=== PATIENT | female | born 1965 | race Caucasian/White ===

== ENCOUNTER 2020-01-26 20:12 | Emergency (ER) | payer MEDICARE, MEDICAID, SELFPAY ==
--- NOTE | ~2020-01-26 | XR_ITS ---
EXAMINATION: XR chest 1V portable INDICATION: Shortness of breath and cough TECHNIQUE: Portable AP chest at 2047 hours COMPARISON: 07/24/2018 FINDINGS: There is stable cardiomegaly. A mild diffuse interstitial pattern is present. The lungs are hyperinflated. Chronic right basilar basilar atelectasis is stable. A dual-lead cardiac pacemaker of the left chest wall ends with leads in expected locations. No pneumothorax is identified. A small ri ght pleural effusion is stable. IMPRESSION: 1. Cardiomegaly with mild pulmonary edema. 2. Chronic small right pleural effusion. Reviewed, dictated and finalized at location A.
--- NOTE | ~2020-01-26 | CT_ITS ---
EXAMINATION: CT chest wo con DATE: 01/26/2020 21:44 INDICATION: Shortness of breath TECHNIQUE: Computed tomography (CT) of the chest was performed without intravenous contrast. The dose -length product (DLP) was 174.53 mGy-cm. Automated exposure control and iterative reconstruction tech [employer]-transfection were employed. COMPARISON: 10/16/2003 FINDINGS: Cardiomegaly is noted. There is a moderate-sized pericardial effusion. A small chronic righ t pleural effusion is noted. There is chronic volume loss and architectural distortion of the right u pper lobe. There is no pneumothorax. A dual-lead cardiac pacemaker of the left chest wall ends with l thiago in expected locations. No pathologically enlarged thoracic lymph nodes are identified. There is atrophy of the kidneys. Extensive calcified atherosclerosis is noted, particularly in the visualized upper abdomen. There is calcified coronary artery atherosclerosis. Widespread sclerosis of the visual ized osseous structures likely reflects renal osteodystrophy. IMPRESSION: 1. Cardiomegaly. 2. Moderate-sized pericardial effusion. 3. Small chronic right pleural effusion. Reviewed, dictated and finalized at location A.
[2020-01-26 20:23] VITALS: BP 134/62; PULSE 117; RESP 30; TEMP 36.7; O2SAT 86
--- NOTE | 2020-01-26 20:23 | ECG_ITS ---
Measurements Intervals [place] Rate: 43 P: [place]: 0 QRS: 167 QRSD: 94 T: 137 QT: 590 QTc: 499 Interpretive Statements SINUS TACHYCARDIA VENTRICULAR PREMATURE COMPLEXES BORDERLINE R WAVE PROGRESSION, ANTERIOR LEADS BORDERLINE T WAVE ABNORMALITY- HIGH LATERAL LEADS BASELINE ARTIFACT- I, II, AVR, AVL, AVF, V1-V6 ABNORMAL ECG Electronically Signed On 01-27-2020 6:40:41 CDT by Gregorio Tristan D.O.
--- NOTE | 2020-01-26 20:27 | PC.NURSE ---
pt placed on 2 L o2 a this time. pt 96% on 2 L
[2020-01-26 20:33] VITALS: O2SAT 95
[2020-01-26 20:35] LABS: Hematocrit 38.8 % (37.0-47.0); Hemoglobin 11.9 g/dL (12.0-15.0); Mean Corpuscular HGB Conc 30.7 g/dl (32-36); Mean Corpuscular Volume 104.3 fl (80-100); Mean Platelet Volume 12.7 fl (7.4-10.4); Platelet Count Result 80 k/mm3 (150-375); Red Blood Count 3.72 M/mm3 (4.2-5.4); Red Cell Distribution Width 15.1 % (11.5-14.5); White Blood Count 15.5 K/mm3 (4.5-10.0)
--- NOTE | 2020-01-26 20:36 | PC.NURSE ---
PT PRESENTS TO ED WITH LEFT UPPER ARM FISTULA + FOR BRUIT AND THRILL. PT STATES THAT SHE HAD HER FULL HD TREATMENT ON Sunday01/23/2020, BUT DID NOT GO TO HD TODAY BECAUSE SHE FELT SO BAD. PT STATES HER NORMAL HD DAYS ARE // AND SHE GOES TO [facility] IN [place].
[2020-01-26 20:45] LABS: INR 1.1; Prothrombin Time 14.2 Seconds (11.1-14.7)
[2020-01-26 20:47] LABS: Anion Gap 14 mmol/L (8-16); Blood Urea Nitrogen 36 mg/dL (7-17); Calcium 8.8 mg/dL (8.4-10.2); Carbon Dioxide 24 mmol/L (22-30); Chloride 96 mmol/L (98-107); Estimated Glomerular Filt Rate 6; Glucose 172 mg/dL (65-105); Potassium 4.6 mmol/L (3.4-5.0); Sodium 134 mmol/L (137-145)
[2020-01-26 20:55] LABS: Band Neutrophils Percent 16 % (0-6); Lymphocytes Absolute Manual 1.24 K/mm3 (1.1-4.5); Monocytes Absolute Manual 0.31 K/mm3 (0.1-0.90); Monocytes Percent Manual 2 % (3-9); Neutrophils Absolute Manual 13.95 K/mm3 (1.7-7.2); Neutrophils Percent Manual 74 % (46-73); Total Cells Counted 100
[2020-01-26 20:56] LABS: Anisocytosis 2+ (NORMAL); Platelet Estimate Decreased (Adequate)
[2020-01-26 20:57] LABS: Hypochromasia 1+ (NORMAL); NT Pro B Type Natriuretic Pept > 35000 PG/ML (5-100)
[2020-01-26] MEDS: methylPREDNISolone SOD SUCC 125 MG VIAL IV PUSH (21:00)
[2020-01-26] MEDS: ALBUTEROL SULFATE NEB 2.5 MG/0.5 ML INH 5 MG INHALATION (21:11)
[2020-01-26] MEDS: IPRATROPIUM BR 0.02% INH SOLN 0.5 MG/2.5 ML VIAL INHALATION (21:12)
[2020-01-26 21:15] VITALS: PULSE 114; RESP 40
[2020-01-26 21:20] LABS: Troponin I 0.158 ng/mL (0.000-0.034)
[2020-01-26 21:25] VITALS: PULSE 116; RESP 28
[2020-01-26] MEDS: ASPIRIN 81 MG CHEWABLE TABLET 324 MG PO (21:48)
[2020-01-26 22:16] LABS: Alveolar/Arterial O2 Gradient 107.7 mmHg; Base Excess ABG -2.4 mEq/l (+/-2.0); Carboxyhemoglobin 0.8 % THb (0-2.0); Fractional Inspired Oxygen 32 %; HCO3 ABG 23.3 mEq/l (22.0-26.0); Methemoglobin ABG 0.2 %THb (0-1.5); Oxygen Content ABG 14.6 %vol (16.0-22.0); Oxyhemoglobin 92.2 % THb (90.0-100.0); PCO2 ABG 43.7 mmHg (35.0-45.0); PO2 ABG 69.3 mmHg (80.0-100.0); PO2 FiO2 Ratio Arterial Blood 2.17 %; Reduced Hemoglobin 6.8 %THb (0-5.0); Total Hemoglobin 11.2 g/dL (12.0-18.0); pH ABG 7.344 (7.350-7.450)
[2020-01-26 22:17] LABS: Lactic Acid Reflex 1.3 mmol/L (0.7-2.1)
[2020-01-26 22:18] LABS: Device NASAL CANNULA; Modified Allen's Test Pass; Site Drawn RIGHT RADIAL
[2020-01-26 22:47] VITALS: BP 88/46; PULSE 97; RESP 24; TEMP 38.6; O2SAT 97
--- NOTE | 2020-01-26 23:06 | ED.SOB ---
HPI - SOB/Dyspnea General Chief Complaint: Shortness of Breath/Dyspnea Stated Complaint: sob Time Seen by Provider: 01/26/20 20:29 Source: patient History of Present Illness HPI Narrative: Pt c/o sob, started today, h/o COPD and CHF. Denies any chest pain, fever, abd pain, n/v/d or urinary symptoms. Related Data Home Medications Medication Instructions Recorded Confirmed albuterol sulfate 04/09/19 albuterol sulfate [Ventolin HFA] 1 - 2 inh INHALATION Q4-6H PRN 04/09/19 alprazolam 0.5 mg PO HS 04/09/19 carvedilol 25 mg PO BID 04/09/19 clopidogrel 75 mg PO DAILY 04/09/19 furosemide 40 04/09/19 insulin aspart U-100 [Novolog 12 unit SUBCUT QACLUNCH 04/09/19 U-100 Insulin aspart] insulin glargine [Basaglar KwikPen 40 unit SUBCUT HS 04/09/19 U-100 Insulin] midodrine 5 mg PO 3XW 01/27/20 Allergies Allergy/AdvReac Type Severity Reaction Status Date / Time No Known Allergies Allergy Verified 01/26/20 20:36 Review of Systems Review of Systems: All systems reviewed & are unremarkable except as noted in HPI and below Constitutional: Constitutional: Denies body ache(s), Denies chills, Denies excessive sweating, Denies fatigue, Denies fever(s), Denies headache(s), Denies lethargy, Denies malaise, Denies weakness and Denies weight loss Eyes: Eyes: Denies blurry vision, Denies change in vision and Denies loss of vision ENT: Denies dizziness, Denies ear discharge, Denies headache(s), Denies lip swelling, Denies epistaxis, Denies nasal congestion, Denies neck pain, Denies throat swelling and Denies tongue swelling Cardiovascular: Cardiovascular: Denies chest pain, Denies chest pain at rest, Denies chest pain with activity, Denies diaphoresis, Denies rapid heart rate, Denies edema, Denies irregular heart rhythm, Denies lightheadedness, Denies palpitations, Denies dyspnea and Denies dyspnea on exertion Respiratory: Respiratory: Denies chest congestion, Reports cough, Denies hemoptysis and Reports dyspnea Gastrointestinal: Gastrointestinal: Denies abdominal pain, Denies melena, Denies hematochezia, Denies diarrhea, Denies nausea, Denies vomiting and Denies hematemesis Musculoskeletal: Musculoskeletal: Denies abnormal gait, Denies deformity, Denies joint swelling, Denies limited range of motion, Denies neck pain and Denies numbness Neurologic: Denies Abnormal speech present, Denies abnormal gait, Denies confusion, Denies dizziness, Denies headache(s), Denies focal weakness, Denies loss of vision, Denies numbness, Denies Other visual disturbances, Denies Sensory deficit (Neuro) and Denies weakness Psychiatric: Psychiatric: Denies confusion, Denies depression, Denies auditory hallucinations, Denies homicidal ideation and Denies suicidal ideation Endocrine: Endocrine: Denies cold intolerance, Denies excessive sweating, Denies fatigue, Denies heat intolerance and Denies palpitations Hematologic/Lymphatic: Hematologic/Lymphatic: Denies easy bleeding and Denies easy bruising Allergic/Immunologic: Allergic/Immunologic: Denies lip swelling, Denies throat swelling and Denies tongue swelling [facility] Social History Social History Smoking status: Current every day smoker Alcohol intake: current Gender identity (if verbalized by the patient): Female Exam Const: General: no acute distress (severe distress) and ill appearing HENMT: Head: normal to inspection General nose exam: Normal nares present Face and sinus: normal facial exam Eyes: Conjunctivae: conjunctivae normal Pupils: Equal, round and reactive pupils present EOM: EOMs intact bilaterally Resp: Effort & Inspection: labored (severe), retractions, tachypneic and uses accessory muscles Auscultation: rhonchi, wheezes and diminished lung sounds Cardio: Rate: tachycardic Rhythm: regular rhythm GI: GI Palp: Yes Soft to palpation Auscultation: normal bowel sounds Other: nn : Other: NON TENDER Skin: Ge
[2020-01-26] MEDS: ACETAMINOPHEN 325 MG TABLET 650 MG PO (23:12)
[2020-01-26] MEDS: LACTATED RINGERS 1,000 ML 999 ML IV CONT (23:16)
[2020-01-26 23:21] LABS: CRP 4.3 mg/dL (<1.0)
[2020-01-27] VITALS (12 sets, daily range): BP systolic 80–134; BP diastolic 40–88; PULSE 79–90; RESP 16–24; TEMP 36.4–36.8; O2SAT 96–100
[2020-01-27] MEDS: NOREPINEPHRINE 8 MG/D5W 250 ML 8 MG/250 ML BAG 13.1 MG IV CONT (01:45)
--- NOTE | 2020-01-27 04:10 | PC.NURSE ---
Called [facility] to transport patient. ETA [phone]
--- NOTE | 2020-01-27 04:17 | PC.NURSE ---
called [facility] to transport patient. Declined - they only have one truck until 9am
--- NOTE | 2020-01-27 04:19 | PC.NURSE ---
called [facility] to transport patient. declined
--- NOTE | 2020-01-27 04:21 | PC.NURSE ---
called [facility] to request transport. ETA would be 1 1/2 - 2 hour. Same as Ag[facility].
[2020-01-27] MEDS: ONDANSETRON INJ 4 MG/2 ML VIAL IV PUSH (05:07)
--- NOTE | 2020-01-27 06:03 | PC.NURSE ---
called [facility] for ETA update. ETA [phone]
--- NOTE | 2020-01-27 06:34 | PC.NURSE ---
[facility] called with ETA update of [id number]
[2020-01-27 13:55] LABS: SARS-CoV-2 RNA PCR Negative
== END 2020-01-27 08:11 | disposition short-term general hospital (02) ==
PROVIDERS: Emergency Provider Emergency Medicine; PCP Family Medicine
DX: A41.9 Sepsis, unspecified organism (principal); J96.01 Acute respiratory failure with hypoxia; I31.3 Pericardial effusion (noninflammatory); N18.6 End stage renal disease; I13.2 Hypertensive heart and chronic kidney disease with heart failure and with stage 5 chronic kidney disease, or end stage renal disease; E11.22 Type 2 diabetes mellitus with diabetic chronic kidney disease; Z79.4 Long term (current) use of insulin; I50.9 Heart failure, unspecified; F17.200 Nicotine dependence, unspecified, uncomplicated; J44.9 Chronic obstructive pulmonary disease, unspecified; Z20.828 Contact with and (suspected) exposure to other viral communicable diseases
CPT/HCPCS: 36415; 36600; 71045; 71250; 80048; 82375; 82805; 83050; 83605; 83880; 84484; 85025; 85610; 85730; 86140; 87040; 87077; 87186; 87635; 93005; 94640; 96361; 96365; 96366; 96367; 96368; 96375; 99285; A9270; C9803; J0456; J0696; J2405; J2930; J3370; J7120; U0003

== ENCOUNTER 2020-03-01 17:01 | Emergency (ER) | payer MEDICARE, MEDICAID, SELFPAY ==
[2020-03-01 17:15] VITALS: BP 117/49; PULSE 86; RESP 16; TEMP 36.3
--- NOTE | 2020-03-01 17:47 | ED.EAR ---
HPI - Ear Problem General Chief complaint: Ear Stated complaint: Ear Bleeding Source: patient and RN notes reviewed Limitations: no limitations History of Present Illness HPI Narrative: The patient- on multiple meds for IDDM, CAD, CKD(cre 5-6) on dialysis-presents with bleeding. Patient states that she is on aspirin and antiplatelet medications for recent cardiac stent placement last week. She was cleaning ears this morning and noticed scant bleeding from the external canal which has not completely resolved. She complains of mild bleeding that is worse with position changes better with compression or cotton insertion. Last month, her last available labs were satisfactory including H&H , INR 1.1 , PLT 80; no presyncope, vertigo, hearing loss, other bleeding. 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 Related Data Home Medications Medication Instructions Recorded Confirmed albuterol sulfate 2.5 mg INHALATION DIRECTED 04/09/19 03/01/20 albuterol sulfate [Ventolin HFA] 1 - 2 inh INHALATION Q4-6H PRN 04/09/19 03/01/20 alprazolam 0.5 mg PO HS 04/09/19 03/01/20 clopidogrel 75 mg PO DAILY 04/09/19 03/01/20 furosemide 40 mg PO DAILY 04/09/19 03/01/20 insulin aspart U-100 [Novolog 12 unit SUBCUT QACLUNCH 04/09/19 03/01/20 U-100 Insulin aspart] insulin glargine [Basaglar KwikPen 40 unit SUBCUT HS 04/09/19 03/01/20 U-100 Insulin] midodrine 5 mg PO 3XW 01/27/20 03/01/20 aspirin 81 mg PO DAILY 03/01/20 03/01/20 atorvastatin 80 mg PO DAILY 03/01/20 03/01/20 budesonide-formoterol [Symbicort] 2 inh INHALATION DAILY 03/01/20 03/01/20 metoprolol succinate 25 mg PO DAILY 03/01/20 03/01/20 Allergies Allergy/AdvReac Type Severity Reaction Status Date / Time No Known Allergies Allergy Verified 03/01/20 17:24 Review of Systems Review of Systems: Narrative: General/Constitutional: No weight loss,fever Eyes: N0: Redness,discharge Ears/Nose/Throat: No: Epistaxis, REPORTS mild bloody ear discharge Respiratory: Denies: Hemoptysis Gastrointestinal: No Vomiting, Bleeding-rectal Skin: No Lumps, eruption Neurologic: No Focal Weakness,Sz Hematologic: Denies: Petechiae/Purpura Psychiatric: No: Suicida ideationl All Other Systems: Reviewed and Negative [facility] Past Medical History Medical History (Updated 03/01/20 @ 19:16 by Gerald Montes MD) Arthropathy of right ankle Asthma Bronchitis CAD (coronary artery disease) CHF (congestive heart failure) COPD (chronic obstructive pulmonary disease) Diabetes mellitus Diabetic retinopathy End stage renal disease on dialysis Fistula HLD (hyperlipidemia) HTN (hypertension) Myocardial infarction Peripheral neuropathy Pneumonia UTI (urinary tract infection) Surgical History Surgical History AICD (automatic cardioverter/defibrillator) present H/O section H/O heart artery stent History of cardiac catheterization Social History Social History Smoking status: Current every day smoker Alcohol intake: current Gender identity (if verbalized by the patient): Female Comments At time of signature, agree with nursing past medical, surgical, social and family history. There is no relevant family history pertinent to the presenting complaint Exam Narrative: Exam Narrative: General Appearance: Aged appearing using a walker EYE: PERRLA, EOMI Ears: Left EAC with small tiny oozing anterior, mid canal abrasion; right external ear normal, Auditory canal normal Nose: Normal nose, Nares clear Mouth/Throat: Normal appearing, Normal lips Neck: Supple, No adenopathy Respiratory: Airway patent, No respiratory distress Skin: Warm, Dry Neurological: A&O x3, Normal affect Course Vital Signs Vital signs: Vital Signs Temperature 97.3 F L 03/01/20 17:15 Pulse Ra
== END 2020-03-01 17:49 | disposition home or self-care (01) ==
PROVIDERS: Emergency Provider Emergency Medicine; PCP Family Medicine
DX: D69.6 Thrombocytopenia, unspecified (principal); S00.412A Abrasion of left ear, initial encounter; X58.XXXA Exposure to other specified factors, initial encounter; F17.200 Nicotine dependence, unspecified, uncomplicated; I13.2 Hypertensive heart and chronic kidney disease with heart failure and with stage 5 chronic kidney disease, or end stage renal disease; E11.22 Type 2 diabetes mellitus with diabetic chronic kidney disease; N18.6 End stage renal disease; I50.9 Heart failure, unspecified; Z99.2 Dependence on renal dialysis; Z79.4 Long term (current) use of insulin; J44.9 Chronic obstructive pulmonary disease, unspecified; E11.42 Type 2 diabetes mellitus with diabetic polyneuropathy; I25.2 Old myocardial infarction; E78.5 Hyperlipidemia, unspecified; E11.319 Type 2 diabetes mellitus with unspecified diabetic retinopathy without macular edema; I25.10 Atherosclerotic heart disease of native coronary artery without angina pectoris; Z95.810 Presence of automatic (implantable) cardiac defibrillator; Z79.82 Long term (current) use of aspirin
CPT/HCPCS: 99212; G0463

== ENCOUNTER 2020-03-25 16:00 | Emergency (ER) | payer MEDICARE, MEDICAID, SELFPAY ==
[2020-03-25 16:09] VITALS: BP 118/63; PULSE 87; RESP 20; TEMP 36.8; O2SAT 85
--- NOTE | 2020-03-25 16:12 | ED.SKABFB ---
HPI - Skin/Abscess/Foreign Bdy General Chief complaint: Skin/Abscess/Foreign Body Stated complaint: Crack on Foot Time Seen by Provider: 03/25/20 16:14 Source: patient and RN notes reviewed History of Present Illness HPI narrative: Patient is a 54-year-old female who presents the urgent care with complaints of cracks to the bottom of the left foot/heel. Patient states they have been there for approximately 3 weeks and home health care has been coming to her house using iodine swabs, wound wash, vitamin D and Neosporin. Patient states that she has also been using [employer] lotion to the area. States that she has been unable to get into see her PCP until Sunday this coming week but was speaking to home health regarding a possible referral to wound care. Patient denies of any recent fevers, nausea, vomiting. States that the pain has increased and the prescription tramadol has not really been helping . States that she always has low oxygen and they were always having issues getting a good reading on the pulse ox. Patient states that she is not having any increase shortness of breath and does use oxygen at home as needed. No other acute complaints. No acute distress noted. Patient aware of the plan of care. Some parts of this dictation were generated by voice recognition software and may contain typographical and/or grammatical inaccuracies. Related Data Home Medications Medication Instructions Recorded Confirmed alprazolam 1 mg PO TID 03/25/20 03/25/20 aspirin 1 mg PO DAILY 03/25/20 03/25/20 atorvastatin 1 mg PO HS 03/25/20 03/25/20 carvedilol 1 mg PO DAILY 03/25/20 03/25/20 clopidogrel 1 mg PO DAILY 03/25/20 03/25/20 insulin glargine [Basaglar KwikPen SUBCUT 03/25/20 U-100 Insulin] metoprolol succinate PO 03/25/20 Allergies Allergy/AdvReac Type Severity Reaction Status Date / Time No Known Allergies Allergy Verified 03/25/20 16:23 Review of Systems Review of Systems: Narrative: CONSTITUTIONAL: Denies fever, chills, or sweats. EYES: Denies visual changes, redness, or discharge. ENT: Denies rhinorrhea, congestion, sore throat, or otalgia. CARDIOVASCULAR: Denies chest pain, palpitations, or edema. RESPIRATORY: Denies cough or dyspnea. GASTROINTESTINAL: Denies abdominal pain, nausea, vomiting, or diarrhea. GENITOURINARY: Denies dysuria or hematuria. SKIN: Reports of painful wounds/cracks to the bottom of the left foot/heel MUSCULOSKELETAL: Denies back pain, joint pain, or myalgia. NEUROLOGIC: Denies headache, numbness, or weakness. All other systems reviewed are negative, except as documented in HPI. [facility] Past Medical History Medical History (Updated 03/25/20 @ 16:34 by YOSEPH Lowe) Arthropathy of right ankle Asthma Bronchitis CAD (coronary artery disease) CHF (congestive heart failure) COPD (chronic obstructive pulmonary disease) Diabetes mellitus Diabetic retinopathy End stage renal disease on dialysis Fistula HLD (hyperlipidemia) HTN (hypertension) Myocardial infarction Peripheral neuropathy Pneumonia UTI (urinary tract infection) Surgical History Surgical History AICD (automatic cardioverter/defibrillator) present H/O section H/O heart artery stent History of cardiac catheterization Social History Social History Smoking status: Current every day smoker Alcohol intake: current Gender identity (if verbalized by the patient): Female Comments At the time of my signature, I reviewed and agree with the nursing past medical, surgical, social, and family history. There is no relevant family history pertinent to the patient complaint. Exam Narrative: Exam Narrative: GENERAL: This is a well-nourished, well-developed patient, in no apparent distress. HEAD: normocephalic, atraumatic. EYES: PERRL. Sclera clear/white. Vision is grossly intact. EARS: Exte
== END 2020-03-25 16:37 | disposition home or self-care (01) ==
PROVIDERS: Emergency Provider Nurse Practitioner Family; PCP Family Medicine
DX: S91.302A Unspecified open wound, left foot, initial encounter (principal); L03.116 Cellulitis of left lower limb; X58.XXXA Exposure to other specified factors, initial encounter; F17.200 Nicotine dependence, unspecified, uncomplicated; I25.10 Atherosclerotic heart disease of native coronary artery without angina pectoris; J44.9 Chronic obstructive pulmonary disease, unspecified; I13.2 Hypertensive heart and chronic kidney disease with heart failure and with stage 5 chronic kidney disease, or end stage renal disease; E11.22 Type 2 diabetes mellitus with diabetic chronic kidney disease; N18.6 End stage renal disease; I50.9 Heart failure, unspecified; Z99.2 Dependence on renal dialysis; E11.319 Type 2 diabetes mellitus with unspecified diabetic retinopathy without macular edema; E78.5 Hyperlipidemia, unspecified; I25.2 Old myocardial infarction; E11.42 Type 2 diabetes mellitus with diabetic polyneuropathy; Z95.810 Presence of automatic (implantable) cardiac defibrillator; Z95.5 Presence of coronary angioplasty implant and graft; Z79.4 Long term (current) use of insulin; Z79.82 Long term (current) use of aspirin
CPT/HCPCS: 99213; G0463

== ENCOUNTER 2020-03-29 11:15 | Emergency (ER) | payer MEDICARE, MEDICAID, SELFPAY ==
--- NOTE | ~2020-03-29 | XR_ITS ---
EXAMINATION: XR chest 1V portable DATE: 03/29/2020 11:58 INDICATION: Shortness of breath. TECHNIQUE: A single frontal view of the chest was obtained. COMPARISON: Chest single view 01/26/2020, chest CT 01/26/2020 FINDINGS: There are surgical clips from right upper lobectomy. There is mild scarring at right lung a pex. There are lucencies in the upper lungs, consistent with emphysema. There is a small right pleura l effusion. There are mild airspace opacities in right mid and lower lung zones and left lower lung z one. No pneumothorax. Cardiomegaly is noted. There is a left chest wall pacer with leads in the right atrium and right ventricle. Calcified mediastinal lymph nodes are consistent with old granulomatous disease. IMPRESSION: 1. Worsened airspace opacities in right mid and lower lung zones and left lower lung zone, consistent with atelectasis versus pneumonia. 2. Emphysema. 3. Worsened small right pleural effusion. 4. Cardiomegaly. Reviewed, dictated and finalized at location A. TY HUNTER
--- NOTE | 2020-03-29 11:18 | ECG_ITS ---
Measurements Intervals [place] Rate: 85 P: 66 HI: 166 QRS: 118 QRSD: 91 T: 28 QT: 377 QTc: 450 Interpretive Statements SINUS RHYTHM RIGHT AXIS DEVIATION INCOMPLETE RIGHT BUNDLE BRANCH BLOCK BORDERLINE T WAVE ABNORMALITY- INF/LAT LEADS BASELINE ARTIFACT- I, II, AVR, V1 BORDERLINE ECG Electronically Signed On 03-29-2020 13:24:00 [employer] by Gregorio Tristan D.O.
[2020-03-29 11:36] VITALS: BP 119/87; PULSE 92; RESP 18; TEMP 36.5; O2SAT 100
--- NOTE | 2020-03-29 11:46 | ED.GENADULT ---
HPI - General Adult General Chief complaint: Shortness of Breath/Dyspnea Stated complaint: SOB Time Seen by Provider: 03/29/20 11:16 Source: patient History of Present Illness HPI narrative: Juvenal is a 54 y/o female complaining of severe SOB since 7:30 AM. There is no alleviating or exacerbating factor. She has slight cough and chest pain, but no fever. She states that she has COPD and she is on home O2 3L/NC. She has ESRD and she is on HD MWF. Related Data Home Medications Medication Instructions Recorded Confirmed alprazolam 1 mg PO TID 03/25/20 03/25/20 aspirin 1 mg PO DAILY 03/25/20 03/25/20 atorvastatin 1 mg PO HS 03/25/20 03/25/20 carvedilol 1 mg PO DAILY 03/25/20 03/25/20 clopidogrel 1 mg PO DAILY 03/25/20 03/25/20 insulin glargine [Basaglar KwikPen SUBCUT 03/25/20 U-100 Insulin] metoprolol succinate PO 03/25/20 alprazolam 03/29/20 tramadol mg 03/29/20 Allergies Allergy/AdvReac Type Severity Reaction Status Date / Time No Known Allergies Allergy Verified 03/25/20 16:23 Review of Systems Constitutional: Constitutional: Denies chills, Denies fever(s), Denies headache(s) and Denies weakness Eyes: Eyes: Denies blurry vision ENT: Denies headache(s) and Denies neck pain Cardiovascular: Cardiovascular: Reports chest pain and Reports dyspnea Respiratory: Respiratory: Reports cough and Reports dyspnea Gastrointestinal: Gastrointestinal: Denies abdominal pain, Denies diarrhea, Denies nausea and Denies vomiting Genitourinary: Genitourinary: Denies hematuria and Denies dysuria Musculoskeletal: Musculoskeletal: Denies back pain, Denies neck pain and Reports other (left heel pain) Neurologic: Denies headache(s) and Denies weakness [facility] Past Medical History Medical History (Updated 03/29/20 @ 17:31 by Bhavna Luciano MD) Arthropathy of right ankle Asthma Bronchitis CAD (coronary artery disease) CHF (congestive heart failure) COPD (chronic obstructive pulmonary disease) Diabetes mellitus Diabetic retinopathy End stage renal disease on dialysis Fistula HLD (hyperlipidemia) HTN (hypertension) Myocardial infarction Peripheral neuropathy Pneumonia UTI (urinary tract infection) Surgical History Surgical History AICD (automatic cardioverter/defibrillator) present H/O section H/O heart artery stent History of cardiac catheterization Social History Social History Smoking status: Current every day smoker Alcohol intake: current Gender identity (if verbalized by the patient): Female Exam Const: General: no acute distress and well developed Orientation/consciousness: oriented to person, oriented to place, oriented to time and patient oriented x3 HENMT: Head: normocephalic Ears: external ears normal General nose exam: Normal external nose present Eyes: General: appearance normal, both eyes and all related structures Conjunctivae: conjunctivae normal Neck: Neck: normal visual inspection and full ROM Chest: Chest palpation & inspection: normal inspection of the chest and no tenderness Resp: Effort & Inspection: normal respiratory effort Auscultation: wheezes Cardio: Rate: regular rate Rhythm: regular rhythm GI: GI Palp: No abdominal tenderness and Yes Soft to palpation Skin: General skin exam: normal color and turgor normal Wounds: wounds noted (skin crack left heel) Neuro: General: oriented to person, oriented to place, oriented to time and patient oriented x3 Cognition (Neuro): normal cognition Extrem: General: normal to inspection, full ROM and no pedal edema Psych: Appearance: grossly normal Mental Status: mental status grossly normal Affect: normal affect Course Reevaluation(s) Reevaluation #1: Rechecked. She states that she is still SOB, but back to her baseline. She feels comfortable with going home. She denies any chest pain. Date: 03/29/20 Time:
[2020-03-29 12:10] LABS: Alveolar/Arterial O2 Gradient 70.5 mmHg; Base Excess ABG 3.7 mEq/l (+/-2.0); Fractional Inspired Oxygen 32 %; HCO3 ABG 30.5 mEq/l (22.0-26.0); Oxygen Content ABG 15.4 %vol (16.0-22.0); Oxygen Saturation ABG 96.3 % (95.0-100.0); PCO2 ABG 57.5 mmHg (35.0-45.0); PO2 ABG 90.4 mmHg (80.0-100.0); PO2 FiO2 Ratio Arterial Blood 2.83 %; Total Hemoglobin 11.3 g/dL (12.0-18.0); pH ABG 7.343 (7.350-7.450)
[2020-03-29 12:11] LABS: Device NASAL CANNULA; Site Drawn RIGHT BRACHIAL
[2020-03-29 14:04] LABS: Basophils Percent Auto 0.2 % (0.2-1.2); Eosinophils Percent Auto 0.3 % (0-4.4); Hematocrit 33.9 % (37.0-47.0); Immature Granulocyte Absolute 0.03 K/mm3 (0.00-0.031); Immature Granulocyte Percent A 0.3 % (0-0.5); Immature Platelet Fraction Pct 7.3 % (0.9-11.2); Lymphocytes Absolute Auto 0.94 K/mm3 (0.9-3.2); Lymphocytes Percent Auto 10.3 % (18.3-44.2); Mean Corpuscular HGB Conc 29.5 g/dl (32-36); Mean Corpuscular Hemoglobin 30.9 pg (26-34); Mean Corpuscular Volume 104.6 fl (80-100); Mean Platelet Volume 11.6 fl (7.4-10.4); Monocytes Absolute Auto 0.5 K/mm3 (0.1-0.6); Monocytes Percent Auto 5.5 % (2.6-8.5); Neutrophils Absolute Auto 7.6 K/mm3 (1.3-6.7); Neutrophils Percent Auto 83.4 % (45.5-73.1); Platelet Count Result 127 k/mm3 (150-375); Red Blood Count 3.24 M/mm3 (4.2-5.4); Red Cell Distribution Width 15.5 % (11.5-14.5); White Blood Count 9.1 K/mm3 (4.5-10.0)
[2020-03-29 14:08] VITALS: BP 121/68; PULSE 74; RESP 22; O2SAT 91
[2020-03-29 14:09] LABS: Troponin I 0.116 ng/mL (0.000-0.034)
--- NOTE | 2020-03-29 14:37 | PC.NURSE ---
Green top rejected by Lab. Called to have it redrawn by LAB
--- NOTE | 2020-03-29 16:03 | PC.NURSE ---
Lab called to get blood from pt.
[2020-03-29 16:50] VITALS: BP 100/43; PULSE 86; RESP 19; O2SAT 97
[2020-03-29 17:07] LABS: Troponin I 0.337 ng/mL (0.000-0.034)
[2020-03-29 17:15] LABS: Alanine Aminotransferase 23 U/L (4-35); Albumin Level 3.3 g/dL (3.5-5.1); Alkaline Phosphatase 336 U/L (38-126); Anion Gap 8 mmol/L (8-16); Aspartate Amino Transferase 36 U/L (14-36); Bilirubin,Total 0.6 mg/dL (0.2-1.3); Blood Urea Nitrogen 19 mg/dL (7-17); Calcium 7.9 mg/dL (8.4-10.2); Carbon Dioxide 33 mmol/L (22-30); Chloride 96 mmol/L (98-107); Estimated CRCL calculation 17 ml/min; Estimated Glomerular Filt Rate 12; Glucose 152 mg/dL (65-105); Potassium 4.7 mmol/L (3.4-5.0); Sodium 137 mmol/L (137-145)
[2020-03-29 17:29] LABS: NT Pro B Type Natriuretic Pept > 35000 PG/ML (5-100)
[2020-03-30 01:18] LABS: SARS-CoV-2 RNA PCR Negative
== END 2020-03-29 18:01 | disposition home or self-care (01) ==
PROVIDERS: Emergency Provider Emergency Medicine; PCP Family Medicine
DX: J44.1 Chronic obstructive pulmonary disease with (acute) exacerbation (principal); Z20.828 Contact with and (suspected) exposure to other viral communicable diseases; E11.22 Type 2 diabetes mellitus with diabetic chronic kidney disease; I13.2 Hypertensive heart and chronic kidney disease with heart failure and with stage 5 chronic kidney disease, or end stage renal disease; N18.6 End stage renal disease; Z99.2 Dependence on renal dialysis; Z79.4 Long term (current) use of insulin; Z99.81 Dependence on supplemental oxygen; I25.10 Atherosclerotic heart disease of native coronary artery without angina pectoris; E78.5 Hyperlipidemia, unspecified; I25.2 Old myocardial infarction; E11.42 Type 2 diabetes mellitus with diabetic polyneuropathy; Z95.810 Presence of automatic (implantable) cardiac defibrillator; F17.200 Nicotine dependence, unspecified, uncomplicated; Z95.5 Presence of coronary angioplasty implant and graft; I45.10 Unspecified right bundle-branch block; R94.31 Abnormal electrocardiogram [ECG] [EKG]
CPT/HCPCS: 36415; 36600; 71045; 80053; 82805; 83880; 84484; 85025; 85055; 87635; 93005; 99284; C9803; U0003

== ENCOUNTER 2020-04-04 10:25 | Inpatient (IN) | payer MEDICARE, MEDICAID, SELFPAY ==
[2020-04-04] VITALS (32 sets, daily range): BP systolic 54–154; BP diastolic 46–81; PULSE 68–83; RESP 15–27; TEMP 36–36.7; O2SAT 81–100; BMI 23.3
--- NOTE | ~2020-04-04 | XR_ITS ---
EXAMINATION: XR heel LT min 2V DATE: 04/04/2020 18:58 INDICATION: Left heel wound and callus. TECHNIQUE: 2 views of left calcaneus were obtained. COMPARISON: Left foot radiographs 01/21/2018 FINDINGS: Bone alignment is normal. No fracture. There is mild talonavicular joint osteoarthritis. Th ere is a skin defect at the heel. IMPRESSION: 1. No evidence of osteomyelitis. Reviewed, dictated and finalized at location A. [employer]
--- NOTE | ~2020-04-04 | US_ITS ---
EXAMINATION: US art doppler w press LE BI DATE: 04/06/2020 13:57 INDICATION: Peripheral arterial disease. TECHNIQUE: Segmental pressures and plethysmographic and Doppler waveforms of the brachial and lower e xtremity arteries were obtained. COMPARISON: Arterial Doppler and segmental pressures 03/14/2018 FINDINGS: Right brachial artery pressure was 92 mm Hg. The left brachial artery pressure was not measured due t o the dialysis access. The right thigh, below-knee, and ankle pressures could not be measured due to inability to cuff-occlu de the arteries. The right great toe-brachial index (TBI) is 0.76 (normal >= 0.65). Arterial Doppler waveforms are biphasic from common femoral artery to the ankle. The left high-thigh pressure index is 1.16. The left low-thigh pressure index is 0.62. The left below -knee and ankle pressures could not be measured due to inability to cuff-occlude the arteries. The le ft TBI is 0.57. Arterial Doppler waveforms are biphasic from common femoral artery to the ankle. IMPRESSION: 1. Normal right-sided TBI. No significant right-sided arterial occlusive disease. 2. Mildly decreased left TBI, consistent with left-sided arterial occlusive disease. Increased pressu re gradient between left upper and lower thigh suggests arterial occlusive disease in the thigh. Reviewed, dictated and finalized at location A. [employer] ACCOUNT SUPERVISOR IMPRESSION: 1. Normal right-sided TBI. No significant right-sided arterial occlusive diseas e. 2. Mildly decreased left TBI, consistent with left-sided arterial occlusive dis ease. Increased pressure gradient between left upper and lower thigh suggests a rterial occlusive disease in the thigh.
--- NOTE | ~2020-04-04 | XR_ITS ---
XR chest 1V portable DATE: 04/04/2020 11:17 INDICATION: Shortness of breath. History of COPD. TECHNIQUE: Portable AP chest on 04/04/2020 at 1107 hours COMPARISON: 03/29/2020 portable AP chest at 1152 hours FINDINGS: Left-sided pacemaker device overlying right atrium and right ventricle. Cardiomegaly. Aorti c calcification. There is mild right pleural effusion. There is infiltrate and/atelectasis in the lower lung zones, ri ght greater than left. Diffuse osteopenia. IMPRESSION: Cardiomegaly, aortic atherosclerosis Left-sided pacemaker device Bilateral lower lung infiltrate and/atelectasis, right greater than left Mild right pleural effusion Reviewed, dictated and finalized at location A. [employer]
--- NOTE | 2020-04-04 10:28 | ECG_ITS ---
Measurements Intervals [place] Rate: 77 P: 65 [place]: 165 QRS: 108 QRSD: 93 T: 48 QT: 413 QTc: 468 Interpretive Statements SINUS RHYTHM RIGHT AXIS DEVIATION LOW QRS VOLTAGE- DIFFUSE LEADS INCOMPLETE RIGHT BUNDLE BRANCH BLOCK CANNOT RULE OUT SEPTAL INFARCT, AGE INDETERMINATE BORDERLINE ST-T WAVE ABNORMALITY- INF/LAT LEADS BASELINE ARTIFACT- I, II, III, AVR, AVL, AVF, V1-V2 ABNORMAL ECG Electronically Signed On 04-04-2020 15:44:07 [employer] by Gregorio Tristan D.O.
--- NOTE | 2020-04-04 10:53 | ED.SOB ---
HPI - SOB/Dyspnea General Chief Complaint: Shortness of Breath/Dyspnea Stated Complaint: sob History of Present Illness HPI Narrative: History limited by medical condition Brought in by EMS from home. EMS call was for SOB. She was found to be hypoxic. Additionally her blood sugar was reading low. She is a dialysis patient she denies missing any sessions. No fever. Related Data Home Medications Medication Instructions Recorded Confirmed alprazolam 1 mg PO TID 03/25/20 03/25/20 aspirin 1 mg PO DAILY 03/25/20 03/25/20 atorvastatin 1 mg PO HS 03/25/20 03/25/20 carvedilol 1 mg PO DAILY 03/25/20 03/25/20 clopidogrel 1 mg PO DAILY 03/25/20 03/25/20 insulin glargine [Basaglar KwikPen SUBCUT 03/25/20 U-100 Insulin] metoprolol succinate PO 03/25/20 alprazolam 03/29/20 tramadol mg 03/29/20 Allergies Allergy/AdvReac Type Severity Reaction Status Date / Time No Known Allergies Allergy Verified 03/25/20 16:23 Review of Systems Review of Systems: ROS unobtainable: Yes unobtainable due to medical condition [facility] Past Medical History Medical History (Updated 04/04/20 @ 17:07 by Abdiel Trejo MD) Arthropathy of right ankle Asthma Bronchitis CAD (coronary artery disease) CHF (congestive heart failure) COPD (chronic obstructive pulmonary disease) Diabetes mellitus Diabetic retinopathy End stage renal disease on dialysis Fistula HLD (hyperlipidemia) HTN (hypertension) Myocardial infarction Peripheral neuropathy Pneumonia UTI (urinary tract infection) Surgical History Surgical History AICD (automatic cardioverter/defibrillator) present H/O section H/O heart artery stent History of cardiac catheterization Social History Social History Smoking status: Current every day smoker Alcohol intake: current Gender identity (if verbalized by the patient): Female Exam Const: General: ill appearing acutely and chronically Orientation/consciousness: patient oriented x3 Other: Moderate distress. Somnolent HENMT: Head: normal to inspection Eyes: Pupils: Equal, round and reactive pupils present Resp: Effort & Inspection: labored and tachypneic Cardio: Rate: regular rate Rhythm: regular rhythm GI: GI Palp: Yes Soft to palpation and No Tenderness to palpation present (GI) Neuro: General: patient oriented x3 and moves all extremities Speech: normal speech Other: Somnolent Extrem: General: no edema Other: LUE fistula Course Vital Signs Vital signs: Vital Signs Pulse Rate 77 04/04/20 10:37 Respiratory Rate 25 H 04/04/20 10:37 Temperature 36.7 C 04/04/20 10:55 Pulse Rate 71 04/04/20 15:59 Respiratory Rate 18 04/04/20 15:59 Blood Pressure 111/56 L 04/04/20 15:59 Pulse Oximetry 100 04/04/20 15:59 MDM - SOB/Dyspnea Medical Records Attestation: I reviewed the patient's medical records. Lab Data Attestation: I reviewed the patient's lab results. Result diagrams: 04/04/20 10:50 04/04/20 10:50 Labs: Lab Results 04/04/20 04/04/20 04/04/20 Range/Units 10:29 10:43 10:50 WBC (4.5-10.0) K/mm3 RBC (4.2-5.4) M/mm3 Hgb (12.0-15.0) g/dL Hct (37.0-47.0) % MCV (80-100) fl MCH (26-34) pg MCHC (32-36) g/dl RDW (11.5-14.5) % Plt Count (150-375) k/mm3 MPV (7.4-10.4) fl Immature Gran % (Auto) (0-0.5) % Neut % (Auto) (45.5-73.1) % Lymph % (Auto) (18.3-44.2) % [place] % (Auto) (2.6-8.5) % Eos % (Auto) (0-4.4) % Baso % (Auto) (0.2-1.2) % Lymph # (Auto) (0.9-3.2) K/mm3 [place] # (Auto) (0.1-0.6) K/mm3 Eos # (Auto) (0-0.3) K/mm3 Baso # (Auto) (0.0-0.1) K/mm3 Abs Immat Gran (auto) (0.00-0.031) K/mm3 Absolute Neuts (auto) (1.3-6.7) K/mm3 Absolute Nucleated RBC (0.0-0.012) K/mm3 Nucleated RBC % (0.0-0.2) % PT
[2020-04-04] MEDS: DEXTROSE 50% 25 GM/50 ML SYRINGE IV PUSH (10:54)
[2020-04-04] MEDS: DEXTROSE 50% 25 GM/50 ML SYRINGE (10:55)
[2020-04-04 10:58] LABS: Glucose Point of Care 56 (65-105)
[2020-04-04 10:58] LABS: Glucose Point of Care 154 (65-105)
[2020-04-04 10:58] LABS: Glucose Point of Care < 20 (65-105)
[2020-04-04 11:14] LABS: Basophils Percent Auto 0.1 % (0.2-1.2); Eosinophils Percent Auto 0.1 % (0-4.4); Hematocrit 36.6 % (37.0-47.0); Immature Granulocyte Absolute 0.04 K/mm3 (0.00-0.031); Immature Granulocyte Percent A 0.4 % (0-0.5); Lymphocytes Absolute Auto 0.87 K/mm3 (0.9-3.2); Lymphocytes Percent Auto 9.1 % (18.3-44.2); Mean Corpuscular HGB Conc 30.1 g/dl (32-36); Mean Corpuscular Hemoglobin 30.8 pg (26-34); Mean Corpuscular Volume 102.5 fl (80-100); Mean Platelet Volume 11.6 fl (7.4-10.4); Monocytes Absolute Auto 0.5 K/mm3 (0.1-0.6); Monocytes Percent Auto 5.4 % (2.6-8.5); Neutrophils Absolute Auto 8.1 K/mm3 (1.3-6.7); Neutrophils Percent Auto 84.9 % (45.5-73.1); Platelet Count Result 142 k/mm3 (150-375); Red Blood Count 3.57 M/mm3 (4.2-5.4); White Blood Count 9.6 K/mm3 (4.5-10.0)
[2020-04-04 11:27] LABS: Lactic Acid Reflex 0.9 mmol/L (0.7-2.1)
[2020-04-04 11:28] LABS: Alanine Aminotransferase 25 U/L (4-35); Albumin Level 3.7 g/dL (3.5-5.1); Alkaline Phosphatase 333 U/L (38-126); Anion Gap 8 mmol/L (8-16); Aspartate Amino Transferase 43 U/L (14-36); Bilirubin,Total 0.6 mg/dL (0.2-1.3); Blood Urea Nitrogen 27 mg/dL (7-17); Calcium 8.1 mg/dL (8.4-10.2); Carbon Dioxide 33 mmol/L (22-30); Chloride 93 mmol/L (98-107); Estimated CRCL calculation 12 ml/min; Estimated Glomerular Filt Rate 9; Glucose 154 mg/dL (65-105); Potassium 5.2 mmol/L (3.4-5.0); Sodium 134 mmol/L (137-145)
[2020-04-04 11:29] LABS: INR 1.1; Prothrombin Time 15.1 Seconds (11.1-14.7)
[2020-04-04 11:30] LABS: Partial Thromboplastin Time 34.5 SECONDS (22.3-36.8)
[2020-04-04 11:33] LABS: Alveolar/Arterial O2 Gradient 60.2 mmHg; Base Excess ABG -0.2 mEq/l (+/-2.0); Fractional Inspired Oxygen 40 %; HCO3 ABG 27.6 mEq/l (22.0-26.0); Oxygen Content ABG 15.9 %vol (16.0-22.0); Oxygen Saturation ABG 98.7 % (95.0-100.0); Oxyhemoglobin 97.9 % THb (90.0-100.0); PO2 ABG 155.5 mmHg (80.0-100.0); PO2 FiO2 Ratio Arterial Blood 3.89 %; Total Hemoglobin 11.3 g/dL (12.0-18.0)
[2020-04-04 11:34] LABS: Device NON-INVASIVE VENT; PCO2 ABG 60.4 mmHg (35.0-45.0); Site Drawn RIGHT BRACHIAL; pH ABG 7.277 (7.350-7.450)
[2020-04-04 11:35] LABS: Non-Invasive Expiratory Pressure 6 CMH2O; Non-Invasive Inspiratory Pressure 12 CMH2O; Non-Invasive Vent Rate 4 /MIN
[2020-04-04 11:44] LABS: NT Pro B Type Natriuretic Pept > 35000 PG/ML (5-100); Troponin I 0.154 ng/mL (0.000-0.034)
[2020-04-04 11:57] LABS: CRP 1.1 mg/dL (<1.0)
[2020-04-04 13:16] LABS: Alveolar/Arterial O2 Gradient 145.2 mmHg; Base Excess ABG 2.1 mEq/l (+/-2.0); Fractional Inspired Oxygen 50 %; HCO3 ABG 29.1 mEq/l (22.0-26.0); Oxygen Content ABG 15.4 %vol (16.0-22.0); Oxygen Saturation ABG 98.7 % (95.0-100.0); Oxyhemoglobin 97.7 % THb (90.0-100.0); PCO2 ABG 57.7 mmHg (35.0-45.0); PO2 ABG 146.4 mmHg (80.0-100.0); PO2 FiO2 Ratio Arterial Blood 2.93 %; Site Drawn RIGHT BRACHIAL; pH ABG 7.321 (7.350-7.450)
[2020-04-04 13:17] LABS: Device NON-INVASIVE VENT; Non-Invasive Expiratory Pressure 6 CMH2O; Non-Invasive Inspiratory Pressure 12 CMH2O; Non-Invasive Vent Rate 4 /MIN
[2020-04-04] MEDS: ALBUTEROL SULFATE NEB 2.5 MG/0.5 ML INH 5 MG INHALATION ×2 (13:39→21:47)
[2020-04-04] MEDS: IPRATROPIUM BR 0.02% INH SOLN 0.5 MG/2.5 ML VIAL INHALATION ×2 (13:40→21:47)
--- NOTE | 2020-04-04 14:45 | PM.IMHP ---
H&P: HPI History of Present Illness Date/Time: 04/04/20 14:45. The patient was seen and evaluated in the emergency department. Chief complaint: Shortness of breath. Narrative: Paty Sow is an unfortunate 54-year-old female with type 1 diabetes mellitus, coronary artery disease, ischemic cardiomyopathy, chronic kidney disease, chronic respiratory failure on home oxygen, COPD, and several other comorbidities who presented to the emergency department earlier today via EMS from home for evaluation of shortness of breath. She has chronic dyspnea on exertion however over the last week or so she has had worsening shortness of breath than her baseline, and in fact she was seen in the emergency department on 03/29/2020 for evaluation of such. She felt much better with nebulizers and steroids received in the emergency department was able to be discharged home. Of note she was swabbed for COVID-19 at that time, which was negative. Sometime last evening she once again started feeling increasingly short of breath with wheezing at sounds like she had a pretty rough night due to the shortness of breath. She was also feeling very weak and was unable to get herself up to call for help until this morning, noting too that she was hypoglycemia throughout the night. In fact EMS documents that her glucose was 12 on their arrival but she was awake and talking despite being in respiratory distress with tachypnea and use of accessory muscles. Initial SpO2 was 80% and she was placed on non-rebreather with improvement in her sats. She was found to have acute on chronic hypercarbic and hypoxic respiratory failure is being admitted in this setting. At the time my evaluation she is much more comfortable on BiPAP and has no significant complaints. She stopped smoking within the last several months and has noticed that her chronic cough has improved significantly. She denies fever, chills, and sweats. No sinus congestion, rhinorrhea, otalgia, or odynophagia. She denies dysphagia and concerns for aspiration. No chest pain, pleuritic pain, or palpitations. No nausea or vomiting. She denies lower extremity edema, calf pain, and tenderness. Review of Systems Review of Systems: Narrative: Twelve systems are reviewed with pertinent positives and negatives as per HPI. No headache or neck ache. She denies sick contacts. No orthopnea, PND, or lower extremity edema. Dialysis days are Sunday, Sunday, and Sunday. No claudication. She was recently referred to the wound clinic given a large callused area on her heel which has cracked open and has been causing her discomfort. No blurry vision, polydipsia, polyuria. Except as documented, all other systems reviewed and are negative. [facility] Past Medical History Medical History (Updated 04/04/20 @ 22:24 by Alisha Ulloa PA-C) Anemia of chronic disease Anxiety Arthropathy of right ankle Asthma Bronchitis Chronic obstructive pulmonary disease Chronic respiratory failure with hypoxia, on home oxygen therapy Chronic systolic congestive heart failure Coronary artery disease With history of MT and stents. End-stage renal disease on hemodialysis Fistula Hyperlipidemia Hypertension Ischemic cardiomyopathy with implantable cardioverter-defibrillator (ICD) Myocardial infarction Type 1 diabetes mellitus Complicated by diabetic retinopathy, peripheral neuropathy, and nephropathy. Surgical History Surgical History (Updated 04/04/20 @ 19:12 by Alisha Ulloa PA-C) AICD (automatic cardioverter/defibrillator) present AV fistula History of ankle surgery (~08/2016) Right ankle ORIF. History of cardiac catheterization (~2009) With stents. History of section History of dilation and curettage Status post partial lobectomy of lung Right upper lobectomy at age 7 for unclear reasons. Family History Family History (Updated 04/04/20 @ 18:59 by Alisha Ulloa PA-C) Other Adopted Unknown family medical histor
--- NOTE | 2020-04-04 15:05 | PC.NURSE ---
PTs O2 dropped to 84-85 %. Called and spoke with Kaylene in respiratory and she stated that her blood gases are normal. Informed Charge of this and will inform FAVIAN Marshall.
[2020-04-04 15:35] LABS: Alveolar/Arterial O2 Gradient 180.8 mmHg; Base Excess ABG 3.6 mEq/l (+/-2.0); Carboxyhemoglobin 0.4 % THb (0-2.0); Fractional Inspired Oxygen 50 %; HCO3 ABG 31.5 mEq/l (22.0-26.0); Methemoglobin ABG 0.2 %THb (0-1.5); Oxygen Content ABG 14.9 %vol (16.0-22.0); Oxygen Saturation ABG 96.8 % (95.0-100.0); Oxyhemoglobin 96.2 % THb (90.0-100.0); PO2 ABG 101.3 mmHg (80.0-100.0); PO2 FiO2 Ratio Arterial Blood 2.03 %; Reduced Hemoglobin 3.2 %THb (0-5.0); Total Hemoglobin 10.9 g/dL (12.0-18.0); pH ABG 7.296 (7.350-7.450)
[2020-04-04 15:37] LABS: PCO2 ABG 66.1 mmHg (35.0-45.0)
[2020-04-04 15:38] LABS: Device BIPAP; Expiratory Pressure 6 cmH2O; Inspiratory Pressure 14 cmH2O; Modified Allen's Test Pass; Site Drawn RIGHT BRACHIAL
[2020-04-04 16:51] LABS: Alveolar/Arterial O2 Gradient 119.5 mmHg; Carboxyhemoglobin 0.8 % THb (0-2.0); Fractional Inspired Oxygen 40 %; HCO3 ABG 30.6 mEq/l (22.0-26.0); Methemoglobin ABG 0.3 %THb (0-1.5); Oxygen Content ABG 14.8 %vol (16.0-22.0); Oxygen Saturation ABG 96.2 % (95.0-100.0); Oxyhemoglobin 94.8 % THb (90.0-100.0); PO2 ABG 93.3 mmHg (80.0-100.0); PO2 FiO2 Ratio Arterial Blood 2.33 %; Reduced Hemoglobin 4.1 %THb (0-5.0); pH ABG 7.304 (7.350-7.450)
[2020-04-04 16:54] LABS: Device BIPAP; Modified Allen's Test Pass; Site Drawn LEFT BRACHIAL
[2020-04-04 16:55] LABS: Expiratory Pressure 8 cmH2O; Inspiratory Pressure 18 cmH2O
--- NOTE | 2020-04-04 18:18 | ADMGEN ---
This patient, Paty Sow, was admitted to IMU Room 213-01. Patient/family oriented to hospital policies and general routines including ID bracelet, bed and alarms, visiting hours, pain management, procedures, bathroom and other care routines, personal items, smoking policy, room service/diet, and visiting hours. Information on how to activate the Rapid Response Team has been discussed. Patient/Family are encouraged to report perceived risks to care and to ask questions if they do not understand what they are told or what they should do.
[2020-04-04 18:53] LABS: Glucose Point of Care 96 (65-105)
[2020-04-04 20:51] LABS: Glucose Point of Care 47 (65-105)
[2020-04-04] MEDS: GLUCOSE ORAL GEL 15 GM OF GLUCSE IN 37.5 GM TUBE PO (20:53)
[2020-04-04 21:43] LABS: Anion Gap 13 mmol/L (8-16); Blood Urea Nitrogen 26 mg/dL (7-17); Calcium 8.5 mg/dL (8.4-10.2); Carbon Dioxide 31 mmol/L (22-30); Chloride 93 mmol/L (98-107); Estimated CRCL calculation 11 ml/min; Estimated Glomerular Filt Rate 7; Glucose 107 mg/dL (65-105); Magnesium 2.1 mg/dL (1.6-2.3); Phosphorus 7.8 mg/dL (2.5-4.5); Potassium 4.2 mmol/L (3.4-5.0); Sodium 137 mmol/L (137-145)
[2020-04-04 21:45] LABS: Hemoglobin A1C 5.5 % (<5.7)
[2020-04-04 21:56] LABS: Troponin I 0.204 ng/mL (0.000-0.034)
[2020-04-04] MEDS: ALPRAZolam (*CRX) 0.5 MG TABLET 1 MG PO (22:31)
[2020-04-04 22:50] LABS: Folic Acid 7.7 ng/mL (2.76->20)
[2020-04-04] MEDS: ATORVASTATIN 40 MG TABLET 80 MG PO (22:55)
[2020-04-04] MEDS: MUPIROCIN 2% OINT 22 GM TUBE 1 APPLIC TOPICAL (22:55)
[2020-04-04] MEDS: methylPREDNISolone SOD SUCC 40 MG VIAL IV PUSH (22:56)
[2020-04-05] VITALS (28 sets, daily range): BP systolic 95–131; BP diastolic 48–67; PULSE 61–88; RESP 18–22; TEMP 14–37.6; O2SAT 92–100
[2020-04-05 00:10] LABS: Glucose Point of Care 155 (65-105)
[2020-04-05 00:38] LABS: Iron 91 ug/dL (37-170)
[2020-04-05 00:40] LABS: Percent Iron Saturation 36 % (20-50)
[2020-04-05] MEDS: IPRATROPIUM BR 0.02% INH SOLN 0.5 MG/2.5 ML VIAL INHALATION ×2 (03:39→08:30)
[2020-04-05] MEDS: ALBUTEROL SULFATE NEB 2.5 MG/0.5 ML INH 5 MG INHALATION ×2 (03:39→08:29)
[2020-04-05 03:41] LABS: Free T4 Free Thyroxine Reflex 1.32 ng/dL (0.78-2.19)
[2020-04-05 04:30] LABS: Hematocrit 33.4 % (37.0-47.0); Hemoglobin 9.9 g/dL (12.0-15.0); Immature Platelet Fraction Pct 8.3 % (0.9-11.2); Mean Corpuscular HGB Conc 29.6 g/dl (32-36); Mean Corpuscular Hemoglobin 30.7 pg (26-34); Mean Corpuscular Volume 103.4 fl (80-100); Mean Platelet Volume 11.9 fl (7.4-10.4); Platelet Count Result 108 k/mm3 (150-375); Red Blood Count 3.23 M/mm3 (4.2-5.4); Red Cell Distribution Width 14.9 % (11.5-14.5); White Blood Count 5.6 K/mm3 (4.5-10.0)
[2020-04-05] MEDS: traMADol HCL (*CRX) 50 MG TABLET PO ×2 (04:42→15:10)
[2020-04-05 04:58] LABS: Alanine Aminotransferase 24 U/L (4-35); Albumin Level 3.4 g/dL (3.5-5.1); Alkaline Phosphatase 316 U/L (38-126); Anion Gap 10 mmol/L (8-16); Aspartate Amino Transferase 39 U/L (14-36); Bilirubin,Total 0.5 mg/dL (0.2-1.3); Blood Urea Nitrogen 29 mg/dL (7-17); Calcium 8.1 mg/dL (8.4-10.2); Carbon Dioxide 30 mmol/L (22-30); Chloride 95 mmol/L (98-107); Estimated CRCL calculation 11 ml/min; Estimated Glomerular Filt Rate 7; Glucose 173 mg/dL (65-105); Potassium 4.6 mmol/L (3.4-5.0); Sodium 135 mmol/L (137-145)
[2020-04-05 05:07] LABS: Total Triiodothyronine (T3) 0.83 NG/ML (0.97-1.69)
[2020-04-05 05:24] LABS: Troponin I 0.174 ng/mL (0.000-0.034)
[2020-04-05 05:37] LABS: Alveolar/Arterial O2 Gradient 154.5 mmHg; Base Excess ABG 1.4 mEq/l (+/-2.0); Fractional Inspired Oxygen 40 %; HCO3 ABG 27.6 mEq/l (22.0-26.0); Oxygen Content ABG 11.8 %vol (16.0-22.0); Oxygen Saturation ABG 93.1 % (95.0-100.0); Oxyhemoglobin 92.6 % THb (90.0-100.0); PCO2 ABG 52.2 mmHg (35.0-45.0); PO2 ABG 70.7 mmHg (80.0-100.0); PO2 FiO2 Ratio Arterial Blood 1.77 %; pH ABG 7.341 (7.350-7.450)
[2020-04-05 05:38] LABS: Device NON-INVASIVE VENT; Modified Allen's Test Pass; Non-Invasive Expiratory Pressure 8 CMH2O; Non-Invasive Inspiratory Pressure 18 CMH2O; Non-Invasive Vent Rate 20 /MIN; Site Drawn RIGHT RADIAL
--- NOTE | 2020-04-05 08:21 | PM.IMPN ---
Progress Note: A&P Assessment and Plan (1) Acute on chronic respiratory failure with hypoxia and hypercapnia: Code(s): J96.21 - Acute and chronic respiratory failure with hypoxia; J96.22 - Acute and chronic respiratory failure with hypercapnia Status: Acute Assessment and Plan: -Continue BiPAP as needed, she can continue overnight. -chest x-ray shows bilateral infiltrates, likely fluid overload and atelectasis as patient has no leukocytosis or cough with sputum or fevers. I doubt this is pneumonia. Will continue azithromycin for anti-inflammatory properties -antibiotics: Azithromycin -steroids: 40 mg daily for COPD exacerbation diminished lung sounds -patient to have dialysis, will see if removing some fluid will resolve her symptoms, patient was back to her home oxygen level reported after BiPAP was taken out this morning, will re-evaluate tomorrow to see if she needs to continue steroids for COPD exacerbation worth this was all from fluid overload from her missing a round of dialysis (2) Hypoglycemia: Code(s): E16.2 - Hypoglycemia, unspecified Status: Acute (3) End-stage renal disease (ESRD): Code(s): N18.6 - End stage renal disease Status: Acute Assessment and Plan: Dr. Gallegos consulted for dialysis (4) Person under investigation for COVID-19: Code(s): Z20.828 - Contact with and (suspected) exposure to other viral communicable diseases Status: Acute Assessment and Plan: COVID-19 negative, no longer a PUI (5) Chronic obstructive pulmonary disease: Qualifiers: COPD type: unspecified COPD Qualified Code(s): J44.9 - Chronic obstructive pulmonary disease, unspecified Code(s): J44.9 - Chronic obstructive pulmonary disease, unspecified Status: Inactive Assessment and Plan: As above (6) Type 1 diabetes mellitus: Qualifiers: Diabetes mellitus complication status: with circulatory complication Code(s): E10.9 - Type 1 diabetes mellitus without complications Status: Inactive Assessment and Plan: Patient takes Lantus 40 units q.h.s. and NovoLog 12 units in the afternoon, patient states she is having hypoglycemic episodes in the morning, her home Lantus 40 units may need to be decreased down to 30 units q.h.s.. (7) Anemia of chronic disease: Code(s): D63.8 - Anemia in other chronic diseases classified elsewhere Status: Inactive Assessment and Plan: Trending (8) Elevated troponin: Code(s): R77.8 - Other specified abnormalities of plasma proteins Status: Acute Assessment and Plan: Patient has no chest pain, likely elevated troponin due to renal disease ESRD (9) Anxiety: Code(s): F41.9 - Anxiety disorder, unspecified Status: Acute Assessment and Plan: Continue home meds (10) Chronic systolic congestive heart failure: Code(s): I50.22 - Chronic systolic (congestive) heart failure Status: Acute Assessment and Plan: Patient is having some ultrafiltration during dialysis, will see if this resolves her symptoms (11) Diminished pulses in lower extremity: Code(s): R09.89 - Other specified symptoms and signs involving the circulatory and respiratory systems Status: Acute Assessment and Plan: Will follow arterial Doppler (12) Ulcer of left heel: Qualifiers: Non-pressure ulcer stage: unspecified non-pressure ulcer stage Qualified Code(s): L97.429 - Non-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 with unspecified severity Code(s): L97.429 - Non-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 Will have wound care consulted. X-ray did not show any cortical erosion of the heel itself, I do not believe it is osteomyelitis at this time. Patient is also not septic so this may be a chronic
--- NOTE | 2020-04-05 08:23 | PM.CNNEP ---
Assessment and Plan Assessment and plan (1) End-stage renal disease (ESRD): Code(s): N18.6 - End stage renal disease Status: Acute Assessment and Plan: The patient has shortness of breath. She missed her treatment last week. She has COPD and this is very severe. She does not really have much sign of fluid overload but a little bit of fluid plus her COPD can make her more short of breath. Will get her dialyzed today and take some fluid off and see if we can get her feeling better. (2) Acute on chronic respiratory failure with hypoxia and hypercapnia: Code(s): J96.21 - Acute and chronic respiratory failure with hypoxia; J96.22 - Acute and chronic respiratory failure with hypercapnia Status: Acute Assessment and Plan: The patient has severe COPD and congestive heart failure. She is getting supportive care for both (3) Hypoglycemia: Code(s): E16.2 - Hypoglycemia, unspecified Status: Acute Assessment and Plan: blood sugar was low. This is better. (4) Person under investigation for COVID-19: Code(s): Z20.828 - Contact with and (suspected) exposure to other viral communicable diseases Status: Acute Assessment and Plan: Along the way They tested this patient. (5) Chronic systolic congestive heart failure: Code(s): I50.22 - Chronic systolic (congestive) heart failure Status: Acute Assessment and Plan: the patient has no chest pain. Most likely any excess fluid is from skipping her last treatment rather than an exacerbation of her cardiomyopathy. We will see how she does after fluid removal. Consider echo she does not improve. History of Present Illness Reason for Consult Consult date: 04/05/20 Chief Complaint Chief complaint: Shortness of breath. History of Present Illness Narrative: Paty is a very pleasant 54-year-old lady who has end-stage renal disease on dialysis 3 times a week, diabetes, hypertension, hyperlipidemia, congestive cardiomyopathy with an AICD, myocardial infarction, stents, anxiety, COPD, on home oxygen, renal osteodystrophy, anemia. The patient became confused at home on Sunday and she had low sugar. She went to the emergency room her sugar was undetectable she received medications for this and her sugar improved while in the ER. She was short of breath as well. Chest x-ray did not look too bad. She was placed on a BiPAP machine admitted. This morning she feels better. Her sugars are better. She is not as short of breath. She has no chest pain belly pain nausea vomiting diarrhea. No fevers or chills. She was post go to dialysis Last week but missed the treatment because she had a doctor's appointment. Review of Systems Constitutional: Constitutional: Reports no additional constitutional complaints Eyes: Eyes: Reports no additional eye complaints ENT: Reports system reviewed and no additional complaints, except as documented Cardiovascular: Cardiovascular: Reports no additional cardiovascular complaints Respiratory: Respiratory: Reports no additional respiratory complaints Gastrointestinal: Gastrointestinal: Reports no additional gastrointestinal complaints Genitourinary: Genitourinary: Reports no additional female genitourinary complaints Musculoskeletal: Musculoskeletal: Reports no additional musculoskeletal complaints Integumentary/Breasts: Skin/Breast: Reports system reviewed and no additional complaints, except as docu Neurologic: Reports system reviewed and no additional complaints, except as documented Psychiatric: Psychiatric: Reports no additional psychiatric complaints Endocrine: Endocrine: Reports no additional endocrine complaints PMFSH Past Medical History Medical History Anemia of chronic disease Anxiety Arthropathy of right ankle Asthma Bronchitis Chronic obstructive pulmonary disease Chronic
[2020-04-05 08:31] LABS: Glucose Point of Care 200 (65-105)
[2020-04-05] MEDS: CLOPIDOGREL BISULFATE 75 MG TABLET PO (10:30)
[2020-04-05] MEDS: predniSONE 20 MG TABLET 40 MG PO (10:30)
[2020-04-05] MEDS: METOPROLOL SUCCINATE EXT REL 25 MG TABCR PO (10:30)
[2020-04-05] MEDS: ASPIRIN 81 MG CHEWABLE TABLET PO (10:30)
[2020-04-05] MEDS: ALPRAZolam (*CRX) 0.5 MG TABLET 1 MG PO ×3 (10:31→21:00)
[2020-04-05] MEDS: MUPIROCIN 2% OINT 22 GM TUBE 1 APPLIC TOPICAL (10:43)
[2020-04-05 11:58] LABS: SARS-CoV-2 RNA PCR Negative
[2020-04-05 12:25] LABS: Glucose Point of Care 228 (65-105)
[2020-04-05] MEDS: INSULIN ASPART (*BKC) 100 UNITS/ML SUB-Q (15:09)
--- NOTE | 2020-04-05 15:27 | PC.NURSE ---
This patient, Paty Sow, was transferred to [facility] on 04/05/20 at 1527. Personal belongings sent with patient. Report given to Luci. Appropriate documentation sent with patient.
--- NOTE | 2020-04-05 15:30 | PC.NURSE ---
REPORT RECEIVED FROM GIL Belle RN. PT TO BE MED/SURG STATUS IN REACTOR SERVICE OPERATOR 2. PT. CALLED FOR DIALYSIS TX BEFORE LEAVING IMU TO ARRIVE IN REACTOR SERVICE OPERATOR 2. TO ARRIVE IN REACTOR SERVICE OPERATOR 2 AFTER DIALYSIS TX.
[2020-04-05] MEDS: SODIUM CHLORIDE 0.9% IV 1,000 ML 999 ML IV CONT (16:00)
--- NOTE | 2020-04-05 16:57 | PM.EVENT ---
Event Note Event Note Event Note: Patient is on dialysis and tolerating it well. She was seen at 4:00 p.m.
--- NOTE | 2020-04-05 18:11 | PCRCNOTE ---
Window of time for administration has passed. See next scheduled administration.
[2020-04-05 19:31] LABS: Glucose Point of Care 165 (65-105)
--- NOTE | 2020-04-05 20:22 | PC.NURSE ---
Call to pharmacy to request 2100 medications lipitor and IV zithromax be sent to floor for administration.
[2020-04-05] MEDS: ATORVASTATIN 40 MG TABLET 80 MG PO (21:01)
[2020-04-06] VITALS (10 sets, daily range): BP systolic 96–119; BP diastolic 43–64; PULSE 66–83; RESP 14–22; TEMP 36.2–36.4; O2SAT 92–100
[2020-04-06 05:18] LABS: Hematocrit 30.4 % (37.0-47.0); Hemoglobin 8.9 g/dL (12.0-15.0); Immature Platelet Fraction Pct 6.7 % (0.9-11.2); Mean Corpuscular HGB Conc 29.3 g/dl (32-36); Mean Corpuscular Volume 105.9 fl (80-100); Mean Platelet Volume 11.7 fl (7.4-10.4); Platelet Count Result 122 k/mm3 (150-375); Red Blood Count 2.87 M/mm3 (4.2-5.4); Red Cell Distribution Width 15.2 % (11.5-14.5)
[2020-04-06 05:26] LABS: Anion Gap 11 mmol/L (8-16); Blood Urea Nitrogen 26 mg/dL (7-17); Calcium 8.5 mg/dL (8.4-10.2); Carbon Dioxide 29 mmol/L (22-30); Chloride 93 mmol/L (98-107); Estimated CRCL calculation 17 ml/min; Estimated Glomerular Filt Rate 12; Glucose 432 mg/dL (65-105); Potassium 4.7 mmol/L (3.4-5.0); Sodium 133 mmol/L (137-145)
--- NOTE | 2020-04-06 05:35 | PC.NURSE ---
Call to Dr. Pinedo for BG [id number]. Awaiting call back for orders at this time.
[2020-04-06 05:37] LABS: Glucose Point of Care 411 (65-105)
--- NOTE | 2020-04-06 05:49 | PC.NURSE ---
Second call to Dr. Pinedo for BG 411. Awaiting call back at this time.
[2020-04-06] MEDS: INSULIN ASPART (*BKC) 100 UNITS/ML 10 UNITS SUB-Q (06:19)
--- NOTE | 2020-04-06 07:02 | PCRCNOTE ---
Window of time for administration has passed. See next scheduled administration.
[2020-04-06 07:14] LABS: Glucose Point of Care 367 (65-105)
[2020-04-06] MEDS: LACTIC ACID 12% LOTION 225 BTL 1 APPLIC TOPICAL (09:00)
[2020-04-06] MEDS: MUPIROCIN 2% OINT 22 GM TUBE 1 APPLIC TOPICAL (09:00)
--- NOTE | 2020-04-06 09:07 | PM.PNNEP ---
Progress Note: A&P Assessment and Plan (1) End-stage renal disease (ESRD): Code(s): N18.6 - End stage renal disease Status: Acute Assessment and Plan: Shortness of breath is better. Dialysis due tomorrow whether here or at [place] depending on whether she is discharged. (2) Acute on chronic respiratory failure with hypoxia and hypercapnia: Code(s): J96.21 - Acute and chronic respiratory failure with hypoxia; J96.22 - Acute and chronic respiratory failure with hypercapnia Status: Acute Assessment and Plan: The patient has severe COPD and congestive heart failure. She is getting supportive care for both She knows to try to make it every dialysis treatment. She cannot make it to 1 then she could make up on the next day or the previous stay if it is planned. (3) Hypoglycemia: Code(s): E16.2 - Hypoglycemia, unspecified Status: Acute Assessment and Plan: blood sugar was low. This is better. (4) Person under investigation for COVID-19: Code(s): Z20.828 - Contact with and (suspected) exposure to other viral communicable diseases Status: Acute Assessment and Plan: Along the way They tested this patient. She was negative. (5) Chronic systolic congestive heart failure: Code(s): I50.22 - Chronic systolic (congestive) heart failure Status: Acute Assessment and Plan: the patient has no chest pain. Most likely any excess fluid is from skipping her last treatment rather than an exacerbation of her cardiomyopathy. We will see how she does after fluid removal. Consider echo she does not improve. (6) Ulcer of left heel: Qualifiers: Non-pressure ulcer stage: unspecified non-pressure ulcer stage Qualified Code(s): L97.429 - Non-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 with unspecified severity Code(s): L97.429 - Non-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 with unspecified severity Status: Acute Assessment and Plan: The patient has had this for about a month. A nurse was coming to the home for this. I encouraged her to go to the wound clinic as an outpatient. Subjective Date/time seen: 04/06/20 09:07 Interval history: Patient is less anxious today. She is breathing better. She is eager for discharge. Review of Systems Cardiovascular: Cardiovascular: Reports no additional cardiovascular complaints Respiratory: Respiratory: Reports no additional respiratory complaints Gastrointestinal: Gastrointestinal: Reports no additional gastrointestinal complaints Genitourinary: Genitourinary: Reports no additional female genitourinary complaints Exam Narrative: Exam Narrative: WDWN in NAD skin no rash head ncat lungs clear cor reg no rub abd BS+ nontender and soft ext no edema. Objective Data Vital Signs Vital Signs: Vital Signs - 24 hr 04/05/20 10:30 04/05/20 15:29 04/05/20 15:36 Temperature 36.8 C Pulse Rate 86 85 84 Respiratory Rate 18 Blood Pressure 130/63 131/61 Pulse Oximetry 04/05/20 15:45 04/05/20 16:00 04/05/20 16:15 Temperature Pulse Rate 83 84 83 Respiratory Rate Blood Pressure 128/62 125/67 117/56 L Pulse Oximetry 04/05/20 16:30 04/05/20 16:45 04/05/20 17:00 Temperature Pulse Rate 84 81 80 Respiratory Rate Blood Pressure 110/53 L 116/51 L 110/56 L Pulse Oximetry 04/05/20 17:15 04/05/20 17:30 04/05/20 17:45 Temperature Pulse Rate 81 62 80 Respiratory Rate Blood Pressure 109/51 L 112/53 L 111/53 L Pulse Oximetry 04/05/20 18:00 04/05/20 18:15 04/05/20 18:30 Temperature Pulse Rate 81 61 81 Respiratory Rate Blood Pressure 107/48 L 108/51 L 107/49 L Pulse Oximetry 04/05/20 18:53 04/05/20 19:05 04/05/20 20:20 Temperature 37.1 C 37.6 C H Pulse Rate 82 82 88 Respiratory Rate 18 18 Blood Pressure 105/53 L 105/48 L 103/57 L Pulse Oximetry 100 04/06/20 05:06
[2020-04-06] MEDS: METOPROLOL SUCCINATE EXT REL 25 MG TABCR PO (09:11)
[2020-04-06] MEDS: CLOPIDOGREL BISULFATE 75 MG TABLET PO (09:11)
[2020-04-06] MEDS: predniSONE 20 MG TABLET 40 MG PO (09:12)
[2020-04-06] MEDS: ASPIRIN 81 MG CHEWABLE TABLET PO (09:12)
[2020-04-06] MEDS: ALPRAZolam (*CRX) 0.5 MG TABLET 1 MG PO ×2 (09:12→20:52)
[2020-04-06] MEDS: INSULIN ASPART (*BKC) 100 UNITS/ML SUB-Q ×2 (09:14→17:26)
[2020-04-06] MEDS: ALBUTEROL SULFATE NEB 2.5 MG/0.5 ML INH 5 MG INHALATION ×2 (10:53→22:00)
[2020-04-06] MEDS: IPRATROPIUM BR 0.02% INH SOLN 0.5 MG/2.5 ML VIAL INHALATION ×2 (10:53→22:00)
[2020-04-06 11:35] LABS: Glucose Point of Care 149 (65-105)
[2020-04-06] MEDS: traMADol HCL (*CRX) 50 MG TABLET PO (15:56)
--- NOTE | 2020-04-06 16:04 | PM.IMPN ---
Progress Note: A&P Assessment and Plan (1) Acute on chronic respiratory failure with hypoxia and hypercapnia: Code(s): J96.21 - Acute and chronic respiratory failure with hypoxia; J96.22 - Acute and chronic respiratory failure with hypercapnia Status: Acute Assessment and Plan: -Continue BiPAP as needed, oxygen prn -chest x-ray shows bilateral infiltrates, likely fluid overload and atelectasis as patient has no leukocytosis or cough with sputum or fevers. likely pneumonia pt is receiving abx (2) Hypoglycemia: Code(s): E16.2 - Hypoglycemia, unspecified Status: Acute (3) End-stage renal disease (ESRD): Code(s): N18.6 - End stage renal disease Status: Acute Assessment and Plan: Dr. Gallegos consulted for dialysis (4) Person under investigation for COVID-19: Code(s): Z20.828 - Contact with and (suspected) exposure to other viral communicable diseases Status: Ruled-out (5) Chronic obstructive pulmonary disease: Qualifiers: COPD type: unspecified COPD Qualified Code(s): J44.9 - Chronic obstructive pulmonary disease, unspecified Code(s): J44.9 - Chronic obstructive pulmonary disease, unspecified Status: Inactive Assessment and Plan: As above (6) Type 1 diabetes mellitus: Qualifiers: Diabetes mellitus complication status: with circulatory complication Code(s): E10.9 - Type 1 diabetes mellitus without complications Status: Inactive Assessment and Plan: Patient takes Lantus 40 units q.h.s. and NovoLog 12 units in the afternoon, patient states she is having hypoglycemic episodes in the morning, her home Lantus 40 units may need to be decreased down to 30 units q.h.s.. (7) Anemia of chronic disease: Code(s): D63.8 - Anemia in other chronic diseases classified elsewhere Status: Inactive Assessment and Plan: Trending (8) Elevated troponin: Code(s): R77.8 - Other specified abnormalities of plasma proteins Status: Acute Assessment and Plan: Patient has no chest pain, likely elevated troponin due to renal disease ESRD (9) Anxiety: Code(s): F41.9 - Anxiety disorder, unspecified Status: Acute Assessment and Plan: Continue home meds (10) Chronic systolic congestive heart failure: Code(s): I50.22 - Chronic systolic (congestive) heart failure Status: Acute Assessment and Plan: Patient is having some ultrafiltration during dialysis, will see if this resolves her symptoms (11) Diminished pulses in lower extremity: Code(s): R09.89 - Other specified symptoms and signs involving the circulatory and respiratory systems Status: Acute Assessment and Plan: Will follow arterial Doppler (12) Ulcer of left heel: Qualifiers: Non-pressure ulcer stage: unspecified non-pressure ulcer stage Qualified Code(s): L97.429 - Non-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 with unspecified severity Code(s): L97.429 - Non-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 Will have wound care consulted. Subjective Date/time seen: 04/06/20 16:04 Interval history: 54-year-old female with type 1 diabetes mellitus, coronary artery disease, ischemic cardiomyopathy, chronic kidney disease, chronic respiratory failure on home oxygen, COPD, and several other comorbidities who presented to the emergency department earlier today via EMS from home for evaluation of shortness of breath. covid is negative. pt is still sob likely copd exacerbation or pneumonia Review of Systems Review of Systems: All systems reviewed & are unremarkable except as noted in HPI and below Exam Narrative: Exam Narrative: - GENERAL: thin bulit lady on oxygen sob at rest - HENT: Supple neck - LUNGS: Diminished lung sounds, no wheez
--- NOTE | 2020-04-06 16:12 | PCRCNOTE ---
Window of time for administration has passed. See next scheduled administration.
[2020-04-06 16:47] LABS: Glucose Point of Care 335 (65-105)
[2020-04-06] MEDS: ATORVASTATIN 40 MG TABLET 80 MG PO (20:51)
[2020-04-06 21:20] LABS: Glucose Point of Care > 500 (65-105)
[2020-04-06 21:20] LABS: Glucose Point of Care 485 (65-105)
[2020-04-06] MEDS: INSULIN GLARGINE (*BKC) 100 UNITS/ML 20 UNITS SUB-Q (21:36)
[2020-04-07] VITALS (34 sets, daily range): BP systolic 115–143; BP diastolic 52–70; PULSE 72–89; RESP 16–22; TEMP 36–37; O2SAT 91–100
[2020-04-07 00:06] LABS: Glucose Point of Care > 500 (65-105)
[2020-04-07] MEDS: INSULIN GLARGINE (*BKC) 100 UNITS/ML 10 UNITS SUB-Q (00:34)
[2020-04-07] MEDS: INSULIN ASPART (*BKC) 100 UNITS/ML 10 UNITS SUB-Q (00:34)
[2020-04-07] MEDS: IPRATROPIUM BR 0.02% INH SOLN 0.5 MG/2.5 ML VIAL INHALATION ×3 (03:07→15:04)
[2020-04-07] MEDS: ALBUTEROL SULFATE NEB 2.5 MG/0.5 ML INH 5 MG INHALATION ×3 (03:07→15:03)
[2020-04-07 03:27] LABS: Glucose Point of Care 482 (65-105)
[2020-04-07] MEDS: INSULIN ASPART (*BKC) 100 UNITS/ML 12 UNITS SUB-Q (03:34)
[2020-04-07 07:14] LABS: Glucose Point of Care 327 (65-105)
[2020-04-07] MEDS: ASPIRIN 81 MG CHEWABLE TABLET PO (08:26)
[2020-04-07] MEDS: predniSONE 20 MG TABLET 40 MG PO (08:27)
[2020-04-07] MEDS: METOPROLOL SUCCINATE EXT REL 25 MG TABCR PO (08:27)
[2020-04-07] MEDS: CLOPIDOGREL BISULFATE 75 MG TABLET PO (08:28)
[2020-04-07] MEDS: INSULIN ASPART (*BKC) 100 UNITS/ML SUB-Q ×2 (09:28→12:54)
--- NOTE | 2020-04-07 10:04 | PM.PNNEP ---
Progress Note: A&P Assessment and Plan (1) End-stage renal disease (ESRD): Code(s): N18.6 - End stage renal disease Status: Acute Assessment and Plan: Shortness of breath is better. Dialysis today. (2) Acute on chronic respiratory failure with hypoxia and hypercapnia: Code(s): J96.21 - Acute and chronic respiratory failure with hypoxia; J96.22 - Acute and chronic respiratory failure with hypercapnia Status: Acute Assessment and Plan: The patient has severe COPD and congestive heart failure. She is getting supportive care for both She will get dialysis today. (3) Hypoglycemia: Code(s): E16.2 - Hypoglycemia, unspecified Status: Acute Assessment and Plan: blood sugar was low. This is better. (4) Person under investigation for COVID-19: Code(s): Z20.828 - Contact with and (suspected) exposure to other viral communicable diseases Status: Ruled-out Assessment and Plan: Along the way They tested this patient. She was negative. (5) Chronic systolic congestive heart failure: Code(s): I50.22 - Chronic systolic (congestive) heart failure Status: Acute Assessment and Plan: the patient has no chest pain. Most likely any excess fluid is from skipping her last treatment rather than an exacerbation of her cardiomyopathy. Breathing better with fluid removal. (6) Ulcer of left heel: Qualifiers: Non-pressure ulcer stage: unspecified non-pressure ulcer stage Qualified Code(s): L97.429 - Non-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 with unspecified severity Code(s): L97.429 - Non-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 with unspecified severity Status: Acute Assessment and Plan: The patient has had this for about a month. A nurse was coming to the home for this. I encouraged her to go to the wound clinic as an outpatient. Subjective Date/time seen: 04/07/20 10:04 Interval history: Patient is less anxious today. Lying flat in bed and breathing comfortably. Review of Systems Cardiovascular: Cardiovascular: Reports no additional cardiovascular complaints Respiratory: Respiratory: Reports no additional respiratory complaints Gastrointestinal: Gastrointestinal: Reports no additional gastrointestinal complaints Genitourinary: Genitourinary: Reports no additional female genitourinary complaints Exam Narrative: Exam Narrative: WDWN in NAD skin no rash Or subcu nodules head ncat lungs clear cor reg no rub abd BS+ nontender and soft ext no edema. her foot is wrapped. Objective Data Vital Signs Vital Signs: Vital Signs - 24 hr 04/06/20 10:54 04/06/20 11:04 04/06/20 16:00 Temperature Pulse Rate 80 83 75 Respiratory Rate 22 H 22 H 16 Blood Pressure 111/53 L Pulse Oximetry 92 98 04/06/20 20:00 04/06/20 21:21 04/06/20 22:01 Temperature 36.2 C L Pulse Rate 66 75 Respiratory Rate 16 18 Blood Pressure 119/64 Pulse Oximetry 100 98 98 04/06/20 22:05 04/07/20 03:07 04/07/20 03:14 Temperature Pulse Rate 73 75 72 Respiratory Rate 20 20 Blood Pressure Pulse Oximetry 04/07/20 03:15 04/07/20 03:35 04/07/20 04:07 Temperature Pulse Rate 77 74 Respiratory Rate Blood Pressure Pulse Oximetry 98 100 91 04/07/20 04:38 04/07/20 06:00 04/07/20 06:02 Temperature 37.0 C Pulse Rate 78 Respiratory Rate 18 Blood Pressure 119/62 Pulse Oximetry 97 99 99 04/07/20 08:00 04/07/20 08:27 04/07/20 09:25 Temperature Pulse Rate 79 79 72 Respiratory Rate 16 20 Blood Pressure 129/70 Pulse Oximetry 100 04/07/20 09:26 Temperature Pulse Rate 72 Respiratory Rate Blood Pressure Pulse Oximetry 91 Intake/Output Intake/Output: Intake & Output 04/04/20 04/05/20 04/06/20 04/07/20 23:59 23:59 23:59 23:59 Intake Total 300 905 850 250 Output Total 3124 50 Balance 300 -0783 800 250 Med
[2020-04-07 11:45] LABS: Glucose Point of Care 306 (65-105)
--- NOTE | 2020-04-07 14:52 | PM.IMPN ---
Progress Note: A&P Assessment and Plan (1) Acute on chronic respiratory failure with hypoxia and hypercapnia: Code(s): J96.21 - Acute and chronic respiratory failure with hypoxia; J96.22 - Acute and chronic respiratory failure with hypercapnia Status: Acute Assessment and Plan: -Continue oxygen -chest x-ray shows bilateral infiltrates, likely fluid overload and atelectasis as patient has no leukocytosis or cough with sputum or fevers. likely pneumonia pt is receiving abx (2) Hypoglycemia: Code(s): E16.2 - Hypoglycemia, unspecified Status: Acute Assessment and Plan: Lantus and SSI (3) End-stage renal disease (ESRD): Code(s): N18.6 - End stage renal disease Status: Acute Assessment and Plan: Dr. Gallegos consulted for dialysis, going to dialysis (4) Person under investigation for COVID-19: Code(s): Z20.828 - Contact with and (suspected) exposure to other viral communicable diseases Status: Ruled-out Assessment and Plan: Negative (5) Chronic obstructive pulmonary disease: Qualifiers: COPD type: unspecified COPD Qualified Code(s): J44.9 - Chronic obstructive pulmonary disease, unspecified Code(s): J44.9 - Chronic obstructive pulmonary disease, unspecified Status: Inactive Assessment and Plan: As above (6) Type 1 diabetes mellitus: Qualifiers: Diabetes mellitus complication status: with circulatory complication Code(s): E10.9 - Type 1 diabetes mellitus without complications Status: Inactive Assessment and Plan: Patient takes Lantus 40 units q.h.s. and NovoLog 12 units in the afternoon, patient states she is having hypoglycemic episodes in the morning, her home Lantus 40 units may need to be decreased down to 30 units q.h.s.. (7) Anemia of chronic disease: Code(s): D63.8 - Anemia in other chronic diseases classified elsewhere Status: Inactive Assessment and Plan: Trending (8) Elevated troponin: Code(s): R77.8 - Other specified abnormalities of plasma proteins Status: Acute Assessment and Plan: Patient has no chest pain, likely elevated troponin due to renal disease ESRD (9) Anxiety: Code(s): F41.9 - Anxiety disorder, unspecified Status: Acute Assessment and Plan: Continue home meds (10) Chronic systolic congestive heart failure: Code(s): I50.22 - Chronic systolic (congestive) heart failure Status: Acute Assessment and Plan: Patient is having some ultrafiltration during dialysis, will see if this resolves her symptoms (11) Diminished pulses in lower extremity: Code(s): R09.89 - Other specified symptoms and signs involving the circulatory and respiratory systems Status: Acute Assessment and Plan: Will follow arterial Doppler (12) Ulcer of left heel: Qualifiers: Non-pressure ulcer stage: unspecified non-pressure ulcer stage Qualified Code(s): L97.429 - Non-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 with unspecified severity Code(s): L97.429 - Non-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 wound team consulted Subjective Date/time seen: 04/07/20 14:52 Interval history: 54-year-old female with type 1 diabetes mellitus, coronary artery disease, ischemic cardiomyopathy, chronic kidney disease, chronic respiratory failure on home oxygen, COPD, and several other comorbidities who presented to the emergency department earlier today via EMS from home for evaluation of shortness of breath. covid is negative. pt is still sob likely copd exacerbation or pneumonia. Pt does not feel well, still sob needing oxyge at 2 liters Review of Systems Review of Systems: All systems reviewed & are unremarkable except as noted in HPI and below Exam Narrative:
[2020-04-07] MEDS: MUPIROCIN 2% OINT 22 GM TUBE 1 APPLIC TOPICAL (15:22)
[2020-04-07] MEDS: LOPERAMIDE HCL 2 MG CAPSULE PO (15:49)
[2020-04-07 16:25] LABS: Glucose Point of Care 437 (65-105)
[2020-04-07] MEDS: INSULIN GLARGINE (*BKC) 100 UNITS/ML 30 UNITS SUB-Q (16:33)
[2020-04-07] MEDS: ALPRAZolam (*CRX) 0.5 MG TABLET 1 MG PO (16:40)
--- NOTE | 2020-04-07 17:11 | PC.NURSE ---
1630-pt had elevated BS of 437. informed and orders of 8 units of Novolog ordered and ordered to give nighttime dose of Lantus to be given early. Orders read back and acknowledged. Will continue to monitor.
[2020-04-07] MEDS: INSULIN ASPART (*BKC) 100 UNITS/ML 8 UNITS SUB-Q (17:19)
[2020-04-07 21:52] LABS: Glucose Point of Care 293 (65-105)
--- NOTE | 2020-04-07 22:02 | PCRCNOTE ---
no tx 2000, pt in dialysis
[2020-04-07] MEDS: ATORVASTATIN 40 MG TABLET 80 MG PO (23:17)
[2020-04-07] MEDS: traMADol HCL (*CRX) 50 MG TABLET PO (23:21)
[2020-04-07 23:30] LABS: Hepatitis B Surface Antigen Negative (Negative)
[2020-04-07 23:47] LABS: Hepatitis B Surface Anti Res Negative
[2020-04-08] VITALS (15 sets, daily range): BP systolic 106–130; BP diastolic 60–62; PULSE 80–88; RESP 18–20; TEMP 36.7–37.1; O2SAT 88–100
[2020-04-08 00:15] LABS: Glucose Point of Care 340 (65-105)
--- NOTE | 2020-04-08 01:15 | PC.NURSE ---
Addendum entered by Sandra Valle RN 04/08/20 01:29: ORIENTED TO UNIT. CALL LIGHT/PERSONAL ITEMS IN REACH. Original Note: 04/08/20 @ 0030: ARRIVED TO ED SURG A TRANSFER FROM [facility] A[facility]OX[facility]. PHYSICAL ASSESSMENT COMPLETE.
[2020-04-08] MEDS: IPRATROPIUM BR 0.02% INH SOLN 0.5 MG/2.5 ML VIAL INHALATION ×4 (04:25→21:32)
[2020-04-08] MEDS: ALBUTEROL SULFATE NEB 2.5 MG/0.5 ML INH 5 MG INHALATION ×4 (04:25→21:32)
[2020-04-08 06:28] LABS: Hematocrit 30.1 % (37.0-47.0); Hemoglobin 9.1 g/dL (12.0-15.0); Immature Platelet Fraction Pct 5.3 % (0.9-11.2); Mean Corpuscular HGB Conc 30.2 g/dl (32-36); Mean Corpuscular Hemoglobin 31.2 pg (26-34); Mean Corpuscular Volume 103.1 fl (80-100); Mean Platelet Volume 11.5 fl (7.4-10.4); Platelet Count Result 103 k/mm3 (150-375); Red Blood Count 2.92 M/mm3 (4.2-5.4); Red Cell Distribution Width 15.3 % (11.5-14.5); White Blood Count 6.9 K/mm3 (4.5-10.0)
[2020-04-08 06:45] LABS: Anion Gap 10 mmol/L (8-16); Blood Urea Nitrogen 23 mg/dL (7-17); Calcium 8.2 mg/dL (8.4-10.2); Carbon Dioxide 30 mmol/L (22-30); Chloride 93 mmol/L (98-107); Estimated CRCL calculation 20 ml/min; Estimated Glomerular Filt Rate 15; Glucose 302 mg/dL (65-105); Potassium 3.6 mmol/L (3.4-5.0); Sodium 133 mmol/L (137-145)
[2020-04-08 08:45] LABS: Glucose Point of Care 273 (65-105)
[2020-04-08] MEDS: INSULIN ASPART (*BKC) 100 UNITS/ML SUB-Q ×3 (08:47→17:57)
[2020-04-08] MEDS: ASPIRIN 81 MG CHEWABLE TABLET PO (08:49)
[2020-04-08] MEDS: predniSONE 20 MG TABLET 40 MG PO (08:50)
[2020-04-08] MEDS: LACTIC ACID 12% LOTION 225 BTL 1 APPLIC TOPICAL (08:52)
[2020-04-08] MEDS: CLOPIDOGREL BISULFATE 75 MG TABLET PO (08:52)
[2020-04-08] MEDS: MUPIROCIN 2% OINT 22 GM TUBE 1 APPLIC TOPICAL ×2 (08:53→17:53)
[2020-04-08] MEDS: METOPROLOL SUCCINATE EXT REL 25 MG TABCR PO (09:03)
--- NOTE | 2020-04-08 13:14 | PM.PNNEP ---
Progress Note: A&P Assessment and Plan (1) End-stage renal disease (ESRD): Code(s): N18.6 - End stage renal disease Status: Acute Assessment and Plan: Shortness of breath is better. Dialysis Tomorrow, here or at [place] if she is discharged. (2) Acute on chronic respiratory failure with hypoxia and hypercapnia: Code(s): J96.21 - Acute and chronic respiratory failure with hypoxia; J96.22 - Acute and chronic respiratory failure with hypercapnia Status: Acute Assessment and Plan: The patient has severe COPD and congestive heart failure. She is getting supportive care for both (3) Hypoglycemia: Code(s): E16.2 - Hypoglycemia, unspecified Status: Acute Assessment and Plan: blood sugar was low. This is better. Sugars are on the generous side now. (4) Person under investigation for COVID-19: Code(s): Z20.828 - Contact with and (suspected) exposure to other viral communicable diseases Status: Ruled-out Assessment and Plan: Along the way They tested this patient. She was negative. (5) Chronic systolic congestive heart failure: Code(s): I50.22 - Chronic systolic (congestive) heart failure Status: Acute Assessment and Plan: the patient has no chest pain. Most likely any excess fluid is from skipping her last treatment rather than an exacerbation of her cardiomyopathy. Breathing better with fluid removal. (6) Ulcer of left heel: Qualifiers: Non-pressure ulcer stage: unspecified non-pressure ulcer stage Qualified Code(s): L97.429 - Non-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 with unspecified severity Code(s): L97.429 - Non-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 with unspecified severity Status: Acute Assessment and Plan: The patient has had this for about a month. A nurse was coming to the home for this. I encouraged her to go to the wound clinic as an outpatient. Subjective Date/time seen: 04/08/20 13:14 Interval history: Patient is less anxious today. Had dialysis last night. She had about 2 or 2-1/2 hours. Then water pressure dropped and they were unable to finish the treatment. She feels okay today. She is eager for discharge. Review of Systems Cardiovascular: Cardiovascular: Reports no additional cardiovascular complaints Respiratory: Respiratory: Reports no additional respiratory complaints Gastrointestinal: Gastrointestinal: Reports no additional gastrointestinal complaints Genitourinary: Genitourinary: Reports no additional female genitourinary complaints Exam Narrative: Exam Narrative: WDWN in NAD skin no rash Or subcu nodules head ncat lungs clear Bilaterally with some increased expiratory phase As usual. cor reg no rub abd BS+ nontender and soft ext no edema. her foot is wrapped. Objective Data Vital Signs Vital Signs: Vital Signs - 24 hr 04/07/20 15:04 04/07/20 15:13 04/07/20 15:56 Temperature 36.7 C Pulse Rate 75 75 89 Respiratory Rate 18 18 20 Blood Pressure 121/60 Pulse Oximetry 100 04/07/20 16:00 04/07/20 18:46 04/07/20 18:57 Temperature 36.6 C Pulse Rate 89 86 87 Respiratory Rate 20 22 H Blood Pressure 121/60 115/60 121/58 L Pulse Oximetry 100 04/07/20 19:00 04/07/20 19:15 04/07/20 19:30 Temperature Pulse Rate 87 89 88 Respiratory Rate Blood Pressure 130/61 143/65 H 136/67 Pulse Oximetry 04/07/20 19:45 04/07/20 20:00 04/07/20 20:15 Temperature Pulse Rate 88 89 89 Respiratory Rate Blood Pressure 136/67 132/69 128/62 Pulse Oximetry 04/07/20 20:30 04/07/20 20:45 04/07/20 21:00 Temperature Pulse Rate 86 85 85 Respiratory Rate Blood Pressure 121/60 118/52 L 121/58 L Pulse Oximetry 04/07/20 21:15 04/07/20 21:30 04/07/20 21:45 Temperature Pulse Rate 85 86 84 Respiratory Rate Blood Pressure 126/59 L 123/59 L 123/58 L Pul
[2020-04-08 13:22] LABS: Glucose Point of Care 273 (65-105)
[2020-04-08] MEDS: EPOETIN ALFA-EPBX 10,000 UNITS/ML VIAL 10000 UNITS SUB-Q (13:33)
[2020-04-08] MEDS: BENZONATATE 100 MG CAPSULE PO ×2 (13:34→17:53)
--- NOTE | 2020-04-08 15:49 | PM.IMPN ---
Progress Note: A&P Assessment and Plan (1) Acute on chronic respiratory failure with hypoxia and hypercapnia: Code(s): J96.21 - Acute and chronic respiratory failure with hypoxia; J96.22 - Acute and chronic respiratory failure with hypercapnia Status: Acute Assessment and Plan: -Continue oxygen -chest x-ray shows bilateral infiltrates, likely fluid overload and atelectasis as patient has no leukocytosis or cough with sputum or fevers. likely pneumonia pt is receiving abx, hopeful discharge tomorrow (2) Hypoglycemia: Code(s): E16.2 - Hypoglycemia, unspecified Status: Acute Assessment and Plan: Lantus and SSI (3) End-stage renal disease (ESRD): Code(s): N18.6 - End stage renal disease Status: Acute Assessment and Plan: Dr. Gallegos consulted for dialysis, going to dialysis (4) Person under investigation for COVID-19: Code(s): Z20.828 - Contact with and (suspected) exposure to other viral communicable diseases Status: Ruled-out Assessment and Plan: Negative (5) Chronic obstructive pulmonary disease: Qualifiers: COPD type: unspecified COPD Qualified Code(s): J44.9 - Chronic obstructive pulmonary disease, unspecified Code(s): J44.9 - Chronic obstructive pulmonary disease, unspecified Status: Inactive Assessment and Plan: As above (6) Type 1 diabetes mellitus: Qualifiers: Diabetes mellitus complication status: with circulatory complication Code(s): E10.9 - Type 1 diabetes mellitus without complications Status: Inactive Assessment and Plan: Patient takes Lantus 40 units q.h.s. and NovoLog 12 units in the afternoon, patient states she is having hypoglycemic episodes in the morning, her home Lantus 40 units may need to be decreased down to 30 units q.h.s.. (7) Anemia of chronic disease: Code(s): D63.8 - Anemia in other chronic diseases classified elsewhere Status: Inactive Assessment and Plan: Trending (8) Elevated troponin: Code(s): R77.8 - Other specified abnormalities of plasma proteins Status: Acute Assessment and Plan: Patient has no chest pain, likely elevated troponin due to renal disease ESRD (9) Anxiety: Code(s): F41.9 - Anxiety disorder, unspecified Status: Acute Assessment and Plan: Continue home meds (10) Chronic systolic congestive heart failure: Code(s): I50.22 - Chronic systolic (congestive) heart failure Status: Acute Assessment and Plan: Patient is having some ultrafiltration during dialysis, will see if this resolves her symptoms (11) Diminished pulses in lower extremity: Code(s): R09.89 - Other specified symptoms and signs involving the circulatory and respiratory systems Status: Acute Assessment and Plan: Will follow arterial Doppler (12) Ulcer of left heel: Qualifiers: Non-pressure ulcer stage: unspecified non-pressure ulcer stage Qualified Code(s): L97.429 - Non-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 with unspecified severity Code(s): L97.429 - Non-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 wound team consulted Subjective Date/time seen: 04/08/20 15:49 Interval history: 54-year-old female with type 1 diabetes mellitus, coronary artery disease, ischemic cardiomyopathy, chronic kidney disease, chronic respiratory failure on home oxygen, COPD, and several other comorbidities who presented to the emergency department earlier today via EMS from home for evaluation of shortness of breath. Covid is negative. Pt is still sob likely copd exacerbation or pneumonia. Pt feels better today, after dialysis. On 2 liters of oxygen now, hopeful dc tomorrow. Review of Systems Review of Systems: All systems reviewed & are unremarkabl
[2020-04-08] MEDS: traMADol HCL (*CRX) 50 MG TABLET PO (17:50)
[2020-04-08 19:04] LABS: Glucose Point of Care 421 (65-105)
[2020-04-08] MEDS: ATORVASTATIN 40 MG TABLET 80 MG PO (21:24)
[2020-04-08] MEDS: INSULIN GLARGINE (*BKC) 100 UNITS/ML 40 UNITS SUB-Q (21:25)
[2020-04-08] MEDS: ALPRAZolam (*CRX) 0.5 MG TABLET 1 MG PO (21:43)
[2020-04-08 21:58] LABS: Glucose Point of Care 451 (65-105)
[2020-04-09] VITALS (9 sets, daily range): BP systolic 125; BP diastolic 86; PULSE 66–84; RESP 18–20; TEMP 36.2; O2SAT 97–100
[2020-04-09] MEDS: ALBUTEROL SULFATE NEB 2.5 MG/0.5 ML INH 5 MG INHALATION ×3 (01:40→13:57)
[2020-04-09] MEDS: IPRATROPIUM BR 0.02% INH SOLN 0.5 MG/2.5 ML VIAL INHALATION ×3 (01:40→13:58)
[2020-04-09] MEDS: ASPIRIN 81 MG CHEWABLE TABLET PO (08:32)
[2020-04-09] MEDS: BENZONATATE 100 MG CAPSULE PO ×3 (08:32→17:15)
[2020-04-09] MEDS: predniSONE 20 MG TABLET 40 MG PO (08:32)
[2020-04-09] MEDS: CLOPIDOGREL BISULFATE 75 MG TABLET PO (08:32)
[2020-04-09] MEDS: METOPROLOL SUCCINATE EXT REL 25 MG TABCR PO (08:33)
[2020-04-09] MEDS: LACTIC ACID 12% LOTION 225 BTL 1 APPLIC TOPICAL (08:34)
[2020-04-09] MEDS: MUPIROCIN 2% OINT 22 GM TUBE 1 APPLIC TOPICAL ×2 (08:34→17:16)
[2020-04-09] MEDS: INSULIN ASPART (*BKC) 100 UNITS/ML SUB-Q ×3 (08:55→17:19)
[2020-04-09 09:49] LABS: Glucose Point of Care 367 (65-105)
--- NOTE | 2020-04-09 12:42 | WPDCDIQUERY2 ---
CDI Query Clarification Request - chest x-ray shows bilateral infiltrates, likely fluid overload and atelectasis as patient has no leukocytosis or cough with sputum or fevers. likely pneumonia pt is receiving abx has been documented. - Pt is still sob likely copd exacerbation or pneumonia has been documented. Please clarify if pneumonia has been ruled in or ruled out. <Mojgan Shah RN - Last Filed: 04/09/20 12:44> Community Acquired pneumonia <Lexus Cerrato MD - Last Filed: 04/13/20 08:59>
[2020-04-09 13:03] LABS: Glucose Point of Care 283 (65-105)
--- NOTE | 2020-04-09 13:47 | PM.DS ---
DS: Admitting Diagnosis Admitting Diagnosis Admitting Diagnosis: Shortness of breath. DS: Discharge Diagnosis Discharge Diagnosis (1) Acute on chronic respiratory failure with hypoxia and hypercapnia: Code(s): J96.21 - Acute and chronic respiratory failure with hypoxia; J96.22 - Acute and chronic respiratory failure with hypercapnia Status: Acute Assessment and Plan: -Continue oxygen at 2 liters which is patients baseline. -chest x-ray shows bilateral infiltrates, likely fluid overload and pneumonia, pt is receiving abx, hopeful discharge tomorrow (2) Hypoglycemia: Code(s): E16.2 - Hypoglycemia, unspecified Status: Acute Assessment and Plan: Basal insulin glargine and SSI (3) End-stage renal disease (ESRD): Code(s): N18.6 - End stage renal disease Status: Acute Assessment and Plan: Dr. Gallegos consulted for dialysis, going to dialysis in hospital, can go to dialysis [facility] in [place] at 930 am (4) Person under investigation for COVID-19: Code(s): Z20.828 - Contact with and (suspected) exposure to other viral communicable diseases Status: Ruled-out Assessment and Plan: Negative (5) Chronic obstructive pulmonary disease: Qualifiers: COPD type: unspecified COPD Qualified Code(s): J44.9 - Chronic obstructive pulmonary disease, unspecified Code(s): J44.9 - Chronic obstructive pulmonary disease, unspecified Status: Inactive Assessment and Plan: As above (6) Type 1 diabetes mellitus: Qualifiers: Diabetes mellitus complication status: with circulatory complication Code(s): E10.9 - Type 1 diabetes mellitus without complications Status: Inactive Assessment and Plan: Patient to continue home regime 40 at night. (7) Anemia of chronic disease: Code(s): D63.8 - Anemia in other chronic diseases classified elsewhere Status: Inactive Assessment and Plan: Trending (8) Elevated troponin: Code(s): R77.8 - Other specified abnormalities of plasma proteins Status: Acute Assessment and Plan: Patient has no chest pain, likely elevated troponin due to renal disease ESRD (9) Anxiety: Code(s): F41.9 - Anxiety disorder, unspecified Status: Acute Assessment and Plan: Continue home meds (10) Chronic systolic congestive heart failure: Code(s): I50.22 - Chronic systolic (congestive) heart failure Status: Acute Assessment and Plan: Patient is having some ultrafiltration during dialysis, will see if this resolves her symptoms (11) Diminished pulses in lower extremity: Code(s): R09.89 - Other specified symptoms and signs involving the circulatory and respiratory systems Status: Acute Assessment and Plan: Will follow arterial Doppler (12) Ulcer of left heel: Qualifiers: Non-pressure ulcer stage: unspecified non-pressure ulcer stage Qualified Code(s): L97.429 - Non-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 with unspecified severity Code(s): L97.429 - Non-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 wound team consulted DS: Summary Time Spent with Patient Time attestation: Total time spent providing and/or coordinating discharge services:40 minutes on day of discharge Exam Narrative: Exam Narrative: - GENERAL: thin built lady - HENT: Supple neck - CARDIOVASCULAR: Regular rate and rhythm. No murmur. No JVD. AICD in place left chest. - ABDOMEN: Soft, non-tender and non-distended. No palpable masses. Positive bowel sounds. - EXTREMITIES: No edema. Peripheral pulses 2+. Non-tender. Large callus left lower extremity appears chronic dry, tender, fissure. - NEUROLOGIC: No focal neurological deficits. CN II-XII grossly intact. - PSYCHIATRIC: Awake, Alert and o
[2020-04-09 18:53] LABS: Glucose Point of Care 384 (65-105)
== END 2020-04-09 18:45 | disposition home or self-care (01) | DRG 193 ==
LOC: ANHED 10:35 → ANHIMU 17:07 → ANHCPC 04-05 22:21 → ANH3MEDSUR 04-09 13:47 → ANHCPC 04-13 16:04 → ANHIMU 04-13 16:04
PROVIDERS: Internal Medicine Nephrology; Physician Assistant; Student in an Organized Health Care Education/Training Program; Admitting Provider Family Medicine; Emergency Provider Emergency Medicine; PCP Family Medicine; Visit Provider Family Medicine
DX: J18.9 Pneumonia, unspecified organism (principal); J96.22 Acute and chronic respiratory failure with hypercapnia; J96.21 Acute and chronic respiratory failure with hypoxia; N18.6 End stage renal disease; J44.0 Chronic obstructive pulmonary disease with (acute) lower respiratory infection; I13.2 Hypertensive heart and chronic kidney disease with heart failure and with stage 5 chronic kidney disease, or end stage renal disease; I50.22 Chronic systolic (congestive) heart failure; I42.9 Cardiomyopathy, unspecified; L97.429 Non-pressure 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 with unspecified severity; J44.1 Chronic obstructive pulmonary disease with (acute) exacerbation; D63.8 Anemia in other chronic diseases classified elsewhere; Z99.81 Dependence on supplemental oxygen; F41.9 Anxiety disorder, unspecified; Z87.891 Personal history of nicotine dependence; E10.21 Type 1 diabetes mellitus with diabetic nephropathy; E10.59 Type 1 diabetes mellitus with other circulatory complications; E10.319 Type 1 diabetes mellitus with unspecified diabetic retinopathy without macular edema; E10.649 Type 1 diabetes mellitus with hypoglycemia without coma; Z20.828 Contact with and (suspected) exposure to other viral communicable diseases
CPT/HCPCS: 36415; 36600; 71045; 73650; 80048; 80053; 82375; 82607; 82728; 82746; 82805; 83036; 83050; 83540; 83550; 83605; 83735; 83880; 84100; 84439; 84443; 84480; 84484; 85025; 85027; 85055; 85610; 85730; 86140; 86706; 87340; 87635; 93005; 93923; 94002; 94003; 94640; 96374; 99291; A9270; C9803; G0257; J0456; J0696; J1815; J2920; J7030; J7512; Q5106; Q9957; U0003

== ENCOUNTER 2020-05-01 11:44 | Inpatient (IN) | payer MEDICARE, MEDICAID, SELFPAY ==
[2020-05-01] VITALS (36 sets, daily range): BP systolic 93–148; BP diastolic 56–87; PULSE 60–91; RESP 12–49; TEMP 30.8–38; O2SAT 70–100; BMI 25.8
--- NOTE | ~2020-05-01 | XR_ITS ---
EXAMINATION: XR abdomen NG/feed tube insert INDICATION: Nasogastric tube insertion TECHNIQUE: Portable AP KUB-NG at 1334 hours COMPARISON: 05/16/2020 FINDINGS: The nasogastric tube is in the stomach. There is a moderate-sized left pleural effusion. St able cardiomegaly is noted. A tracheostomy has been inserted since this morning's portable radiograph . IMPRESSION: 1. Nasogastric tube in the stomach. Reviewed, dictated and finalized at location A. ACT CENTER REP
--- NOTE | ~2020-05-01 | US_ITS ---
US abdomen limited INDICATION: Elevated liver function tests. PROCEDURE: Realtime right upper abdominal ultrasound. COMPARISON: No prior studies for comparison. FINDINGS: The pancreas is normal without focal mass or pancreatic ductal dilation. Liver echotexture is normal without focal mass or intrahepatic biliary dilatation. There is normal directional flow i n the portal vein. Gallbladder is distended with gallbladder wall thickening measuring 2.8 mm and dilation of the common bile duct measuring 11.4 mm. There is a gallbladder polyp. IMPRESSION: 1: Distended gallbladder with gallbladder wall thickening and dilation of the common duct. No gallsto derrell identified. Consider HIDA scan if there is concern for acute cholecystitis. Reviewed, dictated and finalized at location A. SLIDER IMPRESSION: 1: Distended gallbladder with gallbladder wall thickening and dilation of the c ommon duct. No gallstones identified. Consider HIDA scan if there is concern fo r acute cholecystitis.
--- NOTE | ~2020-05-01 | XR_ITS ---
XR chest 1V portable 05/12/2020 06:12 Indication: Respiratory failure Procedure: AP portable chest Comparison: Comparison to multiple prior studies sequentially, with oldest reviewed study dated 05/2020. Findings: Endotracheal tube tip 3 cm above the paula. NG tube in the stomach. Pacemaker leads in exp ected position. Right IJ central line tip near the cavoatrial junction. Heart size normal. There is d iffuse bilateral airspace disease without significant change. Small pleural effusions no pneumothorax .. Impression: 1: Stable diffuse bilateral airspace disease which may represent edema or pneumonia. 2: Small pleural effusions. Reviewed, dictated and finalized at location A. UM EXHIBIT DESIGNER Impression: 1: Stable diffuse bilateral airspace disease which may represent edema or pneum onia. 2: Small pleural effusions.
--- NOTE | ~2020-05-01 | CT_ITS ---
EXAMINATION: CT brain wo con DATE: 05/05/2020 13:04 INDICATION: Encephalopathy TECHNIQUE: Computed tomography (CT) of the head was performed without intravenous contrast. Sagittal and coronal reconstructions were performed. The mA was adjusted according to patient size. Iterative reconstruction technique was employed. The dose-length product was 605.33 mGy-cm. COMPARISON: head CT dated 05/01/2020 FINDINGS: No acute intracranial hemorrhage, acute infarction or abnormal extra axial fluid collection. Ventricl es are normal and symmetric. No mass/mass effect. Changes of left intraocular lens replacement. Mild mucosal thickening in the right sphenoid sinus. Small left mastoid effusion. IMPRESSION: 1. No acute intracranial process. Reviewed, dictated and finalized at location A. ANICAL ENGINEERING SPECIALIST
--- NOTE | ~2020-05-01 | XR_ITS ---
EXAMINATION: XR chest ET placement INDICATION: Endotracheal tube insertion TECHNIQUE: Portable AP chest at 1645 hours COMPARISON: 0553 hours FINDINGS: The endotracheal tube ends approximately 4.2 cm above the paula. The nasogastric tube is f ollowed as far as the stomach. Its tip is beyond the inferior margin of the radiograph. A right inter nal jugular central venous catheter ends with its tip in the distal superior vena cava. There is stab le cardiomegaly. Small pleural effusions are unchanged. There is no pneumothorax. A dual-lead cardiac pacemaker of the left chest wall ends with leads in expected locations. Diffuse interstitial and air space opacities persist without significant change. IMPRESSION: 1. Lines and tubes in expected positions. 2. Stable diffuse lung disease, consistent with pneumonia and/or pulmonary edema and/or atelectasis. 3. Small pleural effusions. Reviewed, dictated and finalized at location A. ING MACHINE OPERATOR IMPRESSION: 1. Lines and tubes in expected positions. 2. Stable diffuse lung disease, consistent with pneumonia and/or pulmonary derek a and/or atelectasis. 3. Small pleural effusions.
--- NOTE | ~2020-05-01 | XR_ITS ---
EXAMINATION: XR chest 1V portable DATE: 05/07/2020 06:15 INDICATION: Acute respiratory failure. Pulmonary edema. TECHNIQUE: frontal view of the chest was obtained. COMPARISON: Chest radiograph dated 05/06/2020 FINDINGS: Endotracheal tube tip 3.3 cm above the paula. Nasogastric tube extends below the left hemidiaphragm with distal tip collimated off the study. Right internal jugular central venous catheter with distal tip in the caudal superior vena cava. Opacities in the bilateral mid to lower lung zones consistent with small bilateral posteriorly layeri ng pleural effusions and associated bibasilar atelectasis and/or pneumonia. Cardiomegaly. Dual lead p acemaker/AICD seen with leads projecting over the expected locations of the right atrium and right ve ntricle. Couple surgical clips at the right side of the mediastinum. Calcified mediastinal lymph node s consistent with old granulomatous disease. IMPRESSION: 1. No significant interval change in small bilateral pleural effusions with superimposed pulmonary ed jose l, pneumonia, atelectasis or some combination thereof. 2. Cardiomegaly. Reviewed, dictated and finalized at location A. L SAMPLER IMPRESSION: 1. No significant interval change in small bilateral pleural effusions with sup erimposed pulmonary edema, pneumonia, atelectasis or some combination thereof. 2. Cardiomegaly.
--- NOTE | ~2020-05-01 | XR_ITS ---
EXAMINATION: XR chest 1V portable EXAM DATE: 05/02/2020 12:27 INDICATION: Respiratory failure . TECHNIQUE: Portable AP frontal chest x-ray was obtained. Comparison is made to prior examination from 05/01/2020. FINDINGS: Endotracheal tube tip is 5 centimeters above the paula. There is a nasogastric tube seen with tip collimated off the study, but below the left hemidiaphragm. There is a dual lead pacemaker/A ICD seen with leads projecting over the expected locations of the right atrial appendage and right ve ntricle. There is bilateral diffuse abnormal reticulation, ill-defined edema or infection. Small bilateral pl eural effusions. There is no pneumothorax suspected. Mild cardiomegaly. There is pulmonary vascula r congestion. The bones and soft tissues are unremarkable. Endotracheal tube was advanced, otherwise no significant interval change. IMPRESSION: 1. Line and tube(s) in position. 2. Findings consistent with CHF exacerbation. Please clinically correlate. Reviewed, dictated and finalized at location A. NALISM TEACHER
--- NOTE | ~2020-05-01 | XR_ITS ---
XR chest 1V portable 05/15/2020 06:00 Indication: Respiratory failure Procedure: AP portable chest Comparison: Comparison to multiple prior studies sequentially, with oldest reviewed study dated 09/2020. Findings: Endotracheal tube tip 3.4 cm above the paula. NG tube in the stomach. Right IJ central raman e tip in SVC. Cardiomegaly. Diffuse bilateral airspace disease. Small pleural effusions. No pneumotho rax. No acute osseous abnormality. Impression: 1: Persistent diffuse bilateral airspace disease which may represent edema or pneumonia. 2: Small pleural effusions. Reviewed, dictated and finalized at location A. TRAFFIC CONTROL EQUIPMENT REPAIRER Impression: 1: Persistent diffuse bilateral airspace disease which may represent edema or p neumonia. 2: Small pleural effusions.
--- NOTE | ~2020-05-01 | XR_ITS ---
EXAMINATION: XR chest ET placement EXAM DATE: 05/01/2020 12:16 INDICATION: ET and orogastric tube placement. TECHNIQUE: Portable AP frontal chest x-ray was obtained. Comparison is made to prior examination from 04/04/2020. FINDINGS: Study is limited, exclusion of the right side of the thorax. Endotracheal tube is at the le janelle of the thoracic inlet, recommend advancing 3-4 cm. There is a nasogastric tube seen with tip emre imated off the study, but below the left hemidiaphragm. There is cardiomegaly and pulmonary vascular congestion. There is a small to moderate left pleural effusion. Bilateral ill-defined airspace diseas e, edema or pneumonia. There is a dual lead pacemaker/AICD seen with leads projecting over the expect ed locations of the right atrial appendage and right ventricle. There is aortic arteriosclerosis. IMPRESSION: 1. Endotracheal tube could be safely advanced 3-4 cm. Feeding tube in position. 2. Findings consistent with CHF exacerbation. A.m. the endotracheal tube on this patient. I discussed ET tube position with Dr. Sophia Daniel MD at 05/01/2020 12:22 ELECTRICAL INSTALLATION SUPERVISOR. She states she reyes d already advanced the tube. Reviewed, dictated and finalized at location A. TRICAL INSTALLATION SUPERVISOR IMPRESSION: 1. Endotracheal tube could be safely advanced 3-4 cm. Feeding tube in position . 2. Findings consistent with CHF exacerbation. A.m. the endotracheal tube on th is patient. I discussed ET tube position with Dr. Sophia Daniel MD at 05/01/2020 12:22 ELECTRICAL INSTALLATION SUPERVISOR. She states she had already advanced the tube.
--- NOTE | ~2020-05-01 | XR_ITS ---
XR chest 1V portable 05/11/2020 05:51 Indication: Respiratory failure Procedure: AP portable chest Comparison: Comparison to multiple prior studies sequentially, with oldest reviewed study dated 04/08. Findings: Endotracheal tube tip 3.1 cm above the paula. Right IJ central line tip mass cc. NG tube i n the stomach. Cardiomegaly. Unchanged diffuse bilateral airspace disease. Small pleural effusions. N o pneumothorax. No acute osseous abnormality. Impression: 1: Diffuse bilateral airspace disease, unchanged. This may represent edema or pneumonia. 2: Small pleural effusions. 3: Cardiomegaly. Reviewed, dictated and finalized at location A. NING LEAD Impression: 1: Diffuse bilateral airspace disease, unchanged. This may represent edema or p neumonia. 2: Small pleural effusions. 3: Cardiomegaly.
--- NOTE | ~2020-05-01 | CT_ITS ---
EXAMINATION: CT brain wo con, CT cervical spine wo con EXAM DATE: 05/01/2020 12:52 (accession [id number]), 05/01/2020 12:53 (accession [id number]) INDICATION: Unresponsive, found down. Head injury. TECHNIQUE: Spiral CT of the head was performed without contrast. Axial, coronal and sagittal images were reviewed. Spiral CT of the cervical spine was performed without contrast. Axial images were rev iewed. Coronal and sagittal reformatted images were also reviewed. The dose-length product (DLP) fo r this examination was 681.00 (accession [id number]), 393.39 (accession [id number]) mGy-cm. The exposure was tailored according to patient size, and iterative reconstruction (ASIR) was used as additional dose reduction technique. Comparison is made to prior examination from 07/24/2018. FINDINGS: HEAD CT: There is no acute intraparenchymal hemorrhage. No evidence of intraparenchymal brain mass l esion. No evidence of acute infarction. There is no mass effect or midline shift. There is no obstru ctive hydrocephalus suspected. There are no extra-axial collections. There are no acute calvarial f ractures. The orbits are unremarkable. Small left posterior scalp contusion. Mild ethmoid and maxil fili sinus mucoperiosteal thickening. No air-fluid levels. There is trace left mastoid effusion. CERVICAL CT: There is no evidence of acute cervical fracture. The odontoid process is intact. Pre-d ens space is normal. Prevertebral soft tissue is normal. There are no soft tissue abnormalities natalya ntified. There is no disc space widening or traumatic vertebral body subluxation suspected. C4-5 mo derate disc disease and moderate-sized bridging endplate osteophytes. Overall moderate cervical arthr opathy. Intubated and nasogastric tube. Layering right pleural effusion. A detailed level by level e valuation of spondylosis can be added as addendum if requested. IMPRESSION: 1. No acute intracranial findings or cervical fracture. 2. Left posterior scalp contusion. 3. Moderate cervical spondylosis. Reviewed, dictated and finalized at location A. CONTROL ANALYST IMPRESSION: 1. No acute intracranial findings or cervical fracture. 2. Left posterior scalp contusion. 3. Moderate cervical spondylosis.
--- NOTE | ~2020-05-01 | XR_ITS ---
XR abdomen NG/feed tube insert INDICATION: Evaluate NG tube position. TECHNIQUE: Limited KUB perform for evaluating NG tube . COMPARISON: 05/16/2020 and 05/06/2020 FINDINGS: NG tube tip in the stomach. Visualized bowel gas pattern is nonspecific.Patchy left-sided airspace disease, suspicious for pneumonia. IMPRESSION: 1: NG tube tip in the stomach. 2: Patchy left-sided airspace disease, suspicious for pneumonia. Reviewed, dictated and finalized at location A. WORKER
--- NOTE | ~2020-05-01 | XR_ITS ---
EXAMINATION: XR abdomen NG/feed tube insert EXAM DATE: 05/01/2020 12:16 INDICATION: OG placement . TECHNIQUE: Frontal projection(s) of the abdomen for interpretation. There is no prior study for zayra david. FINDINGS: Feeding tube tip and side-port project over left side of the abdomen, adequate in position . Small pleural effusion. Nonspecific bowel gas pattern. IMPRESSION: Feeding tube in position. Reviewed, dictated and finalized at location A. UCTION SANITIZER IMPRESSION: Feeding tube in position.
--- NOTE | ~2020-05-01 | XR_ITS ---
EXAMINATION: XR chest 1V portable INDICATION: Volume overload, respiratory failure TECHNIQUE: Portable AP chest at 0520 hours COMPARISON: 05/16/2020 FINDINGS: The endotracheal tube ends approximately 2.6 cm above the paula. The nasogastric tube is f ollowed as far as the stomach. Its tip is beyond the inferior margin of the radiograph. Patchy bilate ral opacities persist without significant change. There are small pleural effusions. Cardiomegaly is noted. A vascular stent is present in the left upper extremity. IMPRESSION: 1. Stable diffuse lung disease, consistent with pneumonia and/or pulmonary edema and/or acute respira tory distress syndrome (ARDS). 2. Small pleural effusions. 3. Stable cardiomegaly. Reviewed, dictated and finalized at location A. ROLLER OPERATOR IMPRESSION: 1. Stable diffuse lung disease, consistent with pneumonia and/or pulmonary derek a and/or acute respiratory distress syndrome (ARDS). 2. Small pleural effusions. 3. Stable cardiomegaly.
--- NOTE | ~2020-05-01 | XR_ITS ---
XR chest 1V portable 05/16/2020 05:54 Indication: Volume overload. Respiratory failure. Procedure: AP portable chest Comparison: Comparison to multiple prior studies sequentially, with oldest reviewed study dated 10/2020. Findings: Endotracheal tube tip 3.7 cm above the paula. Right IJ central line tip in the SVC. Diffus e bilateral airspace disease unchanged. Cardiomegaly. Small pleural effusions. No pneumothorax. Impression: 1: Stable diffuse bilateral airspace disease, edema versus pneumonia. 2: Small pleural effusions. Reviewed, dictated and finalized at location A. K SEALER Impression: 1: Stable diffuse bilateral airspace disease, edema versus pneumonia. 2: Small pleural effusions.
--- NOTE | ~2020-05-01 | XR_ITS ---
EXAMINATION: XR abdomen NG/feed tube insert INDICATION: OG tube placement TECHNIQUE: Portable AP KUB-NG at 1646 hours COMPARISON: None available FINDINGS: The enteric tube is in the stomach. Small pleural effusions are unchanged. Cardiomegaly is noted. There is calcified atherosclerosis. IMPRESSION: 1. Enteric tube in the stomach. Reviewed, dictated and finalized at location A. FLIPPER
--- NOTE | ~2020-05-01 | XR_ITS ---
EXAMINATION: XR chest 1V portable DATE: 05/05/2020 06:09 INDICATION: Acute respiratory failure. Pulmonary edema. TECHNIQUE: frontal view of the chest was obtained. COMPARISON: Chest radiograph dated 05/04/2020 FINDINGS: Endotracheal tube tip 5.6 cm above the paula. Nasogastric tube extends below the left hemidiaphragm with distal tip collimated off the study. Right internal jugular central venous catheter with distal tip at the caudal superior vena cava. Increasing opacities in the bilateral mid and lower lung zones. Blunting at the right costophrenic an d left cardiophrenic angles consistent with small bilateral pleural effusions. No pneumothorax. Cardi omegaly. Dual lead pacemaker/AICD seen with leads projecting over the expected locations of the right atrium and right ventricle. There are a couple surgical clips project over the right side of the mediastinum. Calcified mediastinal lymph nodes consistent with old granulomatous disease. IMPRESSION: 1. Increasing opacities in bilateral mid and lower lung zones which could represent worsening pulmona ry edema, pneumonia, atelectasis or some combination thereof. 2. Small bilateral pleural effusions. 3. Cardiomegaly. Reviewed, dictated and finalized at location A. F DEVELOPMENT EDUCATOR IMPRESSION: 1. Increasing opacities in bilateral mid and lower lung zones which could repre sent worsening pulmonary edema, pneumonia, atelectasis or some combination ther eof. 2. Small bilateral pleural effusions. 3. Cardiomegaly.
--- NOTE | ~2020-05-01 | XR_ITS ---
XR chest 1V portable 05/13/2020 06:32 Indication: Respiratory failure Procedure: AP portable chest Comparison: Comparison to multiple prior studies sequentially, with oldest reviewed study dated 06/2020. Findings: Endotracheal tube tip 3.6 cm above the paula. Right IJ central line tip in the SVC. NG tub e in the stomach. Pacemaker leads are present, position unchanged. Stable diffuse bilateral airspace disease. Small pleural effusions. No pneumothorax. Impression: 1: Stable diffuse bilateral airspace disease which may represent edema or pneumonia. 2: Small pleural effusions. Reviewed, dictated and finalized at location A. RIFUGAL WAX MOLDER Impression: 1: Stable diffuse bilateral airspace disease which may represent edema or pneum onia. 2: Small pleural effusions.
--- NOTE | ~2020-05-01 | XR_ITS ---
XR chest 1V portable 05/14/2020 06:15 Indication: Respiratory failure Procedure: AP portable chest Comparison: Comparison to multiple prior studies sequentially, with oldest reviewed study dated 07/2020. Findings: Endotracheal tube tip 3.4 cm above the paula. NG tube in the stomach. Pacemaker leads stab le. Diffuse pulmonary edema. Small right pleural effusion. No pneumothorax. Central line tip in the S VC. No significant interval change. Impression: 1: Persistent unchanged diffuse bilateral airspace disease which may represent pneumonia or edema. 2: Small right pleural effusion. Reviewed, dictated and finalized at location A. ISION INSTRUMENT MAKER AND REPAIRER Impression: 1: Persistent unchanged diffuse bilateral airspace disease which may represent pneumonia or edema. 2: Small right pleural effusion.
--- NOTE | ~2020-05-01 | XR_ITS ---
EXAMINATION: XR chest 1V portable DATE: 05/06/2020 06:35 INDICATION: Acute respiratory failure. Pulmonary edema. TECHNIQUE: frontal view of the chest was obtained. COMPARISON: Chest radiograph dated 05/05/2020 FINDINGS: Endotracheal tube tip 5.1 cm above the paula. Nasogastric tube extends below the left hemidiaphragm with distal tip collimated off the study. Right internal jugular central venous catheter with distal tip near the superior cavoatrial junction. No significant interval change in opacities in the bilateral mid and lower lung zones with persistent blunting at the right costophrenic and left cardiophrenic angles consistent with small bilateral ple ural effusions. No pneumothorax. Cardiomegaly. Dual lead pacemaker/AICD seen with leads projecting ov er the expected locations of the right atrium and right ventricle. There are couple surgical clips at the right side of the mediastinum. Calcified mediastinal lymph nodes consistent with old granulomato us disease. Old right rib fracture. IMPRESSION: 1. No significant change in opacities in the bilateral mid and lower lung zones which could represent pulmonary edema, pneumonia, atelectasis or some combination thereof. 2. Small bilateral pleural effusions. 3. Cardiomegaly. Reviewed, dictated and finalized at location A. PRINTER APPRENTICE IMPRESSION: 1. No significant change in opacities in the bilateral mid and lower lung zones which could represent pulmonary edema, pneumonia, atelectasis or some combinat ion thereof. 2. Small bilateral pleural effusions. 3. Cardiomegaly.
--- NOTE | ~2020-05-01 | XR_ITS ---
EXAMINATION: XR chest 1V portable INDICATION: Volume overload, respiratory failure TECHNIQUE: Portable AP chest at 0539 hours COMPARISON: 05/18/2020 FINDINGS: The endotracheal tube has been removed and replaced by a tracheostomy. The nasogastric tube is followed as far as the stomach. Its tip is beyond the inferior margin of the radiograph. A right internal jugular central venous catheter ends with its tip in the distal superior vena cava. There ar e small pleural effusions with improvement on the left since the comparison. There is stable cardiome veronika. Patchy bilateral interstitial and airspace opacities persist but have improved. A dual-lead car diac pacemaker of the left chest wall ends with leads in expected locations. Avascular stent is noted in the left upper extremity. IMPRESSION: 1. Diffuse lung disease with interval improvement, consistent with pneumonia and/or pulmonary edema a nd/or acute respiratory distress syndrome (ARDS). 2. Improved left pleural effusion. 3. Endotracheal tube removal and tracheostomy insertion. Reviewed, dictated and finalized at location A. ECT PORTFOLIO ANALYST IMPRESSION: 1. Diffuse lung disease with interval improvement, consistent with pneumonia an d/or pulmonary edema and/or acute respiratory distress syndrome (ARDS). 2. Improved left pleural effusion. 3. Endotracheal tube removal and tracheostomy insertion.
--- NOTE | ~2020-05-01 | XR_ITS ---
EXAMINATION: XR chest 1V portable DATE: 05/08/2020 06:23 INDICATION: Acute respiratory failure. Pulmonary edema. TECHNIQUE: frontal view of the chest was obtained. COMPARISON: Chest radiograph dated 05/07/2020 FINDINGS: Endotracheal tube tip 4.5 cm above the paula. Nasogastric tube extends below the left hemidiaphragm with distal tip collimated off the study. Right internal jugular central venous catheter with distal tip in the midsuperior vena cava. Skin folds project over the right hemithorax. Gradient of bilateral hazy airspace opacities with basi lar predominance. Blunting at the bilateral costophrenic angles. Cardiomegaly. Coronary artery diseas e and/or stenting. Dual lead pacemaker/AICD seen with leads projecting over the expected locations of the right atrium and right ventricle. Mediastinal surgical clips and calcified lymph nodes the latte r consistent with old granulomatous disease. IMPRESSION: 1. Unchanged small bilateral posteriorly layering pleural effusions with associated pulmonary edema, atelectasis, pneumonia or some combination thereof. 2. Cardiomegaly. Reviewed, dictated and finalized at location A. ICAL DATA MANAGEMENT MANAGER IMPRESSION: 1. Unchanged small bilateral posteriorly layering pleural effusions with associ ated pulmonary edema, atelectasis, pneumonia or some combination thereof. 2. Cardiomegaly.
--- NOTE | ~2020-05-01 | XR_ITS ---
EXAMINATION: XR chest 1V portable INDICATION: Volume overload, respiratory failure TECHNIQUE: Portable AP chest at 0541 hours COMPARISON: 05/17/2020 FINDINGS: The endotracheal tube ends approximately 2.4 cm above the paula. The nasogastric tube is f ollowed as far as the stomach. Its tip is beyond the inferior margin of the radiograph. A right inter nal jugular catheter ends with its tip in the distal superior vena cava. There are small right and mo derate-sized left pleural effusions. Patchy bilateral interstitial and airspace opacities persist wit hout significant change. No pneumothorax is identified. Cardiomegaly is noted. A vascular stent is ag ain noted in the left upper extremity. A dual-lead cardiac pacemaker of the left chest wall ends with leads in expected locations. IMPRESSION: 1. Stable diffuse lung disease, consistent with pneumonia and/or pulmonary edema and/or acute respira tory distress syndrome (ARDS). 2. Moderate-sized left and small right pleural effusions. 3. Stable cardiomegaly. Reviewed, dictated and finalized at location A. OLOGIST IMPRESSION: 1. Stable diffuse lung disease, consistent with pneumonia and/or pulmonary derek a and/or acute respiratory distress syndrome (ARDS). 2. Moderate-sized left and small right pleural effusions. 3. Stable cardiomegaly.
--- NOTE | ~2020-05-01 | XR_ITS ---
XR abdomen NG/feed tube rechec INDICATION: Evaluate G-tube position. TECHNIQUE: Limited KUB perform for evaluating NG tube . COMPARISON: 05/06/2020 FINDINGS: NG tube tip in the stomach, side port above the expected location of the GE junction. Recom mend advancement. Visualized bowel gas pattern is unremarkable. IMPRESSION: 1: NG tube tip in the stomach, side-port above the expected location of the GE junction. Recommend a dvancement. Reviewed, dictated and finalized at location A. CAR OPERATOR IMPRESSION: 1: NG tube tip in the stomach, side-port above the expected location of the GE junction. Recommend advancement.
--- NOTE | ~2020-05-01 | XR_ITS ---
EXAMINATION: XR chest 1V portable DATE: 05/09/2020 05:57 INDICATION: Acute respiratory failure. Pulmonary edema. TECHNIQUE: frontal view of the chest was obtained. COMPARISON: Chest radiograph dated 05/08/2020 FINDINGS: Endotracheal tube tip 3.7 cm above the paula. Nasogastric tube extends below the left hemidiaphragm with distal tip collimated off the study. Right internal jugular central venous catheter with distal tip at the caudal superior vena cava. Again seen are skin folds project over the right upper lung zone. Diffuse hazy opacities throughout b oth lungs relatively sparing the apices with blunting at the costophrenic angles. No pneumothorax. Ca rdiomegaly. Coronary artery disease and/or stenting. Dual lead pacemaker/AICD seen with leads projecting over the expected locati ons of the right atrium and right ventricle. Mediastinal surgical clips and calcified lymph nodes the latter consistent with old granulomatous disease. IMPRESSION: 1. Unchanged small bilateral posteriorly layering pleural effusions with associated pulmonary edema, atelectasis, pneumonia or some combination thereof. 2. Cardiomegaly. Reviewed, dictated and finalized at location A. ER TENDER IMPRESSION: 1. Unchanged small bilateral posteriorly layering pleural effusions with associ ated pulmonary edema, atelectasis, pneumonia or some combination thereof. 2. Cardiomegaly.
--- NOTE | ~2020-05-01 | XR_ITS ---
EXAMINATION: XR chest 1V portable INDICATION: Volume overload, respiratory failure TECHNIQUE: Portable AP chest at 0526 hours COMPARISON: 05/19/2020 FINDINGS: The nasogastric tube has been removed. A tracheostomy is in expected position. A right inte rnal jugular central venous catheter ends with its tip in the distal superior vena cava. Small pleura l effusions are stable. Stable cardiomegaly is noted. A mild diffuse interstitial pattern persists wi thout significant change. Patchy bilateral airspace opacities are also unchanged. There is no pneumot horax. A dual-lead cardiac pacemaker of the left chest wall ends with leads in expected locations. IMPRESSION: 1. Stable diffuse lung disease, consistent with pneumonia and/or pulmonary edema and/or acute respira tory distress syndrome (ARDS). 2. Nasogastric tube removal. 3. Small pleural effusions. Reviewed, dictated and finalized at location A. TER MIRROR IMPRESSION: 1. Stable diffuse lung disease, consistent with pneumonia and/or pulmonary derek a and/or acute respiratory distress syndrome (ARDS). 2. Nasogastric tube removal. 3. Small pleural effusions.
--- NOTE | ~2020-05-01 | XR_ITS ---
EXAMINATION: XR chest 1V portable DATE: 05/03/2020 06:02 INDICATION: Congestive heart failure TECHNIQUE: frontal view of the chest was obtained. COMPARISON: Chest radiograph dated 05/02/2020 FINDINGS: Endotracheal tube tip 5.5 cm above the paula. Nasogastric tube extends below the left hemidiaphragm with distal tip collimated off the study. Increasing lower lung predominant bilateral airspace opacities. No pneumothorax. Cardiomegaly. Lynn ry artery disease. Dual lead pacemaker/AICD seen with leads projecting over the expected locations of the right atrium and right ventricle. IMPRESSION: 1. Increasing bilateral lower lung predominant opacities consistent with small bilateral pleural effu sions with associated atelectasis, pneumonia, pulmonary edema or some combination thereof. 3. Cardiomegaly. Reviewed, dictated and finalized at location A. GION TEACHER IMPRESSION: 1. Increasing bilateral lower lung predominant opacities consistent with small bilateral pleural effusions with associated atelectasis, pneumonia, pulmonary e sherin or some combination thereof. 3. Cardiomegaly.
--- NOTE | ~2020-05-01 | XR_ITS ---
EXAMINATION: XR chest port-a-cath/central EXAM DATE: 05/03/2020 09:44 INDICATION: central line placement . TECHNIQUE: Portable AP frontal chest x-ray was obtained. Comparison is made to prior examination from earlier same date. FINDINGS: Right-sided IJ venous line in position. Endotracheal tube tip is 5 centimeters above the ca reed. There is a nasogastric tube seen with tip collimated off the study, but below the left hemidia phragm. There is a dual lead pacemaker/AICD seen with leads projecting over the expected locations of the right atrial appendage and right ventricle. There is bilateral diffuse abnormal reticulation, ill-defined edema or infection. Small bilateral pl eural effusions. There is no pneumothorax suspected. Mild cardiomegaly. There is pulmonary vascula r congestion. The bones and soft tissues are unremarkable. There is aortic arteriosclerosis. The right IJ line is new compared to prior study, otherwise no significant change. IMPRESSION: 1. Line and tube(s) in position. 2. Findings consistent with CHF exacerbation. Infection not excludable. Reviewed, dictated and finalized at location B. Y RIDER
--- NOTE | ~2020-05-01 | XR_ITS ---
EXAMINATION: XR chest 1V portable DATE: 05/04/2020 06:18 INDICATION: Respiratory failure TECHNIQUE: frontal view of the chest was obtained. COMPARISON: Chest radiograph dated 05/03/2020 FINDINGS: Endotracheal tube tip 6.5 cm above the paula. Right internal jugular central venous catheter with di stal tip at the caudal superior vena cava. Nasogastric tube extends below the left hemidiaphragm wit h distal tip collimated off the study. Gradient of lower lung predominant hazy airspace opacities throughout the left hemithorax and in the right mid and lower lung zones. Blunting at the costophrenic angles and more dense left retrocardiac consolidation. No pneumothorax. Increased prominence of the interstitial pattern consistent with mild pulmonary edema. Cardiomegaly. Dual lead pacemaker/AICD seen with leads projecting over the expected locations of the right atrium and right ventricle. A couple surgical clips project over the right si de of the mediastinum alongside a few calcified paratracheal lymph nodes which are consistent with ol d granulomatous disease. IMPRESSION: 1. Diffuse bilateral basilar predominant opacities consistent with small posteriorly layering bilater al pleural effusions with associated basilar atelectasis and/or pneumonia. 2. Cardiomegaly with likely mild pulmonary edema. Reviewed, dictated and finalized at location A. MANAGER IMPRESSION: 1. Diffuse bilateral basilar predominant opacities consistent with small mobile paramedical examiner iorly layering bilateral pleural effusions with associated basilar atelectasis and/or pneumonia. 2. Cardiomegaly with likely mild pulmonary edema.
--- NOTE | ~2020-05-01 | US_ITS ---
EXAMINATION: US venous doppler UE DATE: 05/02/2020 14:20 INDICATION: Left upper extremity swelling. TECHNIQUE: Sanchez scale images with and without compression and Doppler images of the left upper extrem ity veins were obtained. COMPARISON: None. FINDINGS: The left internal jugular vein, subclavian vein, axillary vein, brachial veins, basilic vein, cephali c vein, radial vein, and ulnar vein are patent. The fistula noted. Subcutaneous edema is present in t he left arm. IMPRESSION: 1. Patent left upper extremity veins. No evidence of deep venous thrombosis. Reviewed, dictated and finalized at location A. CIATE DIRECTOR OF DEVELOPMENT
--- NOTE | ~2020-05-01 | XR_ITS ---
XR abdomen NG/feed tube insert INDICATION: Evaluate NG tube position. TECHNIQUE: Limited KUB perform for evaluating NG tube . COMPARISON: 05/16/2020 FINDINGS: NG tube tip in the stomach. Visualized bowel gas pattern is unremarkable. IMPRESSION: 1: NG tube tip in the stomach. Reviewed, dictated and finalized at location A. GRADER
--- NOTE | 2020-05-01 11:44 | PC.NURSE ---
Patient blood glucose 15 in ED, verbal order received for amp D50 IVP at this time.
--- NOTE | 2020-05-01 11:53 | PC.NURSE ---
Etomidate 20 mg given IVP per Dr. Daniel at this time.
--- NOTE | 2020-05-01 11:54 | PC.NURSE ---
Patient intubated using glidescope using a 7.5 Et tube located 23 at lip. Good color change noted on Co2 detector Blood glucose 219 at this time after first dose of amp d50. Family in waiting room room at this time, wishes for mother to be a full code.
--- NOTE | 2020-05-01 11:59 | ECG_ITS ---
Measurements Intervals [place] Rate: 77 P: 65 DE: 165 QRS: 108 QRSD: 93 T: 48 QT: 413 QTc: 468 Interpretive Statements MTDD
--- NOTE | 2020-05-01 12:01 | PC.NURSE ---
OG placed 55 at teeth at this time.
[2020-05-01] MEDS: SODIUM CHLORIDE 0.9% IV 1,000 ML 999 ML IV CONT ×2 (12:02→14:38)
--- NOTE | 2020-05-01 12:17 | PC.NURSE ---
Et tube pulled back at this time via respiratory therapy 26 at teeth.
--- NOTE | 2020-05-01 12:26 | PC.NURSE ---
Verbal order recieved for 50 MG Rocuronium and 50 MG fentanyl given IVP at this time.
[2020-05-01 12:42] LABS: Alveolar/Arterial O2 Gradient 141.4 mmHg; Base Excess ABG -7.7 mEq/l (+/-2.0); Carboxyhemoglobin 0.9 % THb (0-2.0); Fractional Inspired Oxygen 100 %; Methemoglobin ABG 0.2 %THb (0-1.5); Oxygen Content ABG 18.6 %vol (16.0-22.0); Oxygen Saturation ABG 99.8 % (95.0-100.0); Oxyhemoglobin 98.3 % THb (90.0-100.0); PO2 ABG 497.3 mmHg (80.0-100.0); PO2 FiO2 Ratio Arterial Blood 4.97 %; Reduced Hemoglobin 0.6 %THb (0-5.0); Total Hemoglobin 12.5 g/dL (12.0-18.0)
[2020-05-01 12:44] LABS: PCO2 ABG 74.3 mmHg (35.0-45.0); pH ABG 7.108 (7.350-7.450)
[2020-05-01 12:45] LABS: Arterial Blood Gas PEEP 5 cmH2O; Arterial Blood Gas Vent Mode CMV; Arterial Blood Gas Ventilator rate 20 /MIN; Device VENTILATOR; Site Drawn RIGHT BRACHIAL
[2020-05-01 12:46] LABS: Arterial Blood Gas Pressure Support 0 cmH2O; Arterial Blood Gas Tidal Volume 310 ml
--- NOTE | 2020-05-01 13:08 | ED.GENADULT ---
HPI - General Adult General Chief complaint: Arrhythmia/Palpitations Stated complaint: unresponsive Time Seen by Provider: 05/01/20 11:59 Source: EMS Mode of arrival: EMS Limitations: clinical condition History of Present Illness HPI narrative: This patient is a 54 year old female with history of DM, hypertension, CAD s/p stents, ESRD on dialysis who presents via EMS fo evaluation of unresponsiveness. EMS states patient's mobile lounge driver for dialysis found patient down on her floor. EMS found patient was cold, with difficulty breathing and hypoglycemic. She started D10 in route to ER. They also reported that patient was bradycardic so they were using transdermal pacing. On arrival, patient was not being paced and they were performing BVM. Patient was still hypoglycemic on arrival to ER so she was given D50. Patient unable to give history. She only moans. Her son states he last spoke to her at 830 pm last night. He went over her house today when the mobile lounge driver called about the condition of his mother. He reports patient wears oxygen at home but he found her without oxygen and the tubing was kinked. Related Data Home Medications Medication Instructions Recorded Confirmed Samy Sánchez U-100 Insulin 40 unit SUBCUT HS 03/25/20 04/04/20 alprazolam 1 mg PO TID PRN 03/25/20 04/04/20 aspirin 81 mg PO DAILY 03/25/20 04/04/20 atorvastatin 80 mg PO HS 03/25/20 04/04/20 clopidogrel 75 mg PO DAILY 03/25/20 04/04/20 metoprolol succinate 25 mg PO DAILY 03/25/20 04/04/20 ibuprofen 800 mg PO TID PRN 05/01/20 05/01/20 Allergies Allergy/AdvReac Type Severity Reaction Status Date / Time No Known Allergies Allergy Verified 05/01/20 11:54 Review of Systems Review of Systems: ROS unobtainable: Yes unobtainable due to medical condition [facility] Past Medical History Medical History (Updated 05/01/20 @ 19:01 by Sophia Daniel MD) Anemia of chronic disease Anxiety Arthropathy of right ankle Asthma Bronchitis Chronic obstructive pulmonary disease Chronic respiratory failure with hypoxia, on home oxygen therapy Chronic systolic congestive heart failure Coronary artery disease With history of OR and stents. End-stage renal disease on hemodialysis Hyperlipidemia Hypertension Ischemic cardiomyopathy with implantable cardioverter-defibrillator (ICD) Thrombocytopenia Chronic mild thrombocytopenia. Type 1 diabetes mellitus Complicated by diabetic retinopathy, peripheral neuropathy, and nephropathy. Hemoglobin A1c was 5.5% on 04/04/2020. Surgical History Surgical History AICD (automatic cardioverter/defibrillator) present AV fistula History of ankle surgery (~08/2016) Right ankle ORIF. History of cardiac catheterization (~2009) With stents. History of section History of dilation and curettage Status post partial lobectomy of lung Right upper lobectomy at age 7 for unclear reasons. Family History Family History Other Adopted Unknown family medical history Social History Social History (Updated 05/01/20 @ 15:44 by Alisha Ulloa PA-C) Social History: The patient lives in [place]. She is on disability. She smoked about a half a pack of cigarettes per day for many years and quit in fall 2019. No alcohol or illicit substance abuse. Her son, Adithya Sow, as her emergency contact and she is listed as a full code. Smoking status: Former smoker Exam Const: General: patient obtunded and other (EMS bagging patient) Limitations: altered mental status HENMT: Head: normocephalic and atraumatic Face and sinus: face symmetric Eyes: Other: pupils dilated, gaze to the left, nonreactive to light Resp: Effort & Inspection: labored Auscultation: rhonchi Cardio: Rate: regular rate Rhythm: regular rhythm Heart sounds: no murmurs Other: left arm AV Fistula with thrill GI:
[2020-05-01 13:35] LABS: Basophils Percent Auto 0.2 % (0.2-1.2); Eosinophils Percent Auto 0.2 % (0-4.4); Hematocrit 44.3 % (37.0-47.0); Hemoglobin 12.8 g/dL (12.0-15.0); Immature Granulocyte Absolute 0.02 K/mm3 (0.00-0.031); Immature Granulocyte Percent A 0.4 % (0-0.5); Immature Platelet Fraction Pct 7.7 % (0.9-11.2); Lymphocytes Absolute Auto 0.54 K/mm3 (0.9-3.2); Lymphocytes Percent Auto 9.5 % (18.3-44.2); Mean Corpuscular HGB Conc 28.9 g/dl (32-36); Mean Corpuscular Hemoglobin 30.7 pg (26-34); Mean Corpuscular Volume 106.2 fl (80-100); Mean Platelet Volume 11.1 fl (7.4-10.4); Monocytes Absolute Auto 0.3 K/mm3 (0.1-0.6); Neutrophils Absolute Auto 4.8 K/mm3 (1.3-6.7); Neutrophils Percent Auto 83.7 % (45.5-73.1); Platelet Count Result 124 k/mm3 (150-375); Red Blood Count 4.17 M/mm3 (4.2-5.4); Red Cell Distribution Width 14.7 % (11.5-14.5); White Blood Count 5.7 K/mm3 (4.5-10.0)
[2020-05-01 13:38] LABS: Glucose Point of Care 153 (65-105)
[2020-05-01 13:38] LABS: Glucose Point of Care 178 (65-105)
[2020-05-01 13:38] LABS: Glucose Point of Care 219 (65-105)
[2020-05-01 13:41] LABS: Lactic Acid Reflex 1.6 mmol/L (0.7-2.1)
[2020-05-01 13:43] LABS: Alanine Aminotransferase 41 U/L (4-35); Albumin Level 3.8 g/dL (3.5-5.1); Alkaline Phosphatase 365 U/L (38-126); Anion Gap 12 mmol/L (8-16); Aspartate Amino Transferase 58 U/L (14-36); Bilirubin,Total 0.8 mg/dL (0.2-1.3); Blood Urea Nitrogen 30 mg/dL (7-17); CRP 1.2 mg/dL (<1.0); Calcium 8.4 mg/dL (8.4-10.2); Carbon Dioxide 27 mmol/L (22-30); Chloride 98 mmol/L (98-107); Creatine Kinase 144 U/L (30-135); Estimated CRCL calculation 11 ml/min; Estimated Glomerular Filt Rate 8; Glucose 191 mg/dL (65-105); Potassium 4.9 mmol/L (3.4-5.0); Prothrombin Time 14.1 Seconds (11.1-14.7); Sodium 137 mmol/L (137-145)
[2020-05-01 13:44] LABS: Partial Thromboplastin Time 36.6 SECONDS (22.3-36.8)
[2020-05-01 13:50] LABS: Lipase 23 U/L (23-300); Magnesium 2.3 mg/dL (1.6-2.3)
[2020-05-01 13:54] LABS: Ethanol < 10 mg/dL (<10)
[2020-05-01 14:11] LABS: Troponin I 0.049 ng/mL (0.000-0.034)
[2020-05-01 15:25] LABS: Alveolar/Arterial O2 Gradient 209.9 mmHg; Base Excess ABG -6.3 mEq/l (+/-2.0); Carboxyhemoglobin 0.4 % THb (0-2.0); Fractional Inspired Oxygen 80 %; HCO3 ABG 21.3 mEq/l (22.0-26.0); Methemoglobin ABG 0.1 %THb (0-1.5); Oxygen Content ABG 17.4 %vol (16.0-22.0); Oxygen Saturation ABG 99.6 % (95.0-100.0); Oxyhemoglobin 98.6 % THb (90.0-100.0); PCO2 ABG 51.4 mmHg (35.0-45.0); PO2 ABG 306.5 mmHg (80.0-100.0); PO2 FiO2 Ratio Arterial Blood 3.83 %; Reduced Hemoglobin 0.9 %THb (0-5.0)
[2020-05-01 15:26] LABS: Device VENTILATOR; Modified Allen's Test Pass; Site Drawn RIGHT RADIAL; pH ABG 7.235 (7.350-7.450)
[2020-05-01 15:28] LABS: Arterial Blood Gas Ventilator rate 24 /MIN
[2020-05-01 15:29] LABS: Arterial Blood Gas PEEP 5 cmH2O; Arterial Blood Gas Tidal Volume 310 ml
[2020-05-01 15:30] LABS: Arterial Blood Gas Vent Mode ASSIST CONTROL
--- NOTE | 2020-05-01 16:08 | PC.NURSE ---
Patient is noted to have eye opening and is able to nod and shake head when asked questions. EDP is aware. Patient did nod yes when asked about pain and discomfort. Orders obtained from EDP at this time.
[2020-05-01] MEDS: fentaNYL CITRATE INJ (*CRX) 100 MCG/2 ML VIAL 50 MCG IV PUSH (16:17)
[2020-05-01 16:22] LABS: Hemoglobin A1C 5.7 % (<5.7)
[2020-05-01 16:51] LABS: Hepatitis B Surface Antigen Negative (Negative)
[2020-05-01 16:57] LABS: HAV RESULT Negative (Negative); Hepatitis B Core IgM Result Negative (Negative)
[2020-05-01 17:09] LABS: Hepatitis C Virus Antibody Negative (Negative)
[2020-05-01] MEDS: PROPOFOL IV EMULSION 100 ML 2.24 MG IV CONT (17:11)
[2020-05-01 17:58] LABS: Glucose Point of Care 87 (65-105)
--- NOTE | 2020-05-01 17:59 | ADMGEN ---
This patient, Paty Sow, was admitted to Intensive Care Unit-7. Patient/family oriented to hospital policies and general routines including ID bracelet, bed and alarms, visiting hours, pain management, procedures, bathroom and other care routines, personal items, smoking policy, room service/diet, and visiting hours. Information on how to activate the Rapid Response Team has been discussed. Patient/Family are encouraged to report perceived risks to care and to ask questions if they do not understand what they are told or what they should do.
--- NOTE | 2020-05-01 18:00 | PM.IMHP ---
H&P: HPI History of Present Illness Date/Time: 05/01/20 17:00 Chief Complaint: Unresponsive. Narrative: Paty Sow is an unfortunate 54-year-old female with type 1 diabetes mellitus, coronary artery disease, ischemic cardiomyopathy, chronic kidney disease, chronic respiratory failure on home oxygen, COPD, and several other comorbidities who presented to the emergency department earlier today via EMS from home after she was found unresponsive. She is currently sedated and intubated and is unable to provide any history and as such all of the following is obtained via a review of her electronic medical records as well as discussions with her son. The patient is known to myself as I admitted her to the hospital on 04/04/2020 with acute on chronic respiratory failure with both hypoxia and hypercapnia, treated for COPD exacerbation with some component of volume overload. She was discharged home on 04/09/2020. In any event, not long prior to arrival she was found unresponsive on the floor in her home by the chain saw driver of her [employer], who had come to take her to dialysis. On EMS arrival she was cold to the touch, reportedly breathing 6 times per minute, and was bradycardic and hypoglycemic. It is my understanding that she was not wearing her oxygen and the tubing was kinked. She arrived to the emergency department and was receiving aid with a bag-valve mask and she was eventually intubated. The patient's son last spoke with her at approximately 20:30 last evening and she seemed to be in her usual state. At the time my evaluation she is sedated and intubated and cannot provide history. The nurse did inform me that she was alert and following commands on arrival to ICU. Review of Systems Review of Systems: Narrative: A review of systems is unable to be obtained given her current clinical condition as above. [facility] Past Medical History Medical History (Updated 05/01/20 @ 18:07 by Alisha Ulloa PA-C) Anemia of chronic disease Anxiety Arthropathy of right ankle Asthma Bronchitis Chronic obstructive pulmonary disease Chronic respiratory failure with hypoxia, on home oxygen therapy Chronic systolic congestive heart failure Coronary artery disease With history of MO and stents. End-stage renal disease on hemodialysis Hyperlipidemia Hypertension Ischemic cardiomyopathy with implantable cardioverter-defibrillator (ICD) Thrombocytopenia Chronic mild thrombocytopenia. Type 1 diabetes mellitus Complicated by diabetic retinopathy, peripheral neuropathy, and nephropathy. Hemoglobin A1c was 5.5% on 04/04/2020. Surgical History Surgical History AICD (automatic cardioverter/defibrillator) present AV fistula History of ankle surgery (~08/2016) Right ankle ORIF. History of cardiac catheterization (~2009) With stents. History of section History of dilation and curettage Status post partial lobectomy of lung Right upper lobectomy at age 7 for unclear reasons. Family History Family History Other Adopted Unknown family medical history Social History Social History (Updated 05/01/20 @ 15:44 by Alisha Ulloa PA-C) Social History: The patient lives in [place]. She is on disability. She smoked about a half a pack of cigarettes per day for many years and quit in fall 2019. No alcohol or illicit substance abuse. Her son, Adithya Sow, as her emergency contact and she is listed as a full code. Smoking status: Former smoker Meds Home Medications and Allergies Home Medications Medication Instructions Recorded Confirmed Type Samy JallohPen U-100 Insulin 40 unit SUBCUT HS 03/25/20 04/04/20 History alprazolam 1 mg PO TID 03/25/20 04/04/20 History aspirin 81 mg PO DAILY 03/25/20 04/04/20 History atorvastatin 80 mg PO HS 03/25/20 04/04/20 History clopidogrel 75 mg PO DAILY 03/25/20 04/04/20 History d
[2020-05-01 18:34] LABS: Creatine Kinase 152 U/L (30-135)
[2020-05-01 18:35] LABS: Lactic Acid Reflex 1.7 mmol/L (0.7-2.1)
[2020-05-01] MEDS: SODIUM CHLORIDE 0.9% IV 1,000 ML 75 ML IV CONT (18:35)
[2020-05-01 18:50] LABS: Troponin I 0.047 ng/mL (0.000-0.034)
[2020-05-01 19:00] LABS: Add Urine Microscopic? YES; Appearance Urine Turbid (Clear); Bilirubin Urine Negative (Negative); Blood Urine 2+ (Negative); Budding Yeast Urine Present /hpf; Color Urine Yellow (Yellow); Glucose Urine UA 1+ mg/dL (Negative); Ketones Urine Negative (Negative); Leukocyte Esterase Ur 3+ LEU/UL (NEGATIVE); Nitrate Urine Negative (Negative); Protein Urine 3+ mg/dL (Negative); RBC Urine >75 /hpf (0-2); Specific Grav Ur 1.014 (1.001-1.035); Squamous Epithelial Cell Urine Many /hpf (Few); Urobilinogen Urine Negative mg/dL (<2.0); WBC Clumps Urine Present /HPF; WBC Urine >75 /hpf (0-3)
[2020-05-01] MEDS: FENTANYL 2,500MCG/NS250ML(*CRX 2,500 MCG/250 ML BAG IV CONT (19:39)
[2020-05-01] MEDS: FAMOTIDINE 20 MG/2 ML VIAL IV PUSH (20:06)
[2020-05-01 21:08] LABS: Glucose Point of Care 65 (65-105)
[2020-05-01 21:08] LABS: Glucose Point of Care 89 (65-105)
[2020-05-01] MEDS: DEXTROSE 50% 25 GM/50 ML SYRINGE IV PUSH (21:42)
[2020-05-01] MEDS: DEXTROSE 10% 1,000 ML 50 ML IV CONT (22:28)
[2020-05-01 22:36] LABS: Glucose Point of Care 86 (65-105)
[2020-05-01 23:21] LABS: Ammonia 35 umol/L (9-30)
[2020-05-01 23:26] LABS: Glucose Point of Care 61 (65-105)
[2020-05-01] MEDS: GLUCAGON FOR INJ 1 MG VIAL IM (23:38)
[2020-05-02] VITALS (50 sets, daily range): BP systolic 85–119; BP diastolic 5–63; PULSE 56–109; RESP 24–28; TEMP 35.5–38; O2SAT 92–100
[2020-05-02 00:07] LABS: Glucose Point of Care 74 (65-105)
[2020-05-02 01:09] LABS: Glucose Point of Care 113 (65-105)
[2020-05-02 02:55] LABS: Glucose Point of Care 106 (65-105)
[2020-05-02 04:01] LABS: Glucose Point of Care 106 (65-105)
[2020-05-02 04:28] LABS: Alveolar/Arterial O2 Gradient 123.7 mmHg; Base Excess ABG -3.5 mEq/l (+/-2.0); Device VENTILATOR; Fractional Inspired Oxygen 35 %; HCO3 ABG 21.4 mEq/l (22.0-26.0); Oxygen Content ABG 14.4 %vol (16.0-22.0); Oxygen Saturation ABG 95.8 % (95.0-100.0); Oxyhemoglobin 94.5 % THb (90.0-100.0); PO2 ABG 81.7 mmHg (80.0-100.0); PO2 FiO2 Ratio Arterial Blood 2.33 %; Site Drawn LEFT BRACHIAL; Total Hemoglobin 10.8 g/dL (12.0-18.0); pH ABG 7.369 (7.350-7.450)
[2020-05-02 04:29] LABS: Arterial Blood Gas PEEP 5 cmH2O; Arterial Blood Gas Tidal Volume 310 ml; Arterial Blood Gas Vent Mode CMV; Arterial Blood Gas Ventilator rate 20 /MIN
[2020-05-02 05:43] LABS: Troponin I 0.239 ng/mL (0.000-0.034)
[2020-05-02] MEDS: FAMOTIDINE 20 MG/2 ML VIAL IV PUSH ×2 (08:13→21:01)
[2020-05-02 08:21] LABS: Glucose Point of Care 79 (65-105)
[2020-05-02 08:27] LABS: Basophils Percent Auto 0.1 % (0.2-1.2); Eosinophils Absolute Auto 0.1 K/mm3 (0-0.3); Eosinophils Percent Auto 0.9 % (0-4.4); Hematocrit 31.5 % (37.0-47.0); Hemoglobin 9.6 g/dL (12.0-15.0); Immature Granulocyte Absolute 0.02 K/mm3 (0.00-0.031); Immature Granulocyte Percent A 0.3 % (0-0.5); Immature Platelet Fraction Pct 5.1 % (0.9-11.2); Mean Corpuscular HGB Conc 30.5 g/dl (32-36); Mean Corpuscular Hemoglobin 30.7 pg (26-34); Mean Corpuscular Volume 100.6 fl (80-100); Mean Platelet Volume 11.5 fl (7.4-10.4); Monocytes Absolute Auto 0.6 K/mm3 (0.1-0.6); Monocytes Percent Auto 8.5 % (2.6-8.5); Neutrophils Absolute Auto 5.6 K/mm3 (1.3-6.7); Neutrophils Percent Auto 74.2 % (45.5-73.1); Platelet Count Result 130 k/mm3 (150-375); Red Blood Count 3.13 M/mm3 (4.2-5.4); Red Cell Distribution Width 14.8 % (11.5-14.5); White Blood Count 7.5 K/mm3 (4.5-10.0)
--- NOTE | 2020-05-02 09:17 | PM.EVENT ---
Event Note Event Note Event Note: On dialysis and tolerating well. Removing some fluid. Blood pressure is doing well. She is on a 3K bath. She was seen at 8:30 a.m.
--- NOTE | 2020-05-02 09:18 | PM.CNNEP ---
Assessment and Plan Assessment and plan (1) Chronic systolic congestive heart failure: Code(s): I50.22 - Chronic systolic (congestive) heart failure Status: Acute Assessment and Plan: The patient is getting some fluid off. Her troponins are slowly rising. (2) Type 1 diabetes mellitus: Qualifiers: Diabetes mellitus complication status: with circulatory complication Code(s): E10.9 - Type 1 diabetes mellitus without complications Status: Acute Assessment and Plan: Patient is on D10 W now to keep the sugars up. Her A1c has been good (3) Person under investigation for COVID-19: Code(s): Z20.828 - Contact with and (suspected) exposure to other viral communicable diseases Status: Ruled-out Assessment and Plan: SARS test is pending (4) Acute on chronic respiratory failure with hypoxia and hypercapnia: Code(s): J96.21 - Acute and chronic respiratory failure with hypoxia; J96.22 - Acute and chronic respiratory failure with hypercapnia Status: Acute Assessment and Plan: The patient is on the ventilator now. He does have significant underlying respiratory failure requiring home oxygen. (5) Hypoglycemia: Code(s): E16.2 - Hypoglycemia, unspecified Status: Acute Assessment and Plan: She is on D10 W. (6) End-stage renal disease (ESRD): Code(s): N18.6 - End stage renal disease Status: Acute Assessment and Plan: She is getting dialysis today she is normally MWF but is on MWSat schedule for the holidays. (7) Anemia of chronic disease: Code(s): D63.8 - Anemia in other chronic diseases classified elsewhere Status: Acute Assessment and Plan: Her hemoglobin dropped from 12-9. Will check stool guaiacs. Will give her some EPO. (8) Ulcer of left heel: Qualifiers: Non-pressure ulcer stage: unspecified non-pressure ulcer stage Qualified Code(s): L97.429 - Non-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 with unspecified severity Code(s): L97.429 - Non-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 with unspecified severity Status: Acute Assessment and Plan: Getting local care History of Present Illness Reason for Consult Consult date: 05/02/20 Chief Complaint Chief complaint: acute respiratory failure w hypoxia and hypercarbi History of Present Illness Narrative: Paty is a very pleasant 54-year-old lady who has multiple medical problems including diabetes, hypertension, end-stage renal disease on dialysis 3 times a week, hyperlipidemia, COPD on home oxygen, anemia of chronic kidney disease, renal osteodystrophy, asthma, bronchitis, coronary disease with HI and stents and congestive heart failure, hyperlipidemia, thrombocytopenia. The patient was supposed to go to dialysis yesterday however she did not show up. They called and she did not answer the phone. She usually does. This sent somewhat now to check on her and she was found on the floor. It was unclear how long she has been down. The called 911 and brought her over to the emergency room. Evaluation at the scene showed that her sugar was only 30. She was given meds and sugars improved. She got to the ER. She was still not responsive and so she was intubated placed in the ICU. After in our so she was awake and following commands. Then she became anxious and so she was sedated and is currently in the ICU. She cannot give a history Review of Systems Review of Systems: ROS unobtainable: Yes unobtainable due to medical condition [facility] Past Medical History Medical History Anemia of chronic disease Anxiety Arthropathy of right ankle Asthma Bronchitis Chronic obstructive pulmonary disease Chronic respiratory failure with hypoxia, on home oxygen therapy Chronic systolic congestive heart failure Coronary artery disease With history of HI and stent
[2020-05-02] MEDS: DEXTROSE 10% 1,000 ML 100 ML IV CONT ×3 (09:23→22:18)
[2020-05-02 09:37] LABS: Hepatitis B Surface Antigen Negative (Negative)
[2020-05-02 09:47] LABS: Alanine Aminotransferase 27 U/L (4-35); Albumin Level 2.3 g/dL (3.5-5.1); Alkaline Phosphatase 230 U/L (38-126); Anion Gap 9 mmol/L (8-16); Aspartate Amino Transferase 38 U/L (14-36); Bilirubin,Total 0.4 mg/dL (0.2-1.3); Blood Urea Nitrogen 34 mg/dL (7-17); CRP 4.6 mg/dL (<1.0); Calcium 7.6 mg/dL (8.4-10.2); Carbon Dioxide 24 mmol/L (22-30); Chloride 100 mmol/L (98-107); Creatine Kinase 207 U/L (30-135); Estimated CRCL calculation 14 ml/min; Estimated Glomerular Filt Rate 9; Glucose 108 mg/dL (65-105); Magnesium 1.9 mg/dL (1.6-2.3); Potassium 4.1 mmol/L (3.4-5.0); Sodium 133 mmol/L (137-145)
[2020-05-02] MEDS: EPOETIN ALFA-EPBX 10,000 UNITS/ML VIAL 10000 UNITS IV PUSH (10:32)
[2020-05-02 10:58] LABS: Glucose Point of Care 80 (65-105)
--- NOTE | 2020-05-02 11:56 | WPDCNINT ---
Assessment and Plan Assessment and plan (1) Acute on chronic respiratory failure with hypoxia and hypercapnia: Code(s): J96.21 - Acute and chronic respiratory failure with hypoxia; J96.22 - Acute and chronic respiratory failure with hypercapnia Status: Acute Assessment and Plan: Patient with acute chronic respiratory failure, was found unresponsive at her house without oxygen. Patient was intubated in the ER. -chest x-ray shows pulmonary vascular congestion -SARS-CoV-2 PCR has been obtained and pending -patient currently on 30% FiO2 and peep of 5 -chest x-ray and ABGs reviewed -started on cefepime and vancomycin in the ER, cultures have been obtained and pending -continue bronchodilators (2) End-stage renal disease (ESRD): Code(s): N18.6 - End stage renal disease Status: Acute Assessment and Plan: End-stage renal disease on dialysis,(Sunday, , Sunday) -did not get dialyzed on 05/01 -getting dialyzed this morning a nephrology following the patient -electrolytes are within normal limits - Epogen will be given by nephrology (3) Hypoglycemia: Code(s): E16.2 - Hypoglycemia, unspecified Status: Acute Assessment and Plan: Patient with hypoglycemia, patient takes Lantus q.h.s. at home -unsure why patient is hypoglycemia, could related to decreased p.o. intake, excessive Lantus. -currently on D10 (4) Person under investigation for COVID-19: Code(s): Z20.828 - Contact with and (suspected) exposure to other viral communicable diseases Status: Ruled-out Assessment and Plan: SARS-CoV-2 PCR have been obtained and pending -continue airborne, contact, droplet precautions/isolation (5) Elevated troponin: Code(s): R77.8 - Other specified abnormalities of plasma proteins Status: Acute Assessment and Plan: Likely related to respiratory failure, stress, type 2 infarct -no ST-T changes on EKG -echocardiogram has been ordered (6) Ulcer of left heel: Qualifiers: Non-pressure ulcer stage: unspecified non-pressure ulcer stage Qualified Code(s): L97.429 - Non-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 with unspecified severity Code(s): L97.429 - Non-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 with unspecified severity Status: Acute Assessment and Plan: Cracked and open skin on bilateral heels -will have wound care evaluate the patient -local care for now (7) Type 1 diabetes mellitus: Qualifiers: Diabetes mellitus complication status: with circulatory complication Code(s): E10.9 - Type 1 diabetes mellitus without complications Status: Acute Assessment and Plan: Type 1 diabetes on Lantus at home, currently hypoglycemic -hemoglobin A1c is 5.7 this admission -continue Accu-Cheks (8) Anemia of chronic disease: Code(s): D63.8 - Anemia in other chronic diseases classified elsewhere Status: Acute Assessment and Plan: History of chronic anemia, hemoglobin is stable -nephrology to administer Epogen (9) Chronic obstructive pulmonary disease: Qualifiers: COPD type: unspecified COPD Qualified Code(s): J44.9 - Chronic obstructive pulmonary disease, unspecified Code(s): J44.9 - Chronic obstructive pulmonary disease, unspecified Status: Acute Assessment and Plan: Continue bronchodilators, patient currently on 35% FiO2. -ABGs and chest x-ray reviewed (10) DVT prophylaxis: Code(s): Z29.9 - Encounter for prophylactic measures, unspecified Status: Acute Assessment and Plan: Heparin subcu Additional Plan Code status: Full code Critical care time spent: 45 minutes Due to a high probability of clinically significant, life threatening deterioration, the patient required my highest level of preparedness to intervene emergently and I personally spent this critical care time directly and personally managing the patie
[2020-05-02 12:42] LABS: Glucose Point of Care 91 (65-105)
--- NOTE | 2020-05-02 13:04 | PM.IMPN ---
Progress Note: A&P Assessment and Plan (1) Acute on chronic respiratory failure with hypoxia and hypercapnia: Code(s): J96.21 - Acute and chronic respiratory failure with hypoxia; J96.22 - Acute and chronic respiratory failure with hypercapnia Status: Acute Assessment and Plan: Patient with chronic respiratory failure with hypoxia on home oxygen therapy. Patient currently intubated and sedated. ABG showing 7.37/38/82 on current settings. Appears to be CHF related but cannot exclude infectious process. Continue cefepime and vancomycin. Follow up on cultures. Wean ventilator as tolerated. Appreciate track repairer input. (2) Hypoglycemia: Code(s): E16.2 - Hypoglycemia, unspecified Status: Acute Assessment and Plan: Glucose stable but requiring D10 to maintain normal sugar. She takes Basaglar 40 units at night as only medication listed. Continue dextrose. Wean dextrose off as glucose allows. (3) Contusion of scalp: Code(s): S00.03XA - Contusion of scalp, initial encounter Status: Acute Assessment and Plan: Scalp contusion most likely related to a fall. CT of the brain and cervical spine showing no acute findings otherwise. Continue current care. (4) Hypothermia: Code(s): T68.XXXA - Hypothermia, initial encounter Status: Acute Assessment and Plan: Temperature here documented at 87.4?. This is improved and she actually had low-grade fever this morning. Continue to monitor. (5) Elevated troponin: Code(s): R77.8 - Other specified abnormalities of plasma proteins Status: Acute Assessment and Plan: Troponin has climbed to 0.24. She has coronary disease with history of myocardial infarction and stents. She also has ischemic cardiomyopathy with ICD. EKG with considerable baseline artifact. CXR showing evidence of CHF. Echo ordered. (6) Chronic systolic congestive heart failure: Code(s): I50.22 - Chronic systolic (congestive) heart failure Status: Acute Assessment and Plan: patient has a history of ischemic cardiomyopathy with ICD. Chest x-ray consistent with CHF. Patient with acute on chronic heart failure. hemodialysis to control fluid status. (7) Type 1 diabetes mellitus: Qualifiers: Diabetes mellitus complication status: with circulatory complication Code(s): E10.9 - Type 1 diabetes mellitus without complications Status: Acute Assessment and Plan: A1c 5.7. Glucose reviewed on 05/02. Continue Accu-Cheks. Insulin however it has been held due to the hypoglycemia. Continue hypoglycemia protocol. (8) End-stage renal disease on hemodialysis: Code(s): N18.6 - End stage renal disease; Z99.2 - Dependence on renal dialysis Status: Inactive Assessment and Plan: As above. Continue hemodialysis. Nephrology has been consulted and appreciate their input. (9) Anemia of chronic disease: Code(s): D63.8 - Anemia in other chronic diseases classified elsewhere Status: Acute Assessment and Plan: Hemoglobin 12.8 on admission. Suspect this was hemoconcentrated. Hemoglobin today is 9.6 which is more in line with prior values. Continue to monitor. (10) Chronic obstructive pulmonary disease: Qualifiers: COPD type: unspecified COPD Qualified Code(s): J44.9 - Chronic obstructive pulmonary disease, unspecified Code(s): J44.9 - Chronic obstructive pulmonary disease, unspecified Status: Acute Assessment and Plan: no wheezing. Continue nebulizer treatments. (11) DVT prophylaxis: Code(s): Z29.9 - Encounter for prophylactic measures, unspecified Status: Acute Assessment and Plan: Heparin Subjective Date/time seen: 05/02/20 13:04 Interval history: Date of service 05/02 54yo female with DM Type I, CAD, ESRD and chronic respiratory failure here after
[2020-05-02] MEDS: PANTOPRAZOLE SODIUM IV 40 MG VIAL IV PUSH (13:08)
[2020-05-02] MEDS: ALBUTEROL SULFATE NEB 2.5 MG/0.5 ML INH INHALATION ×2 (14:11→19:49)
[2020-05-02] MEDS: IPRATROPIUM BR 0.02% INH SOLN 0.5 MG/2.5 ML VIAL INHALATION ×2 (14:11→19:49)
[2020-05-02 17:13] LABS: Glucose Point of Care 66 (65-105)
[2020-05-02 20:45] LABS: Glucose Point of Care 71 (65-105)
[2020-05-02] MEDS: HEPARIN SODIUM 5,000 UNITS/ML VIAL 5000 UNITS SUB-Q (21:01)
[2020-05-02 22:25] LABS: SARS-CoV-2 RNA PCR Negative
[2020-05-02 22:33] LABS: Vancomycin Random 7.3 ug/mL (10-20)
[2020-05-03] VITALS (47 sets, daily range): BP systolic 84–117; BP diastolic 44–59; PULSE 90–107; RESP 11–24; TEMP 36.4–38.1; O2SAT 93–98; BMI 29.6
[2020-05-03 02:03] LABS: Glucose Point of Care 122 (65-105)
[2020-05-03] MEDS: ALBUTEROL SULFATE NEB 2.5 MG/0.5 ML INH INHALATION ×4 (02:05→20:32)
[2020-05-03] MEDS: IPRATROPIUM BR 0.02% INH SOLN 0.5 MG/2.5 ML VIAL INHALATION ×4 (02:05→20:32)
[2020-05-03 03:21] LABS: Glucose Point of Care 173 (65-105)
[2020-05-03 06:36] LABS: Glucose Point of Care 222 (65-105)
[2020-05-03 07:08] LABS: Glucose Point of Care < 20 (65-105)
[2020-05-03 07:10] LABS: Alveolar/Arterial O2 Gradient 97.1 mmHg; Base Excess ABG 1.7 mEq/l (+/-2.0); Carboxyhemoglobin 0.3 % THb (0-2.0); Fractional Inspired Oxygen 30 %; HCO3 ABG 25.6 mEq/l (22.0-26.0); Methemoglobin ABG 0.1 %THb (0-1.5); Oxygen Content ABG 14.2 %vol (16.0-22.0); Oxygen Saturation ABG 95.4 % (95.0-100.0); Oxyhemoglobin 93.6 % THb (90.0-100.0); PCO2 ABG 37.3 mmHg (35.0-45.0); PO2 FiO2 Ratio Arterial Blood 2.43 %; Total Hemoglobin 10.7 g/dL (12.0-18.0); pH ABG 7.454 (7.350-7.450)
[2020-05-03 07:11] LABS: Arterial Blood Gas PEEP 5 cmH2O; Arterial Blood Gas Tidal Volume 310 ml; Arterial Blood Gas Vent Mode CMV; Arterial Blood Gas Ventilator rate 24 /MIN; Device VENTILATOR; Site Drawn RIGHT BRACHIAL
--- NOTE | 2020-05-03 09:09 | PM.PNNEP ---
Progress Note: A&P Assessment and Plan (1) Chronic systolic congestive heart failure: Code(s): I50.22 - Chronic systolic (congestive) heart failure Status: Acute Assessment and Plan: chest x-ray is wet. Will try to get some fluid off. Her blood pressure is soft. Will try midodrine. (2) Type 1 diabetes mellitus: Qualifiers: Diabetes mellitus complication status: with circulatory complication Code(s): E10.9 - Type 1 diabetes mellitus without complications Status: Acute Assessment and Plan: Patient is on D5 W now to keep the sugars up. Her A1c has been good (3) Person under investigation for COVID-19: Code(s): Z20.828 - Contact with and (suspected) exposure to other viral communicable diseases Status: Ruled-out Assessment and Plan: SARS test is Negative (4) Acute on chronic respiratory failure with hypoxia and hypercapnia: Code(s): J96.21 - Acute and chronic respiratory failure with hypoxia; J96.22 - Acute and chronic respiratory failure with hypercapnia Status: Acute Assessment and Plan: The patient is on the ventilator now. She does have significant underlying respiratory failure requiring home oxygen. (5) Hypoglycemia: Code(s): E16.2 - Hypoglycemia, unspecified Status: Acute Assessment and Plan: She is on D5 W. (6) End-stage renal disease (ESRD): Code(s): N18.6 - End stage renal disease Status: Acute Assessment and Plan: She will get dialysis today (7) Anemia of chronic disease: Code(s): D63.8 - Anemia in other chronic diseases classified elsewhere Status: Acute Assessment and Plan: Her hemoglobin dropped from 12-9. Will check stool guaiacs. Will give her some EPO. (8) Ulcer of left heel: Qualifiers: Non-pressure ulcer stage: unspecified non-pressure ulcer stage Qualified Code(s): L97.429 - Non-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 with unspecified severity Code(s): L97.429 - Non-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 with unspecified severity Status: Acute Assessment and Plan: Getting local care Subjective Date/time seen: 05/03/20 09:09 Interval history: Paty is sedated and on the ventilator. Oxygenation improved with an FiO2 of 30%. Exam Narrative: Exam Narrative: WDWN in NAD skin no rash head ncat lungs Course breath sounds bilaterally cor reg no rub abd BS+ nontender and soft ext no edema. Objective Data Vital Signs Vital Signs: Vital Signs - 24 hr 05/02/20 09:15 05/02/20 09:30 05/02/20 09:45 Temperature Pulse Rate 93 93 92 Respiratory Rate Blood Pressure 105/59 L 104/52 L 100/51 L Pulse Oximetry 05/02/20 10:00 05/02/20 10:15 05/02/20 10:30 Temperature Pulse Rate 96 92 94 Respiratory Rate 24 H Blood Pressure 104/53 L 111/5 L 99/62 L Pulse Oximetry 97 05/02/20 10:45 05/02/20 11:00 05/02/20 11:05 Temperature Pulse Rate 97 95 96 Respiratory Rate Blood Pressure 102/55 L 108/59 L 113/62 Pulse Oximetry 05/02/20 11:15 05/02/20 11:21 05/02/20 11:43 Temperature 36.4 C Pulse Rate 95 96 97 Respiratory Rate 27 H 24 H Blood Pressure 119/63 Pulse Oximetry 95 95 05/02/20 11:47 05/02/20 12:00 05/02/20 13:06 Temperature 36.8 C Pulse Rate 97 95 93 Respiratory Rate 24 H 24 H 24 H Blood Pressure Pulse Oximetry 97 05/02/20 14:00 05/02/20 14:12 05/02/20 14:13 Temperature Pulse Rate 89 91 93 Respiratory Rate 24 H 28 H Blood Pressure 93/48 L Pulse Oximetry 94 92 05/02/20 14:25 05/02/20 14:33 05/02/20 14:34 Temperature Pulse Rate 91 93 93 Respiratory Rate 28 H 24 H 24 H Blood Pressure Pulse Oximetry 05/02/20 16:00 05/02/20 17:18 05/02/20 17:19 Temperature 37.3 C Pulse Rate 91 94 94 Respiratory Rate 24 H 24 H 24 H Blood Pressure 98/48 L Pulse Oximetry 93 05/02/20 17:30
[2020-05-03] MEDS: LIDOCAINE HCL 1% LOCAL INJ 2 ML AMPUL 5 ML INFILTRATE (09:10)
[2020-05-03] MEDS: HEPARIN SODIUM 5,000 UNITS/ML VIAL 5000 UNITS SUB-Q (09:44)
[2020-05-03] MEDS: PANTOPRAZOLE SODIUM IV 40 MG VIAL IV PUSH (09:44)
[2020-05-03] MEDS: MIDODRINE HCL 10 MG TABLET PO ×3 (09:45→17:57)
[2020-05-03 10:07] LABS: Basophils Percent Auto 0.1 % (0.2-1.2); Eosinophils Absolute Auto 0.1 K/mm3 (0-0.3); Eosinophils Percent Auto 1.2 % (0-4.4); Hematocrit 32.8 % (37.0-47.0); Hemoglobin 10.1 g/dL (12.0-15.0); Immature Granulocyte Absolute 0.04 K/mm3 (0.00-0.031); Immature Granulocyte Percent A 0.5 % (0-0.5); Immature Platelet Fraction Pct 6.1 % (0.9-11.2); Lymphocytes Absolute Auto 1.57 K/mm3 (0.9-3.2); Lymphocytes Percent Auto 18.7 % (18.3-44.2); Mean Corpuscular HGB Conc 30.8 g/dl (32-36); Mean Corpuscular Hemoglobin 30.3 pg (26-34); Mean Corpuscular Volume 98.5 fl (80-100); Mean Platelet Volume 11.7 fl (7.4-10.4); Monocytes Absolute Auto 0.8 K/mm3 (0.1-0.6); Neutrophils Absolute Auto 5.9 K/mm3 (1.3-6.7); Neutrophils Percent Auto 70.5 % (45.5-73.1); Platelet Count Result 133 k/mm3 (150-375); Red Blood Count 3.33 M/mm3 (4.2-5.4); Red Cell Distribution Width 14.6 % (11.5-14.5); White Blood Count 8.4 K/mm3 (4.5-10.0)
--- NOTE | 2020-05-03 10:31 | PM.IMPN ---
Progress Note: A&P Assessment and Plan (1) Acute on chronic respiratory failure with hypoxia and hypercapnia: Code(s): J96.21 - Acute and chronic respiratory failure with hypoxia; J96.22 - Acute and chronic respiratory failure with hypercapnia Status: Acute Assessment and Plan: Patient with chronic respiratory failure with hypoxia on home oxygen therapy. Patient currently intubated and sedated. ABG showing 7.45/37/73 on PEEP 5 and 30% FiO2. Appears to be CHF related but cannot exclude infectious process. WBC normal but CRP 15. BCx pendings; UCx growing yeast. Continue cefepime and vancomycin. Follow up on cultures. Wean ventilator as tolerated. Appreciate visual lead input. (2) Hypoglycemia: Code(s): E16.2 - Hypoglycemia, unspecified Status: Acute Assessment and Plan: Hypoglycemia noted by EMS. Glucose stabilized and required D10 to maintain normal sugar. She takes Basaglar 40 units at night as only medication listed. Able to wean off D10 and glucose remaining stable. Follow. (3) Contusion of scalp: Code(s): S00.03XA - Contusion of scalp, initial encounter Status: Acute Assessment and Plan: Scalp contusion most likely related to a fall. CT of the brain and cervical spine showing no acute findings otherwise. Continue current care. (4) Hypothermia: Code(s): T68.XXXA - Hypothermia, initial encounter Status: Acute Assessment and Plan: Temperature here documented at 87.4?. This is improved and she actually has low-grade fevers now. Continue to monitor. (5) Elevated troponin: Code(s): R77.8 - Other specified abnormalities of plasma proteins Status: Acute Assessment and Plan: Troponin has climbed to 0.24. She has coronary disease with history of myocardial infarction and stents. She also has ischemic cardiomyopathy with ICD. EKG with considerable baseline artifact. CXR showing evidence of CHF. Echo performed today with results pending. Repeat Troponin. Troponin now 3.97. BNP>35K. Elevated Trop could be from the CHF. EKG showing no acute ST-T wave changes. Echo pending. Cards consult. No metoprolol due to HoTN. Add back Plavix, ASA and Lipitor. Discussed (6) Chronic systolic congestive heart failure: Code(s): I50.22 - Chronic systolic (congestive) heart failure Status: Acute Assessment and Plan: Patient has a history of ischemic cardiomyopathy with ICD. Chest x-ray consistent with CHF. Patient with acute on chronic systolic heart failure. Use hemodialysis to control fluid status. (7) Type 1 diabetes mellitus: Qualifiers: Diabetes mellitus complication status: with circulatory complication Code(s): E10.9 - Type 1 diabetes mellitus without complications Status: Acute Assessment and Plan: A1c 5.7. Glucose reviewed on 05/03. Glucose into the 200's now. Will need basal insulin since she is Type I DM. She did have hypoglycemia but this is resolved. Continue hypoglycemia protocol. Continue Accu-Cheks. (8) End-stage renal disease on hemodialysis: Code(s): N18.6 - End stage renal disease; Z99.2 - Dependence on renal dialysis Status: Inactive Assessment and Plan: As above. Continue hemodialysis. Nephrology following and appreciate their input. (9) Anemia of chronic disease: Code(s): D63.8 - Anemia in other chronic diseases classified elsewhere Status: Acute Assessment and Plan: Hemoglobin 12.8 on admission. Suspect this was hemoconcentrated. Hemoglobin dropped to 9-10 range but stable. No evidence of acute blood loss. Continue to monitor. (10) Chronic obstructive pulmonary disease: Qualifiers: COPD type: unspecified COPD Qualified Code(s): J44.9 - Chronic obstructive pulmonary disease, unspecified Code(s): J44.9 - Chronic obstructive pulmonary disease, unspecifi
[2020-05-03 10:32] LABS: Alanine Aminotransferase 25 U/L (4-35); Albumin Level 2.4 g/dL (3.5-5.1); Alkaline Phosphatase 248 U/L (38-126); Anion Gap 8 mmol/L (8-16); Aspartate Amino Transferase 61 U/L (14-36); Bilirubin,Total 0.6 mg/dL (0.2-1.3); Blood Urea Nitrogen 24 mg/dL (7-17); Carbon Dioxide 29 mmol/L (22-30); Chloride 92 mmol/L (98-107); Estimated CRCL calculation 16 ml/min; Estimated Glomerular Filt Rate 11; Glucose 250 mg/dL (65-105); Magnesium 1.7 mg/dL (1.6-2.3); Phosphorus 5.5 mg/dL (2.5-4.5); Potassium 4.2 mmol/L (3.4-5.0); Sodium 129 mmol/L (137-145)
[2020-05-03 10:34] LABS: Glucose Point of Care 233 (65-105)
--- NOTE | 2020-05-03 10:45 | ECG_ITS ---
Measurements Intervals [place] Rate: 106 P: 266 MT: 134 QRS: 139 QRSD: 86 T: -10 QT: 344 QTc: 458 Interpretive Statements ECTOPIC ATRIAL TACHYCARDIA VENTRICULAR PREMATURE COMPLEX RSR' IN V1 OR V2, CONSIDER RIGHT VENTRICULAR HYPERTROPHY OR RIGHT VCD BORDERLINE T WAVE ABNORMALITY- ANTEROLAT/INF LEADS ABNORMAL ECG Electronically Signed On 05-03-2020 11:34:59 HISTORIOGRAPHY PROFESSOR by Gregorio Tristan D.O.
[2020-05-03] MEDS: PERFLUTREN LIPID MICROSPHERES 1.5 ML VIAL DILUTED TO 10 ML TOTAL VOLUME IV PUSH (10:56)
[2020-05-03 11:49] LABS: NT Pro B Type Natriuretic Pept > 35000 PG/ML (5-100)
--- NOTE | 2020-05-03 12:02 | WPDINTPN ---
Progress Note: A&P Assessment and Plan (1) Acute on chronic respiratory failure with hypoxia and hypercapnia: Code(s): J96.21 - Acute and chronic respiratory failure with hypoxia; J96.22 - Acute and chronic respiratory failure with hypercapnia Status: Acute Assessment and Plan: Patient with acute chronic respiratory failure, was found unresponsive at her house without oxygen. Patient was intubated in the ER. -chest x-ray shows pulmonary vascular congestion -SARS-CoV-2 PCR negative on 05/01 -patient currently on 30% FiO2 and peep of 5 will switch patient to ASV, decrease fentanyl and Versed infusion -chest x-ray and ABGs reviewed -continue cefepime and vancomycin -continue bronchodilators (2) End-stage renal disease (ESRD): Code(s): N18.6 - End stage renal disease Status: Acute Assessment and Plan: End-stage renal disease on dialysis,(Sunday, , Sunday) -did not get dialyzed on 05/01 -getting dialyzed this morning a nephrology following the patient -electrolytes are within normal limits - Epogen will be given by nephrology (3) Hypoglycemia: Code(s): E16.2 - Hypoglycemia, unspecified Status: Acute Assessment and Plan: Patient with hypoglycemia, patient takes Lantus q.h.s. at home -unsure why patient is hypoglycemia, could related to decreased p.o. intake, excessive Lantus. -patient is hyperglycemic, D10 was discontinued -she is type 1 diabetic, will start sliding scale insulin (4) Person under investigation for COVID-19: Code(s): Z20.828 - Contact with and (suspected) exposure to other viral communicable diseases Status: Ruled-out Assessment and Plan: SARS-CoV-2 PCR is negative -off all isolation (5) Elevated troponin: Code(s): R77.8 - Other specified abnormalities of plasma proteins Status: Acute Assessment and Plan: Likely related to respiratory failure, stress, type 2 infarct -troponins peaked at 3.97 from 0.049 on admission -repeat EKG does not show any ST-T changes -echocardiogram 05/03: LV systolic function is moderately reduced 35-40% with grade 2 diastolic dysfunction -will consult cardiology (6) Ulcer of left heel: Qualifiers: Non-pressure ulcer stage: unspecified non-pressure ulcer stage Qualified Code(s): L97.429 - Non-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 with unspecified severity Code(s): L97.429 - Non-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 with unspecified severity Status: Acute Assessment and Plan: Cracked and fissures on bilateral heels -appreciate wound care evaluation and recommendations -local care for now (7) Type 1 diabetes mellitus: Qualifiers: Diabetes mellitus complication status: with circulatory complication Code(s): E10.9 - Type 1 diabetes mellitus without complications Status: Acute Assessment and Plan: Type 1 diabetes on Lantus at home, currently hypoglycemic -hemoglobin A1c is 5.7 this admission -will start Accu-Cheks and sliding scale insulin Dextrose 10% has been discontinued (8) Anemia of chronic disease: Code(s): D63.8 - Anemia in other chronic diseases classified elsewhere Status: Acute Assessment and Plan: History of chronic anemia, hemoglobin is stable -nephrology to administer Epogen (9) Chronic obstructive pulmonary disease: Qualifiers: COPD type: unspecified COPD Qualified Code(s): J44.9 - Chronic obstructive pulmonary disease, unspecified Code(s): J44.9 - Chronic obstructive pulmonary disease, unspecified Status: Acute Assessment and Plan: Continue bronchodilators, patient currently on 35% FiO2. -ABGs and chest x-ray reviewed (10) DVT prophylaxis: Code(s): Z29.9 - Encounter for prophylactic measures, unspecified Status: Acute Assessment and Plan: Heparin subcu (11) Dietary counseling and surveillance: Code(s): Z71.3 -
[2020-05-03 12:15] LABS: Glucose Point of Care 197 (65-105)
[2020-05-03] MEDS: CLOPIDOGREL BISULFATE 75 MG TABLET FEED TUBE (13:05)
[2020-05-03] MEDS: ATORVASTATIN 40 MG TABLET 80 MG FEED TUBE (13:05)
[2020-05-03] MEDS: ASPIRIN 81 MG CHEWABLE TABLET FEED TUBE (13:05)
--- NOTE | 2020-05-03 13:28 | PM.CNCAR ---
Assessment and Plan Assessment and plan (1) Elevated troponin: Code(s): R77.8 - Other specified abnormalities of plasma proteins Status: Acute Assessment and Plan: apparently patient was found unresponsive at home. She was hypoglycemic. She had severe hyper cap apnea. initial couple of troponins looked unremarkable and started increasing after that. troponinselevated. EKG shows Q/-waves leads V1 and V2. PATIENT HAS MULTIPLE STENTS 01/2020,. recommend to continue aspirin and Plavix. start IV heparin. consider cardiac catheterization tomorrow (2) End-stage renal disease (ESRD): Code(s): N18.6 - End stage renal disease Status: Acute Assessment and Plan: continue hemodialysis History of Present Illness History of Present Illness Consult date/time: 05/03/20 13:28 Requesting physician: Anton Barrett MD Consult reason: Other (Elevated troponins) Reason For Visit: acute respiratory failure w hypoxia and hypercarbi Narrative: This is 54-year-old patient with past medical history of hyperlipidemia, Biotronik ICD, ischemic cardiomyopathy, and decision disease on dialysis. Last January she underwent stent to proximal LAD 3x12 , 2.5 x 15 drug-eluting stent to LAD, and 2.5 x 18 drug-eluting stent to the circ at [facility]. Patient follows up with Dr. grossman. Patient uses oxygen at home as needed. Chief smoke cigarettes. She was admitted to the hospital on May 01 after being found unresponsive at home. Apparently was hypoglycemic and it is believed that she was not wearing oxygen home(the oxygen tube was kinked). Blood gas showed pH 7.1, PaCO2 73 and oxygen 490 COVID negative, Troponins .045, .023 and 3.9. Echocardiogram done during this admission shows ejection fraction 35-40%, small pericardial effusion with no tamponade, pleural effusion. Chest x-ray reviewed myself shows small bilateral effusions, some vascular congestion. EKG interpreted myself shows ectopic atrial rhythm, Q-waves leads V1 and V2 and poor R-wave progression. Review of Systems Review of Systems: ROS unobtainable: Yes unobtainable due to endotracheal tube PMFSH Past Medical History Medical History Anemia of chronic disease Anxiety Arthropathy of right ankle Asthma Bronchitis Chronic obstructive pulmonary disease Chronic respiratory failure with hypoxia, on home oxygen therapy Chronic systolic congestive heart failure Coronary artery disease With history of [place] and stents. End-stage renal disease on hemodialysis Hyperlipidemia Hypertension Ischemic cardiomyopathy with implantable cardioverter-defibrillator (ICD) Thrombocytopenia Chronic mild thrombocytopenia. Type 1 diabetes mellitus Complicated by diabetic retinopathy, peripheral neuropathy, and nephropathy. Hemoglobin A1c was 5.5% on 04/04/2020. Surgical History Surgical History AICD (automatic cardioverter/defibrillator) present AV fistula History of ankle surgery (~08/2016) Right ankle ORIF. History of cardiac catheterization (~2009) With stents. History of section History of dilation and curettage Status post partial lobectomy of lung Right upper lobectomy at age 7 for unclear reasons. Family History Family History Other Adopted Unknown family medical history Social History Social History Social History: The patient lives in [place]. She is on disability. She smoked about a half a pack of cigarettes per day for many years and quit in fall 2019. No alcohol or illicit substance abuse. Her son, Adithya Sow, as her emergency contact and she is listed as a full code. Smoking status: Former smoker Spiritual care concerns: No Meds Home Medications and Allergies Home Medicat
[2020-05-03] MEDS: HEPARIN SOD/D5W 100 UNITS/ML 25,000 UNITS/250 ML BAG 9 UNITS IV CONT (14:41)
[2020-05-03 14:54] LABS: Partial Thromboplastin Time 41.2 SECONDS (22.3-36.8)
[2020-05-03 14:59] LABS: INR 1.4; Prothrombin Time 17.6 Seconds (11.1-14.7)
[2020-05-03] MEDS: CENTRAL LINE FLUSH 10 ML IV PUSH ×3 (15:49→21:07)
--- NOTE | 2020-05-03 15:59 | ECHO_ITS ---
Patient Info Name: Paty Sow Age: 54 years : 1965 Gender: Female Ht: 67 in Wt: 164 lbs BSA: 1.89 m2 HR: 99 bpm BP: 90 / 45 mmHg Technical Quality: Good Exam Date: 05/03/2020 9:55 AM Exam Location: [facility] Patient Status: Inpatient Admit Date: 05/01/2020 Staff Ordering Physician: Alisha Ulloa PA-C Security Control Assessor: Jimmy Christianson RDCS, RT Attending Provider: Anton Barrett MD Referring Physician: Laila MAYORGA; Exam Type: CA echo dop color flow w con Study Info Indications I25.5 - Ischemic cardiomyopathy Complete two-dimensional, color flow and Doppler transthoracic echocardiogram is performed with contrast to opacify the left ventricle and to improve the deliniation of the left ventricle endocardial borders. Summary 1. Left ventricular chamber dimension is normal. 2. Left ventricular systolic function is moderately reduced, estimated at 35-40%. 3. The left ventricular diastolic function is grade II diastolic dysfunction. 4. E/e' 32.90 is elevated. 5. Left atrial chamber dimension is moderately enlarged. 6. There is mild aortic valve calcification. 7. There is trace mitral valve regurgitation. 8. Linear artifact in the right ventricle could do is and pacemaker defibrillator wire. 9. Small pericardial effusion with no tamponade. 10. Pleural effusion. Left Ventricle Left ventricular chamber dimension is normal. Left ventricular systolic function is moderately reduced, estimated at 35-40%. There is no increased left ventricular wall thickness. Left ventricular septal wall motion is normal. The left ventricular diastolic function is grade II diastolic dysfunction. E/e' 32.90 is elevated. Right Ventricle Right ventricular chamber dimension is normal. Right ventricular systolic function is normal. Left Atria Left atrial chamber dimension is moderately enlarged. Right Atria Right atrial chamber dimension is normal. Atrial Septum Intact interatrial septum visualized by color flow imaging. Aortic Valve The aortic valve is trileaflet. There is no aortic valve sclerosis. There is no aortic valve stenosis. There is no aortic valve regurgitation. There is mild aortic valve calcification. Pulmonic Valve The pulmonic valve is not well visualized. There is no pulmonic valve stenosis. There is no pulmonic regurgitation. Mitral Valve The mitral valve has normal leaflets. There is no mitral valve stenosis. There is trace mitral valve regurgitation. Tricuspid Valve The tricuspid valve leaflets are normal. There is no significant tricuspid valve stenosis. There is no tricuspid valve regurgitation. Pericardium/Pleural There is small pericardial effusion. Inferior Vena Cava Normal inferior vena cava with >50% collapse upon inspiration consistent with elevated right atrial pressure, 15 mmHg. Aorta The aortic root size at the sinus of Valsalva is normal. The prox ascending aorta size is normal. Left Ventricular Outflow Tract Name Value Normal LVOT 2D LVOT Diameter 1.97 cm LVOT Doppler LVOT Peak Gradient 7 mmHg
[2020-05-03] MEDS: FENTANYL 2,500MCG/NS250ML(*CRX 2,500 MCG/250 ML BAG IV CONT (16:51)
[2020-05-03] MEDS: ALBUMIN HUMAN 25% 12.5 GM/50ML 50 ML 100 GM (17:03)
[2020-05-03 18:04] LABS: Glucose Point of Care 155 (65-105)
[2020-05-03 21:15] LABS: Vancomycin Random 12.3 ug/mL (10-20)
[2020-05-03 22:46] LABS: Glucose Point of Care 118 (65-105)
[2020-05-04] VITALS (42 sets, daily range): BP systolic 82–107; BP diastolic 42–54; PULSE 78–113; RESP 10–24; TEMP 37.2–38.2; O2SAT 91–100
[2020-05-04] MEDS: INSULIN ASPART (*BKC) 100 UNITS/ML SUB-Q ×6 (00:46→20:56)
[2020-05-04 01:00] LABS: Glucose Point of Care 274 (65-105)
[2020-05-04] MEDS: ALBUTEROL SULFATE NEB 2.5 MG/0.5 ML INH INHALATION ×4 (01:41→20:24)
[2020-05-04] MEDS: IPRATROPIUM BR 0.02% INH SOLN 0.5 MG/2.5 ML VIAL INHALATION ×4 (01:41→20:24)
[2020-05-04 02:47] LABS: Basophils Percent Auto 0.2 % (0.2-1.2); Eosinophils Absolute Auto 0.1 K/mm3 (0-0.3); Eosinophils Percent Auto 0.5 % (0-4.4); Hematocrit 29.7 % (37.0-47.0); Hemoglobin 9.4 g/dL (12.0-15.0); Immature Granulocyte Absolute 0.04 K/mm3 (0.00-0.031); Immature Granulocyte Percent A 0.4 % (0-0.5); Lymphocytes Absolute Auto 1.69 K/mm3 (0.9-3.2); Lymphocytes Percent Auto 17.8 % (18.3-44.2); Mean Corpuscular HGB Conc 31.6 g/dl (32-36); Mean Corpuscular Hemoglobin 30.7 pg (26-34); Mean Corpuscular Volume 97.1 fl (80-100); Mean Platelet Volume 11.2 fl (7.4-10.4); Monocytes Absolute Auto 0.8 K/mm3 (0.1-0.6); Monocytes Percent Auto 8.2 % (2.6-8.5); Neutrophils Absolute Auto 6.9 K/mm3 (1.3-6.7); Neutrophils Percent Auto 72.9 % (45.5-73.1); Platelet Count Result 150 k/mm3 (150-375); Red Blood Count 3.06 M/mm3 (4.2-5.4); Red Cell Distribution Width 14.8 % (11.5-14.5); White Blood Count 9.5 K/mm3 (4.5-10.0)
[2020-05-04 03:00] LABS: Alanine Aminotransferase 25 U/L (4-35); Albumin Level 2.4 g/dL (3.5-5.1); Alkaline Phosphatase 257 U/L (38-126); Anion Gap 6 mmol/L (8-16); Aspartate Amino Transferase 59 U/L (14-36); Bilirubin,Total 0.7 mg/dL (0.2-1.3); Blood Urea Nitrogen 18 mg/dL (7-17); Calcium 7.9 mg/dL (8.4-10.2); Carbon Dioxide 31 mmol/L (22-30); Chloride 91 mmol/L (98-107); Estimated CRCL calculation 24 ml/min; Estimated Glomerular Filt Rate 18; Glucose 254 mg/dL (65-105); Magnesium 1.9 mg/dL (1.6-2.3); Phosphorus 3.7 mg/dL (2.5-4.5); Potassium 3.6 mmol/L (3.4-5.0); Sodium 128 mmol/L (137-145)
[2020-05-04 03:01] LABS: Partial Thromboplastin Time 85.3 SECONDS (22.3-36.8)
[2020-05-04 04:19] LABS: Alveolar/Arterial O2 Gradient 126.6 mmHg; Base Excess ABG 4.5 mEq/l (+/-2.0); Carboxyhemoglobin 0.3 % THb (0-2.0); Fractional Inspired Oxygen 30 %; HCO3 ABG 28.2 mEq/l (22.0-26.0); Methemoglobin ABG 0.4 %THb (0-1.5); Oxygen Content ABG 12.1 %vol (16.0-22.0); Oxyhemoglobin 79.7 % THb (90.0-100.0); PCO2 ABG 38.6 mmHg (35.0-45.0); Reduced Hemoglobin 19.6 %THb (0-5.0); Total Hemoglobin 10.8 g/dL (12.0-18.0); pH ABG 7.482 (7.350-7.450)
[2020-05-04 04:22] LABS: PO2 ABG 41.9 mmHg (80.0-100.0)
[2020-05-04 04:23] LABS: Arterial Blood Gas PEEP 5 cmH2O; Arterial Blood Gas Vent Mode CMV; Arterial Blood Gas Ventilator rate 24 /MIN; Device VENTILATOR; Modified Allen's Test Pass; Oxygen Saturation ABG 81.3 % (95.0-100.0); Site Drawn RIGHT RADIAL
[2020-05-04 04:24] LABS: Arterial Blood Gas Tidal Volume 310 ml
[2020-05-04 04:40] LABS: Glucose Point of Care 246 (65-105)
[2020-05-04 04:54] LABS: Alveolar/Arterial O2 Gradient 111.6 mmHg; Base Excess ABG 5.3 mEq/l (+/-2.0); Carboxyhemoglobin 0.3 % THb (0-2.0); Fractional Inspired Oxygen 30 %; HCO3 ABG 28.2 mEq/l (22.0-26.0); Methemoglobin ABG 0.2 %THb (0-1.5); Oxygen Content ABG 14.3 %vol (16.0-22.0); Oxygen Saturation ABG 93.8 % (95.0-100.0); Oxyhemoglobin 92.3 % THb (90.0-100.0); PCO2 ABG 35.1 mmHg (35.0-45.0); PO2 ABG 61.1 mmHg (80.0-100.0); PO2 FiO2 Ratio Arterial Blood 2.04 %; Reduced Hemoglobin 7.2 %THb (0-5.0)
[2020-05-04 04:56] LABS: Device VENTILATOR; Modified Allen's Test Pass; Site Drawn RIGHT RADIAL; pH ABG 7.523 (7.350-7.450)
[2020-05-04 04:57] LABS: Arterial Blood Gas PEEP 5 cmH2O; Arterial Blood Gas Tidal Volume 310 ml; Arterial Blood Gas Vent Mode CMV; Arterial Blood Gas Ventilator rate 24 /MIN
[2020-05-04] MEDS: CENTRAL LINE FLUSH 10 ML IV PUSH ×3 (06:00→20:57)
[2020-05-04] MEDS: ALBUMIN HUMAN 25% 25 GM/100 ML 100 ML IVPB (06:35)
[2020-05-04] MEDS: PANTOPRAZOLE SODIUM IV 40 MG VIAL IV PUSH (08:47)
[2020-05-04] MEDS: CLOPIDOGREL BISULFATE 75 MG TABLET FEED TUBE (09:06)
[2020-05-04] MEDS: ASPIRIN 81 MG CHEWABLE TABLET FEED TUBE (09:06)
[2020-05-04] MEDS: ATORVASTATIN 40 MG TABLET 80 MG FEED TUBE (09:06)
[2020-05-04] MEDS: MIDODRINE HCL 10 MG TABLET PO ×3 (09:06→16:56)
--- NOTE | 2020-05-04 09:26 | PM.PNNEP ---
Progress Note: A&P Assessment and Plan (1) Chronic systolic congestive heart failure: Code(s): I50.22 - Chronic systolic (congestive) heart failure Status: Acute Assessment and Plan: chest x-ray is wet. Will try to get some fluid off. Her blood pressure is soft. She received midodrine without much help. Her blood pressure in the outpatient setting is not usually low. Her echocardiogram does show a moderately reduced ejection fraction. Typically not low enough to make her hypotensive, however. Will get a cortisol level and TSH to be sure there is no hormonal cause for this. Her troponins were mildly elevated on admission so were rechecked and david to 3.97. Cardiology is on the case and is going to do a cardiac catheterization. (2) Type 1 diabetes mellitus: Qualifiers: Diabetes mellitus complication status: with circulatory complication Code(s): E10.9 - Type 1 diabetes mellitus without complications Status: Acute Assessment and Plan: Patient is on D5 W now to keep the sugars up. Her A1c has been good (3) Person under investigation for COVID-19: Code(s): Z20.828 - Contact with and (suspected) exposure to other viral communicable diseases Status: Ruled-out Assessment and Plan: SARS test is Negative (4) Acute on chronic respiratory failure with hypoxia and hypercapnia: Code(s): J96.21 - Acute and chronic respiratory failure with hypoxia; J96.22 - Acute and chronic respiratory failure with hypercapnia Status: Acute Assessment and Plan: The patient is on the ventilator now. She does have significant underlying respiratory failure requiring home oxygen. (5) Hypoglycemia: Code(s): E16.2 - Hypoglycemia, unspecified Status: Acute Assessment and Plan: She is on D5 W. (6) End-stage renal disease (ESRD): Code(s): N18.6 - End stage renal disease Status: Acute Assessment and Plan: She will get dialysis today (7) Anemia of chronic disease: Code(s): D63.8 - Anemia in other chronic diseases classified elsewhere Status: Acute Assessment and Plan: Her hemoglobin dropped from 12-9. Will check stool guaiacs. On EPO. (8) Ulcer of left heel: Qualifiers: Non-pressure ulcer stage: unspecified non-pressure ulcer stage Qualified Code(s): L97.429 - Non-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 with unspecified severity Code(s): L97.429 - Non-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 with unspecified severity Status: Acute Assessment and Plan: Getting local care Subjective Date/time seen: 05/04/20 09:26 Interval history: Paty is sedated and on the ventilator. Oxygenation improved with an FiO2 of 30%. She had dialysis yesterday. Not much fluid was able to be removed. Her blood pressure was low throughout the treatment. Exam Narrative: Exam Narrative: WDWN in NAD skin no rash or subcu nodules head ncat lungs Course breath sounds bilaterally cor reg no rub abd BS+ nontender and soft ext no edema. Objective Data Vital Signs Vital Signs: Vital Signs - 24 hr 05/03/20 10:00 05/03/20 10:42 05/03/20 12:00 Temperature 37.0 C Pulse Rate 92 100 103 H Respiratory Rate 24 H 15 Blood Pressure 85/46 L 117/59 L Pulse Oximetry 96 98 95 05/03/20 12:18 05/03/20 13:33 05/03/20 14:00 Temperature Pulse Rate 92 99 99 Respiratory Rate 24 H 12 12 Blood Pressure 107/51 L Pulse Oximetry 97 94 05/03/20 14:15 05/03/20 14:55 05/03/20 15:00 Temperature 38.1 C H Pulse Rate 102 H 98 96 Respiratory Rate 11 L Blood Pressure 112/57 L 106/53 L 109/50 L Pulse Oximetry 97 05/03/20 15:15 05/03/20 15:25 05/03/20 15:30 Temperature Pulse Rate 98 98 99 Respiratory Rate Blood Pressure 104/50 L 106/51 L 107/51 L Pulse Oximetry 05/03/20 15:45 05/03/20 16:00 05/03/20 16:15 Temperature 36.6 C Pulse
[2020-05-04 09:35] LABS: Glucose Point of Care 225 (65-105)
--- NOTE | 2020-05-04 09:53 | PM.PNCARD ---
Progress Note: A&P Assessment and Plan (1) Acute on chronic respiratory failure with hypoxia and hypercapnia: Code(s): J96.21 - Acute and chronic respiratory failure with hypoxia; J96.22 - Acute and chronic respiratory failure with hypercapnia Status: Acute Assessment and Plan: Vent support as per critical care physician (2) Chronic systolic congestive heart failure: Code(s): I50.22 - Chronic systolic (congestive) heart failure Status: Acute (3) Elevated troponin: Code(s): R77.8 - Other specified abnormalities of plasma proteins Status: Acute Assessment and Plan: Patient with known CAD and history of multiple PCI/stent placements, admitted to the hospital with altered mental status. She was found to be profoundly hypoglycemic with blood sugar less than 20. Patient also has hypercarbic respiratory failure, and currently on mechanical ventilation. Troponin elevation likely non ACS in the setting of respiratory failure, CKD with underlying congestive heart failure. There is no acute ST segment elevation on the EKG. Echo shows LVEF 35-40%. Patient's last cardiac catheterization/PCI was done at [facility]. I attempted to call the civil engineering design draftsperson at [facility] to discuss patient's coronary anatomy during last cardiac catheterization, awaiting call back. At this time, continue supportive care; continue dual antiplatelet therapy with aspirin and clopidogrel; continue anticoagulation with unfractionated heparin. Patient is currently awaiting repeat COVID-19 PCR. Need and timing of coronary angiogram to be determined once patient is clinically stable and COVID-19 is ruled out. Management plan discussed with the intensive care physician. (4) Person under investigation for COVID-19: Code(s): Z20.828 - Contact with and (suspected) exposure to other viral communicable diseases Status: Ruled-out Subjective Date/time seen: 05/04/20 09:53 Date of service: 05/04/2020 Interval history: Patient is intubated and sedated. On telemetry, she is in sinus rhythm/sinus tachycardia. Patient is currently on unfractionated heparin. Second COVID-19 PCR test is pending. Exam Narrative: Exam Narrative: PHYSICAL EXAMINATION: GENERAL: Sedated MENTAL STATUS: Sedated EYES: Eyes closed EARS: External ears appear normal NOSE: Normal and patent MOUTH: Orotracheal tube is in place NECK: Supple, no JVD CHEST: Bilateral vent sounds HEART: Tachycardic, regular ABDOMEN: Soft NEUROLOGICAL: Sedated, unresponsive MUSCULOSKELETAL: No major deformity EXTREMITIES: No pedal edema SKIN: no rash on the exposed area, no cyanosis Objective Data Vital Signs Vital Signs: Vital Signs - 24 hr 05/03/20 10:00 05/03/20 10:42 05/03/20 12:00 Temperature 37.0 C Pulse Rate 92 100 103 H Respiratory Rate 24 H 15 Blood Pressure 85/46 L 117/59 L Pulse Oximetry 96 98 95 05/03/20 12:18 05/03/20 13:33 05/03/20 14:00 Temperature Pulse Rate 92 99 99 Respiratory Rate 24 H 12 12 Blood Pressure 107/51 L Pulse Oximetry 97 94 05/03/20 14:15 05/03/20 14:55 05/03/20 15:00 Temperature 38.1 C H Pulse Rate 102 H 98 96 Respiratory Rate 11 L Blood Pressure 112/57 L 106/53 L 109/50 L Pulse Oximetry 97 05/03/20 15:15 05/03/20 15:25 05/03/20 15:30 Temperature Pulse Rate 98 98 99 Respiratory Rate Blood Pressure 104/50 L 106/51 L 107/51 L Pulse Oximetry 05/03/20 15:45 05/03/20 16:00 05/03/20 16:15 Temperature 36.6 C Pulse Rate 100 102 H 102 H Respiratory Rate 13 Blood Pressure 103/53 L 101/49 L 101/49 L Pulse Oximetry 93 05/03/20 16:30 05/03/20 16:45 05/03/20 16:51 Temperature Pulse Rate 102 H 103 H 102 H Respiratory Rate 11 L Blood Pressure 96/47 L 86/47 L Pulse Oximetry 05/03/20 17:00 05/03/20 17:15 05/03/20 17:16 Temperature Pulse Rate 101 H 100 100 Respiratory Rate 11 L Blood Pressure 87/44 L 94/51 L Pulse Oxime
[2020-05-04 11:06] LABS: Free T4 Free Thyroxine Reflex 1.44 ng/dL (0.78-2.19)
--- NOTE | 2020-05-04 11:34 | PCDIET ---
Nutrition Follow-Up Complete: Nutrition Diagnosis: Inadequate oral intake related to oral intubation as evidenced by NPO status. Nutrition Goal: Patient to meet estimated nutritional needs. Goal in progress. Patient previously tolerating Nepro at 30mL/hr which was later held for anticipated cardiac cath. Tube feedings to be resumed, as cath on hold at this time. Recommend same goal of 50mL/hr Nepro. Last recorded weight is 87.5 kg which is increased from last review. +I/O. Bowel Motility: No documented BM as of yet. Labs Reviewed: Hgb (9.4), Hct (29.7), Glu (246), BUN (18), Cr (2.8), Na (128), Alb (2.4), Derrell Ca (9.18) Meds Noted: Nepro, Fentanyl, Heparin, Novolog, Atrovent, Albuterol, Lipitor, Cefepime, Versed, Midodrine, Protonix, Vancomycin Additional Notes: Left heel with venous stasis ulcer. Will continue to monitor with same goal. Nutrition Monitoring and Evaluation: Follow up every Sunday/Sunday.
--- NOTE | 2020-05-04 11:37 | PCDIET ---
Recommended 45mL/hr Nepro, rather than 50mL/hr, as previously documented.
[2020-05-04 12:03] LABS: Glucose Point of Care 213 (65-105)
--- NOTE | 2020-05-04 12:26 | WPDINTPN ---
Progress Note: A&P Assessment and Plan (1) Acute on chronic respiratory failure with hypoxia and hypercapnia: Code(s): J96.21 - Acute and chronic respiratory failure with hypoxia; J96.22 - Acute and chronic respiratory failure with hypercapnia Status: Acute Assessment and Plan: Patient with acute chronic respiratory failure, was found unresponsive at her house without oxygen. Patient was intubated in the ER. -chest x-ray shows pulmonary vascular congestion -SARS-CoV-2 PCR negative on 05/01 -patient currently on 30% FiO2 and peep of 5 on CMV mode of ventilation, -on fentanyl and Versed for sedation, decrease fentanyl -chest x-ray and ABGs reviewed -continue cefepime and vancomycin -continue bronchodilators (2) End-stage renal disease (ESRD): Code(s): N18.6 - End stage renal disease Status: Acute Assessment and Plan: End-stage renal disease on dialysis,(Sunday, , Sunday) -did not get dialyzed on 05/01 -getting dialyzed this morning a nephrology following the patient -electrolytes are within normal limits - Epogen will be given by nephrology (3) Hypoglycemia: Code(s): E16.2 - Hypoglycemia, unspecified Status: Acute Assessment and Plan: Resolved Patient with hypoglycemia, patient takes Lantus q.h.s. at home -unsure why patient is hypoglycemia, could related to decreased p.o. intake, excessive Lantus. -patient is hyperglycemic, D10 was discontinued -she is type 1 diabetic, will start sliding scale insulin (4) Person under investigation for COVID-19: Code(s): Z20.828 - Contact with and (suspected) exposure to other viral communicable diseases Status: Ruled-out Assessment and Plan: SARS-CoV-2 PCR is negative -nephrology wanted to swabbed the patient again for COVID-19 -will place patient on isolation (5) Elevated troponin: Code(s): R77.8 - Other specified abnormalities of plasma proteins Status: Acute Assessment and Plan: Likely related to respiratory failure, stress, type 2 infarct, given history of severe coronary artery disease with multiple stents in the past, ischemic cardiomyopathy -elevated troponins could be related to NSTEMI, discussed with Cardiology (IDr. Tovar), patient had cardiac catheterization with multivessel intervention earlier in [address] Martinez from [facility]. Cardiology discussed with him and he mentioned that patient has relatively smaller caliber, severely calcific vessels, and patient had multivessel PCI/stenting with adjunct atherectomy. Patient has jailed distal left circumflex artery. LVEF at that time was about 30-40%. At this time, continue medical regimen including dual antiplatelet therapy and anticoagulation as described in the note. May consider cardiac catheterization when patient is clinically better and COVID-19 has been ruled out. -tropoonins peaked at 3.97 from 0.049 on admission -continue heparin infusion for now -echocardiogram 05/03: LV systolic function is moderately reduced 35-40% with grade 2 diastolic dysfunction (6) Ulcer of left heel: Qualifiers: Non-pressure ulcer stage: unspecified non-pressure ulcer stage Qualified Code(s): L97.429 - Non-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 with unspecified severity Code(s): L97.429 - Non-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 with unspecified severity Status: Acute Assessment and Plan: Cracked and fissures on bilateral heels -appreciate wound care evaluation and recommendations -local care for now (7) Type 1 diabetes mellitus: Qualifiers: Diabetes mellitus complication status: with circulatory complication Code(s): E10.9 - Type 1 diabetes mellitus without complications Status: Acute Assessment and Plan: Type 1 diabetes on Lantus at home, currently hypoglycemic -hemoglobin A1c is 5.7 this admission Continue Accu-Cheks and sliding scale insulin will a
[2020-05-04 13:06] LABS: Total Triiodothyronine (T3) 0.56 NG/ML (0.97-1.69)
--- NOTE | 2020-05-04 16:21 | PM.IMPN ---
Progress Note: A&P Assessment and Plan (1) Acute on chronic respiratory failure with hypoxia and hypercapnia: Code(s): J96.21 - Acute and chronic respiratory failure with hypoxia; J96.22 - Acute and chronic respiratory failure with hypercapnia Status: Acute Assessment and Plan: Patient with chronic respiratory failure with hypoxia on home oxygen therapy. Patient currently intubated and sedated. ABG showing 7.37/38/82 on current settings. Appears to be CHF related but cannot exclude infectious process. Continue cefepime and vancomycin. Follow up on cultures. Wean ventilator as tolerated. Appreciate radiology special procedure tech input. (2) Hypoglycemia: Code(s): E16.2 - Hypoglycemia, unspecified Status: Acute Assessment and Plan: Glucose stable was requiring D10 to maintain normal sugar. She takes Basaglar 40 units at night as only medication listed. Continue dextrose. Wean dextrose off as glucose allows. (3) Contusion of scalp: Code(s): S00.03XA - Contusion of scalp, initial encounter Status: Acute Assessment and Plan: Scalp contusion most likely related to a fall. CT of the brain and cervical spine showing no acute findings otherwise. Continue current care. (4) Hypothermia: Code(s): T68.XXXA - Hypothermia, initial encounter Status: Acute Assessment and Plan: Temperature here documented at 87.4?. This is improved and she actually had low-grade fever this morning. Continue to monitor. (5) Elevated troponin: Code(s): R77.8 - Other specified abnormalities of plasma proteins Status: Acute Assessment and Plan: Troponin has climbed to 0.24. She has coronary disease with history of myocardial infarction and stents. She also has ischemic cardiomyopathy with ICD. EKG with considerable baseline artifact. CXR showing evidence of CHF. Echo ordered. (6) Chronic systolic congestive heart failure: Code(s): I50.22 - Chronic systolic (congestive) heart failure Status: Acute Assessment and Plan: patient has a history of ischemic cardiomyopathy with ICD. Chest x-ray consistent with CHF. Patient with acute on chronic heart failure. hemodialysis to control fluid status. (7) Type 1 diabetes mellitus: Qualifiers: Diabetes mellitus complication status: with circulatory complication Code(s): E10.9 - Type 1 diabetes mellitus without complications Status: Acute Assessment and Plan: A1c 5.7. Glucose reviewed on 05/02. Continue Accu-Cheks. Insulin however it has been held due to the hypoglycemia. Continue hypoglycemia protocol. (8) End-stage renal disease on hemodialysis: Code(s): N18.6 - End stage renal disease; Z99.2 - Dependence on renal dialysis Status: Inactive Assessment and Plan: As above. Continue hemodialysis. Nephrology has been consulted and appreciate their input. (9) Anemia of chronic disease: Code(s): D63.8 - Anemia in other chronic diseases classified elsewhere Status: Acute Assessment and Plan: Hemoglobin 12.8 on admission. Suspect this was hemoconcentrated. Hemoglobin today is 9.6 which is more in line with prior values. Continue to monitor. (10) Chronic obstructive pulmonary disease: Qualifiers: COPD type: unspecified COPD Qualified Code(s): J44.9 - Chronic obstructive pulmonary disease, unspecified Code(s): J44.9 - Chronic obstructive pulmonary disease, unspecified Status: Acute Assessment and Plan: no wheezing. Continue nebulizer treatments. (11) DVT prophylaxis: Code(s): Z29.9 - Encounter for prophylactic measures, unspecified Status: Acute Assessment and Plan: Heparin Subjective Date/time seen: 05/04/20 16:21 Interval history: Date of service 05/04 54yo female with DM Type I, CAD, ESRD and chronic respiratory failure here after
[2020-05-04] MEDS: HEPARIN SOD/D5W 100 UNITS/ML 25,000 UNITS/250 ML BAG 9 UNITS IV CONT (16:57)
[2020-05-04] MEDS: ACETAMINOPHEN ELIXIR 325 MG/10.15 ML UDC 650 MG PO (17:14)
[2020-05-04 17:26] LABS: Glucose Point of Care 241 (65-105)
[2020-05-04 18:44] LABS: SARS-CoV-2 RNA PCR Negative
[2020-05-04 20:27] LABS: Glucose Point of Care 216 (65-105)
[2020-05-04 20:51] LABS: IFOB Positive Control Positive; Immunochemical Fecal Occult Bl Negative (N)
[2020-05-04] MEDS: INSULIN GLARGINE (*BKC) 100 UNITS/ML 20 UNITS SUB-Q (20:57)
[2020-05-04 21:50] LABS: Vancomycin Random 23.8 ug/mL (10-20)
[2020-05-04] MEDS: SODIUM CHLORIDE 0.9% IV 500 ML IV CONT (23:11)
[2020-05-05] VITALS (53 sets, daily range): BP systolic 86–148; BP diastolic 46–74; PULSE 80–130; RESP 18–20; TEMP 36.6–37.9; O2SAT 90–100
[2020-05-05] MEDS: INSULIN ASPART (*BKC) 100 UNITS/ML SUB-Q ×3 (00:21→16:48)
[2020-05-05] MEDS: NOREPINEPHRINE 8 MG/D5W 250 ML 8 MG/250 ML BAG 9.38 MG IV CONT (00:32)
[2020-05-05 00:40] LABS: Glucose Point of Care 237 (65-105)
[2020-05-05] MEDS: IPRATROPIUM BR 0.02% INH SOLN 0.5 MG/2.5 ML VIAL INHALATION ×4 (01:57→19:55)
[2020-05-05] MEDS: ALBUTEROL SULFATE NEB 2.5 MG/0.5 ML INH INHALATION ×4 (01:58→19:55)
[2020-05-05 04:40] LABS: Hematocrit 33.4 % (37.0-47.0); Hemoglobin 10.4 g/dL (12.0-15.0); Mean Corpuscular HGB Conc 31.1 g/dl (32-36); Mean Corpuscular Hemoglobin 30.4 pg (26-34); Mean Corpuscular Volume 97.7 fl (80-100); Mean Platelet Volume 11.2 fl (7.4-10.4); Platelet Count Result 152 k/mm3 (150-375); Red Blood Count 3.42 M/mm3 (4.2-5.4); Red Cell Distribution Width 15.1 % (11.5-14.5); White Blood Count 10.6 K/mm3 (4.5-10.0)
[2020-05-05 04:54] LABS: Albumin Level 2.8 g/dL (3.5-5.1); Anion Gap 5 mmol/L (8-16); Blood Urea Nitrogen 28 mg/dL (7-17); Calcium 8.3 mg/dL (8.4-10.2); Carbon Dioxide 33 mmol/L (22-30); Chloride 91 mmol/L (98-107); Estimated CRCL calculation 19 ml/min; Estimated Glomerular Filt Rate 13; Glucose 225 mg/dL (65-105); Magnesium 2.1 mg/dL (1.6-2.3); Partial Thromboplastin Time 110.7 SECONDS (22.3-36.8); Phosphorus 5.1 mg/dL (2.5-4.5); Potassium 3.8 mmol/L (3.4-5.0); Sodium 129 mmol/L (137-145)
[2020-05-05 04:56] LABS: Alveolar/Arterial O2 Gradient 89.6 mmHg; Base Excess ABG 3.9 mEq/l (+/-2.0); Carboxyhemoglobin 0.2 % THb (0-2.0); Device VENTILATOR; Fractional Inspired Oxygen 30 %; HCO3 ABG 28.7 mEq/l (22.0-26.0); Methemoglobin ABG 0.2 %THb (0-1.5); Modified Allen's Test Unable to perform; Oxygen Content ABG 15.7 %vol (16.0-22.0); Oxyhemoglobin 93.6 % THb (90.0-100.0); PCO2 ABG 43.8 mmHg (35.0-45.0); PO2 ABG 72.8 mmHg (80.0-100.0); PO2 FiO2 Ratio Arterial Blood 2.43 %; Site Drawn RIGHT RADIAL; Total Hemoglobin 11.9 g/dL (12.0-18.0); pH ABG 7.434 (7.350-7.450)
[2020-05-05 04:57] LABS: Arterial Blood Gas PEEP 5 cmH2O; Arterial Blood Gas Tidal Volume 310 ml; Arterial Blood Gas Vent Mode CMV; Arterial Blood Gas Ventilator rate 20 /MIN
[2020-05-05] MEDS: CENTRAL LINE FLUSH 10 ML IV PUSH ×3 (05:47→22:22)
[2020-05-05 05:57] LABS: Glucose Point of Care 214 (65-105)
[2020-05-05] MEDS: INSULIN GLARGINE (*BKC) 100 UNITS/ML 10 UNITS SUB-Q (08:01)
[2020-05-05] MEDS: MIDODRINE HCL 10 MG TABLET PO ×3 (08:02→16:48)
[2020-05-05] MEDS: CLOPIDOGREL BISULFATE 75 MG TABLET FEED TUBE (08:02)
[2020-05-05] MEDS: ATORVASTATIN 40 MG TABLET 80 MG FEED TUBE (08:02)
[2020-05-05] MEDS: PANTOPRAZOLE SODIUM IV 40 MG VIAL IV PUSH (08:02)
[2020-05-05] MEDS: ASPIRIN 81 MG CHEWABLE TABLET FEED TUBE (08:02)
[2020-05-05 08:05] LABS: Glucose Point of Care 199 (65-105)
--- NOTE | 2020-05-05 09:00 | PM.PNCARD ---
Progress Note: A&P Assessment and Plan (1) Elevated troponin: Code(s): R77.8 - Other specified abnormalities of plasma proteins Status: Acute Assessment and Plan: Known CAD and history of multiple PCI/stent placements, admitted to the hospital with altered mental status. She was found to be profoundly hypoglycemic with blood sugar less than 20. Also has hypercarbic respiratory failure and currently on mechanical ventilation. Troponin elevation likely non ACS in the setting of respiratory failure, CKD with underlying congestive heart failure. There is no acute ST segment elevation on the EKG. Echo shows LVEF 35-40%. 05/04/2020: Dr Tovar spoke with Dr. Fernandez from [facility] who had performed cardiac catheterization/multivessel intervention on her in January of this year. He mentioned that patient has relatively smaller caliber, severely calcific vessels and she had multivessel PCI/stenting with adjunct atherectomy. She has jailed distal left circumflex artery. LVEF at that time was about 30-40%. Continue supportive care; continue dual antiplatelet therapy with aspirin and clopidogrel. Discontinue heparin. Reintroduce beta-shahram when blood pressure is more stable. She is still on Levophed at this time. May consider cardiac catheterization when she is clinically better (2) Acute on chronic respiratory failure with hypoxia and hypercapnia: Code(s): J96.21 - Acute and chronic respiratory failure with hypoxia; J96.22 - Acute and chronic respiratory failure with hypercapnia Status: Acute Assessment and Plan: Vent support as per critical care physician (3) Chronic systolic congestive heart failure: Code(s): I50.22 - Chronic systolic (congestive) heart failure Status: Acute Assessment and Plan: Biotronik ICD in place. Volume management with dialysis. (4) Person under investigation for COVID-19: Code(s): Z20.828 - Contact with and (suspected) exposure to other viral communicable diseases Status: Ruled-out Assessment and Plan: negative x2 Additional Plan No further cardiac recommendations at this time. Cardiology will sign off. Please do not hesitate to call if we can be of further assistance. Plan discussed with Dr. Kelley 0915 05/05/2020 Subjective Date/time seen: 05/05/20 09:00 Interval history: Follow-up for: Elevated troponin, coronary artery disease, ischemic cardiomyopathy, Biotronik ICD Date of service: 05/05/2020 Subjective: Sedated and intubated. Review of Systems Review of Systems: ROS unobtainable: Yes unobtainable due to endotracheal tube and unobtainable due to medical condition Exam Narrative: Exam Narrative: PHYSICAL EXAMINATION: GENERAL: Sedated MENTAL STATUS: Sedated EYES: Eyes closed EARS: External ears appear normal NOSE: Normal MOUTH: Orotracheal tube is in place NECK: Supple, no JVD CHEST: Bilateral vent sounds HEART: Regular rate and rhythm. ABDOMEN: Soft. OG tube in place NEUROLOGICAL: Sedated, unresponsive MUSCULOSKELETAL: No major deformity EXTREMITIES: No pedal edema SKIN: no rash on the exposed area, no cyanosis Objective Data Vital Signs Vital Signs: Vital Signs - 24 hr 05/04/20 10:00 05/04/20 11:29 05/04/20 11:57 Temperature 37.8 C H Pulse Rate 112 H 107 H 102 H Respiratory Rate 20 20 Blood Pressure 102/49 L 100/50 L Pulse Oximetry 97 96 97 05/04/20 12:00 05/04/20 14:00 05/04/20 14:35 Temperature Pulse Rate 102 H 98 94 Respiratory Rate 20 20 20 Blood Pressure 96/50 L Pulse Oximetry 97 98 96 05/04/20 14:45 05/04/20 16:00 05/04/20 17:14 Temperature 38.2 C H 38.2 C H Pulse Rate 96 91 94 Respiratory Rate 20 20 20 Blood Pressure 93/48 L Pulse Oximetry 97 05/04/20 17:30 05/04/20 18:00 05/04/20 18:14 Temperature 37.9 C H Pulse Rate 94 92 Respiratory Rate 20 B
--- NOTE | 2020-05-05 10:49 | PCDIET ---
ICU Rounding Note: Tube feedings held again for possible procedure today, but now no plan for further cardiac workup; thus, Nepro has been resumed and is currently at 40mL/hr with goal of 45mL/hr. No issues reported. Last recorded weight is 86.9kg which is down from last review. +I/O 05/04/20 with last dialysis on 05/03/20 (1.4L UF). Bowel Motility: Last documented BM on 05/04/20 x 1. Labs Reviewed: Hgb (10.4), Hct (33.4), Glu (225), BUN (28), Cr (3.6), Na (129), Alb (2.8), PO4 (5.1) Meds Noted: Albuterol, Plavix, Atrovent, Levophed, Lipitor, Retacrit, Protonix, Cefepime, Lantus, Midodrine, Vancomycin Additional Notes: Venous stasis ulcer to left heel. Following daily in ICU rounds. Assessing/reassessing every Sunday/Sunday.
--- NOTE | 2020-05-05 12:01 | WPDINTPN ---
Progress Note: A&P Assessment and Plan (1) Encephalopathy: Code(s): G93.40 - Encephalopathy, unspecified Status: Acute Assessment and Plan: Patient not focal commands or open her eyes despite being off sedation -without neurology consult the patient, will repeat head CT -possible EEG (2) Acute on chronic respiratory failure with hypoxia and hypercapnia: Code(s): J96.21 - Acute and chronic respiratory failure with hypoxia; J96.22 - Acute and chronic respiratory failure with hypercapnia Status: Acute Assessment and Plan: Patient with acute chronic respiratory failure, was found unresponsive at her house without oxygen. Patient was intubated in the ER. -chest x-ray shows pulmonary vascular congestion -SARS-CoV-2 PCR negative on 05/01, -repeat SARS-CoV-2 PCR negative on 05/04 -patient currently on 30% FiO2 and peep of 5 on CMV mode of ventilation, -on fentanyl and Versed for sedation, will discontinue all sedation -chest x-ray and ABGs reviewed -continue cefepime and vancomycin -continue bronchodilators (3) End-stage renal disease (ESRD): Code(s): N18.6 - End stage renal disease Status: Acute Assessment and Plan: End-stage renal disease on dialysis,(Sunday, , Sunday) Dialysis per Nephrology -electrolytes are within normal limits - Epogen will be given by nephrology (4) Hypoglycemia: Code(s): E16.2 - Hypoglycemia, unspecified Status: Acute Assessment and Plan: Resolved Patient with hypoglycemia, patient takes Lantus q.h.s. at home -unsure why patient is hypoglycemia, could related to decreased p.o. intake, excessive Lantus. -patient is hyperglycemic, D10 was discontinued -she is type 1 diabetic, will start sliding scale insulin (5) Person under investigation for COVID-19: Code(s): Z20.828 - Contact with and (suspected) exposure to other viral communicable diseases Status: Ruled-out Assessment and Plan: SARS-CoV-2 PCR is negative on 05/01 and 05/04 Discontinue all isolation (6) Elevated troponin: Code(s): R77.8 - Other specified abnormalities of plasma proteins Status: Acute Assessment and Plan: Likely related to respiratory failure, stress, type 2 infarct, given history of severe coronary artery disease with multiple stents in the past, ischemic cardiomyopathy -elevated troponins could be related to NSTEMI, discussed with Cardiology (IDr. Tovar), patient had cardiac catheterization with multivessel intervention earlier in [address] Martinez from [facility]. Cardiology discussed with him and he mentioned that patient has relatively smaller caliber, severely calcific vessels, and patient had multivessel PCI/stenting with adjunct atherectomy. Patient has jailed distal left circumflex artery. LVEF at that time was about 30-40%. At this time, continue medical regimen including dual antiplatelet therapy and anticoagulation as described in the note. May consider cardiac catheterization when patient is clinically better and COVID-19 has been ruled out. -tropoonins peaked at 3.97 from 0.049 on admission -discuss with cardiology [employer], will continue medical management at this time. With aspirin and clopidogrel. Will discontinue heparin infusion. Reintroduce beta-shahram with blood pressures are more stable -echocardiogram 05/03: LV systolic function is moderately reduced 35-40% with grade 2 diastolic dysfunction (7) Ulcer of left heel: Qualifiers: Non-pressure ulcer stage: unspecified non-pressure ulcer stage Qualified Code(s): L97.429 - Non-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 with unspecified severity Code(s): L97.429 - Non-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 with unspecified severity Status: Acute Assessment and Plan: Cracked and fissures on bilateral heels -appreciate wound care evaluation and recommendations -local care for now (8) Type 1 diabetes m
--- NOTE | 2020-05-05 12:02 | PM.PNNEP ---
Progress Note: A&P Assessment and Plan (1) End-stage renal disease (ESRD): Code(s): N18.6 - End stage renal disease Status: Acute Assessment and Plan: HD today follow electrolytes, volume status, and electrolytes push fluid removal with HD as tolerated (2) Acute on chronic respiratory failure with hypoxia and hypercapnia: Code(s): J96.21 - Acute and chronic respiratory failure with hypoxia; J96.22 - Acute and chronic respiratory failure with hypercapnia Status: Acute Assessment and Plan: continue ventilator support complicated by underlying respiratory issues at baseline (COPD + smoking) chronic heart failure and volume overload playing a role as well wean as tolerated (3) Chronic systolic congestive heart failure: Code(s): I50.22 - Chronic systolic (congestive) heart failure Status: Acute Assessment and Plan: CXR with fluid push fluid removal with HD as tolerated Cardiology following given elevated troponins possible cardiac catheterization when more stable (4) Anemia of chronic disease: Code(s): D63.8 - Anemia in other chronic diseases classified elsewhere Status: Acute Assessment and Plan: due to ESRD and acute illness Epogen with HD follow trend of H/H (5) Type 1 diabetes mellitus: Qualifiers: Diabetes mellitus complication status: with circulatory complication Code(s): E10.9 - Type 1 diabetes mellitus without complications Status: Chronic Assessment and Plan: initially with hypoglycemia now sugars are up so back on insulin follow accuchecks (6) Ulcer of left heel: Qualifiers: Non-pressure ulcer stage: unspecified non-pressure ulcer stage Qualified Code(s): L97.429 - Non-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 with unspecified severity Code(s): L97.429 - Non-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 with unspecified severity Status: Acute Assessment and Plan: Wound care following Will continue to follow. Subjective Date/time seen: 05/05/20 12:02 Chart reviewed -- remain on mechanical ventilation; some concern that patient not waking up with sedation being held; plan for dialysis today; no apparent acute events overnight or earlier this AM although started on low dose levophed due to hypotension overnight; cardiac catheterization cancelled today. Exam Narrative: Exam Narrative: General: WD/WN emale in NAD; intubated/sedated Heart: normal S1 and S2; no rub Lungs: coarse breath sounds Abdomen: soft, nontender, nondistended, positive bowel sounds Extremities: no cyanosis or clubbing; no edema Skin: no rash Objective Data Vital Signs Vital Signs: Vital Signs Temp Pulse Resp BP Pulse Ox 05/05/20 11:29 93 100 05/05/20 10:23 101/55 L 05/05/20 10:00 88 20 102/55 L 100 05/05/20 09:15 90 20 05/05/20 09:05 88 100 05/05/20 09:02 87 20 05/05/20 08:54 91 20 05/05/20 08:10 101 H 20 05/05/20 08:00 37.2 C 90 20 148/74 H 100 05/05/20 07:15 87/49 L 05/05/20 06:51 86 101/57 L 05/05/20 06:46 101/57 L 05/05/20 06:00 36.9 C 88 20 94/51 L 100 05/05/20 05:52 37.0 C 05/05/20 05:50 92/51 L 05/05/20 05:45 88 100/53 L 05/05/20 05:15 87 107/59 L 05/05/20 05:00 86 107/60 05/05/20 04:45 90 116/65 05/05/20 04:31 95 100 05/05/20 04:00 36.8 C 90 20 110/60 100 05/05/20 02:30 105 H 20 100 05/05/20 02:00 37.0 C 105 H 20 130/66 99 05/05/20 00:32 91 86/46 L 05/05/20 00:00 36.9 C 80 20 86/46 L 100 05/04/20 23:25 83 100 05/04/20 23:15 85/46 L 05/04/20 23:00 88/49 L 05/04/20 22:45 86/45 L 05/04/20 22:30 85/45 L 05/04/20 22:15 85/44 L 05/04/20 22:00 37.2 C 85 20 83/42 L 100 05/04/20 21:15 90/45 L 05/04/20 21:02 85 20 05/04/20 21:00 85/45 L 122
[2020-05-05 12:23] LABS: Glucose Point of Care 190 (65-105)
[2020-05-05] MEDS: HEPARIN SODIUM 5,000 UNITS/ML VIAL 5000 UNITS SUB-Q ×2 (14:14→22:22)
--- NOTE | 2020-05-05 15:58 | PM.IMPN ---
Progress Note: A&P Assessment and Plan (1) Acute on chronic respiratory failure with hypoxia and hypercapnia: Code(s): J96.21 - Acute and chronic respiratory failure with hypoxia; J96.22 - Acute and chronic respiratory failure with hypercapnia Status: Acute Assessment and Plan: Patient with chronic respiratory failure with hypoxia on home oxygen therapy. Patient currently intubated and sedated. ABG showing 7.37/38/82 on current settings. Appears to be CHF related but cannot exclude infectious process. Continue cefepime and vancomycin. Follow up on cultures. Wean ventilator as tolerated. Appreciate concrete placement equipment operator input. (2) Hypoglycemia: Code(s): E16.2 - Hypoglycemia, unspecified Status: Acute Assessment and Plan: Glucose stable was requiring D10 to maintain normal sugar. She takes Basaglar 40 units at night as only medication listed. Blood sugar rising and Lantus restarted HS (3) Contusion of scalp: Code(s): S00.03XA - Contusion of scalp, initial encounter Status: Acute Assessment and Plan: Scalp contusion most likely related to a fall. CT of the brain and cervical spine showing no acute findings otherwise. Continue current care. (4) Hypothermia: Code(s): T68.XXXA - Hypothermia, initial encounter Status: Acute Assessment and Plan: Temperature here documented at 87.4?. This is improved and she actually had low-grade fever . Continue to monitor. (5) Elevated troponin: Code(s): R77.8 - Other specified abnormalities of plasma proteins Status: Acute Assessment and Plan: Troponin has climbed to 0.24. She has coronary disease with history of myocardial infarction and stents. She also has ischemic cardiomyopathy with ICD. EKG with considerable baseline artifact. CXR showing evidence of CHF. Echo EF 35% with no obvious wall motion abnormalities (6) Chronic systolic congestive heart failure: Code(s): I50.22 - Chronic systolic (congestive) heart failure Status: Acute Assessment and Plan: patient has a history of ischemic cardiomyopathy with ICD. Chest x-ray consistent with CHF. Patient with acute on chronic heart failure. EF 35% as above. hemodialysis to control fluid status. (7) Type 1 diabetes mellitus: Qualifiers: Diabetes mellitus complication status: with circulatory complication Code(s): E10.9 - Type 1 diabetes mellitus without complications Status: Acute Assessment and Plan: A1c 5.7. Glucose reviewed on 05/05. Continue Accu-Cheks. Insulin was held initially due to the hypoglycemia but with increasing BS restarted lantus as above (8) End-stage renal disease on hemodialysis: Code(s): N18.6 - End stage renal disease; Z99.2 - Dependence on renal dialysis Status: Inactive Assessment and Plan: As above. Continue hemodialysis. Nephrology following (9) Anemia of chronic disease: Code(s): D63.8 - Anemia in other chronic diseases classified elsewhere Status: Acute Assessment and Plan: Hemoglobin 12.8 on admission. Suspect this was hemoconcentrated. Hemoglobin today is 10.4 which is more in line with prior values. Continue to monitor. (10) Chronic obstructive pulmonary disease: Qualifiers: COPD type: unspecified COPD Qualified Code(s): J44.9 - Chronic obstructive pulmonary disease, unspecified Code(s): J44.9 - Chronic obstructive pulmonary disease, unspecified Status: Acute Assessment and Plan: no wheezing. Continue nebulizer treatments. (11) DVT prophylaxis: Code(s): Z29.9 - Encounter for prophylactic measures, unspecified Status: Acute Assessment and Plan: Heparin Subjective Date/time seen: 05/05/20 15:58 Interval history: Date of service 05/05 54yo female with DM Type I, CAD, ESRD and chronic respiratory failure here
[2020-05-05 16:47] LABS: Glucose Point of Care 215 (65-105)
[2020-05-05] MEDS: EPOETIN ALFA-EPBX 10,000 UNITS/ML VIAL 10000 UNITS IV PUSH (19:38)
[2020-05-05] MEDS: INSULIN GLARGINE (*BKC) 100 UNITS/ML 32 UNITS SUB-Q (21:13)
[2020-05-05 21:51] LABS: Glucose Point of Care 193 (65-105)
[2020-05-06] VITALS (48 sets, daily range): BP systolic 87–135; BP diastolic 44–82; PULSE 80–138; RESP 11–23; TEMP 36–37.9; O2SAT 95–100
[2020-05-06 00:27] LABS: Glucose Point of Care 200 (65-105)
[2020-05-06] MEDS: IPRATROPIUM BR 0.02% INH SOLN 0.5 MG/2.5 ML VIAL INHALATION ×4 (02:50→20:24)
[2020-05-06] MEDS: ALBUTEROL SULFATE NEB 2.5 MG/0.5 ML INH INHALATION ×4 (02:50→20:24)
[2020-05-06] MEDS: INSULIN ASPART (*BKC) 100 UNITS/ML SUB-Q ×4 (04:04→17:49)
[2020-05-06 04:16] LABS: Glucose Point of Care 239 (65-105)
[2020-05-06 04:27] LABS: Hematocrit 31.4 % (37.0-47.0); Hemoglobin 9.8 g/dL (12.0-15.0); Immature Platelet Fraction Pct 5.4 % (0.9-11.2); Mean Corpuscular HGB Conc 31.2 g/dl (32-36); Mean Corpuscular Volume 99.4 fl (80-100); Mean Platelet Volume 11.1 fl (7.4-10.4); Platelet Count Result 140 k/mm3 (150-375); Red Blood Count 3.16 M/mm3 (4.2-5.4); White Blood Count 7.5 K/mm3 (4.5-10.0)
[2020-05-06 04:39] LABS: Anion Gap 7 mmol/L (8-16); Blood Urea Nitrogen 20 mg/dL (7-17); Calcium 8.7 mg/dL (8.4-10.2); Carbon Dioxide 32 mmol/L (22-30); Chloride 92 mmol/L (98-107); Estimated CRCL calculation 26 ml/min; Estimated Glomerular Filt Rate 19; Glucose 249 mg/dL (65-105); Magnesium 2.1 mg/dL (1.6-2.3); Potassium 3.9 mmol/L (3.4-5.0); Sodium 131 mmol/L (137-145)
[2020-05-06 04:58] LABS: Alveolar/Arterial O2 Gradient 92.6 mmHg; Base Excess ABG 4.2 mEq/l (+/-2.0); Carboxyhemoglobin 0.3 % THb (0-2.0); Fractional Inspired Oxygen 30 %; HCO3 ABG 28.7 mEq/l (22.0-26.0); Methemoglobin ABG 0.2 %THb (0-1.5); Oxygen Content ABG 14.9 %vol (16.0-22.0); Oxyhemoglobin 93.6 % THb (90.0-100.0); PCO2 ABG 42.3 mmHg (35.0-45.0); PO2 ABG 71.6 mmHg (80.0-100.0); PO2 FiO2 Ratio Arterial Blood 2.39 %; Reduced Hemoglobin 5.9 %THb (0-5.0); Total Hemoglobin 11.3 g/dL (12.0-18.0); pH ABG 7.449 (7.350-7.450)
[2020-05-06 04:59] LABS: Arterial Blood Gas Vent Mode CMV; Arterial Blood Gas Ventilator rate 20 /MIN; Device VENTILATOR; Modified Allen's Test Unable to perform; Site Drawn RIGHT RADIAL
[2020-05-06 05:00] LABS: Arterial Blood Gas PEEP 5 cmH2O; Arterial Blood Gas Tidal Volume 310 ml
[2020-05-06] MEDS: CENTRAL LINE FLUSH 10 ML IV PUSH ×3 (06:07→21:23)
[2020-05-06] MEDS: HEPARIN SODIUM 5,000 UNITS/ML VIAL 5000 UNITS SUB-Q ×3 (06:07→21:23)
[2020-05-06] MEDS: PANTOPRAZOLE SODIUM IV 40 MG VIAL IV PUSH (08:13)
[2020-05-06] MEDS: MIDODRINE HCL 10 MG TABLET PO ×3 (08:13→17:57)
[2020-05-06] MEDS: ATORVASTATIN 40 MG TABLET 80 MG FEED TUBE (08:13)
[2020-05-06] MEDS: ASPIRIN 81 MG CHEWABLE TABLET FEED TUBE (08:13)
[2020-05-06] MEDS: CLOPIDOGREL BISULFATE 75 MG TABLET FEED TUBE (08:13)
[2020-05-06 09:05] LABS: Glucose Point of Care 256 (65-105)
--- NOTE | 2020-05-06 10:44 | WPDINTPN ---
Progress Note: A&P Assessment and Plan (1) Encephalopathy: Code(s): G93.40 - Encephalopathy, unspecified Status: Acute Assessment and Plan: RESOLVED: Patient OFF all sedation, opens her eyes, follows simple commands in all extremities CT scan of the brain on 05/05/2020 did not show any acute intracranial process. -EEG was performed on 05/05/2020 -neurology was consulted (2) Acute on chronic respiratory failure with hypoxia and hypercapnia: Code(s): J96.21 - Acute and chronic respiratory failure with hypoxia; J96.22 - Acute and chronic respiratory failure with hypercapnia Status: Acute Assessment and Plan: Patient with acute chronic respiratory failure, was found unresponsive at her house without oxygen. Patient was intubated in the ER. -chest x-ray still with bilateral pulmonary edema -patient currently on 30% FiO2 and peep of 5 on CMV mode of ventilation, will place patient on ASV, will switch to pressure support ventilation after dialysis and evaluate for extubation -off all sedation > 24 hours -continue cefepime and vancomycin (initiated 05/01) -continue bronchodilators (3) End-stage renal disease (ESRD): Code(s): N18.6 - End stage renal disease Status: Acute Assessment and Plan: End-stage renal disease on dialysis,(Sunday, , Sunday) Dialysis per Nephrology -electrolytes are within normal limits - Epogen will be given by nephrology (4) Type 1 diabetes mellitus: Qualifiers: Diabetes mellitus complication status: with circulatory complication Code(s): E10.9 - Type 1 diabetes mellitus without complications Status: Acute Assessment and Plan: Type 1 diabetes on Lantus at home, currently hypoglycemic -hemoglobin A1c is 5.7 this admission Continue Accu-Cheks and sliding scale insulin -Lantus increased (5) Hypoglycemia: Code(s): E16.2 - Hypoglycemia, unspecified Status: Acute Assessment and Plan: Resolved Patient with hypoglycemia on admission, -unsure why patient is hypoglycemia, could related to decreased p.o. intake, excessive Lantus. - (6) Person under investigation for COVID-19: Code(s): Z20.828 - Contact with and (suspected) exposure to other viral communicable diseases Status: Ruled-out Assessment and Plan: -SARS-CoV-2 PCR negative on 05/01, -repeat SARS-CoV-2 PCR negative on 05/04 Discontinue all isolation (7) Elevated troponin: Code(s): R77.8 - Other specified abnormalities of plasma proteins Status: Acute Assessment and Plan: Likely related to respiratory failure, stress, type 2 infarct, given history of severe coronary artery disease with multiple stents in the past, ischemic cardiomyopathy -elevated troponins could be related to NSTEMI, discussed with Cardiology (IDr. Tovar), patient had cardiac catheterization with multivessel intervention earlier in [address] Martinez from [facility]. Cardiology discussed with him and he mentioned that patient has relatively smaller caliber, severely calcific vessels, and patient had multivessel PCI/stenting with adjunct atherectomy. Patient has jailed distal left circumflex artery. LVEF at that time was about 30-40%. At this time, continue medical regimen including dual antiplatelet therapy and anticoagulation as described in the note. May consider cardiac catheterization when patient is clinically better and COVID-19 has been ruled out. 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 Continue aspirin and clopidogrel. Reintroduce beta-shahram with blood pressures are more stable -echocardiogram 05/03: LV systolic function is moderately reduced 35-40% with grade 2 diastolic dysfunction (8) Ulcer of left heel: Qualifiers: Non-pressure ulcer stage: unspecified non-pressure ulcer stage Qualified Code(s): L97.429 - Non-pressur
--- NOTE | 2020-05-06 10:52 | PCDIET ---
ICU Rounding Note: Patient tolerating Nepro at 45mL/hr goal rate with 30mL water flush every 4 hours. No issues reported. Last recorded weight is 85.4kg which is down from last review. -I/O. s/p 2.5L UF yesterday with plan for dialysis again today. Bowel Motility: BM x 1 today. Labs Reviewed: Hgb (9.8), Hct (31.4), Glu (249), BUN (20), Cr (2.6), Na (131) Meds Noted: Albuterol, Lipitor, Cefepime, Retacrit, Heparin, Novolog, Lantus, Atrovent, Versed, Midodrine, Levophed, Protonix, Vancomycin Additional Notes: Left heel with venous stasis ulcer. No new recommendations at this time. Following daily in ICU rounds. Assessing/reassessing every Sunday/Sunday.
[2020-05-06 11:56] LABS: Glucose Point of Care 263 (65-105)
--- NOTE | 2020-05-06 12:21 | PM.PNNEP ---
Progress Note: A&P Assessment and Plan (1) End-stage renal disease (ESRD): Code(s): N18.6 - End stage renal disease Status: Acute Assessment and Plan: HD today again due to holiday schedule follow electrolytes, volume status, and electrolytes push fluid removal with HD as tolerated (2) Acute on chronic respiratory failure with hypoxia and hypercapnia: Code(s): J96.21 - Acute and chronic respiratory failure with hypoxia; J96.22 - Acute and chronic respiratory failure with hypercapnia Status: Acute Assessment and Plan: continue ventilator support complicated by underlying respiratory issues at baseline (COPD + smoking) chronic heart failure and volume overload playing a role as well wean as tolerated (3) Chronic systolic congestive heart failure: Code(s): I50.22 - Chronic systolic (congestive) heart failure Status: Acute Assessment and Plan: CXR with fluid push fluid removal with HD as tolerated Cardiology following given elevated troponins possible cardiac catheterization when more stable (4) Anemia of chronic disease: Code(s): D63.8 - Anemia in other chronic diseases classified elsewhere Status: Acute Assessment and Plan: due to ESRD and acute illness Epogen with HD follow trend of H/H (5) Type 1 diabetes mellitus: Qualifiers: Diabetes mellitus complication status: with circulatory complication Code(s): E10.9 - Type 1 diabetes mellitus without complications Status: Chronic Assessment and Plan: initially with hypoglycemia now sugars are up so back on insulin follow accuchecks (6) Ulcer of left heel: Qualifiers: Non-pressure ulcer stage: unspecified non-pressure ulcer stage Qualified Code(s): L97.429 - Non-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 with unspecified severity Code(s): L97.429 - Non-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 with unspecified severity Status: Acute Assessment and Plan: Wound care following Will continue to follow. Subjective Date/time seen: 05/06/20 12:21 More awake at the time of my visit with sedation off -- opens eyes and able to follow some simple commands; was able to be weaned off levophed and tolerated dialysis yesterday without any significant issues; due for dialysis again later today; no other acute events overnight or earlier this AM. Exam Narrative: Exam Narrative: General: WD/WN female in NAD; intubated/sedated Heart: normal S1 and S2; no rub Lungs: coarse breath sounds Abdomen: soft, nontender, nondistended, positive bowel sounds Extremities: no cyanosis or clubbing; no edema Skin: no rash Objective Data Vital Signs Vital Signs: Vital Signs Temp Pulse Resp BP Pulse Ox 05/06/20 11:32 36.6 C 101 H 18 109/58 L 96 05/06/20 10:45 101 H 96 05/06/20 09:10 36.6 C 103 H 16 110/56 L 95 05/06/20 08:37 106 H 11 L 05/06/20 08:36 106 H 11 L 05/06/20 08:00 36.6 C 104 H 16 110/56 L 95 05/06/20 07:24 115 H 22 H 95 05/06/20 06:00 37.6 C 102 H 20 111/60 96 05/06/20 04:47 103 H 95 05/06/20 04:00 37.7 C H 110 H 20 126/65 95 05/06/20 02:52 110 H 95 05/06/20 02:51 107 H 20 05/06/20 02:00 102 H 20 104/55 L 95 05/06/20 00:00 37.3 C 102 H 20 105/57 L 95 05/05/20 23:38 104 H 96 05/05/20 22:00 37.4 C 106 H 20 108/55 L 95 05/05/20 20:08 37.7 C H 100 18 111/57 L 95 05/05/20 20:04 100 113/54 L 05/05/20 20:00 37.4 C 94 20 106/53 L 96 05/05/20 19:45 95 111/56 L 05/05/20 19:30 96 109/53 L 05/05/20 19:15 97 111/56 L 05/05/20 19:00 95 120/70 05/05/20 18:45 97 112/55 L 05/05/20 18:30 98 109/55 L 05/05/20 18:00 98 20 110/53 L 95 05/05/20 17:54 116/57 L 05/05/20 17:45 102 H 116/57 L 05/05/20 17:30 99 110/54 L 05/05/20 17:15 103 H 112/56 L
--- NOTE | 2020-05-06 13:05 | WPDNEURCNPN ---
Assessment and Plan Assessment and plan (1) Encephalopathy: Code(s): G93.40 - Encephalopathy, unspecified Status: Acute Additional Plan encephalopathy all the other comorbid conditions treatment as such will obtain the EEG Consult date: 05/06/20 Time Seen: 12:15 HPI: Paty Sow is a 54 year old female admitted to the hospital for unresponsiveness with ongoing history of type 1 diabetes mellitus, coronary artery disease, ischemic cardiomyopathy, chronic kidney disease, chronic respiratory failure on home oxygen, COPD, several other comorbidities. Reportedly she was found unresponsive at her house without oxygen intubated in the emergency room treated with the oxygen cefepime and vancomycin the ER along with bronchodilators and addition she has ongoing history of end-stage renal disease. Investigation for SARS-CoV-2 PCR have been pending. Most recent CBC with WBC 7.5 hemoglobin 9.8 platelet count 140 sodium 131 with BUN 20 creatinine 2.60 and glucose 249 blood culture Klebsiella and recent CT scan of the head on 05/05 negative most recently afebrile with pulse of 101 blood pressure 109/58 and is still receiving fentanyl and midazolam and cefepime. Review of Systems Review of Systems: All systems reviewed & are unremarkable except as noted in HPI and below PMFSH Past Medical History Medical History Anemia of chronic disease Anxiety Arthropathy of right ankle Asthma Bronchitis Chronic obstructive pulmonary disease Chronic respiratory failure with hypoxia, on home oxygen therapy Chronic systolic congestive heart failure Coronary artery disease With history of NE and stents. End-stage renal disease on hemodialysis Hyperlipidemia Hypertension Ischemic cardiomyopathy with implantable cardioverter-defibrillator (ICD) Thrombocytopenia Chronic mild thrombocytopenia. Type 1 diabetes mellitus Complicated by diabetic retinopathy, peripheral neuropathy, and nephropathy. Hemoglobin A1c was 5.5% on 04/04/2020. Surgical History Surgical History AICD (automatic cardioverter/defibrillator) present AV fistula History of ankle surgery (~08/2016) Right ankle ORIF. History of cardiac catheterization (~2009) With stents. History of section History of dilation and curettage Status post partial lobectomy of lung Right upper lobectomy at age 7 for unclear reasons. Family History Family History Other Adopted Unknown family medical history Social History Social History Social History: The patient lives in [place]. She is on disability. She smoked about a half a pack of cigarettes per day for many years and quit in fall 2019. No alcohol or illicit substance abuse. Her son, Adithya Swo, as her emergency contact and she is listed as a full code. Smoking status: Former smoker Spiritual care concerns: No Meds Home Medications and Allergies Home Medications Medication Instructions Recorded Confirmed Type Basaglar KwikPen U-100 Insulin 40 unit SUBCUT HS 03/25/20 05/01/20 History alprazolam 0.5 mg PO TID PRN 03/25/20 05/01/20 History aspirin 81 mg PO DAILY 03/25/20 05/01/20 History atorvastatin 80 mg PO HS 03/25/20 05/01/20 History clopidogrel 75 mg PO DAILY 03/25/20 05/01/20 History metoprolol succinate 25 mg PO DAILY 03/25/20 05/01/20 History mupirocin 1 applic TOPICAL BID #15 g 03/25/20 05/01/20 Rx tramadol 50 mg PO Q6H PRN #6 tablet 03/29/20 05/01/20 Rx benzonatate 100 mg PO TID #30 cap 04/09/20 05/01/20 Rx ibuprofen 800 mg PO TID PRN 05/01/20 05/01/20 History Allergies Allergy/AdvReac Type Severity Reaction Status Date / Time No Known Allergies Allergy Verified 05/01/20 11:54 Vital Signs Vital Signs - 24 hr 05/05/20 13:10 05/05/20 14:00 05/05/20 14:12 Temperature Pulse R
[2020-05-06] MEDS: FENTANYL 2,500MCG/NS250ML(*CRX 2,500 MCG/250 ML BAG 7.5 MCG (16:50)
--- NOTE | 2020-05-06 17:04 | P.PCNBED_ITS ---
Procedures Intubation Intubation Date: 05/06/20 Intubation Time: 16:23 Sedative: etomidate (20) Mg given: 20 Paralytic: rocuronium Mg given: 30 Laryngoscope: fiber optic video scope Assist device used: fiber optic device ET tube size: 7.5 Tube secured depth (cm): 25 Tube secured location: lips Tube placement confirmation: visualized tube passing through cords and equal breath sounds bilaterally Patient tolerated procedure: well Intubation complications: none Additional comments: we were bagging the patient prior to intubation and her O2 saturations were in the 60s. We tried a non-rebreather and we attempted to give her chance to try to breathe on her own but she was struggling. She had retractions. And which we were not able to get her O2 saturations increased an d therefore I felt that we needed to reintubate the patient immediately.
[2020-05-06] MEDS: FENTANYL 2,500MCG/NS250ML(*CRX 2,500 MCG/250 ML BAG IV CONT (17:09)
--- NOTE | 2020-05-06 17:15 | PM.IMPN ---
Progress Note: A&P Assessment and Plan (1) Acute on chronic respiratory failure with hypoxia and hypercapnia: Code(s): J96.21 - Acute and chronic respiratory failure with hypoxia; J96.22 - Acute and chronic respiratory failure with hypercapnia Status: Acute Assessment and Plan: Patient with chronic respiratory failure with hypoxia on home oxygen therapy. Patient currently intubated and sedated.. Appears to be CHF related but cannot exclude infectious process. Continue cefepime and vancomycin (D#6) cultures NG. Wean ventilator as tolerated. (2) Hypoglycemia: Code(s): E16.2 - Hypoglycemia, unspecified Status: Acute Assessment and Plan: Glucose stable, was requiring D10 to maintain normal sugar. She takes Basaglar 40 units at night as only medication listed. Blood sugar rising and Lantus restarted HS at 32 U (3) Contusion of scalp: Code(s): S00.03XA - Contusion of scalp, initial encounter Status: Acute Assessment and Plan: Scalp contusion most likely related to a fall. CT of the brain and cervical spine showing no acute findings otherwise. Continue current care. (4) Hypothermia: Code(s): T68.XXXA - Hypothermia, initial encounter Status: Acute Assessment and Plan: Temperature here documented at 87.4?. This is improved and she actually had low-grade fever . Continue to monitor. (5) Elevated troponin: Code(s): R77.8 - Other specified abnormalities of plasma proteins Status: Acute Assessment and Plan: Troponin has climbed to 0.24. She has coronary disease with history of myocardial infarction and stents. She also has ischemic cardiomyopathy with ICD. EKG with considerable baseline artifact. CXR showing evidence of CHF. Echo EF 35% with no obvious wall motion abnormalities (6) Chronic systolic congestive heart failure: Code(s): I50.22 - Chronic systolic (congestive) heart failure Status: Acute Assessment and Plan: patient has a history of ischemic cardiomyopathy with ICD. Chest x-ray consistent with CHF. Patient with acute on chronic heart failure. EF 35% as above. hemodialysis to control fluid status. (7) Type 1 diabetes mellitus: Qualifiers: Diabetes mellitus complication status: with circulatory complication Code(s): E10.9 - Type 1 diabetes mellitus without complications Status: Chronic Assessment and Plan: A1c 5.7. Glucose reviewed on 05/06. Continue Accu-Cheks. Insulin was held initially due to the hypoglycemia but with increasing BS restarted lantus as above now at 32U HS. fbs 239 today (8) End-stage renal disease on hemodialysis: Code(s): N18.6 - End stage renal disease; Z99.2 - Dependence on renal dialysis Status: Inactive Assessment and Plan: As above. Continue hemodialysis, dialyzed 05/05 with 2500ml removed. Nephrology following (9) Anemia of chronic disease: Code(s): D63.8 - Anemia in other chronic diseases classified elsewhere Status: Acute Assessment and Plan: Hemoglobin 12.8 on admission. Suspect this was hemoconcentrated. Hemoglobin today is 9.8 which is more in line with prior values. Continue to monitor. (10) Chronic obstructive pulmonary disease: Qualifiers: COPD type: unspecified COPD Qualified Code(s): J44.9 - Chronic obstructive pulmonary disease, unspecified Code(s): J44.9 - Chronic obstructive pulmonary disease, unspecified Status: Acute Assessment and Plan: no wheezing. Continue nebulizer treatments. (11) DVT prophylaxis: Code(s): Z29.9 - Encounter for prophylactic measures, unspecified Status: Acute Assessment and Plan: Heparin Subjective Date/time seen: 05/06/20 17:15 Interval history: Date of service 05/06 54yo female with DM Type I, CAD, ESRD and chronic respiratory failure here a
[2020-05-06] MEDS: dexmedeTOMIDine 400 MCG/100 ML 400 MCG/100 ML BAG IV CONT (17:38)
[2020-05-06 17:44] LABS: Glucose Point of Care 256 (65-105)
--- NOTE | 2020-05-06 17:58 | PC.NURSE ---
at 16:20, two RN's at bedside, patient began to gag on OG tube, no sedation at this time. Patient began to desat and patient coughed up ET tube, called respiratory and removed ET tube. Began to bag patient, called Ryne to reevaluate patient and assess for reintubation. Placed patient on 15 liter non-rebreather and oxygen saturations remained in 60's. Ryne decided to reintubate. Chest xray and KUB obtained. Dr. Rivas informed and orders for Precedex obtained for sedation. Resume tube feeds after radiology report okayed.
[2020-05-06 21:23] LABS: Glucose Point of Care 132 (65-105)
[2020-05-06] MEDS: INSULIN GLARGINE (*BKC) 100 UNITS/ML 32 UNITS SUB-Q (21:27)
[2020-05-07] VITALS (32 sets, daily range): BP systolic 89–121; BP diastolic 44–62; PULSE 84–141; RESP 12–27; TEMP 36.8–37.4; O2SAT 94–100
[2020-05-07 00:39] LABS: Glucose Point of Care 175 (65-105)
[2020-05-07 00:55] LABS: Vancomycin Random 12.7 ug/mL (10-20)
[2020-05-07] MEDS: ALBUTEROL SULFATE NEB 2.5 MG/0.5 ML INH INHALATION ×4 (02:25→19:26)
[2020-05-07] MEDS: IPRATROPIUM BR 0.02% INH SOLN 0.5 MG/2.5 ML VIAL INHALATION ×4 (02:26→19:26)
[2020-05-07 05:17] LABS: Hematocrit 32.4 % (37.0-47.0); Hemoglobin 9.9 g/dL (12.0-15.0); Mean Corpuscular HGB Conc 30.6 g/dl (32-36); Mean Corpuscular Hemoglobin 30.4 pg (26-34); Mean Corpuscular Volume 99.4 fl (80-100); Mean Platelet Volume 11.5 fl (7.4-10.4); Platelet Count Result 128 k/mm3 (150-375); Red Blood Count 3.26 M/mm3 (4.2-5.4); Red Cell Distribution Width 14.9 % (11.5-14.5); White Blood Count 9.8 K/mm3 (4.5-10.0)
[2020-05-07 05:27] LABS: Alveolar/Arterial O2 Gradient 84.1 mmHg; Base Excess ABG 3.5 mEq/l (+/-2.0); Carboxyhemoglobin 0.3 % THb (0-2.0); Fractional Inspired Oxygen 30 %; HCO3 ABG 28.5 mEq/l (22.0-26.0); Methemoglobin ABG 0.2 %THb (0-1.5); Oxygen Content ABG 17.7 %vol (16.0-22.0); Oxygen Saturation ABG 95.5 % (95.0-100.0); Oxyhemoglobin 94.7 % THb (90.0-100.0); PO2 ABG 76.9 mmHg (80.0-100.0); PO2 FiO2 Ratio Arterial Blood 2.56 %; Reduced Hemoglobin 4.8 %THb (0-5.0); Total Hemoglobin 13.3 g/dL (12.0-18.0)
[2020-05-07 05:29] LABS: Modified Allen's Test Pass; Site Drawn RIGHT RADIAL
[2020-05-07 05:30] LABS: Arterial Blood Gas PEEP 5 cmH2O; Arterial Blood Gas Tidal Volume 310 ml; Arterial Blood Gas Vent Mode CMV; Arterial Blood Gas Ventilator rate 20 /MIN; Device VENTILATOR
[2020-05-07 05:33] LABS: Anion Gap 5 mmol/L (8-16); Blood Urea Nitrogen 18 mg/dL (7-17); Calcium 8.8 mg/dL (8.4-10.2); Carbon Dioxide 31 mmol/L (22-30); Chloride 96 mmol/L (98-107); Estimated CRCL calculation 27 ml/min; Estimated Glomerular Filt Rate 20; Glucose 242 mg/dL (65-105); Magnesium 2.2 mg/dL (1.6-2.3); Phosphorus 2.9 mg/dL (2.5-4.5); Potassium 3.5 mmol/L (3.4-5.0); Sodium 132 mmol/L (137-145)
[2020-05-07] MEDS: HEPARIN SODIUM 5,000 UNITS/ML VIAL 5000 UNITS SUB-Q ×3 (06:05→23:16)
[2020-05-07] MEDS: CENTRAL LINE FLUSH 10 ML IV PUSH ×3 (06:06→23:16)
[2020-05-07] MEDS: INSULIN ASPART (*BKC) 100 UNITS/ML SUB-Q ×3 (06:06→16:03)
[2020-05-07] MEDS: dexmedeTOMIDine 400 MCG/100 ML 400 MCG/100 ML BAG IV CONT (07:47)
[2020-05-07 08:05] LABS: Glucose Point of Care 189 (65-105)
[2020-05-07] MEDS: PANTOPRAZOLE SODIUM IV 40 MG VIAL IV PUSH (08:47)
[2020-05-07] MEDS: ATORVASTATIN 40 MG TABLET 80 MG FEED TUBE (08:47)
[2020-05-07] MEDS: MIDODRINE HCL 10 MG TABLET PO ×3 (08:48→17:06)
[2020-05-07] MEDS: CLOPIDOGREL BISULFATE 75 MG TABLET FEED TUBE (08:48)
[2020-05-07] MEDS: ASPIRIN 81 MG CHEWABLE TABLET FEED TUBE (08:48)
[2020-05-07] MEDS: ALPRAZolam (*CRX) 0.5 MG TABLET PO ×2 (11:18→17:06)
--- NOTE | 2020-05-07 11:26 | WPDINTPN ---
Progress Note: A&P Assessment and Plan (1) Acute on chronic respiratory failure with hypoxia and hypercapnia: Code(s): J96.21 - Acute and chronic respiratory failure with hypoxia; J96.22 - Acute and chronic respiratory failure with hypercapnia Status: Acute Assessment and Plan: Patient with acute chronic respiratory failure, was found unresponsive at her house without oxygen. Patient was intubated in the ER. -chest x-ray still with bilateral pulmonary edema -patient currently on 30% FiO2 and peep of 5 on CMV mode of ventilation, will place patient on ASV mode of ventilation. Tried her on pressure support ventilation this morning 04/11 patient tachypneic, tachycardic with low tidal volume so will switch back to ASV mode of ventilation -continue Precedex infusion -continue cefepime and vancomycin (initiated 05/01) for a total of 7 days -continue bronchodilators (2) Encephalopathy: Code(s): G93.40 - Encephalopathy, unspecified Status: Acute Assessment and Plan: RESOLVED: Patient OFF all sedation, opens her eyes, follows simple commands in all extremities -currently on Precedex and still follows simple commands CT scan of the brain on 05/05/2020 did not show any acute intracranial process. -EEG was performed on 05/05/2020 -neurology was consulted (3) End-stage renal disease (ESRD): Code(s): N18.6 - End stage renal disease Status: Acute Assessment and Plan: End-stage renal disease on dialysis,(Sunday, , Sunday) Dialysis per Nephrology -electrolytes are within normal limits - Epogen will be given by nephrology (4) Type 1 diabetes mellitus: Qualifiers: Diabetes mellitus complication status: with circulatory complication Code(s): E10.9 - Type 1 diabetes mellitus without complications Status: Chronic Assessment and Plan: Type 1 diabetes on Lantus at home, currently hypoglycemic -hemoglobin A1c is 5.7 this admission Continue Accu-Cheks and sliding scale insulin -Lantus increased (5) Hypoglycemia: Code(s): E16.2 - Hypoglycemia, unspecified Status: Acute Assessment and Plan: Resolved Patient with hypoglycemia on admission, -unsure why patient is hypoglycemia, could related to decreased p.o. intake, excessive Lantus. -discussed with son Adithya on 05/07/2020, he stated patient's ascites weeks she could be taking more insulin. Requests if care coordination could arrange for home health or alf placement, as her hypoglycemic events have been more frequent (6) Person under investigation for COVID-19: Code(s): Z20.828 - Contact with and (suspected) exposure to other viral communicable diseases Status: Ruled-out Assessment and Plan: -SARS-CoV-2 PCR negative on 05/01, -repeat SARS-CoV-2 PCR negative on 05/04 Discontinue all isolation (7) Elevated troponin: Code(s): R77.8 - Other specified abnormalities of plasma proteins Status: Acute Assessment and Plan: Likely related to respiratory failure, stress, type 2 infarct, given history of severe coronary artery disease with multiple stents in the past, ischemic cardiomyopathy -elevated troponins could be related to NSTEMI, discussed with Cardiology (IDr. Tovar), patient had cardiac catheterization with multivessel intervention earlier in [address] Martinez from [facility]. Cardiology discussed with him and he mentioned that patient has relatively smaller caliber, severely calcific vessels, and patient had multivessel PCI/stenting with adjunct atherectomy. Patient has jailed distal left circumflex artery. LVEF at that time was about 30-40%. At this time, continue medical regimen including dual antiplatelet therapy and anticoagulation as described in the note. May consider cardiac catheterization when patient is clinically better and COVID-19 has been ruled out. -tropoonins peaked at 3.97 from 0.049 on admission -discussed with cardiol
[2020-05-07 12:12] LABS: Glucose Point of Care 255 (65-105)
--- NOTE | 2020-05-07 14:11 | PM.IMPN ---
Progress Note: A&P Assessment and Plan (1) Acute on chronic respiratory failure with hypoxia and hypercapnia: Code(s): J96.21 - Acute and chronic respiratory failure with hypoxia; J96.22 - Acute and chronic respiratory failure with hypercapnia Status: Acute Assessment and Plan: Patient with chronic respiratory failure with hypoxia on home oxygen therapy. Patient currently intubated and sedated.. Appears to be CHF related but cannot exclude infectious process. Continue cefepime and vancomycin (D#7) cultures NG. Wean ventilator as tolerated. (2) Hypoglycemia: Code(s): E16.2 - Hypoglycemia, unspecified Status: Acute Assessment and Plan: Glucose stable, was requiring D10 to maintain normal sugar. She takes Basaglar 40 units at night as only medication listed. Blood sugar rising and Lantus restarted HS at 32 U FBS 242 today (3) Contusion of scalp: Code(s): S00.03XA - Contusion of scalp, initial encounter Status: Acute Assessment and Plan: Scalp contusion most likely related to a fall. CT of the brain and cervical spine showing no acute findings otherwise. Continue current care. (4) Hypothermia: Code(s): T68.XXXA - Hypothermia, initial encounter Status: Acute Assessment and Plan: Temperature here documented at 87.4?. This is improved and she actually had low-grade fever . Continue to monitor. (5) Elevated troponin: Code(s): R77.8 - Other specified abnormalities of plasma proteins Status: Acute Assessment and Plan: Troponin has climbed to 0.24. She has coronary disease with history of myocardial infarction and stents. She also has ischemic cardiomyopathy with ICD. EKG with considerable baseline artifact. CXR showing evidence of CHF. Echo EF 35% with no obvious wall motion abnormalities (6) Chronic systolic congestive heart failure: Code(s): I50.22 - Chronic systolic (congestive) heart failure Status: Acute Assessment and Plan: patient has a history of ischemic cardiomyopathy with ICD. Chest x-ray consistent with CHF. Patient with acute on chronic heart failure. EF 35% as above. hemodialysis to control fluid status. (7) Type 1 diabetes mellitus: Qualifiers: Diabetes mellitus complication status: with circulatory complication Code(s): E10.9 - Type 1 diabetes mellitus without complications Status: Chronic Assessment and Plan: A1c 5.7. Glucose reviewed on 05/06. Continue Accu-Cheks. Insulin was held initially due to the hypoglycemia but with increasing BS restarted lantus as above now at 32U HS. fbs 242 today (8) End-stage renal disease on hemodialysis: Code(s): N18.6 - End stage renal disease; Z99.2 - Dependence on renal dialysis Status: Inactive Assessment and Plan: As above. Continue hemodialysis, dialyzed 05/06 with 3900 ml removed. Nephrology following (9) Anemia of chronic disease: Code(s): D63.8 - Anemia in other chronic diseases classified elsewhere Status: Acute Assessment and Plan: Hemoglobin 12.8 on admission. Suspect this was hemoconcentrated. Hemoglobin today is 9.9 which is more in line with prior values. Continue to monitor. (10) Chronic obstructive pulmonary disease: Qualifiers: COPD type: unspecified COPD Qualified Code(s): J44.9 - Chronic obstructive pulmonary disease, unspecified Code(s): J44.9 - Chronic obstructive pulmonary disease, unspecified Status: Acute Assessment and Plan: no wheezing. Continue nebulizer treatments. (11) DVT prophylaxis: Code(s): Z29.9 - Encounter for prophylactic measures, unspecified Status: Acute Assessment and Plan: Heparin Subjective Date/time seen: 05/07/20 14:11 Interval history: Date of service 05/07/20 54yo female with DM Type I, CAD, ESRD and chronic respirato
--- NOTE | 2020-05-07 14:48 | PCDIET ---
Nutrition Follow-Up Complete: Inadequate oral intake related to oral intubation as evidenced by NPO status. Patient to meet estimated nutritional needs. Goal: Goal met. Continue goal. Pt current nutrition is Nepro at 45ml/hr over 22hrs Nutrition recommendation: agree Last recorded weight is 86.2 kg, up from 85.4kg yesterday; +982 I/O Bowel Motility: BM today Labs Reviewed: GFR 20, Cr 2.50, Glucose 255, Na 132 Meds Noted: Albuterol, Xanxan, Cefepime, Albumin, Precedex, Levophed Additional Notes: Pt tolerating EN at goal providing 1782 kcals, 80g protein, and 640ml of free water. Water flush of 30ml q 4hrs appropriate with other IV fluids. Bowels moving. We will continue to follow daily in ICU rounds with reassessment every T/F.
--- NOTE | 2020-05-07 15:23 | PM.PNNEP ---
Progress Note: A&P Assessment and Plan (1) End-stage renal disease (ESRD): Code(s): N18.6 - End stage renal disease Status: Acute Assessment and Plan: HD possibly tomorrow follow electrolytes, volume status, and electrolytes push fluid removal with HD as tolerated (2) Acute on chronic respiratory failure with hypoxia and hypercapnia: Code(s): J96.21 - Acute and chronic respiratory failure with hypoxia; J96.22 - Acute and chronic respiratory failure with hypercapnia Status: Acute Assessment and Plan: continue ventilator support complicated by underlying respiratory issues at baseline (COPD + smoking) chronic heart failure and volume overload playing a role as well wean as tolerated (3) Chronic systolic congestive heart failure: Code(s): I50.22 - Chronic systolic (congestive) heart failure Status: Acute Assessment and Plan: CXR with fluid push fluid removal with HD as tolerated Cardiology following given elevated troponins possible cardiac catheterization when more stable (4) Anemia of chronic disease: Code(s): D63.8 - Anemia in other chronic diseases classified elsewhere Status: Acute Assessment and Plan: due to ESRD and acute illness Epogen with HD follow trend of H/H (5) Type 1 diabetes mellitus: Qualifiers: Diabetes mellitus complication status: with circulatory complication Code(s): E10.9 - Type 1 diabetes mellitus without complications Status: Chronic Assessment and Plan: initially with hypoglycemia now sugars are up so back on insulin follow accuchecks (6) Ulcer of left heel: Qualifiers: Non-pressure ulcer stage: unspecified non-pressure ulcer stage Qualified Code(s): L97.429 - Non-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 with unspecified severity Code(s): L97.429 - Non-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 with unspecified severity Status: Acute Assessment and Plan: Wound care following Will continue to follow. Subjective Date/time seen: 05/07/20 15:23 Tolerated dialysis treatment yesterday without any significant issues; remains on ventilator support and was restarted on levophed for hypotension; opening her eyes and following simple commands; patient gagged on OG tube and subsequently coughed out ETT tube; unable to maintain oxygen saturations quickly developed respiratory distress with accessory muscle use necessitating re-intubation. Exam Narrative: Exam Narrative: General: WD/WN female in NAD; intubated/sedated Heart: normal S1 and S2; no rub Lungs: coarse breath sounds Abdomen: soft, nontender, nondistended, positive bowel sounds Extremities: no cyanosis or clubbing; no edema Skin: warm and intact Objective Data Vital Signs Vital Signs: Vital Signs Temp Pulse Resp BP Pulse Ox 05/07/20 15:11 97 96/52 L 05/07/20 15:02 97 94 05/07/20 15:00 89 14 05/07/20 14:00 86 18 96/52 L 95 05/07/20 12:00 36.8 C 101 H 13 89/48 L 94 05/07/20 11:25 141 H 96 05/07/20 11:20 95 27 H 05/07/20 10:00 95 27 H 89/44 L 94 05/07/20 08:39 94 96 05/07/20 08:30 94 21 H 102/62 05/07/20 08:22 93 95 05/07/20 08:20 93 21 H 05/07/20 08:00 36.9 C 94 21 H 102/62 96 05/07/20 07:47 88 23 H 05/07/20 06:00 88 23 H 104/54 L 95 05/07/20 04:44 88 95 05/07/20 04:00 37.0 C 91 26 H 97/56 L 100 05/07/20 02:26 88 20 05/07/20 02:00 94 20 103/56 L 96 05/07/20 01:54 89 97 05/07/20 00:01 37.4 C 102 H 20 109/57 L 98 05/07/20 00:00 104 H 05/06/20 23:01 109 H 20 106/54 L 99 05/06/20 22:48 109 H 97 05/06/20 22:15 37.3 C 121 H 17 107/50 L 05/06/20 22:01 127 H 23 H 107/50 L 98 05/06/20 22:00 130 H 22 H 120/82 05/06/20 21:46 138 H 117/54 L 05/06/20 21:35 108 H 94/46 L 05/06/20 21:16 132 H
[2020-05-07 16:00] LABS: Glucose Point of Care 214 (65-105)
[2020-05-07 20:23] LABS: Glucose Point of Care 127 (65-105)
[2020-05-07] MEDS: INSULIN GLARGINE (*BKC) 100 UNITS/ML 32 UNITS SUB-Q (20:28)
[2020-05-08] VITALS (41 sets, daily range): BP systolic 84–127; BP diastolic 41–66; PULSE 80–123; RESP 11–34; TEMP 0–37.6; O2SAT 90–100
[2020-05-08] MEDS: INSULIN ASPART (*BKC) 100 UNITS/ML SUB-Q ×5 (00:49→16:48)
[2020-05-08 00:50] LABS: Glucose Point of Care 217 (65-105)
[2020-05-08] MEDS: ALBUTEROL SULFATE NEB 2.5 MG/0.5 ML INH INHALATION ×4 (01:40→19:26)
[2020-05-08] MEDS: IPRATROPIUM BR 0.02% INH SOLN 0.5 MG/2.5 ML VIAL INHALATION ×4 (01:40→19:26)
[2020-05-08 04:33] LABS: Alveolar/Arterial O2 Gradient 97.5 mmHg; Base Excess ABG 1.3 mEq/l (+/-2.0); Carboxyhemoglobin 0.3 % THb (0-2.0); Fractional Inspired Oxygen 30 %; HCO3 ABG 25.3 mEq/l (22.0-26.0); Methemoglobin ABG 0.2 %THb (0-1.5); Oxygen Content ABG 14.3 %vol (16.0-22.0); Oxygen Saturation ABG 95.2 % (95.0-100.0); PCO2 ABG 37.6 mmHg (35.0-45.0); PO2 ABG 72.2 mmHg (80.0-100.0); PO2 FiO2 Ratio Arterial Blood 2.41 %; Reduced Hemoglobin 5.5 %THb (0-5.0); Total Hemoglobin 10.8 g/dL (12.0-18.0); pH ABG 7.446 (7.350-7.450)
[2020-05-08 04:34] LABS: Arterial Blood Gas PEEP 5 cmH2O; Arterial Blood Gas Vent Mode ASV; Device VENTILATOR; Modified Allen's Test Pass; Site Drawn RIGHT RADIAL
[2020-05-08 06:40] LABS: Glucose Point of Care 284 (65-105)
[2020-05-08 06:41] LABS: Hematocrit 30.4 % (37.0-47.0); Hemoglobin 9.2 g/dL (12.0-15.0); Immature Platelet Fraction Pct 6.1 % (0.9-11.2); Mean Corpuscular HGB Conc 30.3 g/dl (32-36); Mean Corpuscular Hemoglobin 30.7 pg (26-34); Mean Corpuscular Volume 101.3 fl (80-100); Mean Platelet Volume 11.7 fl (7.4-10.4); Platelet Count Result 126 k/mm3 (150-375); Red Cell Distribution Width 15.2 % (11.5-14.5); White Blood Count 10.9 K/mm3 (4.5-10.0)
[2020-05-08] MEDS: HEPARIN SODIUM 5,000 UNITS/ML VIAL 5000 UNITS SUB-Q ×3 (06:46→21:34)
[2020-05-08 08:04] LABS: Glucose Point of Care 279 (65-105)
[2020-05-08] MEDS: ASPIRIN 81 MG CHEWABLE TABLET FEED TUBE (08:35)
[2020-05-08] MEDS: MIDODRINE HCL 10 MG TABLET PO ×3 (08:35→16:47)
[2020-05-08] MEDS: ATORVASTATIN 40 MG TABLET 80 MG FEED TUBE (08:35)
[2020-05-08] MEDS: CLOPIDOGREL BISULFATE 75 MG TABLET FEED TUBE (08:35)
[2020-05-08] MEDS: PANTOPRAZOLE SODIUM IV 40 MG VIAL IV PUSH (08:36)
[2020-05-08] MEDS: INSULIN GLARGINE (*BKC) 100 UNITS/ML 10 UNITS SUB-Q (08:36)
--- NOTE | 2020-05-08 10:23 | WPDINFPN2 ---
Progress Note: A&P Assessment and Plan (1) Fungus present in urine: Code(s): B49 - Unspecified mycosis Status: Acute Assessment and Plan: 1. Asymptomatic funguria 2. CRF, with near-anuria 3. Yeast in sputum, also not a pathogen here 4. Lung infiltrates REC No antifungal treatment needed. Her antibacterials can be stopped anytime from my standpoint, as she has received an appropriate course of empiric treatment for bacterial pneumonia. Remove TLC as soon as feasible, as she is at risk for fungal line infection. Call if other Qs Subjective Date/time seen: 05/08/20 10:23 Objective Data Vital Signs Vital Signs: Vital Signs - 24 hr 05/07/20 11:20 05/07/20 11:25 05/07/20 12:00 Temperature 36.8 C Pulse Rate 95 141 H 101 H Respiratory Rate 27 H 13 Blood Pressure 89/48 L Pulse Oximetry 96 94 05/07/20 14:00 05/07/20 15:00 05/07/20 15:02 Temperature Pulse Rate 86 89 97 Respiratory Rate 18 14 Blood Pressure 96/52 L Pulse Oximetry 95 94 05/07/20 15:11 05/07/20 16:00 05/07/20 16:51 Temperature 37.2 C Pulse Rate 97 103 H 105 H Respiratory Rate 18 Blood Pressure 96/52 L 113/57 L Pulse Oximetry 94 95 05/07/20 18:00 05/07/20 19:22 05/07/20 19:27 Temperature Pulse Rate 101 H 102 H 102 H Respiratory Rate 18 12 Blood Pressure 109/55 L Pulse Oximetry 95 94 05/07/20 19:40 05/07/20 20:00 05/07/20 20:24 Temperature 37.1 C Pulse Rate 89 106 H 108 H Respiratory Rate 12 14 15 Blood Pressure 110/55 L 121/62 Pulse Oximetry 94 05/07/20 22:00 05/07/20 23:37 05/08/20 00:00 Temperature Pulse Rate 109 H 105 H 115 H Respiratory Rate 22 H 12 Blood Pressure 118/58 L 105/54 L Pulse Oximetry 94 94 95 05/08/20 00:51 05/08/20 01:08 05/08/20 01:41 Temperature 37.6 C Pulse Rate 97 85 Respiratory Rate 11 L Blood Pressure 127/65 Pulse Oximetry 95 05/08/20 02:00 05/08/20 04:00 05/08/20 04:14 Temperature 36.5 C Pulse Rate 86 86 80 Respiratory Rate 24 H 12 14 Blood Pressure 96/51 L 92/48 L Pulse Oximetry 98 98 05/08/20 04:25 05/08/20 06:00 05/08/20 06:48 Temperature Pulse Rate 83 81 90 Respiratory Rate 12 Blood Pressure 105/53 L 87/43 L Pulse Oximetry 98 97 05/08/20 07:39 05/08/20 07:43 05/08/20 08:00 Temperature 37.1 C Pulse Rate 87 80 90 Respiratory Rate 12 12 Blood Pressure 103/51 L Pulse Oximetry 90 96 05/08/20 10:00 Temperature Pulse Rate 97 Respiratory Rate 30 H Blood Pressure 90/47 L Pulse Oximetry 97 Intake/Output Intake/Output: Intake & Output 05/05/20 05/06/20 05/07/20 05/08/20 23:59 23:59 23:59 23:59 Intake Total 742.9 1503.2 1667 689 Output Total 2500 3900 0 0 Balance -1757.1 -2396.8 1667 689 Meds/Results Medications: Active Medications Generic Name Dose Route Start Last Admin Trade Name Freq PRN Reason Stop Dose Admin Acetaminophen 650 mg 05/04/20 10:28 05/04/20 17:14 Acetaminophen Elixir 325 Mg/10.15 Ml Udc PO 650 mg Q6H PRN Administration Mild Pain (1-3) or Fever Albuterol 2.5 mg 05/02/20 14:00 05/08/20 01:40 Albuterol Sulfate Neb 2.5 Mg/0.5 Ml Inh INHALATION 2.5 mg Q6HRT YUE Administration Alprazolam 0.5 mg 05/08/20 10:20 Alprazolam (*Crx) 0.5 Mg Tablet PO TID PRN Anxiety Aspirin 81 mg 05/03/20 12:20 05/08/20 08:35 Aspirin 81 Mg Chewable Tablet FEED TUBE 81 mg DAILY@0800 YUE Administration Atorvastatin Calcium 80 mg 05/03/20 12:20 05/08/20 08:35 Atorvastatin 40 Mg Tablet FEED TUBE 80 mg DAILY YUE Administration Clopidogrel Bisulfate 75 mg 05/03/20 12:20 05/08/20 08:35 Clopidogrel Bisulfate 75 Mg Tablet FEED TUBE 75 mg QAM YUE Administration Dextrose 12.5 gm 05/03/20 12:41 Dextrose 50% 25 Gm/50 Ml Syringe IV PUSH PRN PRN Hypoglycemia Protocol Glucagon 1 mg 05/03/20 12:41 Glucagon For Inj 1 Mg Vial IM PRN PRN Hypoglycemia Protocol Glucose 15 gm 1
[2020-05-08 10:42] LABS: Anion Gap 5 mmol/L (8-16); Blood Urea Nitrogen 31 mg/dL (7-17); Calcium 8.8 mg/dL (8.4-10.2); Carbon Dioxide 30 mmol/L (22-30); Chloride 96 mmol/L (98-107); Estimated CRCL calculation 18 ml/min; Estimated Glomerular Filt Rate 13; Glucose 289 mg/dL (65-105); Magnesium 2.3 mg/dL (1.6-2.3); Phosphorus 3.1 mg/dL (2.5-4.5); Sodium 131 mmol/L (137-145)
[2020-05-08] MEDS: ALBUMIN HUMAN 25% 12.5 GM/50ML 50 ML IVPB ×2 (10:55→11:30)
--- NOTE | 2020-05-08 11:36 | WPDINTPN ---
Progress Note: A&P Assessment and Plan (1) Acute on chronic respiratory failure with hypoxia and hypercapnia: Code(s): J96.21 - Acute and chronic respiratory failure with hypoxia; J96.22 - Acute and chronic respiratory failure with hypercapnia Status: Acute Assessment and Plan: Patient with acute chronic respiratory failure, was found unresponsive at her house without oxygen. Patient was intubated in the ER. -chest x-ray still with bilateral pulmonary edema -patient currently on 30% FiO2 and peep of 5 on CMV mode of ventilation, will place patient on ASV mode of ventilation. Tried her on pressure support ventilation this morning 04/11 patient tachypneic, tachycardic with low tidal volume so will switch back to ASV mode of ventilation - off all sedation -continue cefepime and vancomycin, will discontinue as she has received a total of 7 days of antibiotics -continue bronchodilators (2) Encephalopathy: Code(s): G93.40 - Encephalopathy, unspecified Status: Acute Assessment and Plan: RESOLVED: Patient OFF all sedation, opens her eyes, follows simple commands in all extremities -currently on Precedex and still follows simple commands CT scan of the brain on 05/05/2020 did not show any acute intracranial process. -EEG was performed on 05/05/2020 -neurology was consulted (3) End-stage renal disease (ESRD): Code(s): N18.6 - End stage renal disease Status: Acute Assessment and Plan: End-stage renal disease on dialysis,(Sunday, , Sunday) Dialysis per Nephrology -electrolytes are within normal limits - Epogen per nephrology (4) Type 1 diabetes mellitus: Qualifiers: Diabetes mellitus complication status: with circulatory complication Code(s): E10.9 - Type 1 diabetes mellitus without complications Status: Chronic Assessment and Plan: Type 1 diabetes on Lantus at home, currently hypoglycemic -hemoglobin A1c is 5.7 this admission Continue Accu-Cheks and sliding scale insulin -Lantus increased (5) Hypoglycemia: Code(s): E16.2 - Hypoglycemia, unspecified Status: Acute Assessment and Plan: Resolved Patient with hypoglycemia on admission, -unsure why patient is hypoglycemia, could related to decreased p.o. intake, excessive Lantus. -discussed with son Adithya on 05/07/2020, he stated patient's ascites weeks she could be taking more insulin. Requests if care coordination could arrange for home health or senior living placement, as her hypoglycemic events have been more frequent (6) Person under investigation for COVID-19: Code(s): Z20.828 - Contact with and (suspected) exposure to other viral communicable diseases Status: Ruled-out Assessment and Plan: -SARS-CoV-2 PCR negative on 05/01, -repeat SARS-CoV-2 PCR negative on 05/04 Discontinue all isolation (7) Elevated troponin: Code(s): R77.8 - Other specified abnormalities of plasma proteins Status: Acute Assessment and Plan: Likely related to respiratory failure, stress, type 2 infarct, given history of severe coronary artery disease with multiple stents in the past, ischemic cardiomyopathy -elevated troponins could be related to NSTEMI, discussed with Cardiology (IDr. Tovar), patient had cardiac catheterization with multivessel intervention earlier in [address] Martinez from [facility]. Cardiology discussed with him and he mentioned that patient has relatively smaller caliber, severely calcific vessels, and patient had multivessel PCI/stenting with adjunct atherectomy. Patient has jailed distal left circumflex artery. LVEF at that time was about 30-40%. At this time, continue medical regimen including dual antiplatelet therapy and anticoagulation as described in the note. May consider cardiac catheterization when patient is clinically better and COVID-19 has been ruled out. -tropoonins peaked at 3.97 from 0.049 on admission -discussed wit
--- NOTE | 2020-05-08 12:26 | P.PNNP_ITS ---
Progress Note: A&P Assessment and Plan (1) End-stage renal disease (ESRD): Code(s): N18.6 - End stage renal disease Status: Acute Assessment and Plan: * plan next HD on Sunday * follow electrolytes, volume status, and electrolytes * push fluid removal with HD as tolerated (2) Acute on chronic respiratory failure with hypoxia and hypercapnia: Code(s): J96.21 - Acute and chronic respiratory failure with hypoxia; J96.22 - Acute and chronic respiratory failure with hypercapnia Status: Acute Assessment and Plan: * continue ventilator support * complicated by underlying respiratory issues at baseline (COPD + smoking) * chronic heart failure and volume overload playing a role as well * plan DUF (dry ultrafiltration) to get more fluid off today * wean as tolerated (3) Chronic systolic congestive heart failure: Code(s): I50.22 - Chronic systolic (congestive) heart failure Status: Acute Assessment and Plan: * CXR with fluid * push fluid removal with HD as tolerated * Cardiology following given elevated troponins * possible cardiac catheterization when more stable (4) Anemia of chronic disease: Code(s): D63.8 - Anemia in other chronic diseases classified elsewhere Status: Acute Assessment and Plan: * due to ESRD and acute illness * Epogen with HD * follow trend of H/H (5) Type 1 diabetes mellitus: Qualifiers: Diabetes mellitus complication status: with circulatory complication Code(s): E10.9 - Type 1 diabetes mellitus without complications Status: Chronic Assessment and Plan: * initially with hypoglycemia * now sugars are up so back on insulin * follow accuchecks (6) Ulcer of left heel: Qualifiers: Non-pressure ulcer stage: unspecified non-pressure ulcer stage Qualified Code(s): L97.429 - Non-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 with unspecified severity Code(s): L97.429 - Non-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 with unspecified severity Status: Acute Assessment and Plan: * Wound care following Will continue to follow. Subjective Date/time seen: 05/08/20 12:26 Getting dry ultrafiltation (DUF) at this time in an effort to get more fluid off (seen on DUF at ~ 12:10PM); remains intubated (but off sedation) and opening eyes and following simple commands albeit with slow response; requiring low dose levophed for her hypotension; no events overnight or earlier this AM. Exam Narrative: Exam Narrative: General: WD/WN female in NAD; intubated/sedated Heart: normal S1 and S2; no rub Lungs: coarse breath sounds Abdomen: soft, nontender, nondistended, positive bowel sounds Extremities: no cyanosis or clubbing; no edema Skin: no rash Objective Data Vital Signs Vital Signs: Vital Signs Temp Pulse Resp BP Pulse Ox 05/08/20 12:15 100 114/51 L 05/08/20 12:00 101 H 122/57 L 05/08/20 11:45 85 111/51 L 95 05/08/20 11:30 88 93/45 L 05/08/20 11:19 88 84/41 L 05/08/20 11:15 90 84/41 L 05/08/20 11:00 92 88/42 L 05/08/20 10:50 84 101/48 L 05/08/20 10:30 36.8 C 85 27 H 86/41 L 99 05/08/20 10:00 97 30 H 90/47 L 97 05/08/20 08:00 37.1 C 90 12 103/51 L 96 05/08/20 07:43 80 12 05/08/20 07:39 87 90 05/08/20 06:48 90 87/43 L
--- NOTE | 2020-05-08 12:26 | PM.PNNEP ---
Progress Note: A&P Assessment and Plan (1) End-stage renal disease (ESRD): Code(s): N18.6 - End stage renal disease Status: Acute Assessment and Plan: plan next HD on Sunday follow electrolytes, volume status, and electrolytes push fluid removal with HD as tolerated (2) Acute on chronic respiratory failure with hypoxia and hypercapnia: Code(s): J96.21 - Acute and chronic respiratory failure with hypoxia; J96.22 - Acute and chronic respiratory failure with hypercapnia Status: Acute Assessment and Plan: continue ventilator support complicated by underlying respiratory issues at baseline (COPD + smoking) chronic heart failure and volume overload playing a role as well plan DUF (dry ultrafiltration) to get more fluid off today wean as tolerated (3) Chronic systolic congestive heart failure: Code(s): I50.22 - Chronic systolic (congestive) heart failure Status: Acute Assessment and Plan: CXR with fluid push fluid removal with HD as tolerated Cardiology following given elevated troponins possible cardiac catheterization when more stable (4) Anemia of chronic disease: Code(s): D63.8 - Anemia in other chronic diseases classified elsewhere Status: Acute Assessment and Plan: due to ESRD and acute illness Epogen with HD follow trend of H/H (5) Type 1 diabetes mellitus: Qualifiers: Diabetes mellitus complication status: with circulatory complication Code(s): E10.9 - Type 1 diabetes mellitus without complications Status: Chronic Assessment and Plan: initially with hypoglycemia now sugars are up so back on insulin follow accuchecks (6) Ulcer of left heel: Qualifiers: Non-pressure ulcer stage: unspecified non-pressure ulcer stage Qualified Code(s): L97.429 - Non-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 with unspecified severity Code(s): L97.429 - Non-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 with unspecified severity Status: Acute Assessment and Plan: Wound care following Will continue to follow. Subjective Date/time seen: 05/08/20 12:26 Getting dry ultrafiltation (DUF) at this time in an effort to get more fluid off (seen on DUF at ~ 12:10PM); remains intubated (but off sedation) and opening eyes and following simple commands albeit with slow response; requiring low dose levophed for her hypotension; no events overnight or earlier this AM. Exam Narrative: Exam Narrative: General: WD/WN female in NAD; intubated/sedated Heart: normal S1 and S2; no rub Lungs: coarse breath sounds Abdomen: soft, nontender, nondistended, positive bowel sounds Extremities: no cyanosis or clubbing; no edema Skin: no rash Objective Data Vital Signs Vital Signs: Vital Signs Temp Pulse Resp BP Pulse Ox 05/08/20 12:15 100 114/51 L 05/08/20 12:00 101 H 122/57 L 05/08/20 11:45 85 111/51 L 95 05/08/20 11:30 88 93/45 L 05/08/20 11:19 88 84/41 L 05/08/20 11:15 90 84/41 L 05/08/20 11:00 92 88/42 L 05/08/20 10:50 84 101/48 L 05/08/20 10:30 36.8 C 85 27 H 86/41 L 99 05/08/20 10:00 97 30 H 90/47 L 97 05/08/20 08:00 37.1 C 90 12 103/51 L 96 05/08/20 07:43 80 12 05/08/20 07:39 87 90 05/08/20 06:48 90 87/43 L 05/08/20 06:00 81 12 105/53 L 97 05/08/20 04:25 83 98 05/08/20 04:14 80 14 05/08/20 04:00 36.5 C 86 12 92/48 L 98 05/08/20 02:00 86 24 H 96/51 L 98 05/08/20 01:41 85 11 L 95 05/08/20 01:08 37.6 C 05/08/20 00:51 97 127/65 05/08/20 00:00 115 H 12 105/54 L 95 05/07/20 23:37 105 H 94 05/07/20 22:00 109 H 22 H 118/58 L 94 05/07/20 20:24 108 H 15 121/62 05/07/20 20:00 37.1 C 106 H 14 110/55 L 94 05/07/20 19:40 89 12 05/07/20 19:27 102 H 12 05/07/20 19:22 102 H 94 05/07/20 18:00 101 H 18 1
[2020-05-08 13:20] LABS: Glucose Point of Care 277 (65-105)
[2020-05-08] MEDS: CENTRAL LINE FLUSH 10 ML IV PUSH ×2 (14:45→21:35)
[2020-05-08 16:33] LABS: Glucose Point of Care 286 (65-105)
--- NOTE | 2020-05-08 16:43 | PM.IMPN ---
Progress Note: A&P Assessment and Plan (1) Acute on chronic respiratory failure with hypoxia and hypercapnia: Code(s): J96.21 - Acute and chronic respiratory failure with hypoxia; J96.22 - Acute and chronic respiratory failure with hypercapnia Status: Acute Assessment and Plan: Patient with chronic respiratory failure with hypoxia on home oxygen therapy. Patient currently intubated and sedated.. Appears to be CHF related but cannot exclude infectious process. stopping cefepime and vancomycin after 7 days. cultures NG. Wean ventilator as tolerated. (2) Hypoglycemia: Code(s): E16.2 - Hypoglycemia, unspecified Status: Acute Assessment and Plan: Glucose stable, was requiring D10 to maintain normal sugar. She takes Basaglar 40 units at night as only medication listed. Blood sugar rising and Lantus restarted HS at 32 U and will increase to 42U with fbs of 289 today (3) Contusion of scalp: Code(s): S00.03XA - Contusion of scalp, initial encounter Status: Acute Assessment and Plan: Scalp contusion most likely related to a fall. CT of the brain and cervical spine showing no acute findings otherwise. Continue current care. (4) Hypothermia: Code(s): T68.XXXA - Hypothermia, initial encounter Status: Acute Assessment and Plan: Temperature here documented at 87.4?. This is improved and now normo thermic . Continue to monitor. (5) Elevated troponin: Code(s): R77.8 - Other specified abnormalities of plasma proteins Status: Acute Assessment and Plan: Troponin has climbed to 0.24. She has coronary disease with history of myocardial infarction and stents. She also has ischemic cardiomyopathy with ICD. EKG with considerable baseline artifact. CXR showing evidence of CHF. Echo EF 35% with no obvious wall motion abnormalities (6) Chronic systolic congestive heart failure: Code(s): I50.22 - Chronic systolic (congestive) heart failure Status: Acute Assessment and Plan: patient has a history of ischemic cardiomyopathy with ICD. Chest x-ray consistent with CHF. Patient with acute on chronic heart failure. EF 35% as above. hemodialysis to control fluid status. (7) Type 1 diabetes mellitus: Qualifiers: Diabetes mellitus complication status: with circulatory complication Code(s): E10.9 - Type 1 diabetes mellitus without complications Status: Chronic Assessment and Plan: A1c 5.7. Glucose reviewed on 05/08/20. Continue Accu-Cheks. Insulin was held initially due to the hypoglycemia but with increasing BS restarted lantus as above now increased to 42U HS,. fbs 289 today (8) End-stage renal disease on hemodialysis: Code(s): N18.6 - End stage renal disease; Z99.2 - Dependence on renal dialysis Status: Inactive Assessment and Plan: As above. Continue hemodialysis, dialyzed 05/06 with 3900 ml removed 1000ml removed today. Nephrology following (9) Anemia of chronic disease: Code(s): D63.8 - Anemia in other chronic diseases classified elsewhere Status: Acute Assessment and Plan: Hemoglobin 12.8 on admission. Suspect this was hemoconcentrated. Hemoglobin today is 9.2 which is more in line with prior values. Continue to monitor. (10) Chronic obstructive pulmonary disease: Qualifiers: COPD type: unspecified COPD Qualified Code(s): J44.9 - Chronic obstructive pulmonary disease, unspecified Code(s): J44.9 - Chronic obstructive pulmonary disease, unspecified Status: Acute Assessment and Plan: no wheezing. Continue nebulizer treatments. (11) DVT prophylaxis: Code(s): Z29.9 - Encounter for prophylactic measures, unspecified Status: Acute Assessment and Plan: Heparin Subjective Date/time seen: 05/08/20 16:44 Interval history: Date of service 05/08
[2020-05-08] MEDS: ALPRAZolam (*CRX) 0.5 MG TABLET PO (16:48)
[2020-05-08] MEDS: INSULIN GLARGINE (*BKC) 100 UNITS/ML 42 UNITS SUB-Q (21:34)
[2020-05-08 21:40] LABS: Glucose Point of Care 182 (65-105)
[2020-05-09] VITALS (25 sets, daily range): BP systolic 94–121; BP diastolic 48–65; PULSE 90–120; RESP 10–23; TEMP 36.8–37.2; O2SAT 94–99
[2020-05-09 00:34] LABS: Glucose Point of Care 179 (65-105)
[2020-05-09] MEDS: ALBUTEROL SULFATE NEB 2.5 MG/0.5 ML INH INHALATION ×4 (01:11→19:48)
[2020-05-09] MEDS: IPRATROPIUM BR 0.02% INH SOLN 0.5 MG/2.5 ML VIAL INHALATION ×4 (01:11→19:48)
[2020-05-09 04:56] LABS: Alveolar/Arterial O2 Gradient 87.3 mmHg; Base Excess ABG 0.9 mEq/l (+/-2.0); Carboxyhemoglobin 0.2 % THb (0-2.0); Fractional Inspired Oxygen 30 %; HCO3 ABG 26.1 mEq/l (22.0-26.0); Methemoglobin ABG 0.2 %THb (0-1.5); Oxygen Content ABG 14.8 %vol (16.0-22.0); Oxygen Saturation ABG 94.8 % (95.0-100.0); Oxyhemoglobin 94.2 % THb (90.0-100.0); PCO2 ABG 44.2 mmHg (35.0-45.0); PO2 ABG 74.7 mmHg (80.0-100.0); PO2 FiO2 Ratio Arterial Blood 2.49 %; Reduced Hemoglobin 5.4 %THb (0-5.0); Total Hemoglobin 11.1 g/dL (12.0-18.0); pH ABG 7.389 (7.350-7.450)
[2020-05-09 04:58] LABS: Site Drawn RIGHT RADIAL
[2020-05-09 04:59] LABS: Arterial Blood Gas PEEP 5 cmH2O; Arterial Blood Gas Tidal Volume 310 ml; Arterial Blood Gas Vent Mode CMV; Arterial Blood Gas Ventilator rate 20 /MIN; Device VENTILATOR; Modified Allen's Test Unable to perform
[2020-05-09 05:36] LABS: Glucose Point of Care 201 (65-105)
[2020-05-09] MEDS: INSULIN ASPART (*BKC) 100 UNITS/ML SUB-Q ×2 (05:36→12:58)
[2020-05-09] MEDS: CENTRAL LINE FLUSH 10 ML IV PUSH ×3 (05:37→23:31)
[2020-05-09] MEDS: HEPARIN SODIUM 5,000 UNITS/ML VIAL 5000 UNITS SUB-Q ×3 (05:37→23:30)
[2020-05-09 06:07] LABS: Hematocrit 32.4 % (37.0-47.0); Hemoglobin 9.5 g/dL (12.0-15.0); Mean Corpuscular HGB Conc 29.3 g/dl (32-36); Mean Corpuscular Hemoglobin 30.3 pg (26-34); Mean Corpuscular Volume 103.2 fl (80-100); Mean Platelet Volume 11.6 fl (7.4-10.4); Platelet Count Result 121 k/mm3 (150-375); Red Blood Count 3.14 M/mm3 (4.2-5.4); Red Cell Distribution Width 15.8 % (11.5-14.5); White Blood Count 10.5 K/mm3 (4.5-10.0)
[2020-05-09 06:27] LABS: Anion Gap 9 mmol/L (8-16); Blood Urea Nitrogen 42 mg/dL (7-17); Calcium 9.4 mg/dL (8.4-10.2); Carbon Dioxide 27 mmol/L (22-30); Chloride 95 mmol/L (98-107); Estimated CRCL calculation 16 ml/min; Estimated Glomerular Filt Rate 11; Glucose 220 mg/dL (65-105); Magnesium 2.6 mg/dL (1.6-2.3); Phosphorus 3.3 mg/dL (2.5-4.5); Sodium 131 mmol/L (137-145)
[2020-05-09 08:02] LABS: Glucose Point of Care 189 (65-105)
[2020-05-09] MEDS: ATORVASTATIN 40 MG TABLET 80 MG FEED TUBE (08:23)
[2020-05-09] MEDS: PANTOPRAZOLE SODIUM IV 40 MG VIAL IV PUSH (08:23)
[2020-05-09] MEDS: ASPIRIN 81 MG CHEWABLE TABLET FEED TUBE (08:24)
[2020-05-09] MEDS: CLOPIDOGREL BISULFATE 75 MG TABLET FEED TUBE (08:24)
[2020-05-09] MEDS: MIDODRINE HCL 10 MG TABLET PO ×3 (08:24→17:01)
--- NOTE | 2020-05-09 10:55 | P.PNNP_ITS ---
Progress Note: A&P Assessment and Plan (1) End-stage renal disease (ESRD): Code(s): N18.6 - End stage renal disease Status: Acute Assessment and Plan: * HD tomorrow to get on her regular schedule of Sun/Sun/Sunday * follow electrolytes, volume status, and electrolytes * push fluid removal with HD as tolerated (2) Acute on chronic respiratory failure with hypoxia and hypercapnia: Code(s): J96.21 - Acute and chronic respiratory failure with hypoxia; J96.22 - Acute and chronic respiratory failure with hypercapnia Status: Acute Assessment and Plan: * continue ventilator support * complicated by underlying respiratory issues at baseline (COPD + smoking) * chronic heart failure and volume overload playing a role as well * s/p dry ultrafiltration yesterday * wean as tolerated (3) Chronic systolic congestive heart failure: Code(s): I50.22 - Chronic systolic (congestive) heart failure Status: Acute Assessment and Plan: * CXR with fluid on admission - repeat CXR still appears to have this * push fluid removal with HD as tolerated * Cardiology following given elevated troponins * possible cardiac catheterization when more stable (4) Anemia of chronic disease: Code(s): D63.8 - Anemia in other chronic diseases classified elsewhere Status: Acute Assessment and Plan: * due to ESRD and acute illness * Epogen with HD * follow trend of H/H (5) Type 1 diabetes mellitus: Qualifiers: Diabetes mellitus complication status: with circulatory complication Code(s): E10.9 - Type 1 diabetes mellitus without complications Status: Chronic Assessment and Plan: * initially with hypoglycemia * now sugars are up so back on insulin * follow accuchecks (6) Ulcer of left heel: Qualifiers: Non-pressure ulcer stage: unspecified non-pressure ulcer stage Qualified Code(s): L97.429 - Non-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 with unspecified severity Code(s): L97.429 - Non-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 with unspecified severity Status: Acute Assessment and Plan: * Wound care following Will continue to follow. Subjective Date/time seen: 05/09/20 10:55 Tolerated dry ultrafiltration yesterday with about 1L fluid removed; remains on ventilator supports but off sedation and able to follow simple commands but slow to responds; attempts at ventilator weaning complicated by tachycardia and tachypnea; no acute events overnight or earlier this AM. Exam Narrative: Exam Narrative: General: WD/WN female in NAD; intubated Heart: normal S1 and S2; no rub Lungs: coarse breath sounds Abdomen: soft, nontender, nondistended, positive bowel sounds Extremities: no cyanosis or clubbing; no edema Skin: warm and dry Objective Data Vital Signs Vital Signs: Vital Signs Temp Pulse Resp BP Pulse Ox 05/09/20 10:00 94 13 94/48 L 95 05/09/20 09:14 97 95 05/09/20 09:13 97 14 05/09/20 08:00 36.9 C 97 14 101/52 L 95 05/09/20 06:00 98 20 102/49 L 94 05/09/20 04:34 115 H 94 05/09/20 04:00 37.1 C 107 H 23 H 102/54 L 96 05/09/20 01:58 104 H 20 106/49 L 95 05/09/20 01:55 106 H 05/09/20 01:18 99 20 05/09/20 01:16 99 97 05/09/20 01:12 101 H 22 H 05/09/20 00:00 37.2 C 102 H 20 108/53 L 99
--- NOTE | 2020-05-09 10:55 | PM.PNNEP ---
Progress Note: A&P Assessment and Plan (1) End-stage renal disease (ESRD): Code(s): N18.6 - End stage renal disease Status: Acute Assessment and Plan: HD tomorrow to get on her regular schedule of Sun/Sun/Sunday follow electrolytes, volume status, and electrolytes push fluid removal with HD as tolerated (2) Acute on chronic respiratory failure with hypoxia and hypercapnia: Code(s): J96.21 - Acute and chronic respiratory failure with hypoxia; J96.22 - Acute and chronic respiratory failure with hypercapnia Status: Acute Assessment and Plan: continue ventilator support complicated by underlying respiratory issues at baseline (COPD + smoking) chronic heart failure and volume overload playing a role as well s/p dry ultrafiltration yesterday wean as tolerated (3) Chronic systolic congestive heart failure: Code(s): I50.22 - Chronic systolic (congestive) heart failure Status: Acute Assessment and Plan: CXR with fluid on admission - repeat CXR still appears to have this push fluid removal with HD as tolerated Cardiology following given elevated troponins possible cardiac catheterization when more stable (4) Anemia of chronic disease: Code(s): D63.8 - Anemia in other chronic diseases classified elsewhere Status: Acute Assessment and Plan: due to ESRD and acute illness Epogen with HD follow trend of H/H (5) Type 1 diabetes mellitus: Qualifiers: Diabetes mellitus complication status: with circulatory complication Code(s): E10.9 - Type 1 diabetes mellitus without complications Status: Chronic Assessment and Plan: initially with hypoglycemia now sugars are up so back on insulin follow accuchecks (6) Ulcer of left heel: Qualifiers: Non-pressure ulcer stage: unspecified non-pressure ulcer stage Qualified Code(s): L97.429 - Non-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 with unspecified severity Code(s): L97.429 - Non-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 with unspecified severity Status: Acute Assessment and Plan: Wound care following Will continue to follow. Subjective Date/time seen: 05/09/20 10:55 Tolerated dry ultrafiltration yesterday with about 1L fluid removed; remains on ventilator supports but off sedation and able to follow simple commands but slow to responds; attempts at ventilator weaning complicated by tachycardia and tachypnea; no acute events overnight or earlier this AM. Exam Narrative: Exam Narrative: General: WD/WN female in NAD; intubated Heart: normal S1 and S2; no rub Lungs: coarse breath sounds Abdomen: soft, nontender, nondistended, positive bowel sounds Extremities: no cyanosis or clubbing; no edema Skin: warm and dry Objective Data Vital Signs Vital Signs: Vital Signs Temp Pulse Resp BP Pulse Ox 05/09/20 10:00 94 13 94/48 L 95 05/09/20 09:14 97 95 05/09/20 09:13 97 14 05/09/20 08:00 36.9 C 97 14 101/52 L 95 05/09/20 06:00 98 20 102/49 L 94 05/09/20 04:34 115 H 94 05/09/20 04:00 37.1 C 107 H 23 H 102/54 L 96 05/09/20 01:58 104 H 20 106/49 L 95 05/09/20 01:55 106 H 05/09/20 01:18 99 20 05/09/20 01:16 99 97 05/09/20 01:12 101 H 22 H 05/09/20 00:00 37.2 C 102 H 20 108/53 L 99 05/08/20 22:00 103 H 21 H 109/53 L 96 05/08/20 21:51 96 95 05/08/20 20:00 36.9 C 100 19 100/52 L 97 05/08/20 19:32 96 13 05/08/20 19:28 97 97 05/08/20 19:26 98 13 05/08/20 18:00 89 12 92/50 L 97 05/08/20 16:38 100 96 05/08/20 16:00 36.9 C 98 12 93/50 L 95 05/08/20 14:40 123 H 94 05/08/20 14:39 122 H 13 05/08/20 14:00 98 12 86/47 L 95 05/08/20 13:40 36.7 C 104 H 29 H 116/66 93 05/08/20 13:29 101 H 118/59 L 05/08/20 13:15 103 H 116/58 L 05/08/20 13:00 108 H 05/08/20
[2020-05-09 12:16] LABS: Glucose Point of Care 229 (65-105)
--- NOTE | 2020-05-09 13:01 | WPDINTPN ---
Progress Note: A&P Assessment and Plan (1) Acute on chronic respiratory failure with hypoxia and hypercapnia: Code(s): J96.21 - Acute and chronic respiratory failure with hypoxia; J96.22 - Acute and chronic respiratory failure with hypercapnia Status: Acute Assessment and Plan: Patient with acute chronic respiratory failure, was found unresponsive at her house without oxygen. Patient was intubated in the ER. -chest x-ray still with bilateral pulmonary edema -patient currently on 30% FiO2 and peep of 5 on CMV mode of ventilation, will place patient on ASV mode of ventilation. Tried her on pressure support ventilation this morning 04/11 patient tachypneic, tachycardic with low tidal volume so will switch back to ASV mode of ventilation - off all sedation -continue cefepime and vancomycin, will discontinue as she has received a total of 7 days of antibiotics -continue bronchodilators (2) Encephalopathy: Code(s): G93.40 - Encephalopathy, unspecified Status: Acute Assessment and Plan: RESOLVED: Patient OFF all sedation, opens her eyes, follows simple commands in all extremities -currently on Precedex and still follows simple commands CT scan of the brain on 05/05/2020 did not show any acute intracranial process. -EEG was performed on 05/05/2020 -neurology was consulted (3) End-stage renal disease (ESRD): Code(s): N18.6 - End stage renal disease Status: Acute Assessment and Plan: End-stage renal disease on dialysis,(Sunday, , Sunday) Dialysis per Nephrology -electrolytes are within normal limits - Epogen per nephrology (4) Type 1 diabetes mellitus: Qualifiers: Diabetes mellitus complication status: with circulatory complication Code(s): E10.9 - Type 1 diabetes mellitus without complications Status: Chronic Assessment and Plan: Type 1 diabetes on Lantus at home, currently hypoglycemic -hemoglobin A1c is 5.7 this admission Continue Accu-Cheks and sliding scale insulin -Lantus increased (5) Hypoglycemia: Code(s): E16.2 - Hypoglycemia, unspecified Status: Acute Assessment and Plan: Resolved Patient with hypoglycemia on admission, -unsure why patient is hypoglycemia, could related to decreased p.o. intake, excessive Lantus. -discussed with son Adithya on 05/07/2020, he stated patient's ascites weeks she could be taking more insulin. Requests if care coordination could arrange for home health or [place] [facility] placement, as her hypoglycemic events have been more frequent (6) Person under investigation for COVID-19: Code(s): Z20.828 - Contact with and (suspected) exposure to other viral communicable diseases Status: Ruled-out Assessment and Plan: -SARS-CoV-2 PCR negative on 05/01, -repeat SARS-CoV-2 PCR negative on 05/04 Discontinue all isolation (7) Elevated troponin: Code(s): R77.8 - Other specified abnormalities of plasma proteins Status: Acute Assessment and Plan: Likely related to respiratory failure, stress, type 2 infarct, given history of severe coronary artery disease with multiple stents in the past, ischemic cardiomyopathy -elevated troponins could be related to NSTEMI, discussed with Cardiology (Dr. Tovar), patient had cardiac catheterization with multivessel intervention earlier in [address] Martinez from [facility]. Cardiology discussed with him and he mentioned that patient has relatively smaller caliber, severely calcific vessels, and patient had multivessel PCI/stenting with adjunct atherectomy. Patient has jailed distal left circumflex artery. LVEF at that time was about 30-40%. -tropoonins peaked at 3.97 from 0.049 on admission -discuss with cardiology, will continue medical management at this time. Continue aspirin and clopidogrel. Reintroduce beta-shahram with blood pressures are more stable -echocardiogram 05/03: LV systolic function is moderately reduced
--- NOTE | 2020-05-09 13:01 | WPDNEUROLOGY ---
Neurology EEG Report General Information Date of Study: 05/05/20 TEST EEG DIAGNOSIS encephalopathy rule out seizures CONDITION OF RECORDING unresponsive EEG NUMBER [id number] CLINICAL HISTORY patient was found down and unresponsive 3 days ago has been on vent since then and completely of all sedation 9:00 a.m. on the morning of the EEG EEG DESCRIPTION whole record consists of medium to high-voltage 2 to 3 hertz per 2nd delta admixed with minimal amount of low-voltage beta activity. No evidence of paroxysmal discharge throughout the tracing. Non paroxysmal. Nonfocal nonlateralizing. IMPRESSION Severely abnormal record due to the presence of bihemispheric theta and delta activity without evidence of any paroxysmal discharge or any focal element. These abnormalities are consistent with organic or metabolic encephalopathy clinical correlation recommended. This tracing Ashish it will is not compatible with electrocerebral silence.
[2020-05-09 16:27] LABS: Glucose Point of Care 153 (65-105)
--- NOTE | 2020-05-09 16:41 | PM.IMPN ---
Progress Note: A&P Assessment and Plan (1) Acute on chronic respiratory failure with hypoxia and hypercapnia: Code(s): J96.21 - Acute and chronic respiratory failure with hypoxia; J96.22 - Acute and chronic respiratory failure with hypercapnia Status: Acute Assessment and Plan: Patient with chronic respiratory failure with hypoxia on home oxygen therapy. Patient currently intubated and sedated.. Appears to be CHF related but cannot exclude infectious process. stopped cefepime and vancomycin after 7 days. cultures NG. Wean ventilator as tolerated. (2) Hypoglycemia: Code(s): E16.2 - Hypoglycemia, unspecified Status: Acute Assessment and Plan: Glucose stable, was requiring D10 to maintain normal sugar. She takes Basaglar 40 units at night as only medication listed. Blood sugar rising and Lantus restarted HS at 32 U and will increase to 42U with fbs of 212 today (3) Contusion of scalp: Code(s): S00.03XA - Contusion of scalp, initial encounter Status: Acute Assessment and Plan: Scalp contusion most likely related to a fall. CT of the brain and cervical spine showing no acute findings otherwise. Continue current care. (4) Hypothermia: Code(s): T68.XXXA - Hypothermia, initial encounter Status: Acute Assessment and Plan: Temperature here documented at 87.4?. This is improved and now normo thermic . Continue to monitor. (5) Elevated troponin: Code(s): R77.8 - Other specified abnormalities of plasma proteins Status: Acute Assessment and Plan: Troponin has climbed to 0.24. She has coronary disease with history of myocardial infarction and stents. She also has ischemic cardiomyopathy with ICD. EKG with considerable baseline artifact. CXR showing evidence of CHF. Echo EF 35% with no obvious wall motion abnormalities (6) Chronic systolic congestive heart failure: Code(s): I50.22 - Chronic systolic (congestive) heart failure Status: Acute Assessment and Plan: patient has a history of ischemic cardiomyopathy with ICD. Chest x-ray consistent with CHF. Patient with acute on chronic heart failure. EF 35% as above. hemodialysis to control fluid status. (7) Type 1 diabetes mellitus: Qualifiers: Diabetes mellitus complication status: with circulatory complication Code(s): E10.9 - Type 1 diabetes mellitus without complications Status: Chronic Assessment and Plan: A1c 5.7. Glucose reviewed on 05/08/20. Continue Accu-Cheks. Insulin was held initially due to the hypoglycemia but with increasing BS restarted lantus as above now increased to 42U HS,. fbs 212 today (8) End-stage renal disease on hemodialysis: Code(s): N18.6 - End stage renal disease; Z99.2 - Dependence on renal dialysis Status: Inactive Assessment and Plan: As above. Continue hemodialysis, dialyzed 05/06 with 3900 ml removed 1000ml removed 05/08/20 . Nephrology following (9) Anemia of chronic disease: Code(s): D63.8 - Anemia in other chronic diseases classified elsewhere Status: Acute Assessment and Plan: Hemoglobin 12.8 on admission. Suspect this was hemoconcentrated. Hemoglobin today is 9.5 which is more in line with prior values. Continue to monitor. (10) Chronic obstructive pulmonary disease: Qualifiers: COPD type: unspecified COPD Qualified Code(s): J44.9 - Chronic obstructive pulmonary disease, unspecified Code(s): J44.9 - Chronic obstructive pulmonary disease, unspecified Status: Acute Assessment and Plan: no wheezing. Continue nebulizer treatments. (11) DVT prophylaxis: Code(s): Z29.9 - Encounter for prophylactic measures, unspecified Status: Acute Assessment and Plan: Heparin Subjective Date/time seen: 05/09/20 16:41 Interval history: Date of service
[2020-05-09] MEDS: INSULIN GLARGINE (*BKC) 100 UNITS/ML 42 UNITS SUB-Q (20:30)
[2020-05-09 20:35] LABS: Glucose Point of Care 181 (65-105)
[2020-05-09 23:37] LABS: Glucose Point of Care 161 (65-105)
[2020-05-10] VITALS (41 sets, daily range): BP systolic 93–143; BP diastolic 44–64; PULSE 10–111; RESP 11–26; TEMP 36.6–37.9; O2SAT 93–99
[2020-05-10] MEDS: ALBUTEROL SULFATE NEB 2.5 MG/0.5 ML INH INHALATION ×4 (01:46→19:48)
[2020-05-10] MEDS: IPRATROPIUM BR 0.02% INH SOLN 0.5 MG/2.5 ML VIAL INHALATION ×4 (01:46→19:48)
[2020-05-10 04:39] LABS: Alveolar/Arterial O2 Gradient 105.4 mmHg; Carboxyhemoglobin 0.3 % THb (0-2.0); Fractional Inspired Oxygen 30 %; HCO3 ABG 28.4 mEq/l (22.0-26.0); Methemoglobin ABG 0.1 %THb (0-1.5); Oxygen Content ABG 12.6 %vol (16.0-22.0); Oxygen Saturation ABG 91.8 % (95.0-100.0); Oxyhemoglobin 91.4 % THb (90.0-100.0); PCO2 ABG 41.9 mmHg (35.0-45.0); PO2 ABG 59.3 mmHg (80.0-100.0); PO2 FiO2 Ratio Arterial Blood 1.98 %; Reduced Hemoglobin 8.2 %THb (0-5.0); Total Hemoglobin 9.8 g/dL (12.0-18.0); pH ABG 7.449 (7.350-7.450)
[2020-05-10 04:41] LABS: Device VENTILATOR; Modified Allen's Test Unable to perform; Site Drawn RIGHT RADIAL
[2020-05-10 04:42] LABS: Arterial Blood Gas PEEP 5 cmH2O; Arterial Blood Gas Vent Mode ASV
[2020-05-10 05:53] LABS: Glucose Point of Care 159 (65-105)
--- NOTE | 2020-05-10 06:13 | CONS_ITS ---
DATE OF CONSULTATION: 05/08/2020 REASON FOR CONSULTATION: Funguria. HISTORY OF PRESENT ILLNESS: A 54-year-old female who cannot provide any history as she is intubated. She has a chronic renal failure with near-anuria. She was here in the hospital in March until early April with [id number] respiratory failure. She was sent home on O2. She received antibacterials while here. She was readmitted to the hospital on the after being found unresponsive by her medi-manager car. While here, the patient had respiratory failure and has been intubated. She has been given vancomycin, cefepime, now day #8. Medina catheter was present on arrival here or was placed shortly after arrival and apparently some urine was returned. It was sent for culture. In the interim, however, her Medina catheter has been removed for no urine output and on multiple days her measurement has been of 0 urine output. She has been maintained on her dialysis. Otherwise, her hospital course has been complicated by hypoglycemia, elevated troponin. She was hypothermic on admission, otherwise normal temperatures since then. ALLERGIES: NONE KNOWN. HABITS: Quit smoking earlier last year. No alcohol. PRESENT MEDICATIONS: No immunosuppressants. 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 REVIEW OF SYSTEMS: A 14-point review not obtainable from the patient due to intubated status, otherwise unremarkable. FAMILY HISTORY: Not pertinent to her present illness. SOCIAL HISTORY: She is on disability. Lives locally. No family at the bedside. Does have a son, who is her POA. PHYSICAL EXAMINATION: GENERAL: This is a female, who appears much older than her actual age, in no acute distress. Since arrival, her T-max 37.8, afebrile in recent days, 90/47, no pressors, 97, 30, 97% noted ventilator settings. SKIN: Decreased turgor, warm and dry. EENT: The conjunctivae appear clear. Eyes are rolled back in her orbits. Orally intubated with an orogastric tube. Dry mucous membranes. NECK: No meningismus, mass, asymmetry. LUNGS: Coarse breath sounds, vesicular, clear to percussion. CARDIAC: Soft, S1, S2. No murmur or gallop. ABDOMEN: Nondistended. Normal bowel sounds. No masses or organomegaly. EXTREMITIES: No edema, clubbing or cyanosis. LABORATORY DATA: Her white count 10.9, previously normal, hemoglobin 9.2, platelets are 126. No differential done today; earlier was unremarkable. Blood gases 7.45, 38, 72 on the noted ventilator settings. Chemistry panel with BUN 18, creatinine 2.5, glucose 242. Hemoglobin A1c 5.7%. Urinalysis was yellow, turbid, 6.0. Multiple other findings reviewed. RADIOLOGY: I personally reviewed her chest x-ray. She has had diffuse interstitial infiltrates without change. ASSESSMENT: 1. Asymptomatic funguria, despite her urinalysis. No infection is present. 2. Chronic renal failure with anuria or nearly so. 3. Yeast in the sputum also saprophyte and not a pathogen. 4. Respiratory failure, acute on chronic in the setting of chronic obstructive pulmonary disease. 5. Chronic anemia due to her renal insufficiency. 6. Coronavirus assay nonreactive. RECOMMENDATIONS: 1. No antifungals are indicated. 2. Continue her antibacterials at your discretion. From my standpoint, I think she can be discontinued from her empiric therapy for bacterial pneumonia. My assessment is that her lung infiltrates are due to fluid overload, but it is certainly possible that she has an
[2020-05-10] MEDS: CENTRAL LINE FLUSH 10 ML IV PUSH ×3 (06:19→22:53)
[2020-05-10] MEDS: HEPARIN SODIUM 5,000 UNITS/ML VIAL 5000 UNITS SUB-Q ×3 (06:19→22:53)
[2020-05-10 06:33] LABS: Immature Platelet Fraction Pct 5.6 % (0.9-11.2); Mean Corpuscular Hemoglobin 29.5 pg (26-34); Mean Corpuscular Volume 98.4 fl (80-100); Mean Platelet Volume 11.8 fl (7.4-10.4); Platelet Count Result 133 k/mm3 (150-375); Red Blood Count 3.05 M/mm3 (4.2-5.4); Red Cell Distribution Width 15.8 % (11.5-14.5); White Blood Count 10.1 K/mm3 (4.5-10.0)
[2020-05-10 06:43] LABS: Anion Gap 5 mmol/L (8-16); Blood Urea Nitrogen 48 mg/dL (7-17); Calcium 9.4 mg/dL (8.4-10.2); Carbon Dioxide 33 mmol/L (22-30); Chloride 94 mmol/L (98-107); Estimated CRCL calculation 13 ml/min; Estimated Glomerular Filt Rate 8; Glucose 159 mg/dL (65-105); Potassium 4.1 mmol/L (3.4-5.0); Sodium 132 mmol/L (137-145)
[2020-05-10] MEDS: MIDODRINE HCL 10 MG TABLET PO ×3 (08:15→18:12)
[2020-05-10] MEDS: CLOPIDOGREL BISULFATE 75 MG TABLET FEED TUBE (08:15)
[2020-05-10] MEDS: ATORVASTATIN 40 MG TABLET 80 MG FEED TUBE (08:15)
[2020-05-10] MEDS: PANTOPRAZOLE SODIUM IV 40 MG VIAL IV PUSH (08:16)
[2020-05-10] MEDS: ALTEPLASE 2 MG VIAL (CATHFLO) IV PUSH ×3 (08:25→19:26)
[2020-05-10] MEDS: ASPIRIN 81 MG CHEWABLE TABLET FEED TUBE (08:28)
[2020-05-10 09:06] LABS: Glucose Point of Care 154 (65-105)
--- NOTE | 2020-05-10 10:28 | PM.PNNEP ---
Progress Note: A&P Assessment and Plan (1) End-stage renal disease (ESRD): Code(s): N18.6 - End stage renal disease Status: Acute Assessment and Plan: HD later today. follow electrolytes, volume status, and electrolytes push fluid removal with HD as tolerated (2) Acute on chronic respiratory failure with hypoxia and hypercapnia: Code(s): J96.21 - Acute and chronic respiratory failure with hypoxia; J96.22 - Acute and chronic respiratory failure with hypercapnia Status: Acute Assessment and Plan: continue ventilator support complicated by underlying respiratory issues at baseline (COPD + smoking) chronic heart failure and volume overload playing a role as well Trying to remove fluid as tolerated by her blood pressure. (3) Chronic systolic congestive heart failure: Code(s): I50.22 - Chronic systolic (congestive) heart failure Status: Acute Assessment and Plan: CXR with fluid on admission - repeat CXR still appears to have this push fluid removal with HD as tolerated Cardiology following given elevated troponins possible cardiac catheterization when more stable (4) Anemia of chronic disease: Code(s): D63.8 - Anemia in other chronic diseases classified elsewhere Status: Acute Assessment and Plan: due to ESRD and acute illness Getting Epogen with dialysis. (5) Type 1 diabetes mellitus: Qualifiers: Diabetes mellitus complication status: with circulatory complication Code(s): E10.9 - Type 1 diabetes mellitus without complications Status: Chronic Assessment and Plan: Currently getting insulin. (6) Ulcer of left heel: Qualifiers: Non-pressure ulcer stage: unspecified non-pressure ulcer stage Qualified Code(s): L97.429 - Non-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 with unspecified severity Code(s): L97.429 - Non-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 with unspecified severity Status: Acute Assessment and Plan: Wound care following Subjective Date/time seen: 05/10/20 10:28 Interval history: Paty is sedated and on the ventilator. Oxygenation Is about the same. She will be getting dialysis today. Review of Systems Review of Systems: ROS unobtainable: Yes unobtainable due to medical condition Exam Narrative: Exam Narrative: General: WD/WN female in NAD; intubated Heart: normal S1 and S2; no rub Lungs: coarse breath sounds Abdomen: soft, nontender, nondistended, positive bowel sounds Extremities: no edema Skin: No acute rash Objective Data Vital Signs Vital Signs: Vital Signs - 24 hr 05/09/20 12:00 05/09/20 12:19 05/09/20 14:00 Temperature 36.8 C Pulse Rate 97 97 104 H Respiratory Rate 12 13 Blood Pressure 98/53 L 121/62 Pulse Oximetry 95 95 96 05/09/20 15:08 05/09/20 15:11 05/09/20 16:00 Temperature 37.1 C Pulse Rate 99 103 H 103 H Respiratory Rate 12 19 Blood Pressure 116/54 L Pulse Oximetry 95 95 05/09/20 16:53 05/09/20 18:00 05/09/20 20:00 Temperature 37.2 C Pulse Rate 99 90 96 Respiratory Rate 11 L 11 L Blood Pressure 105/55 L 103/56 L Pulse Oximetry 98 95 95 05/09/20 20:15 05/09/20 22:00 05/09/20 23:20 Temperature Pulse Rate 96 120 H 96 Respiratory Rate 10 L 17 Blood Pressure 110/65 Pulse Oximetry 95 95 99 05/10/20 00:00 05/10/20 02:00 05/10/20 02:19 Temperature 36.8 C Pulse Rate 110 H 96 93 Respiratory Rate 15 12 Blood Pressure 106/53 L 108/53 L Pulse Oximetry 96 95 99 05/10/20 02:34 05/10/20 04:00 05/10/20 04:14 Temperature 36.6 C Pulse Rate 99 93 92 Respiratory Rate 12 11 L Blood Pressure 93/51 L Pulse Oximetry 97 97 05/10/20 06:00 05/10/20 08:00 05/10/20 08:40 Temperature 36.6 C Pulse Rate 93 96 91 Respiratory Rate 13 12 12 Blood Pressure 96/51 L 95/47 L 97/55 L Pulse Oximetry 95 97 97 05/10/20 08:56 05/10/20
--- NOTE | 2020-05-10 11:24 | WPDINTPN ---
Progress Note: A&P Assessment and Plan (1) Acute on chronic respiratory failure with hypoxia and hypercapnia: Code(s): J96.21 - Acute and chronic respiratory failure with hypoxia; J96.22 - Acute and chronic respiratory failure with hypercapnia Status: Acute Assessment and Plan: Patient with acute chronic respiratory failure, was found unresponsive at her house without oxygen. Patient was intubated in the ER. -chest x-ray still with bilateral pulmonary edema -patient currently on ASV mode of ventilation. Patient failed on pressure support ventilation yesterday 04/11 patient tachypneic, tachycardic with low tidal volume so will switch back to ASV mode of ventilation -currently getting hemodialysis will try pressure support ventilation again after dialysis today -completed total of 7 days of antibiotics cefepime and vancomycin -continue bronchodilators (2) Encephalopathy: Code(s): G93.40 - Encephalopathy, unspecified Status: Acute Assessment and Plan: RESOLVED: Patient OFF all sedation, opens her eyes, follows simple commands in all extremities -currently on Precedex and still follows simple commands CT scan of the brain on 05/05/2020 did not show any acute intracranial process. -EEG was performed on 05/05/2020 -neurology was consulted (3) End-stage renal disease (ESRD): Code(s): N18.6 - End stage renal disease Status: Acute Assessment and Plan: End-stage renal disease on dialysis,(Sunday, , Sunday) Dialysis per Nephrology. Repeat session today -electrolytes are within normal limits - Epogen per nephrology (4) Type 1 diabetes mellitus: Qualifiers: Diabetes mellitus complication status: with circulatory complication Code(s): E10.9 - Type 1 diabetes mellitus without complications Status: Chronic Assessment and Plan: Type 1 diabetes on Lantus at home, currently hypoglycemic -hemoglobin A1c is 5.7 this admission Continue Accu-Cheks and sliding scale insulin -Lantus increased (5) Hypoglycemia: Code(s): E16.2 - Hypoglycemia, unspecified Status: Acute Assessment and Plan: Resolved Patient with hypoglycemia on admission, -unsure why patient is hypoglycemia, could related to decreased p.o. intake, excessive Lantus. -discussed with son Adithya on 05/07/2020, he stated patient's ascites weeks she could be taking more insulin. Requests if care coordination could arrange for home health or alf placement, as her hypoglycemic events have been more frequent (6) Person under investigation for COVID-19: Code(s): Z20.828 - Contact with and (suspected) exposure to other viral communicable diseases Status: Ruled-out Assessment and Plan: -SARS-CoV-2 PCR negative on 05/01, -repeat SARS-CoV-2 PCR negative on 05/04 Discontinue all isolation (7) Elevated troponin: Code(s): R77.8 - Other specified abnormalities of plasma proteins Status: Acute Assessment and Plan: Likely related to respiratory failure, stress, type 2 infarct, given history of severe coronary artery disease with multiple stents in the past, ischemic cardiomyopathy -elevated troponins could be related to NSTEMI, discussed with Cardiology (Dr. Tovar), patient had cardiac catheterization with multivessel intervention earlier in [address] Martinez from [facility]. Cardiology discussed with him and he mentioned that patient has relatively smaller caliber, severely calcific vessels, and patient had multivessel PCI/stenting with adjunct atherectomy. Patient has jailed distal left circumflex artery. LVEF at that time was about 30-40%. -tropoonins peaked at 3.97 from 0.049 on admission -discuss with cardiology, will continue medical management at this time. Continue aspirin and clopidogrel. Reintroduce beta-shahram with blood pressures are more stable -echocardiogram 05/03: LV systolic function is moderately reduced 35-40% with
--- NOTE | 2020-05-10 11:39 | PCDIET ---
ICU Rounding Note: Patient tolerating Nepro at 45mL/hr goal rate with 30mL water flush every 4 hours. Last recorded weight is 85.6kg which is decreased from last review. Patient had 2L UF on 05/08/20 and was getting dialysis at time of rounding. Bowel Motility: BM x 2 today. Labs Reviewed: Hgb (9.0), Hct (30.0), Glu (159), BUN (48), Cr (5.40), Na (132) Meds Noted: Albuterol, Lipitor, Retacrit, Lantus, Atrovent, Midodrine, Levophed, Protonix Additional Notes: Venous stasis ulcer to left heel. Following daily in ICU rounds. Assessing/reassessing every Sunday/Sunday.
[2020-05-10] MEDS: EPOETIN ALFA-EPBX 10,000 UNITS/ML VIAL 10000 UNITS IV PUSH (11:44)
[2020-05-10 12:23] LABS: Glucose Point of Care 101 (65-105)
[2020-05-10 16:10] LABS: Glucose Point of Care 128 (65-105)
--- NOTE | 2020-05-10 18:02 | PM.IMPN ---
Progress Note: A&P Assessment and Plan (1) Acute on chronic respiratory failure with hypoxia and hypercapnia: Code(s): J96.21 - Acute and chronic respiratory failure with hypoxia; J96.22 - Acute and chronic respiratory failure with hypercapnia Status: Acute Assessment and Plan: Patient with chronic respiratory failure with hypoxia on home oxygen therapy. Patient currently intubated and sedated.. Appears to be CHF related but cannot exclude infectious process. stopped cefepime and vancomycin after 7 days. cultures NG. Wean ventilator as tolerated. (2) Hypoglycemia: Code(s): E16.2 - Hypoglycemia, unspecified Status: Acute Assessment and Plan: Glucose stable, was requiring D10 to maintain normal sugar. She takes Basaglar 40 units at night as only medication listed. Blood sugar rising and Lantus restarted and increased to 42U with fbs of 159 today (3) Contusion of scalp: Code(s): S00.03XA - Contusion of scalp, initial encounter Status: Acute Assessment and Plan: Scalp contusion most likely related to a fall. CT of the brain and cervical spine showing no acute findings otherwise. Continue current care. (4) Hypothermia: Code(s): T68.XXXA - Hypothermia, initial encounter Status: Acute Assessment and Plan: Temperature here documented at 87.4?. This is improved and now normo thermic . Continue to monitor. (5) Elevated troponin: Code(s): R77.8 - Other specified abnormalities of plasma proteins Status: Acute Assessment and Plan: Troponin has climbed to 0.24. She has coronary disease with history of myocardial infarction and stents. She also has ischemic cardiomyopathy with ICD. EKG with considerable baseline artifact. CXR showing evidence of CHF. Echo EF 35% with no obvious wall motion abnormalities (6) Chronic systolic congestive heart failure: Code(s): I50.22 - Chronic systolic (congestive) heart failure Status: Acute Assessment and Plan: patient has a history of ischemic cardiomyopathy with ICD. Chest x-ray consistent with CHF. Patient with acute on chronic heart failure. EF 35% as above. hemodialysis to control fluid status. (7) Type 1 diabetes mellitus: Qualifiers: Diabetes mellitus complication status: with circulatory complication Code(s): E10.9 - Type 1 diabetes mellitus without complications Status: Chronic Assessment and Plan: A1c 5.7. Glucose reviewed on 05/10/20. Continue Accu-Cheks. Insulin was held initially due to the hypoglycemia but with increasing BS restarted lantus as above now increased to 42U HS,. fbs 159 today (8) End-stage renal disease on hemodialysis: Code(s): N18.6 - End stage renal disease; Z99.2 - Dependence on renal dialysis Status: Inactive Assessment and Plan: As above. Continue hemodialysis, dialyzed 05/06 with 3900 ml removed 1000ml removed 05/08/20 Today 05/10 2000 ml . Nephrology following (9) Anemia of chronic disease: Code(s): D63.8 - Anemia in other chronic diseases classified elsewhere Status: Acute Assessment and Plan: Hemoglobin 12.8 on admission. Suspect this was hemoconcentrated initially. Hemoglobin today is 9.0 which is more in line with prior values. Continue to monitor. platelet stable 133K (10) Chronic obstructive pulmonary disease: Qualifiers: COPD type: unspecified COPD Qualified Code(s): J44.9 - Chronic obstructive pulmonary disease, unspecified Code(s): J44.9 - Chronic obstructive pulmonary disease, unspecified Status: Acute Assessment and Plan: no wheezing. Continue nebulizer treatments. (11) DVT prophylaxis: Code(s): Z29.9 - Encounter for prophylactic measures, unspecified Status: Acute Assessment and Plan: Heparin Subjective Date/time seen: 05/10/20 18:02
[2020-05-10] MEDS: ALPRAZolam (*CRX) 0.5 MG TABLET PO (18:12)
[2020-05-10 22:51] LABS: Glucose Point of Care 135 (65-105)
[2020-05-10] MEDS: INSULIN GLARGINE (*BKC) 100 UNITS/ML 42 UNITS SUB-Q (22:51)
[2020-05-10] MEDS: ACETAMINOPHEN ELIXIR 325 MG/10.15 ML UDC 650 MG PO (22:56)
[2020-05-10 23:09] LABS: Anion Gap 6 mmol/L (8-16); Blood Urea Nitrogen 31 mg/dL (7-17); Calcium 9.2 mg/dL (8.4-10.2); Carbon Dioxide 32 mmol/L (22-30); Chloride 96 mmol/L (98-107); Estimated CRCL calculation 18 ml/min; Estimated Glomerular Filt Rate 13; Glucose 167 mg/dL (65-105); Magnesium 2.5 mg/dL (1.6-2.3); Phosphorus 2.3 mg/dL (2.5-4.5); Potassium 4.6 mmol/L (3.4-5.0); Sodium 134 mmol/L (137-145)
[2020-05-11] VITALS (27 sets, daily range): BP systolic 91–176; BP diastolic 46–84; PULSE 90–130; RESP 12–40; TEMP 0–37.8; O2SAT 90–100
[2020-05-11] MEDS: IPRATROPIUM BR 0.02% INH SOLN 0.5 MG/2.5 ML VIAL INHALATION ×4 (01:48→20:08)
[2020-05-11] MEDS: ALBUTEROL SULFATE NEB 2.5 MG/0.5 ML INH INHALATION ×4 (01:48→20:07)
[2020-05-11 04:42] LABS: Base Excess ABG 2.8 mEq/l (+/-2.0); Carboxyhemoglobin 0.5 % THb (0-2.0); Fractional Inspired Oxygen 30 %; HCO3 ABG 27.8 mEq/l (22.0-26.0); Methemoglobin ABG 0.1 %THb (0-1.5); Oxygen Content ABG 14.2 %vol (16.0-22.0); Oxyhemoglobin 84.9 % THb (90.0-100.0); PCO2 ABG 44.3 mmHg (35.0-45.0); PO2 FiO2 Ratio Arterial Blood 1.66 %; Reduced Hemoglobin 14.5 %THb (0-5.0); Total Hemoglobin 11.9 g/dL (12.0-18.0); pH ABG 7.415 (7.350-7.450)
[2020-05-11 04:44] LABS: PO2 ABG 49.9 mmHg (80.0-100.0)
[2020-05-11 04:45] LABS: Oxygen Saturation ABG 85.7 % (95.0-100.0)
[2020-05-11 04:47] LABS: Device VENTILATOR; Modified Allen's Test Unable to perform; Site Drawn RIGHT RADIAL
[2020-05-11 04:48] LABS: Arterial Blood Gas PEEP 5 cmH2O; Arterial Blood Gas Vent Mode ASV
[2020-05-11 05:04] LABS: Hematocrit 30.5 % (37.0-47.0); Mean Corpuscular HGB Conc 29.5 g/dl (32-36); Mean Corpuscular Hemoglobin 30.3 pg (26-34); Mean Corpuscular Volume 102.7 fl (80-100); Mean Platelet Volume 11.3 fl (7.4-10.4); Platelet Count Result 141 k/mm3 (150-375); Red Blood Count 2.97 M/mm3 (4.2-5.4); Red Cell Distribution Width 16.1 % (11.5-14.5); White Blood Count 9.6 K/mm3 (4.5-10.0)
[2020-05-11 05:22] LABS: Alanine Aminotransferase 41 U/L (4-35); Albumin Level 2.8 g/dL (3.5-5.1); Alkaline Phosphatase 409 U/L (38-126); Anion Gap 5 mmol/L (8-16); Aspartate Amino Transferase 81 U/L (14-36); Bilirubin,Total 0.7 mg/dL (0.2-1.3); Blood Urea Nitrogen 33 mg/dL (7-17); Calcium 9.1 mg/dL (8.4-10.2); Carbon Dioxide 33 mmol/L (22-30); Chloride 97 mmol/L (98-107); Estimated CRCL calculation 17 ml/min; Estimated Glomerular Filt Rate 12; Glucose 182 mg/dL (65-105); Magnesium 2.6 mg/dL (1.6-2.3); Phosphorus 2.6 mg/dL (2.5-4.5); Potassium 4.4 mmol/L (3.4-5.0); Sodium 135 mmol/L (137-145)
--- NOTE | 2020-05-11 09:35 | P.PNNP_ITS ---
Progress Note: A&P Assessment and Plan (1) End-stage renal disease (ESRD): Code(s): N18.6 - End stage renal disease Status: Acute Assessment and Plan: * Still has excess fluid. * Still trouble weaning from the vent.. * follow electrolytes, volume status, and electrolyte * will dry ultrafiltrate today. (2) Acute on chronic respiratory failure with hypoxia and hypercapnia: Code(s): J96.21 - Acute and chronic respiratory failure with hypoxia; J96.22 - Acute and chronic respiratory failure with hypercapnia Status: Acute Assessment and Plan: * continue ventilator support * complicated by underlying respiratory issues at baseline (COPD + smoking) * chronic heart failure and volume overload playing a role as well * Trying to remove fluid as tolerated by her blood pressure. * Yesterday we were able to get 2L off. Perhaps we can get 2 or 3 today. (3) Chronic systolic congestive heart failure: Code(s): I50.22 - Chronic systolic (congestive) heart failure Status: Acute Assessment and Plan: * CXR with fluid on admission - repeat CXR still appears to have this * push fluid removal with HD as tolerated * Cardiology following given elevated troponins * possible cardiac catheterization when more stable (4) Anemia of chronic disease: Code(s): D63.8 - Anemia in other chronic diseases classified elsewhere Status: Acute Assessment and Plan: * due to ESRD and acute illness * Getting Epogen with dialysis. (5) Type 1 diabetes mellitus: Qualifiers: Diabetes mellitus complication status: with circulatory complication Code(s): E10.9 - Type 1 diabetes mellitus without complications Status: Chronic Assessment and Plan: * Currently getting insulin. (6) Ulcer of left heel: Qualifiers: Non-pressure ulcer stage: unspecified non-pressure ulcer stage Qualified Code(s): L97.429 - Non-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 with unspecified severity Code(s): L97.429 - Non-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 with unspecified severity Status: Acute Assessment and Plan: * Wound care following Subjective Date/time seen: 05/11/20 09:35 Interval history: Paty is sedated and on the ventilator. Oxygenation Is about the same. On tube feedings. On no pressors. Unable to wean. Review of Systems Review of Systems: ROS unobtainable: Yes unobtainable due to medical condition Exam Narrative: Exam Narrative: General: WD/WN female in NAD; intubated Heart: normal S1 and S2; no rub Lungs: coarse breath sounds Abdomen: soft, nontender, nondistended, positive bowel sounds Extremities: no edema or cyanosis Skin: No acute rash Objective Data Vital Signs Vital Signs: Vital Signs - 24 hr 05/10/20 09:45 05/10/20 10:00 05/10/20 10:15 Temperature Pulse Rate 102 H 102 H 97 Respiratory Rate 20 Blood Pressure 104/62 105/44 L 108/47 L Pulse Oximetry 97 05/10/20 10:30 05/10/20 10:45 05/10/20 11:00 Temperature Pulse Rate 96 10 L 98 Respiratory Rate Blood Pressure 97/48 L 95/55 L 101/48 L Pulse Oximetry 05/10/20 11:15 05/10/20 11:30 05/10/20 11:31 Temperature Pulse Rate 97 95 97 R
--- NOTE | 2020-05-11 09:35 | PM.PNNEP ---
Progress Note: A&P Assessment and Plan (1) End-stage renal disease (ESRD): Code(s): N18.6 - End stage renal disease Status: Acute Assessment and Plan: Still has excess fluid. Still trouble weaning from the vent.. follow electrolytes, volume status, and electrolyte will dry ultrafiltrate today. (2) Acute on chronic respiratory failure with hypoxia and hypercapnia: Code(s): J96.21 - Acute and chronic respiratory failure with hypoxia; J96.22 - Acute and chronic respiratory failure with hypercapnia Status: Acute Assessment and Plan: continue ventilator support complicated by underlying respiratory issues at baseline (COPD + smoking) chronic heart failure and volume overload playing a role as well Trying to remove fluid as tolerated by her blood pressure. Yesterday we were able to get 2L off. Perhaps we can get 2 or 3 today. (3) Chronic systolic congestive heart failure: Code(s): I50.22 - Chronic systolic (congestive) heart failure Status: Acute Assessment and Plan: CXR with fluid on admission - repeat CXR still appears to have this push fluid removal with HD as tolerated Cardiology following given elevated troponins possible cardiac catheterization when more stable (4) Anemia of chronic disease: Code(s): D63.8 - Anemia in other chronic diseases classified elsewhere Status: Acute Assessment and Plan: due to ESRD and acute illness Getting Epogen with dialysis. (5) Type 1 diabetes mellitus: Qualifiers: Diabetes mellitus complication status: with circulatory complication Code(s): E10.9 - Type 1 diabetes mellitus without complications Status: Chronic Assessment and Plan: Currently getting insulin. (6) Ulcer of left heel: Qualifiers: Non-pressure ulcer stage: unspecified non-pressure ulcer stage Qualified Code(s): L97.429 - Non-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 with unspecified severity Code(s): L97.429 - Non-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 with unspecified severity Status: Acute Assessment and Plan: Wound care following Subjective Date/time seen: 05/11/20 09:35 Interval history: Paty is sedated and on the ventilator. Oxygenation Is about the same. On tube feedings. On no pressors. Unable to wean. Review of Systems Review of Systems: ROS unobtainable: Yes unobtainable due to medical condition Exam Narrative: Exam Narrative: General: WD/WN female in NAD; intubated Heart: normal S1 and S2; no rub Lungs: coarse breath sounds Abdomen: soft, nontender, nondistended, positive bowel sounds Extremities: no edema or cyanosis Skin: No acute rash Objective Data Vital Signs Vital Signs: Vital Signs - 24 hr 05/10/20 09:45 05/10/20 10:00 05/10/20 10:15 Temperature Pulse Rate 102 H 102 H 97 Respiratory Rate 20 Blood Pressure 104/62 105/44 L 108/47 L Pulse Oximetry 97 05/10/20 10:30 05/10/20 10:45 05/10/20 11:00 Temperature Pulse Rate 96 10 L 98 Respiratory Rate Blood Pressure 97/48 L 95/55 L 101/48 L Pulse Oximetry 05/10/20 11:15 05/10/20 11:30 05/10/20 11:31 Temperature Pulse Rate 97 95 97 Respiratory Rate Blood Pressure 97/54 L 93/45 L Pulse Oximetry 93 05/10/20 11:45 05/10/20 11:58 05/10/20 12:00 Temperature 37.2 C Pulse Rate 100 102 H 100 Respiratory Rate 13 Blood Pressure 104/54 L 117/53 L 100/48 L Pulse Oximetry 96 05/10/20 12:05 05/10/20 14:00 05/10/20 14:35 Temperature 37.2 C 37.8 C H Pulse Rate 101 H 104 H 96 Respiratory Rate 18 26 H Blood Pressure 103/52 L 143/64 H Pulse Oximetry 97 94 93 05/10/20 14:40 05/10/20 14:50 05/10/20 16:00 Temperature 37.7 C H Pulse Rate 103 H 105 H 111 H Respiratory Rate 19 19 16 Blood Pressure 119/56 L Pulse Oximetry 95 05/10/20 17:02 05/10/20 18:00 05/10/20 20:00 Tempera
[2020-05-11] MEDS: ASPIRIN 81 MG CHEWABLE TABLET FEED TUBE (09:48)
[2020-05-11] MEDS: CENTRAL LINE FLUSH 10 ML IV PUSH ×3 (09:48→20:26)
[2020-05-11] MEDS: PANTOPRAZOLE SODIUM IV 40 MG VIAL IV PUSH (09:48)
[2020-05-11] MEDS: CLOPIDOGREL BISULFATE 75 MG TABLET FEED TUBE (09:48)
[2020-05-11] MEDS: ATORVASTATIN 40 MG TABLET 80 MG FEED TUBE (09:48)
[2020-05-11 10:07] LABS: Glucose Point of Care 200 (65-105)
--- NOTE | 2020-05-11 11:49 | PCDIET ---
Nutrition Follow-Up Complete: Nutrition Diagnosis: Inadequate oral intake related to oral intubation as evidenced by NPO status. Nutrition Goal: Patient to meet estimated nutritional needs. Goal met. Patient tolerating Nepro at 45mL/hr goal rate with 30mL water flush every 4 hours. Last recorded weight is 85.6 kg which is stable. Bowel Motility: BM x 2 on 05/10/20. Labs Reviewed: Hgb (9.0), Hct (30.5), Glu (182), BUN (33), Cr (3.9), Na (135), Alb (2.8) Meds Noted: Albumin, Albuterol, Lipitor, Lantus, Atrovent, Protonix Additional Notes: Left heel venous stasis ulcer. Will continue to monitor with same gaol. Nutrition Monitoring and Evaluation: Follow up every Sunday/Sunday.
[2020-05-11] MEDS: INSULIN ASPART (*BKC) 100 UNITS/ML SUB-Q ×3 (12:29→20:27)
[2020-05-11 12:35] LABS: Glucose Point of Care 218 (65-105)
[2020-05-11] MEDS: HEPARIN SODIUM 5,000 UNITS/ML VIAL 5000 UNITS SUB-Q ×2 (12:40→20:26)
--- NOTE | 2020-05-11 14:12 | WPDINTPN ---
Progress Note: A&P Assessment and Plan (1) Acute on chronic respiratory failure with hypoxia and hypercapnia: Code(s): J96.21 - Acute and chronic respiratory failure with hypoxia; J96.22 - Acute and chronic respiratory failure with hypercapnia Status: Acute Assessment and Plan: Patient with acute chronic respiratory failure, was found unresponsive at her house without oxygen. Patient was intubated in the ER 05/01/2020 -chest x-ray still with bilateral pulmonary edema -patient currently on ASV mode of ventilation. Patient getting alkalotic, will decrease minute ventilation percentage on ASV mode Patient placed on pressure support ventilation this morning, low tidal volumes, tachycardia, tachypnea. Had replaced back on ASV -completed total of 7 days of antibiotics cefepime and vancomycin -continue bronchodilators -patient may require tracheostomy as she is unable to wean from the ventilator due to weakness CHF, end-stage renal disease -patient also require PEG tube. Will discuss with family (2) Encephalopathy: Code(s): G93.40 - Encephalopathy, unspecified Status: Acute Assessment and Plan: RESOLVED: Patient OFF all sedation, opens her eyes, follows simple commands in all extremities -currently on Precedex and still follows simple commands CT scan of the brain on 05/05/2020 did not show any acute intracranial process. -EEG was performed on 05/05/2020 -showed severe abnormal record consistent with organic or metabolic encephalopathy -appreciate neurology evaluation (3) End-stage renal disease (ESRD): Code(s): N18.6 - End stage renal disease Status: Acute Assessment and Plan: End-stage renal disease on dialysis,(Sunday, , Sunday) Dialysis per Nephrology. Repeat session today -electrolytes are within normal limits - Epogen per nephrology (4) Type 1 diabetes mellitus: Qualifiers: Diabetes mellitus complication status: with circulatory complication Code(s): E10.9 - Type 1 diabetes mellitus without complications Status: Chronic Assessment and Plan: Type 1 diabetes on Lantus at home, currently hypoglycemic -hemoglobin A1c is 5.7 this admission Continue Accu-Cheks and sliding scale insulin Continue Lantus (5) Hypoglycemia: Code(s): E16.2 - Hypoglycemia, unspecified Status: Acute Assessment and Plan: Resolved Patient with hypoglycemia on admission, -unsure why patient is hypoglycemia, could related to decreased p.o. intake, excessive Lantus. -discussed with son Adithya on 05/07/2020, he stated patient's ascites weeks she could be taking more insulin. Requests if care coordination could arrange for home health or fdc placement, as her hypoglycemic events have been more frequent (6) Person under investigation for COVID-19: Code(s): Z20.828 - Contact with and (suspected) exposure to other viral communicable diseases Status: Ruled-out Assessment and Plan: -SARS-CoV-2 PCR negative on 05/01, -repeat SARS-CoV-2 PCR negative on 05/04 Discontinue all isolation (7) Elevated troponin: Code(s): R77.8 - Other specified abnormalities of plasma proteins Status: Acute Assessment and Plan: Likely related to respiratory failure, stress, type 2 infarct, given history of severe coronary artery disease with multiple stents in the past, ischemic cardiomyopathy -elevated troponins could be related to NSTEMI, discussed with Cardiology (Dr. Tovar), patient had cardiac catheterization with multivessel intervention earlier in [address] Martinez from [facility]. Cardiology discussed with him and he mentioned that patient has relatively smaller caliber, severely calcific vessels, and patient had multivessel PCI/stenting with adjunct atherectomy. Patient has jailed distal left circumflex artery. LVEF at that time was about 30-40%. -tropoonins peaked at 3.97 from 0.049 on admission -discuss with lucien
[2020-05-11] MEDS: ALPRAZolam (*CRX) 0.5 MG TABLET PO (16:46)
[2020-05-11] MEDS: SILVERGEL (ELTA) 45 ML 1 APPLIC TOPICAL (17:01)
[2020-05-11] MEDS: ACETAMINOPHEN ELIXIR 325 MG/10.15 ML UDC 650 MG PO (17:16)
[2020-05-11] MEDS: MIDODRINE HCL 10 MG TABLET PO (17:54)
[2020-05-11 17:55] LABS: Glucose Point of Care 206 (65-105)
--- NOTE | 2020-05-11 18:05 | PM.IMPN ---
Progress Note: A&P Assessment and Plan (1) Chronic systolic congestive heart failure: Code(s): I50.22 - Chronic systolic (congestive) heart failure Status: Acute Assessment and Plan: Patient with history of CAD and multiple stents in the past. Type 2 infarct likely Managing fluid overload by HD as well as ESRD (2) Acute on chronic respiratory failure with hypoxia and hypercapnia: Code(s): J96.21 - Acute and chronic respiratory failure with hypoxia; J96.22 - Acute and chronic respiratory failure with hypercapnia Status: Acute Assessment and Plan: Currently on vent support Continue efforts to wean off of ventilator Breathing treatments. (3) End-stage renal disease (ESRD): Code(s): N18.6 - End stage renal disease Status: Acute Assessment and Plan: Requiring HD Appreciate Nephrology note. (4) Elevated LFTs: Code(s): R79.89 - Other specified abnormal findings of blood chemistry Status: Acute Assessment and Plan: Likely secondary to shock. Continue to monitor Subjective Date/time seen: 05/12/20 18:05 Review of Systems Review of Systems: Narrative: Unable to obtain as patient is on ventilator support. Exam Narrative: Exam Narrative: On ventilator support. Const: General: comfortable and no acute distress Nutritional Appearance: average body habitus HENMT: Head: normal to inspection and normocephalic Throat: other (ETT in place.) Neck: Neck: no lymphadenopathy and supple Resp: Auscultation: other (Mechanical breath sounds.) Cardio: Rate: tachycardic Skin: Wounds: no wounds Neuro: General: other (Under sedation.) Extrem: General: other (Edema 3+ throughout.) Objective Data Vital Signs Vital Signs: Vital Signs - 24 hr 05/10/20 20:00 05/10/20 20:14 05/10/20 20:18 Temperature 98.2 F Pulse Rate 101 H 110 H 110 H Respiratory Rate 26 H 20 Blood Pressure 110/50 L Pulse Oximetry 95 96 05/10/20 22:00 05/10/20 22:56 05/10/20 23:32 Temperature 100.2 F H 100.2 F H Pulse Rate 105 H 104 H Respiratory Rate 22 H Blood Pressure 139/63 Pulse Oximetry 95 95 05/11/20 00:00 05/11/20 01:48 05/11/20 02:00 Temperature 100 F H 100.0 F H Pulse Rate 103 H 99 98 Respiratory Rate 16 17 16 Blood Pressure 105/68 109/55 L Pulse Oximetry 95 97 05/11/20 02:24 05/11/20 04:00 05/11/20 05:15 Temperature 100.1 F H Pulse Rate 100 97 94 Respiratory Rate 15 Blood Pressure 96/53 L Pulse Oximetry 96 98 96 05/11/20 06:00 05/11/20 08:00 05/11/20 08:51 Temperature 98.5 F 99.6 F Pulse Rate 93 110 H 109 H Respiratory Rate 12 18 12 Blood Pressure 96/53 L 142/72 H Pulse Oximetry 99 96 98 05/11/20 09:01 05/11/20 10:00 05/11/20 11:15 Temperature Pulse Rate 107 H 107 H 108 H Respiratory Rate 17 16 Blood Pressure 116/57 L Pulse Oximetry 97 100 05/11/20 12:00 05/11/20 14:00 05/11/20 14:10 Temperature 99.7 F H Pulse Rate 109 H 107 H 108 H Respiratory Rate 16 14 16 Blood Pressure 138/64 135/76 Pulse Oximetry 96 100 05/11/20 17:26 Temperature Pulse Rate 121 H Respiratory Rate Blood Pressure Pulse Oximetry 95 Intake/Output Intake/Output: Intake & Output 05/08/20 05/09/20 05/10/20 05/11/20 23:59 23:59 23:59 23:59 Intake Total 1477 1281 1270 1078 Output Total 1153 0 2000 0 Balance 324 1281 -730 1078 Meds/Results Medications: Active Medications Generic Name Dose Route Start Last Admin Trade Name Freq PRN Reason Stop Dose Admin Acetaminophen 650 mg 05/10/20 22:31 05/11/20 17:16 Acetaminophen Elixir 325 Mg/10.15 Ml Udc PO 650 mg Q4H PRN Administration Mild Pain (1-3) or Fever Albuterol 2.5 mg 05/02/20 14:00 05/11/20 14:00 Albuterol Sulfate Neb 2.5 Mg/0.5 Ml Inh INHALATION 2.5 mg Q6HRT YUE Administration Alprazolam 0.5 mg 05/08/20 10:20 05/11/20 16:46 Alprazolam (*Crx) 0.5 Mg Tablet PO 0.5 mg TID PRN Administration Anxiety Al
[2020-05-11 20:25] LABS: Glucose Point of Care 237 (65-105)
[2020-05-11] MEDS: INSULIN GLARGINE (*BKC) 100 UNITS/ML 42 UNITS SUB-Q (20:27)
[2020-05-12] VITALS (43 sets, daily range): BP systolic 90–170; BP diastolic 47–83; PULSE 88–118; RESP 12–22; TEMP 37–37.7; O2SAT 94–100
[2020-05-12 00:05] LABS: Glucose Point of Care 234 (65-105)
[2020-05-12] MEDS: INSULIN ASPART (*BKC) 100 UNITS/ML SUB-Q ×3 (00:07→23:55)
[2020-05-12] MEDS: ALBUTEROL SULFATE NEB 2.5 MG/0.5 ML INH INHALATION ×4 (03:11→20:37)
[2020-05-12] MEDS: IPRATROPIUM BR 0.02% INH SOLN 0.5 MG/2.5 ML VIAL INHALATION ×4 (03:11→20:37)
[2020-05-12 04:30] LABS: Alveolar/Arterial O2 Gradient 83.3 mmHg; Base Excess ABG 3.4 mEq/l (+/-2.0); Carboxyhemoglobin 0.1 % THb (0-2.0); Fractional Inspired Oxygen 30 %; HCO3 ABG 28.5 mEq/l (22.0-26.0); Methemoglobin ABG 0.2 %THb (0-1.5); Oxygen Content ABG 12.9 %vol (16.0-22.0); Oxygen Saturation ABG 95.4 % (95.0-100.0); Oxyhemoglobin 94.8 % THb (90.0-100.0); PCO2 ABG 45.9 mmHg (35.0-45.0); PO2 ABG 76.7 mmHg (80.0-100.0); PO2 FiO2 Ratio Arterial Blood 2.56 %; Reduced Hemoglobin 4.9 %THb (0-5.0); Total Hemoglobin 9.6 g/dL (12.0-18.0); pH ABG 7.411 (7.350-7.450)
[2020-05-12 04:31] LABS: Device VENTILATOR; Site Drawn RIGHT BRACHIAL
[2020-05-12 04:32] LABS: Arterial Blood Gas PEEP 5 cmH2O; Arterial Blood Gas Vent Mode ASV
[2020-05-12 05:01] LABS: Hematocrit 27.9 % (37.0-47.0); Hemoglobin 8.4 g/dL (12.0-15.0); Mean Corpuscular HGB Conc 30.1 g/dl (32-36); Platelet Count Result 143 k/mm3 (150-375); Red Blood Count 2.71 M/mm3 (4.2-5.4); Red Cell Distribution Width 16.4 % (11.5-14.5); White Blood Count 10.6 K/mm3 (4.5-10.0)
[2020-05-12 05:27] LABS: Glucose Point of Care 198 (65-105)
[2020-05-12] MEDS: HEPARIN SODIUM 5,000 UNITS/ML VIAL 5000 UNITS SUB-Q ×3 (05:27→21:06)
[2020-05-12] MEDS: CENTRAL LINE FLUSH 10 ML IV PUSH ×3 (05:27→21:06)
[2020-05-12 05:31] LABS: Alanine Aminotransferase 36 U/L (4-35); Albumin Level 2.9 g/dL (3.5-5.1); Alkaline Phosphatase 386 U/L (38-126); Anion Gap 6 mmol/L (8-16); Aspartate Amino Transferase 60 U/L (14-36); Bilirubin,Total 0.8 mg/dL (0.2-1.3); Blood Urea Nitrogen 44 mg/dL (7-17); Calcium 9.6 mg/dL (8.4-10.2); Carbon Dioxide 32 mmol/L (22-30); Chloride 96 mmol/L (98-107); Estimated CRCL calculation 14 ml/min; Estimated Glomerular Filt Rate 9; Glucose 220 mg/dL (65-105); Magnesium 2.7 mg/dL (1.6-2.3); Phosphorus 3.5 mg/dL (2.5-4.5); Potassium 4.5 mmol/L (3.4-5.0); Sodium 134 mmol/L (137-145)
[2020-05-12] MEDS: ACETAMINOPHEN ELIXIR 325 MG/10.15 ML UDC 650 MG PO (05:31)
[2020-05-12] MEDS: ALPRAZolam (*CRX) 0.5 MG TABLET PO ×2 (05:31→18:08)
[2020-05-12] MEDS: PANTOPRAZOLE SODIUM IV 40 MG VIAL IV PUSH (08:36)
[2020-05-12] MEDS: ATORVASTATIN 40 MG TABLET 80 MG FEED TUBE (08:37)
[2020-05-12] MEDS: CLOPIDOGREL BISULFATE 75 MG TABLET FEED TUBE (08:37)
[2020-05-12] MEDS: SILVERGEL (ELTA) 45 ML 1 APPLIC TOPICAL (08:37)
[2020-05-12] MEDS: MIDODRINE HCL 10 MG TABLET PO ×3 (08:37→18:08)
[2020-05-12] MEDS: ASPIRIN 81 MG CHEWABLE TABLET FEED TUBE (08:38)
[2020-05-12 08:43] LABS: Glucose Point of Care 245 (65-105)
[2020-05-12] MEDS: NOREPINEPHRINE 8 MG/D5W 250 ML 8 MG/250 ML BAG 7.5 MG IV CONT (11:06)
[2020-05-12 12:30] LABS: Glucose Point of Care 148 (65-105)
--- NOTE | 2020-05-12 13:01 | PCDIET ---
ICU Rounding Note: Patient tolerating Nepro at 45mL/hr goal rate with 30mL water flush every 4 hours. Last recorded weight is 85.6kg which is stable with last review. Patient had 2L UF on 05/10/20 with plan for dialysis again today. Recommend reweighing to ensure accurate. Bowel Motility: BM x 1 today. Labs Reviewed: Hgb (8.4), Hct (27.9), Glu (220), BUN (44), Cr (4.8), Na (134), Alb (2.9) Meds Noted: Albumin, Albuterol, Lipitor, Novolog, Lantus, Atrovent, Midodrine, Protonix Additional Notes: Left heel with venous stasis ulcer. Right lower leg abrasion. Following daily in ICU rounds. Assessing/reassessing every Sunday/Sunday.
--- NOTE | 2020-05-12 13:43 | WPDINTPN ---
Progress Note: A&P Assessment and Plan (1) Acute on chronic respiratory failure with hypoxia and hypercapnia: Code(s): J96.21 - Acute and chronic respiratory failure with hypoxia; J96.22 - Acute and chronic respiratory failure with hypercapnia Status: Acute Assessment and Plan: Patient with acute chronic respiratory failure, was found unresponsive at her house without oxygen. Patient was intubated in the ER 05/01/2020 -chest x-ray still with bilateral pulmonary edema -patient currently on ASV mode of ventilation. Patient getting alkalotic, will decrease minute ventilation percentage on ASV mode Patient placed on pressure support ventilation this morning, low tidal volumes, tachycardia, tachypnea. Had replaced back on ASV -completed total of 7 days of antibiotics cefepime and vancomycin -continue bronchodilators -patient may require tracheostomy as she is unable to wean from the ventilator due to weakness CHF, end-stage renal disease -patient also require PEG tube. - d/w SOn, Adithya he will gte back to me with the decision (2) Encephalopathy: Code(s): G93.40 - Encephalopathy, unspecified Status: Acute Assessment and Plan: RESOLVED: Patient OFF all sedation, opens her eyes, follows simple commands in all extremities -currently on Precedex and still follows simple commands CT scan of the brain on 05/05/2020 did not show any acute intracranial process. -EEG was performed on 05/05/2020 -showed severe abnormal record consistent with organic or metabolic encephalopathy -appreciate neurology evaluation (3) End-stage renal disease (ESRD): Code(s): N18.6 - End stage renal disease Status: Acute Assessment and Plan: End-stage renal disease on dialysis,(Sunday, , Sunday) Dialysis per Nephrology. Repeat session today -electrolytes are within normal limits - Epogen per nephrology (4) Type 1 diabetes mellitus: Qualifiers: Diabetes mellitus complication status: with circulatory complication Code(s): E10.9 - Type 1 diabetes mellitus without complications Status: Chronic Assessment and Plan: Type 1 diabetes on Lantus at home, currently hypoglycemic -hemoglobin A1c is 5.7 this admission Continue Accu-Cheks and sliding scale insulin Continue Lantus (5) Hypoglycemia: Code(s): E16.2 - Hypoglycemia, unspecified Status: Acute Assessment and Plan: Resolved Patient with hypoglycemia on admission, -unsure why patient is hypoglycemia, could related to decreased p.o. intake, excessive Lantus. -discussed with son Adithya on 05/07/2020, he stated patient's ascites weeks she could be taking more insulin. Requests if care coordination could arrange for home health or prison placement, as her hypoglycemic events have been more frequent (6) Person under investigation for COVID-19: Code(s): Z20.828 - Contact with and (suspected) exposure to other viral communicable diseases Status: Ruled-out Assessment and Plan: -SARS-CoV-2 PCR negative on 05/01, -repeat SARS-CoV-2 PCR negative on 05/04 Discontinue all isolation (7) Elevated troponin: Code(s): R77.8 - Other specified abnormalities of plasma proteins Status: Acute Assessment and Plan: Likely related to respiratory failure, stress, type 2 infarct, given history of severe coronary artery disease with multiple stents in the past, ischemic cardiomyopathy -elevated troponins could be related to NSTEMI, discussed with Cardiology (Dr. Tovar), patient had cardiac catheterization with multivessel intervention earlier in [address] Martinez from [facility]. Cardiology discussed with him and he mentioned that patient has relatively smaller caliber, severely calcific vessels, and patient had multivessel PCI/stenting with adjunct atherectomy. Patient has jailed distal left circumflex artery. LVEF at that time was about 30-40%. -tropoonins peaked at 3.97 from 0
[2020-05-12 16:13] LABS: Glucose Point of Care 130 (65-105)
--- NOTE | 2020-05-12 16:51 | PM.PNNEP ---
Progress Note: A&P Assessment and Plan (1) End-stage renal disease (ESRD): Code(s): N18.6 - End stage renal disease Status: Acute Assessment and Plan: Still has excess fluid. Still trouble weaning from the vent. she has minimal amount of swelling. Chest x-ray still shows fluid however. will do regular dialysis today and try to take fluid off if possible.. (2) Acute on chronic respiratory failure with hypoxia and hypercapnia: Code(s): J96.21 - Acute and chronic respiratory failure with hypoxia; J96.22 - Acute and chronic respiratory failure with hypercapnia Status: Acute Assessment and Plan: continue ventilator support complicated by underlying respiratory issues at baseline (COPD + smoking) chronic heart failure and volume overload playing a role as well Trying to remove fluid as tolerated by her blood pressure. (3) Chronic systolic congestive heart failure: Code(s): I50.22 - Chronic systolic (congestive) heart failure Status: Acute Assessment and Plan: CXR with fluid on admission - repeat CXR still appears to have this push fluid removal with HD as toleratedby her blood pressure Cardiology following given elevated troponins possible cardiac catheterization when more stable (4) Anemia of chronic disease: Code(s): D63.8 - Anemia in other chronic diseases classified elsewhere Status: Acute Assessment and Plan: due to ESRD and acute illness Getting Epogen with dialysis. (5) Type 1 diabetes mellitus: Qualifiers: Diabetes mellitus complication status: with circulatory complication Code(s): E10.9 - Type 1 diabetes mellitus without complications Status: Chronic Assessment and Plan: Currently getting insulin. (6) Ulcer of left heel: Qualifiers: Non-pressure ulcer stage: unspecified non-pressure ulcer stage Qualified Code(s): L97.429 - Non-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 with unspecified severity Code(s): L97.429 - Non-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 with unspecified severity Status: Acute Assessment and Plan: Wound care following Subjective Date/time seen: 05/12/20 16:51 Interval history: Paty is sedated and on the ventilator. Oxygenation Is about the same. Due for dialysis today. She had dry ultrafiltration yesterday and they were unable to remove any fluid. Her blood pressure was too low. Review of Systems Review of Systems: ROS unobtainable: Yes unobtainable due to medical condition Exam Narrative: Exam Narrative: General: WD/WN female in NAD; intubated Heart: normal S1 and S2; no rub Lungs: coarse breath sounds Bilaterally Abdomen: soft, nontender, nondistended, positive bowel sounds Extremities: no edema Skin: No acute rash Objective Data Vital Signs Vital Signs: Vital Signs - 24 hr 05/11/20 17:20 05/11/20 17:26 05/11/20 17:30 Temperature 37.8 C H Pulse Rate 124 H 121 H 108 H Respiratory Rate 40 H Blood Pressure 125/66 138/72 Pulse Oximetry 90 95 05/11/20 17:45 05/11/20 18:00 05/11/20 18:15 Temperature Pulse Rate 114 H 105 H 101 H Respiratory Rate 30 H Blood Pressure 113/61 91/48 L 93/49 L Pulse Oximetry 93 05/11/20 18:30 05/11/20 18:45 05/11/20 20:00 Temperature 37.8 C H 37.5 C Pulse Rate 108 H 105 H 96 Respiratory Rate 34 H 28 H Blood Pressure 98/54 L 99/56 L 93/50 L Pulse Oximetry 93 94 05/11/20 22:00 05/11/20 23:15 05/12/20 00:00 Temperature 37.5 C 37.2 C Pulse Rate 99 103 H 97 Respiratory Rate 16 21 H Blood Pressure 100/46 L 95/47 L Pulse Oximetry 94 96 94 05/12/20 02:00 05/12/20 03:18 05/12/20 04:00 Temperature 37.1 C 37.2 C Pulse Rate 100 95 95 Respiratory Rate 16 18 Blood Pressure 90/51 L 95/68 L Pulse Oximetry 97 97 97 05/12/20 05:31 05/12/20 05:45 05/12/20 06:00 Temperature 37.2 C 37.1 C Pulse Rate 98
[2020-05-12 20:16] LABS: Glucose Point of Care 173 (65-105)
[2020-05-12] MEDS: INSULIN GLARGINE (*BKC) 100 UNITS/ML 42 UNITS SUB-Q (20:20)
[2020-05-13] VITALS (40 sets, daily range): BP systolic 104–146; BP diastolic 50–90; PULSE 90–114; RESP 9–30; TEMP 37–37.6; O2SAT 92–100
[2020-05-13 00:08] LABS: Glucose Point of Care 203 (65-105)
[2020-05-13] MEDS: ALBUTEROL SULFATE NEB 2.5 MG/0.5 ML INH INHALATION ×4 (01:58→20:20)
[2020-05-13] MEDS: IPRATROPIUM BR 0.02% INH SOLN 0.5 MG/2.5 ML VIAL INHALATION ×4 (01:58→20:21)
[2020-05-13 04:01] LABS: Glucose Point of Care 152 (65-105)
[2020-05-13 04:28] LABS: Alveolar/Arterial O2 Gradient 73.8 mmHg; Base Excess ABG 3.7 mEq/l (+/-2.0); Carboxyhemoglobin 0.1 % THb (0-2.0); Fractional Inspired Oxygen 30 %; HCO3 ABG 28.4 mEq/l (22.0-26.0); Methemoglobin ABG 0.2 %THb (0-1.5); Oxygen Content ABG 13.2 %vol (16.0-22.0); Oxyhemoglobin 96.1 % THb (90.0-100.0); PCO2 ABG 43.4 mmHg (35.0-45.0); PO2 ABG 89.1 mmHg (80.0-100.0); PO2 FiO2 Ratio Arterial Blood 2.97 %; Reduced Hemoglobin 3.6 %THb (0-5.0); Total Hemoglobin 9.7 g/dL (12.0-18.0); pH ABG 7.433 (7.350-7.450)
[2020-05-13 04:47] LABS: Hematocrit 29.8 % (37.0-47.0); Hemoglobin 8.9 g/dL (12.0-15.0); Mean Corpuscular HGB Conc 29.9 g/dl (32-36); Mean Corpuscular Hemoglobin 30.7 pg (26-34); Mean Corpuscular Volume 102.8 fl (80-100); Mean Platelet Volume 11.9 fl (7.4-10.4); Platelet Count Result 171 k/mm3 (150-375); Red Cell Distribution Width 16.8 % (11.5-14.5); White Blood Count 11.5 K/mm3 (4.5-10.0)
[2020-05-13 04:49] LABS: Device VENTILATOR; Site Drawn RIGHT BRACHIAL
[2020-05-13 04:50] LABS: Arterial Blood Gas Minute Volume 5 LPM; Arterial Blood Gas PEEP 5 cmH2O; Arterial Blood Gas Vent Mode ASV
[2020-05-13 05:38] LABS: Alanine Aminotransferase 37 U/L (4-35); Albumin Level 3.1 g/dL (3.5-5.1); Alkaline Phosphatase 377 U/L (38-126); Anion Gap 6 mmol/L (8-16); Aspartate Amino Transferase 62 U/L (14-36); Bilirubin,Total 0.8 mg/dL (0.2-1.3); Blood Urea Nitrogen 29 mg/dL (7-17); Calcium 9.8 mg/dL (8.4-10.2); Carbon Dioxide 34 mmol/L (22-30); Chloride 95 mmol/L (98-107); Estimated CRCL calculation 21 ml/min; Estimated Glomerular Filt Rate 15; Glucose 131 mg/dL (65-105); Magnesium 2.5 mg/dL (1.6-2.3); Phosphorus 3.1 mg/dL (2.5-4.5); Potassium 4.1 mmol/L (3.4-5.0); Sodium 135 mmol/L (137-145)
[2020-05-13] MEDS: HEPARIN SODIUM 5,000 UNITS/ML VIAL 5000 UNITS SUB-Q ×3 (05:57→21:40)
[2020-05-13] MEDS: CENTRAL LINE FLUSH 10 ML IV PUSH ×3 (05:57→21:41)
[2020-05-13] MEDS: CLOPIDOGREL BISULFATE 75 MG TABLET FEED TUBE (07:56)
[2020-05-13] MEDS: ASPIRIN 81 MG CHEWABLE TABLET FEED TUBE (07:56)
[2020-05-13] MEDS: ATORVASTATIN 40 MG TABLET 80 MG FEED TUBE (07:56)
[2020-05-13] MEDS: MIDODRINE HCL 10 MG TABLET PO ×3 (07:56→17:10)
[2020-05-13] MEDS: PANTOPRAZOLE SODIUM IV 40 MG VIAL IV PUSH (07:57)
[2020-05-13] MEDS: SILVERGEL (ELTA) 45 ML 1 APPLIC TOPICAL (07:57)
[2020-05-13] MEDS: ALPRAZolam (*CRX) 0.5 MG TABLET PO (09:04)
--- NOTE | 2020-05-13 11:11 | PCDIET ---
ICU Rounding Note: Patient tolerating Nepro at 45mL/hr goal rate with 30mL water flush every 4 hours. Last recorded weight is 84.1kg which is decreased from last review. -I/O. Bowel Motility: RN reports continuous BMs. MD informed. Labs Reviewed: Hgb (8.9), Hct (9.8), Glu (131), BUN (29), Cr (3.20), Na (135), Alb (3.1) Meds Noted: Albuterol, Midodrine, Lipitor, Levophed, Retacrit, Protonix, Heparin, Novolog, Lantus, Atrovent Additional Notes: Left heel with venous stasis ulcer. Bilateral lower legs with abrasions. Following daily in ICU rounds. Assessing/reassessing every Sunday/Sunday.
[2020-05-13 11:41] LABS: Glucose Point of Care 247 (65-105)
[2020-05-13] MEDS: INSULIN ASPART (*BKC) 100 UNITS/ML SUB-Q ×3 (12:04→23:19)
--- NOTE | 2020-05-13 12:07 | WPDINTPN ---
Progress Note: A&P Assessment and Plan (1) Acute on chronic respiratory failure with hypoxia and hypercapnia: Code(s): J96.21 - Acute and chronic respiratory failure with hypoxia; J96.22 - Acute and chronic respiratory failure with hypercapnia Status: Acute Assessment and Plan: Patient with acute chronic respiratory failure, was found unresponsive at her house without oxygen. Patient was intubated in the ER 05/01/2020 -chest x-ray still with bilateral pulmonary edema -patient currently on ASV mode of ventilation. Patient getting alkalotic, will decrease minute ventilation percentage on ASV mode Patient placed on pressure support ventilation this morning, low tidal volumes, tachycardia, tachypnea and desaturation. Had to be placed back on ASV -completed total of 7 days of antibiotics cefepime and vancomycin -continue bronchodilators -patient may require tracheostomy as she is unable to wean from the ventilator due to weakness CHF, end-stage renal disease -patient also require PEG tube. - d/w son, Adithya again today and he will be discussing with his aunt and will get back to me regarding tracheostomy and PEG tube versus withdrawal of support (2) Encephalopathy: Code(s): G93.40 - Encephalopathy, unspecified Status: Acute Assessment and Plan: RESOLVED: Patient OFF all sedation, opens her eyes, follows simple commands in all extremities -currently on Precedex and still follows simple commands CT scan of the brain on 05/05/2020 did not show any acute intracranial process. -EEG was performed on 05/05/2020 -showed severe abnormal record consistent with organic or metabolic encephalopathy -appreciate neurology evaluation (3) End-stage renal disease (ESRD): Code(s): N18.6 - End stage renal disease Status: Acute Assessment and Plan: End-stage renal disease on dialysis,(Sunday, , Sunday) Dialysis per Nephrology. Repeat session today -electrolytes are within normal limits - Epogen per nephrology (4) Type 1 diabetes mellitus: Qualifiers: Diabetes mellitus complication status: with circulatory complication Code(s): E10.9 - Type 1 diabetes mellitus without complications Status: Chronic Assessment and Plan: Type 1 diabetes on Lantus at home, currently hypoglycemic -hemoglobin A1c is 5.7 this admission Continue Accu-Cheks and sliding scale insulin Continue Lantus (5) Hypoglycemia: Code(s): E16.2 - Hypoglycemia, unspecified Status: Acute Assessment and Plan: Resolved Patient with hypoglycemia on admission, -unsure why patient is hypoglycemia, could related to decreased p.o. intake, excessive Lantus. -discussed with son Adithya on 05/07/2020, he stated patient's ascites weeks she could be taking more insulin. Requests if care coordination could arrange for home health or custodial placement, as her hypoglycemic events have been more frequent (6) Person under investigation for COVID-19: Code(s): Z20.828 - Contact with and (suspected) exposure to other viral communicable diseases Status: Ruled-out Assessment and Plan: -SARS-CoV-2 PCR negative on 05/01, -repeat SARS-CoV-2 PCR negative on 05/04 Discontinue all isolation (7) Elevated troponin: Code(s): R77.8 - Other specified abnormalities of plasma proteins Status: Acute Assessment and Plan: Likely related to respiratory failure, stress, type 2 infarct, given history of severe coronary artery disease with multiple stents in the past, ischemic cardiomyopathy -elevated troponins could be related to NSTEMI, discussed with Cardiology (Dr. Tovar), patient had cardiac catheterization with multivessel intervention earlier in [address] Martinez from [facility]. Cardiology discussed with him and he mentioned that patient has relatively smaller caliber, severely calcific vessels, and patient had multivessel PCI/stenting with adjunct atherectomy. Tashi
--- NOTE | 2020-05-13 12:55 | PM.PNNEP ---
Progress Note: A&P Assessment and Plan (1) End-stage renal disease (ESRD): Code(s): N18.6 - End stage renal disease Status: Acute Assessment and Plan: Still has excess fluid. Still trouble weaning from the vent. Chest x-ray is wet try ultrafiltration today. Use albumin and norepinephrine for support (2) Acute on chronic respiratory failure with hypoxia and hypercapnia: Code(s): J96.21 - Acute and chronic respiratory failure with hypoxia; J96.22 - Acute and chronic respiratory failure with hypercapnia Status: Acute Assessment and Plan: continue ventilator support complicated by underlying respiratory issues at baseline (COPD + smoking) chronic heart failure and volume overload playing a role as well Trying to remove fluid as tolerated by her blood pressure. (3) Chronic systolic congestive heart failure: Code(s): I50.22 - Chronic systolic (congestive) heart failure Status: Acute Assessment and Plan: volume overload persists. Cardiology following given elevated troponins possible cardiac catheterization when more stable (4) Anemia of chronic disease: Code(s): D63.8 - Anemia in other chronic diseases classified elsewhere Status: Acute Assessment and Plan: due to ESRD and acute illness Getting Epogen with dialysis. (5) Type 1 diabetes mellitus: Qualifiers: Diabetes mellitus complication status: with circulatory complication Code(s): E10.9 - Type 1 diabetes mellitus without complications Status: Chronic Assessment and Plan: Currently getting insulin. (6) Ulcer of left heel: Qualifiers: Non-pressure ulcer stage: unspecified non-pressure ulcer stage Qualified Code(s): L97.429 - Non-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 with unspecified severity Code(s): L97.429 - Non-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 with unspecified severity Status: Acute Assessment and Plan: Wound care following Subjective Date/time seen: 05/13/20 12:55 Interval history: Paty is sedated and on the ventilator. Oxygenation Is about the same. She had dialysis yesterday and they were able to remove about 3L. Chest x-ray is still wet and patient does not tolerate weaning trials. Will try another dry ultrafiltration today. Review of Systems Review of Systems: ROS unobtainable: Yes unobtainable due to medical condition Exam Narrative: Exam Narrative: General: WD/WN female in NAD; intubated Heart: normal S1 and S2; no rub Lungs: coarse breath sounds Bilaterally Abdomen: soft, nontender, nondistended, positive bowel sounds Extremities: no edema Skin: No acute rash Objective Data Vital Signs Vital Signs: Vital Signs - 24 hr 05/12/20 13:00 05/12/20 13:15 05/12/20 13:25 Temperature Pulse Rate 102 H 101 H 98 Respiratory Rate Blood Pressure 129/62 120/64 124/64 Pulse Oximetry 05/12/20 13:35 05/12/20 14:00 05/12/20 14:07 Temperature 37.7 C H Pulse Rate 103 H 106 H 107 H Respiratory Rate 22 H 17 17 Blood Pressure 125/62 130/60 Pulse Oximetry 95 98 05/12/20 14:10 05/12/20 14:20 05/12/20 15:01 Temperature Pulse Rate 106 H 105 H 101 H Respiratory Rate 18 Blood Pressure 125/60 Pulse Oximetry 99 05/12/20 16:00 05/12/20 16:45 05/12/20 18:00 Temperature 37.2 C Pulse Rate 105 H 111 H 118 H Respiratory Rate 16 14 Blood Pressure 124/64 170/83 H Pulse Oximetry 100 100 98 05/12/20 20:00 05/12/20 20:40 05/12/20 20:41 Temperature 37.7 C H Pulse Rate 112 H 108 H 110 H Respiratory Rate 15 14 Blood Pressure 126/67 Pulse Oximetry 100 100 05/12/20 22:00 05/12/20 23:03 05/13/20 00:00 Temperature 37.2 C Pulse Rate 109 H 115 H 100 Respiratory Rate 16 20 Blood Pressure 118/55 L 118/71 Pulse Oximetry 98 100 97 05/13/20 01:59 05/13/20 02:00 05/13/20 02:03 Temperature
[2020-05-13 17:16] LABS: Glucose Point of Care 240 (65-105)
--- NOTE | 2020-05-13 19:39 | PM.IMPN ---
Progress Note: A&P Assessment and Plan (1) Encephalopathy: Code(s): G93.40 - Encephalopathy, unspecified Status: Acute Assessment and Plan: Likely multifactorial Supportive care. (2) Elevated troponin: Code(s): R77.8 - Other specified abnormalities of plasma proteins Status: Acute Assessment and Plan: Conservative management at this point. (3) Chronic obstructive pulmonary disease: Qualifiers: COPD type: unspecified COPD Qualified Code(s): J44.9 - Chronic obstructive pulmonary disease, unspecified Code(s): J44.9 - Chronic obstructive pulmonary disease, unspecified Status: Acute Assessment and Plan: Breathing treatments. (4) Anemia of chronic disease: Code(s): D63.8 - Anemia in other chronic diseases classified elsewhere Status: Acute Assessment and Plan: Continue to monitor Transfuse as needed. (5) Elevated LFTs: Code(s): R79.89 - Other specified abnormal findings of blood chemistry Status: Acute Assessment and Plan: Likely secondary to shock (6) Chronic systolic congestive heart failure: Code(s): I50.22 - Chronic systolic (congestive) heart failure Status: Acute Assessment and Plan: Monitor I/O's strictly (7) Elevated troponin: Code(s): R77.8 - Other specified abnormalities of plasma proteins Status: Acute (8) Acute on chronic respiratory failure with hypoxia and hypercapnia: Code(s): J96.21 - Acute and chronic respiratory failure with hypoxia; J96.22 - Acute and chronic respiratory failure with hypercapnia Status: Acute Assessment and Plan: On vent support Failing weaning trials. (9) End-stage renal disease (ESRD): Code(s): N18.6 - End stage renal disease Status: Acute Assessment and Plan: On HD Subjective Date/time seen: 05/13/20 19:39 On vent support Exam Narrative: Exam Narrative: On vent support Const: General: comfortable, awake and Physically active Nutritional Appearance: average body habitus HENMT: Head: normal to inspection and normocephalic Face and sinus: normal facial exam Throat: other (ETT in place.) Eyes: General: appearance normal, both eyes and all related structures Pupils: Equal, round and reactive pupils present EOM: EOMs intact bilaterally Neck: Neck: supple and no JVD Resp: Auscultation: clear to auscultation bilaterally Cardio: Rate: regular rate Rhythm: regular rhythm GI: GI Palp: Yes Soft to palpation and Yes No hepatosplenomegaly present Skin: Lesions: no lesions Rashes: no rashes Neuro: Cranial nerves: Yes CN's II-XII intact bilaterally Motor exam (neuro): Other motor observations present (Spontaneous movement of all limbs) Objective Data Vital Signs Vital Signs: Vital Signs - 24 hr 05/12/20 20:00 05/12/20 20:40 05/12/20 20:41 Temperature 99.8 F H Pulse Rate 112 H 108 H 110 H Respiratory Rate 15 14 Blood Pressure 126/67 Pulse Oximetry 100 100 05/12/20 22:00 05/12/20 23:03 05/13/20 00:00 Temperature 98.9 F Pulse Rate 109 H 115 H 100 Respiratory Rate 16 20 Blood Pressure 118/55 L 118/71 Pulse Oximetry 98 100 97 05/13/20 01:59 05/13/20 02:00 05/13/20 02:03 Temperature Pulse Rate 105 H 105 H 105 H Respiratory Rate 13 19 Blood Pressure 114/56 L Pulse Oximetry 96 96 05/13/20 04:00 05/13/20 04:31 05/13/20 06:00 Temperature 98.8 F Pulse Rate 97 97 99 Respiratory Rate 16 18 Blood Pressure 107/56 L 104/50 L Pulse Oximetry 99 100 100 05/13/20 08:00 05/13/20 08:15 05/13/20 08:40 Temperature 99.6 F Pulse Rate 97 100 111 H Respiratory Rate 10 L 18 Blood Pressure 107/81 Pulse Oximetry 99 95 05/13/20 08:41 05/13/20 09:55 05/13/20 10:00 Temperature Pulse Rate 114 H 104 H 102 H Respiratory Rate 16 14 Blood Pressure 110/54 L Pulse Oximetry 98 05/13/20 10:43 05/13/20 11:59 05/13/20 12:00 Temperature 99 F
[2020-05-13] MEDS: INSULIN GLARGINE (*BKC) 100 UNITS/ML 42 UNITS SUB-Q (20:26)
[2020-05-13 23:24] LABS: Glucose Point of Care 208 (65-105)
[2020-05-14] VITALS (44 sets, daily range): BP systolic 99–137; BP diastolic 50–90; PULSE 75–116; RESP 9–41; TEMP 36.6–38.2; O2SAT 92–100
[2020-05-14] MEDS: ALPRAZolam (*CRX) 0.5 MG TABLET PO ×2 (01:23→12:53)
[2020-05-14] MEDS: ALBUTEROL SULFATE NEB 2.5 MG/0.5 ML INH INHALATION ×4 (02:15→20:23)
[2020-05-14] MEDS: IPRATROPIUM BR 0.02% INH SOLN 0.5 MG/2.5 ML VIAL INHALATION ×4 (02:15→20:24)
[2020-05-14 03:58] LABS: Carboxyhemoglobin 0.3 % THb (0-2.0); Fractional Inspired Oxygen 30 %; HCO3 ABG 29.1 mEq/l (22.0-26.0); Methemoglobin ABG 0.2 %THb (0-1.5); Oxygen Content ABG 12.7 %vol (16.0-22.0); Oxygen Saturation ABG 96.9 % (95.0-100.0); Oxyhemoglobin 95.9 % THb (90.0-100.0); PCO2 ABG 46.9 mmHg (35.0-45.0); PO2 ABG 89.8 mmHg (80.0-100.0); PO2 FiO2 Ratio Arterial Blood 2.99 %; Reduced Hemoglobin 3.6 %THb (0-5.0); Total Hemoglobin 9.3 g/dL (12.0-18.0); pH ABG 7.411 (7.350-7.450)
[2020-05-14 03:59] LABS: Arterial Blood Gas PEEP 5 cmH2O; Arterial Blood Gas Vent Mode ASV; Device VENTILATOR; Modified Allen's Test Pass; Site Drawn RIGHT RADIAL
[2020-05-14 05:06] LABS: Hematocrit 30.1 % (37.0-47.0); Hemoglobin 8.9 g/dL (12.0-15.0); Mean Corpuscular HGB Conc 29.6 g/dl (32-36); Mean Corpuscular Hemoglobin 30.6 pg (26-34); Mean Corpuscular Volume 103.4 fl (80-100); Mean Platelet Volume 11.9 fl (7.4-10.4); Platelet Count Result 187 k/mm3 (150-375); Red Blood Count 2.91 M/mm3 (4.2-5.4); Red Cell Distribution Width 16.9 % (11.5-14.5)
[2020-05-14 05:32] LABS: Alanine Aminotransferase 33 U/L (4-35); Albumin Level 3.2 g/dL (3.5-5.1); Alkaline Phosphatase 378 U/L (38-126); Anion Gap 9 mmol/L (8-16); Aspartate Amino Transferase 46 U/L (14-36); Bilirubin,Total 0.9 mg/dL (0.2-1.3); Blood Urea Nitrogen 42 mg/dL (7-17); Calcium 10.4 mg/dL (8.4-10.2); Carbon Dioxide 31 mmol/L (22-30); Chloride 93 mmol/L (98-107); Estimated CRCL calculation 14 ml/min; Estimated Glomerular Filt Rate 11; Glucose 209 mg/dL (65-105); Magnesium 2.7 mg/dL (1.6-2.3); Phosphorus 4.1 mg/dL (2.5-4.5); Potassium 4.3 mmol/L (3.4-5.0); Sodium 133 mmol/L (137-145)
[2020-05-14] MEDS: HEPARIN SODIUM 5,000 UNITS/ML VIAL 5000 UNITS SUB-Q ×3 (05:45→20:40)
[2020-05-14] MEDS: INSULIN ASPART (*BKC) 100 UNITS/ML SUB-Q ×3 (05:45→23:30)
[2020-05-14 05:46] LABS: Glucose Point of Care 204 (65-105)
[2020-05-14] MEDS: CENTRAL LINE FLUSH 10 ML IV PUSH ×3 (05:46→20:41)
[2020-05-14] MEDS: ASPIRIN 81 MG CHEWABLE TABLET FEED TUBE (08:00)
[2020-05-14] MEDS: ATORVASTATIN 40 MG TABLET 80 MG FEED TUBE (08:01)
[2020-05-14] MEDS: MIDODRINE HCL 10 MG TABLET PO ×3 (08:02→17:06)
[2020-05-14] MEDS: SILVERGEL (ELTA) 45 ML 1 APPLIC TOPICAL (08:02)
[2020-05-14] MEDS: CLOPIDOGREL BISULFATE 75 MG TABLET FEED TUBE (08:02)
[2020-05-14] MEDS: PANTOPRAZOLE SODIUM IV 40 MG VIAL IV PUSH (08:02)
--- NOTE | 2020-05-14 10:14 | PM.PNNEP ---
Progress Note: A&P Assessment and Plan (1) End-stage renal disease (ESRD): Code(s): N18.6 - End stage renal disease Status: Acute Assessment and Plan: Still has excess fluid. Still trouble weaning from the vent. Chest x-ray is wet still Continue dialysis daily today and tomorrow. Will probably give her a rest on Sunday. (2) Acute on chronic respiratory failure with hypoxia and hypercapnia: Code(s): J96.21 - Acute and chronic respiratory failure with hypoxia; J96.22 - Acute and chronic respiratory failure with hypercapnia Status: Acute Assessment and Plan: continue ventilator support Multiple acute and chronic issues involved Trying to remove fluid as tolerated by her blood pressure. (3) Chronic systolic congestive heart failure: Code(s): I50.22 - Chronic systolic (congestive) heart failure Status: Acute Assessment and Plan: volume overload persists. Cardiology following given elevated troponins possible cardiac catheterization when more stable (4) Anemia of chronic disease: Code(s): D63.8 - Anemia in other chronic diseases classified elsewhere Status: Acute Assessment and Plan: due to ESRD and acute illness Getting Epogen with dialysis. (5) Type 1 diabetes mellitus: Qualifiers: Diabetes mellitus complication status: with circulatory complication Code(s): E10.9 - Type 1 diabetes mellitus without complications Status: Chronic Assessment and Plan: Currently getting insulin. 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 Oxygenation is about the same. On dialysis and tolerating it well. Going for about 3.5L if tolerated. Blood pressure is above 110. Seen at 9:30 a.m. Review of Systems Review of Systems: ROS unobtainable: Yes unobtainable due to medical condition Exam Narrative: Exam Narrative: General: WD/WN female in NAD; intubated Heart: normal S1 and S2; no rub Lungs: coarse breath sounds Bilaterally Abdomen: soft, nontender, nondistended, positive bowel sounds Extremities: no edema or cyanosis Skin: No acute rash Objective Data Vital Signs Vital Signs: Vital Signs - 24 hr 05/13/20 10:43 05/13/20 11:59 05/13/20 12:00 Temperature 37.2 C Pulse Rate 106 H 99 100 Respiratory Rate 13 30 H Blood Pressure 112/67 Pulse Oximetry 100 97 97 05/13/20 13:51 05/13/20 13:56 05/13/20 13:57 Temperature Pulse Rate 110 H 108 H 102 H Respiratory Rate 14 Blood Pressure Pulse Oximetry 100 05/13/20 14:00 05/13/20 16:00 05/13/20 17:03 Temperature 37.2 C Pulse Rate 99 111 H 112 H Respiratory Rate 17 27 H Blood Pressure 116/65 134/62 Pulse Oximetry 97 92 97 05/13/20 18:00 05/13/20 20:00 05/13/20 20:18 Temperature 37.1 C Pulse Rate 102 H 114 H 108 H Respiratory Rate 9 L 26 H Blood Pressure 128/59 L 133/66 Pulse Oximetry 98 93 96 05/13/20 20:21 05/13/20 20:30 05/13/20 20:58 Temperature 37.1 C Pulse Rate 107 H 90 109 H Respiratory Rate 10 L 28 H Blood Pressure 146/66 H 146/71 H Pulse Oximetry 96 05/13/20 21:15 05/13/20 21:30 05/13/20 21:45 Temperature Pulse Rate 110 H 100 100 Respiratory Rate Blood Pressure 143/69 H 113/54 L 120/65 Pulse Oximetry 05/13/20 22:00 05/13/20 22:15 05/13/20 22:30 Temperature Pulse Rate 99 100 102 H Respiratory Rate 27 H Blood Pressure 126/69 135/73 132/66 Pulse Oximetry 95 05/13/20 22:45 05/13/20 23:00 01
[2020-05-14] MEDS: ALBUMIN HUMAN 25% 12.5 GM/50ML 50 ML IVPB (10:34)
--- NOTE | 2020-05-14 11:49 | WPDINTPN ---
Progress Note: A&P Assessment and Plan (1) Acute on chronic respiratory failure with hypoxia and hypercapnia: Code(s): J96.21 - Acute and chronic respiratory failure with hypoxia; J96.22 - Acute and chronic respiratory failure with hypercapnia Status: Acute Assessment and Plan: Patient with acute chronic respiratory failure, was found unresponsive at her house without oxygen. Patient was intubated in the ER 05/01/2020 -chest x-ray still with bilateral pulmonary edema -patient currently on ASV mode of ventilation. Patient getting alkalotic, will decrease minute ventilation percentage on ASV mode Patient placed on pressure support ventilation this morning, low tidal volumes, tachycardia, tachypnea and desaturation. 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 - d/w son, Adithya tompkins on 05/13/2020 and he will be discussing with his aunt and will get back to me regarding tracheostomy and PEG tube versus withdrawal of support (2) Encephalopathy: Code(s): G93.40 - Encephalopathy, unspecified Status: Acute Assessment and Plan: RESOLVED: Patient OFF all sedation, opens her eyes, follows simple commands in all extremities -currently on Precedex and still follows simple commands CT scan of the brain on 05/05/2020 did not show any acute intracranial process. -EEG was performed on 05/05/2020 -showed severe abnormal record consistent with organic or metabolic encephalopathy -appreciate neurology evaluation (3) End-stage renal disease (ESRD): Code(s): N18.6 - End stage renal disease Status: Acute Assessment and Plan: End-stage renal disease on dialysis,(Sunday, , Sunday) Dialysis per Nephrology. Repeat session today -electrolytes are within normal limits - Epogen per nephrology (4) Type 1 diabetes mellitus: Qualifiers: Diabetes mellitus complication status: with circulatory complication Code(s): E10.9 - Type 1 diabetes mellitus without complications Status: Chronic Assessment and Plan: Type 1 diabetes on Lantus at home, currently hypoglycemic -hemoglobin A1c is 5.7 this admission Continue Accu-Cheks and sliding scale insulin Continue Lantus (5) Hypoglycemia: Code(s): E16.2 - Hypoglycemia, unspecified Status: Acute Assessment and Plan: Resolved Patient with hypoglycemia on admission, -unsure why patient is hypoglycemia, could related to decreased p.o. intake, excessive Lantus. -discussed with son Adithya on 05/07/2020, he stated patient's ascites weeks she could be taking more insulin. Requests if care coordination could arrange for home health or usp placement, as her hypoglycemic events have been more frequent (6) Person under investigation for COVID-19: Code(s): Z20.828 - Contact with and (suspected) exposure to other viral communicable diseases Status: Ruled-out Assessment and Plan: -SARS-CoV-2 PCR negative on 05/01, -repeat SARS-CoV-2 PCR negative on 05/04 Discontinue all isolation (7) Elevated troponin: Code(s): R77.8 - Other specified abnormalities of plasma proteins Status: Acute Assessment and Plan: Likely related to respiratory failure, stress, type 2 infarct, given history of severe coronary artery disease with multiple stents in the past, ischemic cardiomyopathy -elevated troponins could be related to NSTEMI, discussed with Cardiology (Dr. Tovar), patient had cardiac catheterization with multivessel intervention earlier in [address] Martinez from [facility]. Cardiology discussed with him and he mentioned that patient has relatively smaller caliber, severely calcific vessels, and patient had multivess
--- NOTE | 2020-05-14 12:12 | PCDIET ---
Nutrition Follow-Up Complete: Nutrition Diagnosis: Inadequate oral intake related to oral intubation as evidenced by NPO status. Nutrition Goal: Patient to meet estimated nutritional needs. Goal met. Patient continues to tolerate Nepro at 45mL/hr with 30mL water flush every 4 hours. Last recorded weight is 78.5 kg which is down from last review. Patient had 3L UF on 05/12/20 with another hemodialysis in progress today. Bowel Motility: BM x 4 on 05/13/20. RN reports BMs slowing down today. Labs Reviewed: WBC (12.0), Hgb (8.9), Hct (30.1), Glu (209), BUN (42), Cr (4.2), Na (133), Ca (10.4), Alb (3.2) Meds Noted: Albuterol, Heparin, Novolog, Lantus, Atrovent, Midodrine, Levophed, Protonix Additional Notes: Left heel venous stasis ulcer. BLE abrasions. Coccyx ulcer also evaluted by wound nurse. Will continue to monitor with same goal. Nutrition Monitoring and Evaluation: Follow up every Sunday/Sunday.
[2020-05-14 12:48] LABS: Glucose Point of Care 130 (65-105)
[2020-05-14 16:44] LABS: Glucose Point of Care 211 (65-105)
[2020-05-14] MEDS: INSULIN GLARGINE (*BKC) 100 UNITS/ML 42 UNITS SUB-Q (20:41)
[2020-05-14 20:51] LABS: Glucose Point of Care 201 (65-105)
[2020-05-14 23:21] LABS: Glucose Point of Care 210 (65-105)
[2020-05-15] VITALS (42 sets, daily range): BP systolic 009–149; BP diastolic 37–85; PULSE 93–112; RESP 10–33; TEMP 35.9–37.6; O2SAT 90–100
[2020-05-15] MEDS: IPRATROPIUM BR 0.02% INH SOLN 0.5 MG/2.5 ML VIAL INHALATION ×4 (03:26→20:02)
[2020-05-15] MEDS: ALBUTEROL SULFATE NEB 2.5 MG/0.5 ML INH INHALATION ×4 (03:26→20:02)
[2020-05-15 05:01] LABS: Base Excess ABG 6.6 mEq/l (+/-2.0); Carboxyhemoglobin 0.4 % THb (0-2.0); Fractional Inspired Oxygen 30 %; HCO3 ABG 31.8 mEq/l (22.0-26.0); Methemoglobin ABG 0.1 %THb (0-1.5); Oxygen Content ABG 13.2 %vol (16.0-22.0); Oxygen Saturation ABG 96.4 % (95.0-100.0); Oxyhemoglobin 95.6 % THb (90.0-100.0); PCO2 ABG 49.1 mmHg (35.0-45.0); PO2 ABG 84.2 mmHg (80.0-100.0); PO2 FiO2 Ratio Arterial Blood 2.81 %; Reduced Hemoglobin 3.9 %THb (0-5.0); Total Hemoglobin 9.7 g/dL (12.0-18.0); pH ABG 7.429 (7.350-7.450)
[2020-05-15 05:02] LABS: Device VENTILATOR; Site Drawn RIGHT BRACHIAL
[2020-05-15 05:03] LABS: Arterial Blood Gas PEEP 5 cmH2O; Arterial Blood Gas Vent Mode ASV
[2020-05-15] MEDS: CENTRAL LINE FLUSH 10 ML IV PUSH ×3 (06:24→20:15)
[2020-05-15] MEDS: HEPARIN SODIUM 5,000 UNITS/ML VIAL 5000 UNITS SUB-Q ×2 (06:24→13:20)
[2020-05-15] MEDS: INSULIN ASPART (*BKC) 100 UNITS/ML SUB-Q ×3 (06:35→17:12)
[2020-05-15 06:42] LABS: Hematocrit 29.3 % (37.0-47.0); Hemoglobin 8.7 g/dL (12.0-15.0); Mean Corpuscular HGB Conc 29.7 g/dl (32-36); Mean Corpuscular Volume 104.3 fl (80-100); Platelet Count Result 218 k/mm3 (150-375); Red Blood Count 2.81 M/mm3 (4.2-5.4); Red Cell Distribution Width 17.1 % (11.5-14.5); White Blood Count 10.8 K/mm3 (4.5-10.0)
[2020-05-15 06:47] LABS: Glucose Point of Care 317 (65-105)
[2020-05-15 06:56] LABS: Alanine Aminotransferase 29 U/L (4-35); Albumin Level 3.3 g/dL (3.5-5.1); Alkaline Phosphatase 353 U/L (38-126); Anion Gap 8 mmol/L (8-16); Aspartate Amino Transferase 41 U/L (14-36); Bilirubin,Total 0.8 mg/dL (0.2-1.3); Blood Urea Nitrogen 32 mg/dL (7-17); Calcium 9.8 mg/dL (8.4-10.2); Carbon Dioxide 35 mmol/L (22-30); Chloride 90 mmol/L (98-107); Estimated CRCL calculation 20 ml/min; Estimated Glomerular Filt Rate 17; Glucose 343 mg/dL (65-105); Magnesium 2.4 mg/dL (1.6-2.3); Phosphorus 3.3 mg/dL (2.5-4.5); Potassium 4.4 mmol/L (3.4-5.0); Sodium 133 mmol/L (137-145)
[2020-05-15] MEDS: ASPIRIN 81 MG CHEWABLE TABLET FEED TUBE (09:50)
[2020-05-15] MEDS: ATORVASTATIN 40 MG TABLET 80 MG FEED TUBE (09:51)
[2020-05-15] MEDS: PANTOPRAZOLE SODIUM IV 40 MG VIAL IV PUSH (09:51)
[2020-05-15] MEDS: CLOPIDOGREL BISULFATE 75 MG TABLET FEED TUBE (09:51)
[2020-05-15] MEDS: MIDODRINE HCL 10 MG TABLET PO ×3 (09:51→17:06)
--- NOTE | 2020-05-15 11:58 | PM.PNNEP ---
Progress Note: A&P Assessment and Plan (1) End-stage renal disease (ESRD): Code(s): N18.6 - End stage renal disease Status: Acute Assessment and Plan: Still has excess fluid. Still trouble weaning from the vent. Chest x-ray is wet still Getting a dry ultrafiltration today. Rest tomorrow HD on Sunday (2) Acute on chronic respiratory failure with hypoxia and hypercapnia: Code(s): J96.21 - Acute and chronic respiratory failure with hypoxia; J96.22 - Acute and chronic respiratory failure with hypercapnia Status: Acute Assessment and Plan: continue ventilator support Multiple acute and chronic issues involved Trying to remove fluid as tolerated by her blood pressure. (3) Chronic systolic congestive heart failure: Code(s): I50.22 - Chronic systolic (congestive) heart failure Status: Acute Assessment and Plan: volume overload persists. Cardiology following given elevated troponins possible cardiac catheterization when more stable (4) Anemia of chronic disease: Code(s): D63.8 - Anemia in other chronic diseases classified elsewhere Status: Acute Assessment and Plan: due to ESRD and acute illness Getting Epogen with dialysis. (5) Type 1 diabetes mellitus: Qualifiers: Diabetes mellitus complication status: with circulatory complication Code(s): E10.9 - Type 1 diabetes mellitus without complications Status: Chronic Assessment and Plan: Currently getting insulin. (6) Ulcer of left heel: Qualifiers: Non-pressure ulcer stage: unspecified non-pressure ulcer stage Qualified Code(s): L97.429 - Non-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 with unspecified severity Code(s): L97.429 - Non-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 with unspecified severity Status: Acute Assessment and Plan: Wound care following Subjective Date/time seen: 05/15/20 11:58 Interval history: Paty is sedated and on the ventilator. She still has trouble weaning. We are taking more fluid off today. She is getting dry ultrafiltration currently and set to take off 3.5L. She was seen at 9:25 a.m. Review of Systems Review of Systems: ROS unobtainable: Yes unobtainable due to medical condition Exam Narrative: Exam Narrative: General: WD/WN female in NAD; intubated Heart: normal S1 and S2; no rub Lungs: coarse breath sounds Bilaterally Abdomen: soft, nontender, nondistended, positive bowel sounds Extremities: no edema or cyanosis Skin: No acute rash or subcu nodules Objective Data Vital Signs Vital Signs: Vital Signs - 24 hr 05/14/20 12:00 05/14/20 12:15 05/14/20 12:19 Temperature 37.3 C Pulse Rate 104 H 105 H 110 H Respiratory Rate 28 H Blood Pressure 137/66 108/58 L 124/65 Pulse Oximetry 99 05/14/20 12:24 05/14/20 14:00 05/14/20 16:00 Temperature 37.3 C 37.7 C H Pulse Rate 115 H 111 H 99 Respiratory Rate 18 12 14 Blood Pressure 112/66 126/71 105/52 L Pulse Oximetry 98 95 05/14/20 16:38 05/14/20 16:44 05/14/20 16:47 Temperature Pulse Rate 95 100 97 Respiratory Rate 11 L 10 L Blood Pressure Pulse Oximetry 98 05/14/20 18:00 05/14/20 20:00 05/14/20 20:24 Temperature 37.5 C 38.2 C H Pulse Rate 114 H 112 H 99 Respiratory Rate 30 H 23 H 11 L Blood Pressure 111/56 L 117/56 L Pulse Oximetry 97 97 99 05/14/20 20:35 05/14/20 22:00 05/14/20 23:40 Temperature Pulse Rate 100 105 H 109 H Respiratory Rate 9 L Blood Pressure 116/52 L Pulse Oximetry 95 95 05/15/20 00:00 05/15/20 02:00 05/15/20 03:26 Temperature 37.6 C H Pulse Rate 104 H 104 H 97 Respiratory Rate 17 28 H 10 L Blood Pressure 108/59 L 112/51 L Pulse Oximetry 93 96 97 05/15/20 03:34 05/15/20 04:00 05/15/20 04:22 Temperature Pulse Rate 98 104 H 100 Respiratory Rate 10 L 26 H Blood Pressure 111/58 L Pulse Oximetry 90 97
[2020-05-15] MEDS: SILVERGEL (ELTA) 45 ML 1 APPLIC TOPICAL (13:20)
[2020-05-15 13:22] LABS: Glucose Point of Care 265 (65-105)
--- NOTE | 2020-05-15 13:36 | WPDINTPN ---
Progress Note: A&P Assessment and Plan (1) Acute on chronic respiratory failure with hypoxia and hypercapnia: Code(s): J96.21 - Acute and chronic respiratory failure with hypoxia; J96.22 - Acute and chronic respiratory failure with hypercapnia Status: Acute Assessment and Plan: Patient with acute chronic respiratory failure, was found unresponsive at her house without oxygen. Patient was intubated in the ER 05/01/2020 -chest x-ray still with bilateral pulmonary edema -patient currently on ASV mode of ventilation. Patient getting alkalotic, will decrease minute ventilation percentage on ASV mode Patient placed on pressure support ventilation this morning, 1st time in many days patient is able tolerate PSV 15/5, with tidal volumes of 250-350 mL, respiratory rate in the 20s. (on all other days 1 I used to put her on pressure support of 16/5 or 16/8, patient used to have tidal volumes off 70s to 150, tachypneic with respiratory rates in the 40s to 50s along with tachycardia.) -continue bronchodilators -patient had dialysis with removal of 3000 mL on 05/12, 5500 mL removal on 05/14 3500 mL removal of 05/15. (2) Encephalopathy: Code(s): G93.40 - Encephalopathy, unspecified Status: Acute Assessment and Plan: RESOLVED: Patient OFF all sedation, opens her eyes, follows simple commands in all extremities -currently on Precedex and still follows simple commands CT scan of the brain on 05/05/2020 did not show any acute intracranial process. -EEG was performed on 05/05/2020 -showed severe abnormal record consistent with organic or metabolic encephalopathy -appreciate neurology evaluation (3) End-stage renal disease (ESRD): Code(s): N18.6 - End stage renal disease Status: Acute Assessment and Plan: End-stage renal disease on dialysis,(Sunday, , Sunday) Dialysis per Nephrology. -significant amount of fluid removal done in the last 3-4 sessions, pressures have been adequate -electrolytes are within normal limits - Epogen per nephrology (4) Type 1 diabetes mellitus: Qualifiers: Diabetes mellitus complication status: with circulatory complication Code(s): E10.9 - Type 1 diabetes mellitus without complications Status: Chronic Assessment and Plan: Type 1 diabetes on Lantus at home, currently hypoglycemic -hemoglobin A1c is 5.7 this admission Continue Accu-Cheks and sliding scale insulin Continue Lantus (5) Hypoglycemia: Code(s): E16.2 - Hypoglycemia, unspecified Status: Acute Assessment and Plan: Resolved Patient with hypoglycemia on admission, -unsure why patient is hypoglycemia, could related to decreased p.o. intake, excessive Lantus. -discussed with son Adithya on 05/07/2020, he stated patient's ascites weeks she could be taking more insulin. Requests if care coordination could arrange for home health or half-way placement, as her hypoglycemic events have been more frequent (6) Person under investigation for COVID-19: Code(s): Z20.828 - Contact with and (suspected) exposure to other viral communicable diseases Status: Ruled-out Assessment and Plan: -SARS-CoV-2 PCR negative on 05/01, -repeat SARS-CoV-2 PCR negative on 05/04 Discontinue all isolation (7) Elevated troponin: Code(s): R77.8 - Other specified abnormalities of plasma proteins Status: Acute Assessment and Plan: Likely related to respiratory failure, stress, type 2 infarct, given history of severe coronary artery disease with multiple stents in the past, ischemic cardiomyopathy -elevated troponins could be related to NSTEMI, discussed with Cardiology (Dr. Tovar), patient had cardiac catheterization with multivessel intervention earlier in [address] Martinez from [facility]. Cardiology discussed with him and he mentioned that patient has relatively smaller caliber, severely calcific vessels, and patient had multivessel PCI
--- NOTE | 2020-05-15 16:32 | PM.IMPN ---
Progress Note: A&P Assessment and Plan (1) Elevated troponin: Code(s): R77.8 - Other specified abnormalities of plasma proteins Status: Acute Assessment and Plan: Will possibly get catheterization Supportive care at this time. (2) Chronic obstructive pulmonary disease: Qualifiers: COPD type: unspecified COPD Qualified Code(s): J44.9 - Chronic obstructive pulmonary disease, unspecified Code(s): J44.9 - Chronic obstructive pulmonary disease, unspecified Status: Acute Assessment and Plan: Does not appear to be exacerbated. Continue Albuterol (3) Anemia of chronic disease: Code(s): D63.8 - Anemia in other chronic diseases classified elsewhere Status: Acute Assessment and Plan: Transfuse as needed Continue to monitor (4) Elevated LFTs: Code(s): R79.89 - Other specified abnormal findings of blood chemistry Status: Acute Assessment and Plan: Likely secondary to shock Continue to monitor (5) Chronic systolic congestive heart failure: Code(s): I50.22 - Chronic systolic (congestive) heart failure Status: Acute Assessment and Plan: Fluid overload Continue to monitor I/O's strict (6) Acute on chronic respiratory failure with hypoxia and hypercapnia: Code(s): J96.21 - Acute and chronic respiratory failure with hypoxia; J96.22 - Acute and chronic respiratory failure with hypercapnia Status: Acute Assessment and Plan: Still having difficulty being weaned off of oxygen (7) End-stage renal disease (ESRD): Code(s): N18.6 - End stage renal disease Status: Acute Assessment and Plan: Receiving HD. Subjective Date/time seen: 05/15/20 16:32 Patient is ASV on ventilator when seen this morning. Awake Makes signals to answer questions. Review of Systems Review of Systems: Narrative: Unable to obtain as patient is on ventilator support. Exam Narrative: Exam Narrative: Patient is on ventilator support ASV mode. Const: General: other (Chronically ill looking.) Nutritional Appearance: average body habitus Other: On ventilator support. HENMT: Head: normocephalic Ears: hearing grossly normal bilaterally Face and sinus: normal facial exam Other: ETT in place. Eyes: General: appearance normal, both eyes and all related structures Pupils: Equal, round and reactive pupils present EOM: EOMs intact bilaterally Neck: Neck: no lymphadenopathy, supple and no JVD Resp: Auscultation: diminished lung sounds Cardio: Rate: regular rate Rhythm: regular rhythm GI: GI Palp: Yes Soft to palpation and Yes No hepatosplenomegaly present Skin: Wounds: no wounds (LLE laceration wound healing above the lateral maleolus.) Neuro: General: oriented to person and CN's II-XI intact bilaterally Cognition (Neuro): normal cognition (Follows simple commands.) Motor exam (neuro): 5/5 motor strength present throughout Extrem: General: other (B/L LE edema pitting.) Objective Data Vital Signs Vital Signs: Vital Signs - 24 hr 05/14/20 16:38 05/14/20 16:44 05/14/20 16:47 Temperature Pulse Rate 95 100 97 Respiratory Rate 11 L 10 L Blood Pressure Pulse Oximetry 98 05/14/20 18:00 05/14/20 20:00 05/14/20 20:24 Temperature 99.5 F 100.7 F H Pulse Rate 114 H 112 H 99 Respiratory Rate 30 H 23 H 11 L Blood Pressure 111/56 L 117/56 L Pulse Oximetry 97 97 99 05/14/20 20:35 05/14/20 22:00 05/14/20 23:40 Temperature Pulse Rate 100 105 H 109 H Respiratory Rate 9 L Blood Pressure 116/52 L Pulse Oximetry 95 95 05/15/20 00:00 05/15/20 02:00 05/15/20 03:26 Temperature 99.7 F H Pulse Rate 104 H 104 H 97 Respiratory Rate 17 28 H 10 L Blood Pressure 108/59 L 112/51 L Pulse Oximetry 93 96 97 05/15/20 03:34 05/15/20 04:00 05/15/20 04:22 Temperature Pulse Rate 98 104 H 100 Respiratory Rate 10 L 26 H Blood Pressure 111/58 L Pulse Oximetry 90 97 05/15/20 06:0
[2020-05-15 17:14] LABS: Glucose Point of Care 304 (65-105)
[2020-05-15 20:13] LABS: Glucose Point of Care 189 (65-105)
[2020-05-15] MEDS: INSULIN GLARGINE (*BKC) 100 UNITS/ML 42 UNITS SUB-Q (20:15)
[2020-05-16] VITALS (28 sets, daily range): BP systolic 103–148; BP diastolic 47–84; PULSE 92–113; RESP 9–107; TEMP 36.3–37.7; O2SAT 89–100
[2020-05-16] MEDS: HEPARIN SODIUM 5,000 UNITS/ML VIAL 5000 UNITS SUB-Q ×4 (00:13→21:14)
[2020-05-16 00:16] LABS: Glucose Point of Care 191 (65-105)
[2020-05-16] MEDS: ALBUTEROL SULFATE NEB 2.5 MG/0.5 ML INH INHALATION ×4 (02:23→20:04)
[2020-05-16] MEDS: IPRATROPIUM BR 0.02% INH SOLN 0.5 MG/2.5 ML VIAL INHALATION ×4 (02:23→20:04)
[2020-05-16 04:39] LABS: Alveolar/Arterial O2 Gradient 86.7 mmHg; Base Excess ABG 5.1 mEq/l (+/-2.0); Carboxyhemoglobin 0.5 % THb (0-2.0); Fractional Inspired Oxygen 30 %; HCO3 ABG 30.1 mEq/l (22.0-26.0); Methemoglobin ABG 0.1 %THb (0-1.5); Oxygen Content ABG 15.5 %vol (16.0-22.0); PO2 ABG 73.2 mmHg (80.0-100.0); PO2 FiO2 Ratio Arterial Blood 2.44 %; Reduced Hemoglobin 5.4 %THb (0-5.0); Total Hemoglobin 11.7 g/dL (12.0-18.0); pH ABG 7.433 (7.350-7.450)
[2020-05-16 04:40] LABS: Arterial Blood Gas PEEP 5 cmH2O; Arterial Blood Gas Vent Mode ASV; Device VENTILATOR; Modified Allen's Test Unable to perform; Site Drawn RIGHT BRACHIAL
[2020-05-16] MEDS: CENTRAL LINE FLUSH 10 ML IV PUSH ×3 (05:04→21:14)
[2020-05-16] MEDS: INSULIN ASPART (*BKC) 100 UNITS/ML SUB-Q ×2 (05:09→17:57)
[2020-05-16 06:20] LABS: Glucose Point of Care 216 (65-105)
[2020-05-16 06:41] LABS: Hematocrit 30.9 % (37.0-47.0); Hemoglobin 9.2 g/dL (12.0-15.0); Mean Corpuscular HGB Conc 29.8 g/dl (32-36); Mean Corpuscular Hemoglobin 30.5 pg (26-34); Mean Corpuscular Volume 102.3 fl (80-100); Mean Platelet Volume 11.9 fl (7.4-10.4); Platelet Count Result 284 k/mm3 (150-375); Red Blood Count 3.02 M/mm3 (4.2-5.4); Red Cell Distribution Width 17.1 % (11.5-14.5); White Blood Count 13.6 K/mm3 (4.5-10.0)
[2020-05-16 07:22] LABS: Alanine Aminotransferase 28 U/L (4-35); Albumin Level 3.4 g/dL (3.5-5.1); Alkaline Phosphatase 343 U/L (38-126); Anion Gap 10 mmol/L (8-16); Aspartate Amino Transferase 44 U/L (14-36); Bilirubin,Total 0.8 mg/dL (0.2-1.3); Blood Urea Nitrogen 43 mg/dL (7-17); Calcium 10.1 mg/dL (8.4-10.2); Carbon Dioxide 36 mmol/L (22-30); Chloride 89 mmol/L (98-107); Estimated CRCL calculation 15 ml/min; Estimated Glomerular Filt Rate 12; Glucose 184 mg/dL (65-105); Magnesium 2.7 mg/dL (1.6-2.3); Phosphorus 3.4 mg/dL (2.5-4.5); Potassium 4.1 mmol/L (3.4-5.0); Sodium 135 mmol/L (137-145)
[2020-05-16] MEDS: ATORVASTATIN 40 MG TABLET 80 MG FEED TUBE (09:42)
[2020-05-16] MEDS: ASPIRIN 81 MG CHEWABLE TABLET FEED TUBE (09:42)
[2020-05-16] MEDS: MIDODRINE HCL 10 MG TABLET PO ×3 (09:42→17:57)
[2020-05-16] MEDS: PANTOPRAZOLE SODIUM IV 40 MG VIAL IV PUSH (09:43)
[2020-05-16] MEDS: SILVERGEL (ELTA) 45 ML 1 APPLIC TOPICAL (09:43)
[2020-05-16] MEDS: CLOPIDOGREL BISULFATE 75 MG TABLET FEED TUBE (09:43)
--- NOTE | 2020-05-16 11:36 | PM.PNNEP ---
Progress Note: A&P Assessment and Plan (1) End-stage renal disease (ESRD): Code(s): N18.6 - End stage renal disease Status: Acute Assessment and Plan: Still has excess fluid By chest x-ray. Still trouble weaning from the vent. Respiratory rate is still near 40 Rest today HD on Sunday (2) Acute on chronic respiratory failure with hypoxia and hypercapnia: Code(s): J96.21 - Acute and chronic respiratory failure with hypoxia; J96.22 - Acute and chronic respiratory failure with hypercapnia Status: Acute Assessment and Plan: continue ventilator support Multiple acute and chronic issues involved Trying to remove fluid as tolerated by her blood pressure. (3) Chronic systolic congestive heart failure: Code(s): I50.22 - Chronic systolic (congestive) heart failure Status: Acute Assessment and Plan: volume overload persists. Cardiology following given elevated troponins possible cardiac catheterization when more stable (4) Anemia of chronic disease: Code(s): D63.8 - Anemia in other chronic diseases classified elsewhere Status: Acute Assessment and Plan: due to ESRD and acute illness Getting Epogen with dialysis. (5) Type 1 diabetes mellitus: Qualifiers: Diabetes mellitus complication status: with circulatory complication Code(s): E10.9 - Type 1 diabetes mellitus without complications Status: Chronic Assessment and Plan: Currently getting insulin. (6) Ulcer of left heel: Qualifiers: Non-pressure ulcer stage: unspecified non-pressure ulcer stage Qualified Code(s): L97.429 - Non-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 with unspecified severity Code(s): L97.429 - Non-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 with unspecified severity Status: Acute Assessment and Plan: Wound care following Subjective Date/time seen: 05/16/20 11:36 Interval history: Paty is on the ventilator. She is sitting upright in a chair position but still in bed. She seems to make eye contact but does not really interact. Review of Systems Review of Systems: ROS unobtainable: Yes unobtainable due to medical condition Exam Narrative: Exam Narrative: General: WD/WN female in NAD; intubated Heart: normal S1 and S2; no rub Lungs: coarse breath sounds Bilaterally Abdomen: soft, nontender, nondistended, positive bowel sounds Extremities: no edema or cyanosis Skin: No acute rash or subcu nodules Objective Data Vital Signs Vital Signs: Vital Signs - 24 hr 05/15/20 11:37 05/15/20 11:44 05/15/20 11:45 Temperature Pulse Rate 96 96 93 Respiratory Rate 18 Blood Pressure 118/63 Pulse Oximetry 96 96 05/15/20 11:56 05/15/20 12:00 05/15/20 13:34 Temperature 36.3 C L Pulse Rate 95 97 96 Respiratory Rate 25 H 24 H 26 H Blood Pressure 113/58 L 115/58 L 114/57 L Pulse Oximetry 92 100 97 05/15/20 14:20 05/15/20 14:30 05/15/20 16:00 Temperature 35.9 C L Pulse Rate 97 95 100 Respiratory Rate 25 H 25 H 21 H Blood Pressure 110/49 L Pulse Oximetry 97 97 05/15/20 17:26 05/15/20 17:59 05/15/20 20:00 Temperature Pulse Rate 108 H 99 107 H Respiratory Rate 33 H Blood Pressure 111/52 L Pulse Oximetry 96 94 05/15/20 20:03 05/15/20 20:09 05/15/20 20:11 Temperature Pulse Rate 104 H 98 101 H Respiratory Rate 24 H 15 Blood Pressure Pulse Oximetry 99 05/15/20 20:13 05/15/20 22:00 05/15/20 23:00 Temperature 36.6 C Pulse Rate 103 H 110 H 101 H Respiratory Rate 22 H 25 H Blood Pressure 121/60 149/68 H Pulse Oximetry 100 97 97 05/16/20 00:00 05/16/20 02:00 05/16/20 02:23 Temperature Pulse Rate 108 H 103 H 101 H Respiratory Rate 28 H 20 13 Blood Pressure 148/73 H 138/84 Pulse Oximetry 97 89 L 05/16/20 02:33 05/16/20 04:00 05/16/20 04:20 Temperature Pulse Rate 95 93 96 Respiratory
[2020-05-16 12:30] LABS: Glucose Point of Care 137 (65-105)
--- NOTE | 2020-05-16 13:50 | WPDINTPN ---
Progress Note: A&P Assessment and Plan (1) Acute on chronic respiratory failure with hypoxia and hypercapnia: Code(s): J96.21 - Acute and chronic respiratory failure with hypoxia; J96.22 - Acute and chronic respiratory failure with hypercapnia Status: Acute Assessment and Plan: Patient with acute chronic respiratory failure, was found unresponsive at her house without oxygen. Patient was intubated in the ER 05/01/2020 -chest x-ray still with bilateral pulmonary edema -patient currently on ASV mode of ventilation. Patient getting alkalotic, will decrease minute ventilation percentage on ASV mode Patient placed on pressure support ventilation this morning, yesterday patient tolerated PSV 14/5 4-5 hours. -patient was placed back on ASV. This morning place patient back on PSV 14/5 but was tachypneic, tachycardic with respiratory distress and decreased O2 sats. Had to put her back on ASV. -continue bronchodilators -patient had dialysis with removal of 3000 mL on 05/12, 5500 mL removal on 05/14 3500 mL removal of 05/15. (2) Encephalopathy: Code(s): G93.40 - Encephalopathy, unspecified Status: Acute Assessment and Plan: RESOLVED: Patient OFF all sedation, opens her eyes, follows simple commands in all extremities -currently on Precedex and still follows simple commands CT scan of the brain on 05/05/2020 did not show any acute intracranial process. -EEG was performed on 05/05/2020 -showed severe abnormal record consistent with organic or metabolic encephalopathy -appreciate neurology evaluation (3) End-stage renal disease (ESRD): Code(s): N18.6 - End stage renal disease Status: Acute Assessment and Plan: End-stage renal disease on dialysis,(Sunday, , Sunday) Dialysis per Nephrology. -significant amount of fluid removal done in the last 3-4 sessions, pressures have been adequate -electrolytes are within normal limits - Epogen per nephrology (4) Type 1 diabetes mellitus: Qualifiers: Diabetes mellitus complication status: with circulatory complication Code(s): E10.9 - Type 1 diabetes mellitus without complications Status: Chronic Assessment and Plan: Type 1 diabetes on Lantus at home, currently hypoglycemic -hemoglobin A1c is 5.7 this admission Continue Accu-Cheks and sliding scale insulin Continue Lantus (5) Hypoglycemia: Code(s): E16.2 - Hypoglycemia, unspecified Status: Acute Assessment and Plan: Resolved Patient with hypoglycemia on admission, -unsure why patient is hypoglycemia, could related to decreased p.o. intake, excessive Lantus. -discussed with son Adithya on 05/07/2020, he stated patient's ascites weeks she could be taking more insulin. Requests if care coordination could arrange for home health or detention placement, as her hypoglycemic events have been more frequent (6) Person under investigation for COVID-19: Code(s): Z20.828 - Contact with and (suspected) exposure to other viral communicable diseases Status: Ruled-out Assessment and Plan: -SARS-CoV-2 PCR negative on 05/01, -repeat SARS-CoV-2 PCR negative on 05/04 Discontinue all isolation (7) Elevated troponin: Code(s): R77.8 - Other specified abnormalities of plasma proteins Status: Acute Assessment and Plan: Likely related to respiratory failure, stress, type 2 infarct, given history of severe coronary artery disease with multiple stents in the past, ischemic cardiomyopathy -elevated troponins could be related to NSTEMI, discussed with Cardiology (Dr. Tovar), patient had cardiac catheterization with multivessel intervention earlier in [address] Martinez from [facility]. Cardiology discussed with him and he mentioned that patient has relatively smaller caliber, severely calcific vessels, and patient had multivessel PCI/stenting with adjunct atherectomy. Patient has jailed distal left circumflex artery.
--- NOTE | 2020-05-16 15:57 | PM.IMPN ---
Progress Note: A&P Assessment and Plan (1) Elevated troponin: Code(s): R77.8 - Other specified abnormalities of plasma proteins Status: Acute Assessment and Plan: Stable Cardiology following (2) Chronic obstructive pulmonary disease: Qualifiers: COPD type: unspecified COPD Qualified Code(s): J44.9 - Chronic obstructive pulmonary disease, unspecified Code(s): J44.9 - Chronic obstructive pulmonary disease, unspecified Status: Acute (3) Anemia of chronic disease: Code(s): D63.8 - Anemia in other chronic diseases classified elsewhere Status: Acute (4) Chronic systolic congestive heart failure: Code(s): I50.22 - Chronic systolic (congestive) heart failure Status: Acute Assessment and Plan: Appears to be getting euvolemic with the help of dialysis. (5) Elevated troponin: Code(s): R77.8 - Other specified abnormalities of plasma proteins Status: Acute Assessment and Plan: No plans for invasive procedure at the current time. (6) Acute on chronic respiratory failure with hypoxia and hypercapnia: Code(s): J96.21 - Acute and chronic respiratory failure with hypoxia; J96.22 - Acute and chronic respiratory failure with hypercapnia Status: Acute Assessment and Plan: Not tolerating weaning trials. (7) End-stage renal disease (ESRD): Code(s): N18.6 - End stage renal disease Status: Acute Assessment and Plan: On HD Subjective Date/time seen: 05/16/20 15:57 Patient signals ok. Review of Systems Review of Systems: Narrative: On ventilator. Exam Narrative: Exam Narrative: Sitting in bed. Const: General: ill appearing, tired appearing and other (Diaphoretic.) Nutritional Appearance: average body habitus HENMT: Head: normocephalic Ears: hearing grossly normal bilaterally Face and sinus: normal facial exam Neck: Neck: no lymphadenopathy, supple and no JVD Resp: Auscultation: diminished lung sounds Cardio: Jugular venous distension: no JVD Rate: regular rate Rhythm: regular rhythm GI: GI Palp: Yes Soft to palpation and Yes No hepatosplenomegaly present Skin: Wounds: wounds noted (LLE) Neuro: General: CN's II-XI intact bilaterally Cranial nerves: Yes Equal, round and reactive pupils present Cognition (Neuro): normal cognition (Follows simple commands.) Motor exam (neuro): 5/5 motor strength present throughout Extrem: General: pedal edema bilaterally Objective Data Vital Signs Vital Signs: Vital Signs - 24 hr 05/15/20 16:00 05/15/20 17:26 05/15/20 17:59 Temperature 96.7 F L Pulse Rate 100 108 H 99 Respiratory Rate 21 H 33 H Blood Pressure 110/49 L 111/52 L Pulse Oximetry 97 96 94 05/15/20 20:00 05/15/20 20:03 05/15/20 20:09 Temperature Pulse Rate 107 H 104 H 98 Respiratory Rate 24 H 15 Blood Pressure Pulse Oximetry 05/15/20 20:11 05/15/20 20:13 05/15/20 22:00 Temperature 97.9 F Pulse Rate 101 H 103 H 110 H Respiratory Rate 22 H 25 H Blood Pressure 121/60 149/68 H Pulse Oximetry 99 100 97 05/15/20 23:00 05/16/20 00:00 05/16/20 02:00 Temperature Pulse Rate 101 H 108 H 103 H Respiratory Rate 28 H 20 Blood Pressure 148/73 H 138/84 Pulse Oximetry 97 97 89 L 05/16/20 02:23 05/16/20 02:33 05/16/20 04:00 Temperature Pulse Rate 101 H 95 93 Respiratory Rate 13 10 L 10 L Blood Pressure 121/58 L Pulse Oximetry 97 05/16/20 04:20 05/16/20 06:00 05/16/20 07:55 Temperature Pulse Rate 96 103 H 100 Respiratory Rate 18 12 Blood Pressure 122/58 L Pulse Oximetry 96 97 05/16/20 07:58 05/16/20 08:00 05/16/20 08:05 Temperature 98.2 F Pulse Rate 103 H 102 H 101 H Respiratory Rate 21 H 12 Blood Pressure 126/66 Pulse Oximetry 97 100 05/16/20 10:00 05/16/20 11:04 05/16/20 11:50 Temperature Pulse Rate 101 H 101 H 113 H Respiratory Rate 23 H Blood Pressure 103/50 L Pulse Oximetry 100 100 97
[2020-05-16 18:00] LABS: Glucose Point of Care 210 (65-105)
[2020-05-16] MEDS: INSULIN GLARGINE (*BKC) 100 UNITS/ML 42 UNITS SUB-Q (21:13)
[2020-05-16] MEDS: ALPRAZolam (*CRX) 0.5 MG TABLET PO (23:27)
[2020-05-16] MEDS: ACETAMINOPHEN ELIXIR 325 MG/10.15 ML UDC 650 MG PO (23:36)
[2020-05-16 23:52] LABS: Glucose Point of Care 170 (65-105)
[2020-05-17] VITALS (41 sets, daily range): BP systolic 101–139; BP diastolic 49–70; PULSE 73–108; RESP 10–35; TEMP 36.4–37.7; O2SAT 95–100
[2020-05-17] MEDS: ALBUTEROL SULFATE NEB 2.5 MG/0.5 ML INH INHALATION ×4 (01:44→19:37)
[2020-05-17] MEDS: IPRATROPIUM BR 0.02% INH SOLN 0.5 MG/2.5 ML VIAL INHALATION ×4 (01:44→19:37)
[2020-05-17 04:36] LABS: Alveolar/Arterial O2 Gradient 82.7 mmHg; Base Excess ABG 6.1 mEq/l (+/-2.0); Carboxyhemoglobin 0.3 % THb (0-2.0); Fractional Inspired Oxygen 30 %; HCO3 ABG 31.2 mEq/l (22.0-26.0); Methemoglobin ABG 0.1 %THb (0-1.5); Oxygen Content ABG 13.6 %vol (16.0-22.0); Oxygen Saturation ABG 95.3 % (95.0-100.0); Oxyhemoglobin 94.5 % THb (90.0-100.0); PCO2 ABG 47.8 mmHg (35.0-45.0); Reduced Hemoglobin 5.1 %THb (0-5.0); Total Hemoglobin 10.2 g/dL (12.0-18.0); pH ABG 7.432 (7.350-7.450)
[2020-05-17 04:37] LABS: Device VENTILATOR; Site Drawn RIGHT BRACHIAL
[2020-05-17 04:39] LABS: Arterial Blood Gas PEEP 5 cmH2O; Arterial Blood Gas Vent Mode ASV; Peak Inspiratory Pressure 19 cmH2O
[2020-05-17 05:01] LABS: Hematocrit 28.6 % (37.0-47.0); Hemoglobin 8.7 g/dL (12.0-15.0); Mean Corpuscular HGB Conc 30.4 g/dl (32-36); Mean Corpuscular Hemoglobin 30.4 pg (26-34); Mean Platelet Volume 11.7 fl (7.4-10.4); Platelet Count Result 279 k/mm3 (150-375); Red Blood Count 2.86 M/mm3 (4.2-5.4); Red Cell Distribution Width 17.5 % (11.5-14.5); White Blood Count 13.2 K/mm3 (4.5-10.0)
[2020-05-17 06:06] LABS: Alanine Aminotransferase 26 U/L (4-35); Albumin Level 3.2 g/dL (3.5-5.1); Alkaline Phosphatase 319 U/L (38-126); Anion Gap 8 mmol/L (8-16); Aspartate Amino Transferase 43 U/L (14-36); Bilirubin,Total 0.9 mg/dL (0.2-1.3); Blood Urea Nitrogen 58 mg/dL (7-17); Calcium 10.1 mg/dL (8.4-10.2); Carbon Dioxide 35 mmol/L (22-30); Chloride 89 mmol/L (98-107); Estimated CRCL calculation 12 ml/min; Estimated Glomerular Filt Rate 9; Glucose 218 mg/dL (65-105); Magnesium 2.8 mg/dL (1.6-2.3); Phosphorus 3.5 mg/dL (2.5-4.5); Potassium 4.4 mmol/L (3.4-5.0); Sodium 132 mmol/L (137-145)
[2020-05-17 06:32] LABS: Glucose Point of Care 208 (65-105)
[2020-05-17] MEDS: INSULIN ASPART (*BKC) 100 UNITS/ML SUB-Q ×2 (06:32→17:36)
[2020-05-17] MEDS: HEPARIN SODIUM 5,000 UNITS/ML VIAL 5000 UNITS SUB-Q ×3 (06:33→20:25)
[2020-05-17] MEDS: CENTRAL LINE FLUSH 10 ML IV PUSH ×3 (06:33→20:25)
[2020-05-17] MEDS: MIDODRINE HCL 10 MG TABLET PO ×3 (09:37→17:26)
[2020-05-17] MEDS: EPOETIN ALFA-EPBX 10,000 UNITS/ML VIAL 10000 UNITS IV PUSH (10:00)
--- NOTE | 2020-05-17 11:37 | WPDINTPN ---
Progress Note: A&P Assessment and Plan (1) Acute on chronic respiratory failure with hypoxia and hypercapnia: Code(s): J96.21 - Acute and chronic respiratory failure with hypoxia; J96.22 - Acute and chronic respiratory failure with hypercapnia Status: Acute Assessment and Plan: Patient with acute chronic respiratory failure, was found unresponsive at her house without oxygen. Patient was intubated in the ER 05/01/2020 -chest x-ray still with bilateral pulmonary edema -patient currently on ASV mode of ventilation. 90% minute ventilation - Patient placed on pressure support ventilation this morning and despite high setting of 20/5 she had low tidal volume and high rate. Patient placed back on ASV -continue bronchodilators -plan to remove more fluid with dialysis today (2) Encephalopathy: Code(s): G93.40 - Encephalopathy, unspecified Status: Acute Assessment and Plan: RESOLVED: Patient OFF all sedation, opens her eyes, follows simple commands in all extremities -currently on Precedex and still follows simple commands CT scan of the brain on 05/05/2020 did not show any acute intracranial process. -EEG was performed on 05/05/2020 -showed severe abnormal record consistent with organic or metabolic encephalopathy -appreciate neurology evaluation (3) End-stage renal disease (ESRD): Code(s): N18.6 - End stage renal disease Status: Acute Assessment and Plan: End-stage renal disease on dialysis,(Sunday, , Sunday) Dialysis per Nephrology. -significant amount of fluid removal done in the last 3-4 sessions, pressures have been adequate -electrolytes are within normal limits - Epogen per nephrology (4) Type 1 diabetes mellitus: Qualifiers: Diabetes mellitus complication status: with circulatory complication Code(s): E10.9 - Type 1 diabetes mellitus without complications Status: Chronic Assessment and Plan: Type 1 diabetes on Lantus at home, currently hypoglycemic -hemoglobin A1c is 5.7 this admission Continue Accu-Cheks and sliding scale insulin Continue Lantus (5) Hypoglycemia: Code(s): E16.2 - Hypoglycemia, unspecified Status: Acute Assessment and Plan: Resolved Patient with hypoglycemia on admission, -unsure why patient is hypoglycemia, could related to decreased p.o. intake, excessive Lantus. -discussed with son Adithya on 05/07/2020, he stated patient's ascites weeks she could be taking more insulin. Requests if care coordination could arrange for home health or senior living placement, as her hypoglycemic events have been more frequent (6) Person under investigation for COVID-19: Code(s): Z20.828 - Contact with and (suspected) exposure to other viral communicable diseases Status: Ruled-out Assessment and Plan: -SARS-CoV-2 PCR negative on 05/01, -repeat SARS-CoV-2 PCR negative on 05/04 Discontinue all isolation (7) Elevated troponin: Code(s): R77.8 - Other specified abnormalities of plasma proteins Status: Acute Assessment and Plan: Likely related to respiratory failure, stress, type 2 infarct, given history of severe coronary artery disease with multiple stents in the past, ischemic cardiomyopathy -elevated troponins could be related to NSTEMI, discussed with Cardiology (Dr. Tovar), patient had cardiac catheterization with multivessel intervention earlier in [address] Martinez from [facility]. Cardiology discussed with him and he mentioned that patient has relatively smaller caliber, severely calcific vessels, and patient had multivessel PCI/stenting with adjunct atherectomy. Patient has jailed distal left circumflex artery. LVEF at that time was about 30-40%. -tropoonins peaked at 3.97 from 0.049 on admission -discuss with cardiology, will continue medical management at this time. Continue aspirin and clopidogrel. Reintroduce beta-shahram with blood pressures are more st
--- NOTE | 2020-05-17 12:34 | PM.PNNEP ---
Progress Note: A&P Assessment and Plan (1) Anxiety: Code(s): F41.9 - Anxiety disorder, unspecified Status: Acute (2) End-stage renal disease (ESRD): Code(s): N18.6 - End stage renal disease Status: Acute Assessment and Plan: HD today and continue M/W/F schedule follow electrolytes, volume status, and clearance (3) Acute on chronic respiratory failure with hypoxia and hypercapnia: Code(s): J96.21 - Acute and chronic respiratory failure with hypoxia; J96.22 - Acute and chronic respiratory failure with hypercapnia Status: Acute Assessment and Plan: continue ventilator support multiple acute and chronic issues involved trying to remove fluid as tolerated by her blood pressure noted plans for tracheostomy tomorrow (4) Chronic systolic congestive heart failure: Code(s): I50.22 - Chronic systolic (congestive) heart failure Status: Acute Assessment and Plan: volume overload persists Cardiology following given elevated troponins possible cardiac catheterization when more stable (5) Anemia of chronic disease: Code(s): D63.8 - Anemia in other chronic diseases classified elsewhere Status: Acute Assessment and Plan: due to ESRD and acute illness getting Epogen with dialysis. (6) Type 1 diabetes mellitus: Qualifiers: Diabetes mellitus complication status: with circulatory complication Code(s): E10.9 - Type 1 diabetes mellitus without complications Status: Chronic Assessment and Plan: follow accuchecks on SSI (7) Ulcer of left heel: Qualifiers: Non-pressure ulcer stage: unspecified non-pressure ulcer stage Qualified Code(s): L97.429 - Non-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 with unspecified severity Code(s): L97.429 - Non-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 with unspecified severity Status: Acute Assessment and Plan: Wound care following Will continue to follow. Subjective Date/time seen: 05/17/20 12:34 Tolerating dialysis at the time of my visit (seen on HD at 12:15PM); remains on ventilator support with stable hemodynamics; awake and able to answer simple yes/no questions; no events overnight or earlier this AM. Exam Narrative: Exam Narrative: General: WD/WN female in NAD; intubated Heart: normal S1 and S2; no rub Lungs: coarse breath sounds Bilaterally Abdomen: soft, nontender, nondistended, positive bowel sounds Extremities: no edema or cyanosis Skin: no rash Objective Data Vital Signs Vital Signs: Vital Signs Temp Pulse Resp BP Pulse Ox 05/17/20 12:15 97 110/55 L 05/17/20 12:00 97 113/60 05/17/20 11:45 94 108/59 L 05/17/20 11:30 93 119/64 05/17/20 11:15 94 120/61 05/17/20 11:00 91 122/62 05/17/20 10:52 73 95 05/17/20 10:45 91 112/61 05/17/20 10:30 95 122/59 L 05/17/20 10:15 96 115/65 05/17/20 10:00 97 20 120/70 100 05/17/20 09:45 91 122/61 05/17/20 09:30 93 118/60 05/17/20 09:25 88 124/62 05/17/20 09:17 36.7 C 89 12 112/55 L 99 05/17/20 09:04 94 11 L 05/17/20 08:57 94 100 05/17/20 08:54 97 14 05/17/20 08:00 101 H 30 H 130/59 L 98 05/17/20 06:00 91 10 L 120/58 L 100 05/17/20 04:40 102 H 98 05/17/20 04:00 37.6 C H 97 35 H 110/50 L 99 05/17/20 02:00 107 H 21 H 116/61 99 05/17/20 01:45 107 H 11 L 98 05/17/20 00:36 37.6 C H 05/17/20 00:00 37.7 C H 105 H 23 H 119/49 L 98 05/16/20 23:36 37.7 C H 05/16/20 22:56 112 H 99 05/16/20 21:52 109 H 24 H 131/73 98 05/16/20 20:09 104 H 97 05/16/20 20:08 99 107 H 05/16/20 20:00 37.2 C 113 H 25 H 129/69 100 05/16/20 18:00 107 H 20 110/69 99 05/16/20 16:51 113 H 99 05/16/20 16:00 36.3 C L 112 H 11 L 135/80 99 05/16/20 14:00 94 11 L 111/47 L 100 05/16/20 13
--- NOTE | 2020-05-17 13:20 | PCDIET ---
ICU Rounding Note: Patient tolerating Nepro at 45mL/hr goal rate with 30mL water flush every 4 hours. Last recorded weight is 77.2kg which is down from last review. Patient had 3.5L UF on 05/15/20 and undergoing dialysis again today. Bowel Motility: BM x 2 today. Labs Reviewed: Hgb (8.7), Hct (28.6), Glu (218), BUN (58), Cr (5.0), Na (132), Mg (2.8), Alb (3.2) Meds Noted: Albumin, Albuterol, Lipitor, Plavix, Retacrit, Heparin, Novolog, Lantus, Atrovent Additional Notes: Multiple skin issues to lower extremities. Following daily in ICU rounds. Assessing/reassessing every Sunday/Sunday.
[2020-05-17 14:56] LABS: Glucose Point of Care 179 (65-105)
[2020-05-17] MEDS: ATORVASTATIN 40 MG TABLET 80 MG FEED TUBE (14:58)
[2020-05-17] MEDS: ASPIRIN 81 MG CHEWABLE TABLET FEED TUBE (14:58)
[2020-05-17] MEDS: CLOPIDOGREL BISULFATE 75 MG TABLET FEED TUBE (14:59)
[2020-05-17] MEDS: PANTOPRAZOLE SODIUM IV 40 MG VIAL IV PUSH (14:59)
[2020-05-17] MEDS: SILVERGEL (ELTA) 45 ML 1 APPLIC TOPICAL (14:59)
[2020-05-17] MEDS: ALPRAZolam (*CRX) 0.5 MG TABLET PO (17:26)
[2020-05-17 17:35] LABS: Glucose Point of Care 201 (65-105)
[2020-05-17] MEDS: INSULIN GLARGINE (*BKC) 100 UNITS/ML 42 UNITS SUB-Q (20:24)
[2020-05-17 20:31] LABS: Glucose Point of Care 221 (65-105)
[2020-05-18] VITALS (29 sets, daily range): BP systolic 95–122; BP diastolic 41–63; PULSE 79–120; RESP 10–30; TEMP 36.4–36.9; O2SAT 96–100
[2020-05-18] LABS: Glucose Point of Care 78 (65-105)
[2020-05-18] MEDS: ALBUTEROL SULFATE NEB 2.5 MG/0.5 ML INH INHALATION ×4 (01:59→19:53)
[2020-05-18] MEDS: IPRATROPIUM BR 0.02% INH SOLN 0.5 MG/2.5 ML VIAL INHALATION ×3 (01:59→13:31)
[2020-05-18 04:31] LABS: Hematocrit 31.2 % (37.0-47.0); Hemoglobin 9.3 g/dL (12.0-15.0); Mean Corpuscular HGB Conc 29.8 g/dl (32-36); Mean Corpuscular Hemoglobin 30.1 pg (26-34); Mean Platelet Volume 10.9 fl (7.4-10.4); Platelet Count Result 329 k/mm3 (150-375); Red Blood Count 3.09 M/mm3 (4.2-5.4); Red Cell Distribution Width 17.9 % (11.5-14.5); White Blood Count 12.6 K/mm3 (4.5-10.0)
[2020-05-18 04:31] LABS: Alveolar/Arterial O2 Gradient 82.3 mmHg; Base Excess ABG 7.1 mEq/l (+/-2.0); Fractional Inspired Oxygen 30 %; HCO3 ABG 31.6 mEq/l (22.0-26.0); Methemoglobin ABG 0.2 %THb (0-1.5); Oxygen Content ABG 14.3 %vol (16.0-22.0); Oxygen Saturation ABG 96.2 % (95.0-100.0); Oxyhemoglobin 95.3 % THb (90.0-100.0); PO2 ABG 78.7 mmHg (80.0-100.0); PO2 FiO2 Ratio Arterial Blood 2.62 %; Reduced Hemoglobin 4.5 %THb (0-5.0); Total Hemoglobin 10.6 g/dL (12.0-18.0); pH ABG 7.465 (7.350-7.450)
[2020-05-18 04:32] LABS: Device VENTILATOR; Modified Allen's Test Pass; Site Drawn RIGHT BRACHIAL
[2020-05-18 04:33] LABS: Arterial Blood Gas PEEP 5 cmH2O; Arterial Blood Gas Vent Mode ASV
[2020-05-18 04:54] LABS: Glucose Point of Care 28 (65-105)
[2020-05-18] MEDS: DEXTROSE 50% 25 GM/50 ML SYRINGE IV PUSH (04:57)
[2020-05-18] MEDS: HEPARIN SODIUM 5,000 UNITS/ML VIAL 5000 UNITS SUB-Q ×2 (04:57→22:19)
[2020-05-18] MEDS: CENTRAL LINE FLUSH 10 ML IV PUSH ×3 (04:58→22:19)
[2020-05-18] MEDS: DEXTROSE 5% 1,000 ML 1,000 ML 100 ML IVPB (05:02)
[2020-05-18 05:20] LABS: Glucose Point of Care 135 (65-105)
--- NOTE | 2020-05-18 06:17 | WPDCN ---
Assessment and Plan Additional Plan Plan is a tracheotomy [facility] Data of Consult Date/Time: 05/18/20 06:17 Requesting Physician: Dino Barrett MD Primary Care Provider: Iman Pro, Consult Narrative Narrative: Paty Sow is a 54 year old female prolonged endotracheal intubation for elective tracheotomy Review of Systems Review of Systems: ROS unobtainable: Yes unobtainable due to endotracheal tube Constitutional: Constitutional: Reports as per H[facility] Past Medical History Medical History Anemia of chronic disease Anxiety Arthropathy of right ankle Asthma Bronchitis Chronic obstructive pulmonary disease Chronic respiratory failure with hypoxia, on home oxygen therapy Chronic systolic congestive heart failure Coronary artery disease With history of UT and stents. End-stage renal disease on hemodialysis Hyperlipidemia Hypertension Ischemic cardiomyopathy with implantable cardioverter-defibrillator (ICD) Thrombocytopenia Chronic mild thrombocytopenia. Type 1 diabetes mellitus Complicated by diabetic retinopathy, peripheral neuropathy, and nephropathy. Hemoglobin A1c was 5.5% on 04/04/2020. Surgical History Surgical History AICD (automatic cardioverter/defibrillator) present AV fistula History of ankle surgery (~08/2016) Right ankle ORIF. History of cardiac catheterization (~2009) With stents. History of section History of dilation and curettage Status post partial lobectomy of lung Right upper lobectomy at age 7 for unclear reasons. Family History Family History Other Adopted Unknown family medical history Social History Social History Social History: The patient lives in [place]. She is on disability. She smoked about a half a pack of cigarettes per day for many years and quit in fall 2019. No alcohol or illicit substance abuse. Her son, Adithya Sow, as her emergency contact and she is listed as a full code. Smoking status: Former smoker Spiritual care concerns: No Meds Home Medications and Allergies Home Medications Medication Instructions Recorded Confirmed Type Basaglar KwikPen U-100 Insulin 40 unit SUBCUT HS 03/25/20 05/01/20 History alprazolam 0.5 mg PO TID PRN 03/25/20 05/01/20 History aspirin 81 mg PO DAILY 03/25/20 05/01/20 History atorvastatin 80 mg PO HS 03/25/20 05/01/20 History clopidogrel 75 mg PO DAILY 03/25/20 05/01/20 History metoprolol succinate 25 mg PO DAILY 03/25/20 05/01/20 History mupirocin 1 applic TOPICAL BID #15 g 03/25/20 05/01/20 Rx tramadol 50 mg PO Q6H PRN #6 tablet 03/29/20 05/01/20 Rx benzonatate 100 mg PO TID #30 cap 04/09/20 05/01/20 Rx ibuprofen 800 mg PO TID PRN 05/01/20 05/01/20 History Allergies Allergy/AdvReac Type Severity Reaction Status Date / Time No Known Allergies Allergy Verified 05/01/20 11:54 Vital Signs Vital Signs - 24 hr 05/17/20 08:00 05/17/20 08:54 05/17/20 08:57 Temperature Pulse Rate 99 97 94 Respiratory Rate 22 H 14 Blood Pressure 130/59 L Pulse Oximetry 100 100 05/17/20 09:04 05/17/20 09:17 05/17/20 09:25 Temperature 36.7 C Pulse Rate 94 89 88 Respiratory Rate 11 L 12 Blood Pressure 112/55 L 124/62 Pulse Oximetry 99 05/17/20 09:30 05/17/20 09:45 05/17/20 10:00 Temperature Pulse Rate 93 91 97 Respiratory Rate 20 Blood Pressure 118/60 122/61 120/70 Pulse Oximetry 100 05/17/20 10:15 05/17/20 10:30 05/17/20 10:45 Temperature Pulse Rate 96 95 91 Respiratory Rate Blood Pressure 115/65 122/59 L 112/61 Pulse Oximetry 05/17/20 10:52 05/17/20 11:00 05/17/20 11:15 Temperature Pulse Rate 73 91 94 Respiratory Rate Blood Pressure 122/62 120/61 Pulse Oximetry 95 05/17/20 11:30 05/17/20 11:45 05/17/20 12:00
--- NOTE | 2020-05-18 06:18 | WPDHPUPDATE1 ---
History and Physical Update Update Date/Time: 05/18/20 06:18 History and Physical has been reviewed, including an updated exam of the patient. There are NO changes in the patient's condition. Risks, benefits, and alternatives have been discussed and questions answered. Patient agrees to proceed with procedure.
[2020-05-18 06:41] LABS: Alanine Aminotransferase 24 U/L (4-35); Albumin Level 3.1 g/dL (3.5-5.1); Alkaline Phosphatase 268 U/L (38-126); Anion Gap 5 mmol/L (8-16); Aspartate Amino Transferase 43 U/L (14-36); Bilirubin,Total 0.7 mg/dL (0.2-1.3); Blood Urea Nitrogen 32 mg/dL (7-17); Calcium 9.7 mg/dL (8.4-10.2); Carbon Dioxide 36 mmol/L (22-30); Chloride 93 mmol/L (98-107); Estimated CRCL calculation 18 ml/min; Estimated Glomerular Filt Rate 15; Glucose 140 mg/dL (65-105); Magnesium 2.4 mg/dL (1.6-2.3); Phosphorus 2.8 mg/dL (2.5-4.5); Potassium 3.5 mmol/L (3.4-5.0); Sodium 134 mmol/L (137-145)
[2020-05-18] MEDS: ATORVASTATIN 40 MG TABLET 80 MG FEED TUBE (08:15)
[2020-05-18] MEDS: MIDODRINE HCL 10 MG TABLET PO ×2 (08:15→17:16)
[2020-05-18] MEDS: PANTOPRAZOLE SODIUM IV 40 MG VIAL IV PUSH (08:16)
[2020-05-18] MEDS: SILVERGEL (ELTA) 45 ML 1 APPLIC TOPICAL (08:17)
--- NOTE | 2020-05-18 08:41 | WPDANESEPP ---
Anes - Eval Pre Procedure Procedure: Operation Date: 05/18/20 12:15 Proposed Procedures p Tracheostomy - Basil Ghotra MD Date/Time: 05/18/20 08:41 Pre Op Diagnosis: acute respiratory failure w hypoxia and hypercarbi Patient Data Age: 54 Gender: F Height: 5 ft 7 in Weight: 70.6 kg Last Vital Signs Temp 36.9 C 05/18/20 04:00 Pulse 79 05/18/20 06:00 Resp 10 L 05/18/20 06:00 BP 115/58 L 05/18/20 06:00 Pulse Ox 100 05/18/20 06:00 Allergies Allergy/AdvReac Type Severity Reaction Status Date / Time No Known Allergies Allergy Verified 05/01/20 11:54 Home Medications Medication Instructions Recorded Confirmed Type Faithaglar AnthonyikPen U-100 Insulin 40 unit SUBCUT HS 03/25/20 05/01/20 History alprazolam 0.5 mg PO TID PRN 03/25/20 05/01/20 History aspirin 81 mg PO DAILY 03/25/20 05/01/20 History atorvastatin 80 mg PO HS 03/25/20 05/01/20 History clopidogrel 75 mg PO DAILY 03/25/20 05/01/20 History metoprolol succinate 25 mg PO DAILY 03/25/20 05/01/20 History mupirocin 1 applic TOPICAL BID #15 g 03/25/20 05/01/20 Rx tramadol 50 mg PO Q6H PRN #6 tablet 03/29/20 05/01/20 Rx benzonatate 100 mg PO TID #30 cap 04/09/20 05/01/20 Rx ibuprofen 800 mg PO TID PRN 05/01/20 05/01/20 History Laboratory Tests 05/17/20 05/17/20 05/17/20 14:54 17:29 20:23 WBC RBC Hgb Hct MCV MCH MCHC RDW Plt Count MPV Puncture Site ABG pH ABG pCO2 ABG pO2 ABG PO2/FiO2 Ratio ABG HCO3 ABG O2 Saturation ABG O2 Content ABG Base Excess A-a Gradient Oxyhemoglobin Carboxyhemoglobin Methemoglobin Reduced Hemoglobin Total Hemoglobin O2 Delivery Device O2 Liters/Min Minute Volume Vent Rate Vent Mode FiO2 30% Tidal Volume PEEP 5 Peak Inspir Pressure Pressure Support Sodium Potassium Chloride Carbon Dioxide Anion Gap BUN Creatinine Estim Creat Clear Calc Estimated GFR Glucose POC Capillary Glucose 179 mg/dl H mg/dl 201 mg/dl H mg/dl 221 mg/dl H mg/dl (65-105) (65-105) (65-105) Calcium Phosphorus Magnesium Total Bilirubin AST ALT Alkaline Phosphatase Total Protein Albumin 05/17/20 05/18/20 05/18/20 23:59 04:05 04:23 WBC 12.6 K/mm3 H K/mm3 (4.5-10.0) RBC 3.09 M/mm3 L M/mm3 (4.2-5.4) Hgb 9.3 g/dL L g/dL (12.0-15.0) Hct 31.2 % L % (37.0-47.0) MCV 101.0 fl H fl (80-100) MCH 30.1 pg pg (26-34) MCHC 29.8 g/dl L g/dl (32-36) RDW 17.9 % H % (11.5-14.5) Plt Count 329 k/mm3 k/mm3 (150-375) MPV 10.9 fl H fl (7.4-10.4) Puncture Site Right brachial ABG pH 7.465 H (7.350-7.450) ABG pCO2 45.0 mmHg mmHg (35.0-45.0) ABG pO2 78.7 mmHg L mmHg (80.0-100.0) ABG PO2/FiO2 Ratio 2.62 % % ABG HCO3 31.6 mEq/l H mEq/l (22.0-26.0) ABG O2 Saturation 96.2 % % (95.0-100.0) ABG O2 Content 14.3 %vol L %vol (16.0-22.0) ABG Base Excess 7.1 mEq/l mEq/l (+/-2.0) A-a Gradient 82.3 mmHg mmHg Oxyhemoglobin 95.3 % THb % THb (90.0-100.0) Carboxyhemoglobin 0.0 % THb % THb (0-2.0) Methemoglobin 0.2 %THb %THb (0-1.5) Reduced Hemoglobin 4.5 %THb %THb (0-5.0) Total Hemoglobin 10.6 g/dL L g/dL (12.0-18.0) O2
--- NOTE | 2020-05-18 10:50 | PCDIET ---
Nutrition Follow-Up Complete: Nutrition Diagnosis: Inadequate oral intake related to oral intubation as evidenced by NPO status. Nutrition Goal: Patient to meet estimated nutritional needs. Goal in progress. Patient previously tolerating tube feedings which are currently on hold for tracheostomy today. Last recorded weight is 70.6 kg which is decreased from last review. -I/O. Patient had 3500mL UF on 05/17/20. Bowel Motility: BM x 2 on 05/17/20. Labs Reviewed: Hgb (9.3), Hct (31.2), Glu (140), BUN (32), Cr (3.3), Na (134), Alb (3.1) Meds Noted: Heparin, Lantus, Protonix, Albumin, Albuterol, Atrovent, Lipitor, Epogen, Midodrine Additional Notes: No change in skin reported. Multiple LE skin issues noted. Will continue to monitor with same goal. Nutrition Monitoring and Evaluation: Follow up every Sunday/Sunday.
--- NOTE | 2020-05-18 11:23 | WPDINTPN ---
Progress Note: A&P Assessment and Plan (1) Acute on chronic respiratory failure with hypoxia and hypercapnia: Code(s): J96.21 - Acute and chronic respiratory failure with hypoxia; J96.22 - Acute and chronic respiratory failure with hypercapnia Status: Acute Assessment and Plan: Patient with acute chronic respiratory failure, was found unresponsive at her house without oxygen. Patient was intubated in the ER 05/01/2020 -chest x-ray still with bilateral pulmonary edema -patient currently on ASV mode of ventilation. 90% minute ventilation -patient failed PSV trial yesterday but will be again placed on PSV -she is scheduled to go for tracheostomy today -continue bronchodilators -plan to remove more fluid with dialysis today (2) Encephalopathy: Code(s): G93.40 - Encephalopathy, unspecified Status: Acute Assessment and Plan: RESOLVED: Patient OFF all sedation, opens her eyes, follows simple commands in all extremities -currently on Precedex and still follows simple commands CT scan of the brain on 05/05/2020 did not show any acute intracranial process. -EEG was performed on 05/05/2020 -showed severe abnormal record consistent with organic or metabolic encephalopathy -appreciate neurology evaluation (3) End-stage renal disease (ESRD): Code(s): N18.6 - End stage renal disease Status: Acute Assessment and Plan: End-stage renal disease on dialysis,(Sunday, , Sunday) Dialysis per Nephrology. -significant amount of fluid removal done in the last 3-4 sessions, pressures have been adequate -electrolytes are within normal limits - Epogen per nephrology -last dialysis session was yesterday (4) Type 1 diabetes mellitus: Qualifiers: Diabetes mellitus complication status: with circulatory complication Code(s): E10.9 - Type 1 diabetes mellitus without complications Status: Chronic Assessment and Plan: Type 1 diabetes on Lantus at home, currently hypoglycemic -hemoglobin A1c is 5.7 this admission Continue Accu-Cheks and sliding scale insulin Continue Lantus with tube feeds (5) Hypoglycemia: Code(s): E16.2 - Hypoglycemia, unspecified Status: Acute Assessment and Plan: Tube feeds were stopped yesterday as patient was going to go for tracheostomy Patient had 1 episode of hypoglycemia and was started on D5 water at 50. Blood glucose have been adequate Continue for now until tube feeds are resumed. Lantus has been discontinued (6) Person under investigation for COVID-19: Code(s): Z20.828 - Contact with and (suspected) exposure to other viral communicable diseases Status: Ruled-out Assessment and Plan: -SARS-CoV-2 PCR negative on 05/01, -repeat SARS-CoV-2 PCR negative on 05/04 Discontinue all isolation (7) Elevated troponin: Code(s): R77.8 - Other specified abnormalities of plasma proteins Status: Acute Assessment and Plan: Likely related to respiratory failure, stress, type 2 infarct, given history of severe coronary artery disease with multiple stents in the past, ischemic cardiomyopathy -elevated troponins could be related to NSTEMI, discussed with Cardiology (Dr. Tovar), patient had cardiac catheterization with multivessel intervention earlier in [address] Martinez from [facility]. Cardiology discussed with him and he mentioned that patient has relatively smaller caliber, severely calcific vessels, and patient had multivessel PCI/stenting with adjunct atherectomy. Patient has jailed distal left circumflex artery. LVEF at that time was about 30-40%. -tropoonins peaked at 3.97 from 0.049 on admission -discuss with cardiology, will continue medical management at this time. Continue aspirin and clopidogrel. Reintroduce beta-shahram with blood pressures are more stable -echocardiogram 05/03: LV systolic function is moderately reduced 35-40% with grade 2 diastolic dysfunction (8)
--- NOTE | 2020-05-18 11:34 | PM.PNNEP ---
Progress Note: A&P Assessment and Plan (1) End-stage renal disease (ESRD): Code(s): N18.6 - End stage renal disease Status: Chronic Assessment and Plan: HD today and continue M/W/F schedule follow electrolytes, volume status, and clearance (2) Acute on chronic respiratory failure with hypoxia and hypercapnia: Code(s): J96.21 - Acute and chronic respiratory failure with hypoxia; J96.22 - Acute and chronic respiratory failure with hypercapnia Status: Acute Assessment and Plan: continue ventilator support multiple acute and chronic issues involved trying to remove fluid as tolerated by her blood pressure noted plans for tracheostomy today (3) Chronic systolic congestive heart failure: Code(s): I50.22 - Chronic systolic (congestive) heart failure Status: Acute Assessment and Plan: volume overload persists Cardiology following given elevated troponins possible cardiac catheterization when more stable (4) Anemia of chronic disease: Code(s): D63.8 - Anemia in other chronic diseases classified elsewhere Status: Acute Assessment and Plan: due to ESRD and acute illness getting Epogen with dialysis. (5) Type 1 diabetes mellitus: Qualifiers: Diabetes mellitus complication status: with circulatory complication Code(s): E10.9 - Type 1 diabetes mellitus without complications Status: Chronic Assessment and Plan: follow accuchecks on SSI (6) Ulcer of left heel: Qualifiers: Non-pressure ulcer stage: unspecified non-pressure ulcer stage Qualified Code(s): L97.429 - Non-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 with unspecified severity Code(s): L97.429 - Non-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 with unspecified severity Status: Acute Assessment and Plan: Wound care following Will continue to follow. Subjective Date/time seen: 05/18/20 11:34 Tolerated dialysis yesterday and is scheduled for tracheotomy today; no new issues or events overnight; appears comfortable and in no distress. Exam Narrative: Exam Narrative: General: WD/WN female in NAD; intubated Heart: normal S1 and S2; no rub Lungs: coarse breath sounds Bilaterally Abdomen: soft, nontender, nondistended, positive bowel sounds Extremities: no edema or cyanosis Skin: no rash Objective Data Vital Signs Vital Signs: Vital Signs Temp Pulse Resp BP Pulse Ox 05/18/20 11:02 89 100 05/18/20 10:00 97 05/18/20 09:07 92 11 L 05/18/20 08:57 94 10 L 98 05/18/20 08:00 36.4 C 92 11 L 122/59 L 98 05/18/20 06:00 79 10 L 115/58 L 100 05/18/20 04:24 99 98 05/18/20 04:00 36.9 C 96 14 111/52 L 99 05/18/20 03:36 93 10 L 97 05/18/20 02:05 94 10 L 05/18/20 02:03 94 98 05/18/20 02:00 92 12 109/53 L 100 05/18/20 01:59 92 10 L 05/18/20 00:00 36.4 C L 98 18 111/60 98 05/17/20 23:55 95 22 H 99 05/17/20 22:50 103 H 99 05/17/20 22:00 102 H 19 117/68 97 05/17/20 20:00 36.6 C 100 17 119/58 L 98 05/17/20 19:44 101 H 13 05/17/20 19:39 98 100 05/17/20 19:38 96 13 05/17/20 18:00 96 17 117/56 L 99 05/17/20 17:02 102 H 97 05/17/20 16:00 36.4 C 102 H 31 H 139/56 L 100 05/17/20 14:38 99 22 H 100 05/17/20 14:00 97 21 H 109/65 99 05/17/20 13:00 36.8 C 92 16 109/65 98 05/17/20 12:45 100 104/57 L 05/17/20 12:32 92 101/59 L 05/17/20 12:15 97 110/55 L 05/17/20 12:00 96 24 H 113/60 100 05/17/20 11:45 94 108/59 L Intake/Output Intake/Output: Intake & Output 05/15/20 05/16/20 05/17/20 05/18/20 23:59 23:59 23:59 23:59 Intake Total 0877 539 7007 150 Output Total 3500 3500 Balance -2406 339 -2233 150 Meds/Results Medications: Active Medications Generic Name Dose Route Start Last Admin Trade Name Freq PRN Reason
[2020-05-18 11:38] LABS: Glucose Point of Care 72 (65-105)
--- NOTE | 2020-05-18 11:48 | WPDANESEFPP ---
Anes - Eval Final PreProcedure Day of Procedure 05/18/20 11:48 Patient weight: normal Heart: regular rate and rhythm Lungs: decreased breath sounds Neurological: alert and oriented Last oral intake: >/= 8 hours ASA classification: IV Emergent: no Anesthetic plan: proceed Anesthesia type and monitoring: general ETT and standard monitoring Informed Consent: The patient's anesthetic plan and its attendant risks and benefits were discussed with the patient/family/POA. Questions were solicited and answers provided to the satisfaction of the patient/family/POA.
[2020-05-18] MEDS: LIDO 1%/EPINEPHRINE 1:100,000 50 ML VIAL INFILTRATE (12:07)
--- NOTE | 2020-05-18 12:21 | PM.PROC ---
Procedure Note - Detailed Date of procedure: 05/18/20 Pre-op diagnosis: acute respiratory failure w hypoxia and hypercarbi Post-op diagnosis: same Procedure performed: Tracheotomy Description of procedure: Patient was prepped and draped fashion anesthesia a vertical incision made above the sternal notch dissection carried down past the strap muscles the trachea was identified cleaned off of the muscular tissue a U shaped incision made in the mastoid in the tracheal wall sutured to the inferior skin a 8. Shiley tube placed in Anesthesia: GLMA Surgeon: Basil Ghotra MD Estimated blood loss (mL): 0 Drains: No Packing: No Pathology: none sent Complications: No immediate complications Condition: stable Disposition: ICU
[2020-05-18 13:58] LABS: Glucose Point of Care 63 (65-105)
--- NOTE | 2020-05-18 15:11 | WPDGICN ---
Assessment and Plan Assessment and plan (1) Dysphagia: Code(s): R13.10 - Dysphagia, unspecified Status: Acute Assessment and Plan: will proceed with egd and peg placement tomorrow, prophylaxis abx before procedure and hold plavix then will consult [employer] compliance internship for formula (2) Acute on chronic respiratory failure with hypoxia and hypercapnia: Code(s): J96.21 - Acute and chronic respiratory failure with hypoxia; J96.22 - Acute and chronic respiratory failure with hypercapnia Status: Acute Assessment and Plan: recent tracheostomy (3) End-stage renal disease (ESRD): Code(s): N18.6 - End stage renal disease Status: Acute Assessment and Plan: on dialysis per nephrology (4) Chronic systolic congestive heart failure: Code(s): I50.22 - Chronic systolic (congestive) heart failure Status: Acute (5) Type 1 diabetes mellitus: Qualifiers: Diabetes mellitus complication status: with circulatory complication Code(s): E10.9 - Type 1 diabetes mellitus without complications Status: Chronic (6) Chronic obstructive pulmonary disease: Qualifiers: COPD type: unspecified COPD Qualified Code(s): J44.9 - Chronic obstructive pulmonary disease, unspecified Code(s): J44.9 - Chronic obstructive pulmonary disease, unspecified Status: Acute GI Consult Note Consult date/time: 05/18/20 15:11 Reason for consult: dysphagia HPI: Paty Sow is a 54 year old female with multiple medical problems including diabetes mellitus, coronary artery disease, ischemic cardiomyopathy, chronic kidney disease, chronic respiratory failure on home oxygen, COPD who was admitted to the hospital 05/01 after she was found unresponsive, initially was hypoglycemic and was intubated, has been in ICU since then. Given chronic respiratory failure, unable to wean off ventilator and yesterday had tracheostomy, she has been fed by NGT and now will need to get G-tube, family discussed with primary team and agreeable. She has not required sedation last several days and she is awake, nodding her head and understand simple questions. Review of Systems Review of Systems: ROS unobtainable: Yes unobtainable due to endotracheal tube PMFSH Past Medical History Medical History Anemia of chronic disease Anxiety Arthropathy of right ankle Asthma Bronchitis Chronic obstructive pulmonary disease Chronic respiratory failure with hypoxia, on home oxygen therapy Chronic systolic congestive heart failure Coronary artery disease With history of LA and stents. End-stage renal disease on hemodialysis Hyperlipidemia Hypertension Ischemic cardiomyopathy with implantable cardioverter-defibrillator (ICD) Thrombocytopenia Chronic mild thrombocytopenia. Type 1 diabetes mellitus Complicated by diabetic retinopathy, peripheral neuropathy, and nephropathy. Hemoglobin A1c was 5.5% on 04/04/2020. Surgical History Surgical History AICD (automatic cardioverter/defibrillator) present AV fistula History of ankle surgery (~08/2016) Right ankle ORIF. History of cardiac catheterization (~2009) With stents. History of section History of dilation and curettage Status post partial lobectomy of lung Right upper lobectomy at age 7 for unclear reasons. Family History Family History Other Adopted Unknown family medical history Social History Social History Social History: The patient lives in [place]. She is on disability. She smoked about a half a pack of cigarettes per day for many years and quit in fall 2019. No alcohol or illicit substance abuse. Her son, Adithya Sow, as her emergency contact and she is listed as a full code. Smoking status: Former smoker Spiritual
--- NOTE | 2020-05-18 15:57 | PM.IMPN ---
Progress Note: A&P Assessment and Plan (1) Acute on chronic respiratory failure with hypoxia and hypercapnia: Code(s): J96.21 - Acute and chronic respiratory failure with hypoxia; J96.22 - Acute and chronic respiratory failure with hypercapnia Status: Acute Assessment and Plan: Patient with chronic respiratory failure with hypoxia on home oxygen therapy. Patient currently intubated and sedated.. Appears to be CHF related but cannot exclude infectious process. stopped cefepime and vancomycin after 7 days. cultures NG. Wean ventilator as tolerated. Tracheostomy today (2) Hypoglycemia: Code(s): E16.2 - Hypoglycemia, unspecified Status: Acute Assessment and Plan: Glucose stable, was requiring D10 to maintain normal sugar. She takes Basaglar 40 units at night as only medication listed. Blood sugar rising and Lantus restarted and increased to 42U with fbs of 140 today (3) Contusion of scalp: Code(s): S00.03XA - Contusion of scalp, initial encounter Status: Acute Assessment and Plan: Scalp contusion most likely related to a fall. CT of the brain and cervical spine showing no acute findings otherwise. Continue current care. (4) Hypothermia: Code(s): T68.XXXA - Hypothermia, initial encounter Status: Acute Assessment and Plan: Temperature here documented at 87.4?. This is improved and now normo thermic . Continue to monitor. (5) Elevated troponin: Code(s): R77.8 - Other specified abnormalities of plasma proteins Status: Acute Assessment and Plan: Troponin has climbed to 0.24. She has coronary disease with history of myocardial infarction and stents. She also has ischemic cardiomyopathy with ICD. EKG with considerable baseline artifact. CXR showing evidence of CHF. Echo EF 35% with no obvious wall motion abnormalities (6) Chronic systolic congestive heart failure: Code(s): I50.22 - Chronic systolic (congestive) heart failure Status: Acute Assessment and Plan: patient has a history of ischemic cardiomyopathy with ICD. Chest x-ray consistent with CHF. Patient with acute on chronic heart failure. EF 35% as above. hemodialysis to control fluid status. (7) Type 1 diabetes mellitus: Qualifiers: Diabetes mellitus complication status: with circulatory complication Code(s): E10.9 - Type 1 diabetes mellitus without complications Status: Chronic Assessment and Plan: A1c 5.7. Glucose reviewed on 05/18/20. Continue Accu-Cheks. Insulin was held initially due to the hypoglycemia but with increasing BS restarted lantus as above now increased to 42U HS,. fbs 140 today (8) End-stage renal disease on hemodialysis: Code(s): N18.6 - End stage renal disease; Z99.2 - Dependence on renal dialysis Status: Inactive Assessment and Plan: As above. Continue hemodialysis, . Nephrology following next scheduled 05/19 (9) Anemia of chronic disease: Code(s): D63.8 - Anemia in other chronic diseases classified elsewhere Status: Acute Assessment and Plan: Hemoglobin 12.8 on admission. Suspect this was hemoconcentrated initially. Hemoglobin today is 9.1 which is more in line with prior values. Continue to monitor. platelet stable 133K (10) Chronic obstructive pulmonary disease: Qualifiers: COPD type: unspecified COPD Qualified Code(s): J44.9 - Chronic obstructive pulmonary disease, unspecified Code(s): J44.9 - Chronic obstructive pulmonary disease, unspecified Status: Acute Assessment and Plan: no wheezing. Continue nebulizer treatments. (11) DVT prophylaxis: Code(s): Z29.9 - Encounter for prophylactic measures, unspecified Status: Acute Assessment and Plan: Heparin Subjective Date/time seen: 05/18/20 15:57 Interval history: Date of service
[2020-05-18] MEDS: ACETAMINOPHEN ELIXIR 325 MG/10.15 ML UDC 650 MG PO ×2 (18:54→22:14)
[2020-05-18 18:57] LABS: Glucose Point of Care 100 (65-105)
[2020-05-18] MEDS: ALPRAZolam (*CRX) 0.5 MG TABLET PO (22:15)
[2020-05-19] VITALS (42 sets, daily range): BP systolic 80–114; BP diastolic 39–67; PULSE 70–114; RESP 13–32; TEMP 32–37.6; O2SAT 94–100
[2020-05-19] MEDS: IPRATROPIUM BR 0.02% INH SOLN 0.5 MG/2.5 ML VIAL INHALATION ×4 (02:20→20:12)
[2020-05-19] MEDS: ALBUTEROL SULFATE NEB 2.5 MG/0.5 ML INH INHALATION ×4 (02:20→20:12)
[2020-05-19 04:56] LABS: Hematocrit 31.7 % (37.0-47.0); Hemoglobin 9.4 g/dL (12.0-15.0); Mean Corpuscular HGB Conc 29.7 g/dl (32-36); Mean Corpuscular Hemoglobin 30.3 pg (26-34); Mean Corpuscular Volume 102.3 fl (80-100); Mean Platelet Volume 10.8 fl (7.4-10.4); Platelet Count Result 294 k/mm3 (150-375); White Blood Count 12.6 K/mm3 (4.5-10.0)
[2020-05-19 05:21] LABS: Alanine Aminotransferase 27 U/L (4-35); Albumin Level 3.2 g/dL (3.5-5.1); Alkaline Phosphatase 296 U/L (38-126); Anion Gap 10 mmol/L (8-16); Aspartate Amino Transferase 54 U/L (14-36); Bilirubin,Total 0.8 mg/dL (0.2-1.3); Blood Urea Nitrogen 44 mg/dL (7-17); Calcium 9.7 mg/dL (8.4-10.2); Carbon Dioxide 34 mmol/L (22-30); Chloride 88 mmol/L (98-107); Estimated CRCL calculation 14 ml/min; Estimated Glomerular Filt Rate 11; Glucose 227 mg/dL (65-105); Magnesium 2.6 mg/dL (1.6-2.3); Phosphorus 4.4 mg/dL (2.5-4.5); Potassium 4.6 mmol/L (3.4-5.0); Sodium 132 mmol/L (137-145)
[2020-05-19 05:23] LABS: Alveolar/Arterial O2 Gradient 92.6 mmHg; Base Excess ABG 4.9 mEq/l (+/-2.0); Carboxyhemoglobin 0.6 % THb (0-2.0); Fractional Inspired Oxygen 30 %; HCO3 ABG 28.6 mEq/l (22.0-26.0); Methemoglobin ABG 0.1 %THb (0-1.5); Oxygen Content ABG 14.1 %vol (16.0-22.0); Oxygen Saturation ABG 96.1 % (95.0-100.0); PCO2 ABG 38.9 mmHg (35.0-45.0); PO2 ABG 75.6 mmHg (80.0-100.0); PO2 FiO2 Ratio Arterial Blood 2.52 %; Reduced Hemoglobin 4.3 %THb (0-5.0); Total Hemoglobin 10.5 g/dL (12.0-18.0); pH ABG 7.485 (7.350-7.450)
[2020-05-19 05:24] LABS: Arterial Blood Gas Vent Mode PRESSURE SUPPORT; Device VENTILATOR; Modified Allen's Test Pass; Site Drawn RIGHT RADIAL
[2020-05-19 05:25] LABS: Arterial Blood Gas PEEP 5 cmH2O; Arterial Blood Gas Pressure Support 10 cmH2O; Peak Inspiratory Pressure 15 cmH2O
--- NOTE | 2020-05-19 07:47 | WPDANESPN ---
Anes - Prog Note Post-Op Date/Time: 05/19/20 07:47 Cardiovascular status: normal Respiratory status: other (mechanical ventilation) Airway patency: baseline Mental status: other (CHRIS 2/2 sedation) Post-Op hydration status: normal Vital Signs: Last Vital Signs Temp 36.6 C 05/19/20 04:00 Pulse 98 05/19/20 04:00 Resp 32 H 05/19/20 04:00 BP 112/48 L 05/19/20 04:00 Pulse Ox 98 05/19/20 04:00 Pain Score (VAS): CHRIS I/O: Intake & Output 05/18/20 05/18/20 05/19/20 15:59 23:59 07:59 Intake Total 97 Balance 97 Laboratory Tests 05/19/20 04:48 05/19/20 04:48 05/18/20 05/18/20 05/18/20 11:37 13:16 17:18 WBC RBC Hgb Hct MCV MCH MCHC RDW Plt Count MPV Puncture Site ABG pH ABG pCO2 ABG pO2 ABG PO2/FiO2 Ratio ABG HCO3 ABG O2 Saturation ABG O2 Content ABG Base Excess A-a Gradient Oxyhemoglobin Carboxyhemoglobin Methemoglobin Reduced Hemoglobin Total Hemoglobin O2 Delivery Device O2 Liters/Min Minute Volume Vent Rate Vent Mode FiO2 Tidal Volume PEEP Peak Inspir Pressure Pressure Support Sodium Potassium Chloride Carbon Dioxide Anion Gap BUN Creatinine Estim Creat Clear Calc Estimated GFR Glucose POC Capillary Glucose 72 63 L 100 Calcium Phosphorus Magnesium Total Bilirubin AST ALT Alkaline Phosphatase Total Protein Albumin 05/19/20 05/19/20 05/19/20 04:40 04:48 04:48 WBC 12.6 H RBC 3.10 L Hgb 9.4 L Hct 31.7 L MCV 102.3 H MCH 30.3 MCHC 29.7 L RDW 18.0 H Plt Count 294 MPV 10.8 H Puncture Site Right radial ABG pH 7.485 H ABG pCO2 38.9 ABG pO2 75.6 L ABG PO2/FiO2 Ratio 2.52 ABG HCO3 28.6 H ABG O2 Saturation 96.1 ABG O2 Content 14.1 L ABG Base Excess 4.9 A-a Gradient 92.6 Oxyhemoglobin 95.0 Carboxyhemoglobin 0.6 Methemoglobin 0.1 Reduced Hemoglobin 4.3 Total Hemoglobin 10.5 L O2 Delivery Device Ventilator O2 Liters/Min Not Reportable Minute Volume Not Reportable Vent Rate Not Reportable Vent Mode Pressure support FiO2 30 Tidal Volume Not Reportable PEEP 5 Peak Inspir Pressure 15 Pressure Support 10 Sodium 132 L Potassium 4.6 Chloride 88 L Carbon Dioxide 34 H Anion Gap 10 BUN 44 H D Creatinine 4.30 H Estim Creat Clear Calc 14 Estimated GFR 11 L Glucose 227 H POC Capillary Glucose Calcium 9.7 Phosphorus 4.4 Magnesium 2.6 H Total Bilirubin 0.8 AST 54 H ALT 27 Alkaline Phosphatase 296 H Total Protein 7.0 Albumin 3.2 L Post-procedural complaints: none Patient Feedback: Patient satisfied with anesthetic care.
[2020-05-19] MEDS: CENTRAL LINE FLUSH 10 ML IV PUSH ×3 (08:11→21:33)
[2020-05-19] MEDS: PANTOPRAZOLE SODIUM IV 40 MG VIAL IV PUSH (08:16)
--- NOTE | 2020-05-19 09:20 | WPDINTPN ---
Progress Note: A&P Assessment and Plan (1) Acute on chronic respiratory failure with hypoxia and hypercapnia: Code(s): J96.21 - Acute and chronic respiratory failure with hypoxia; J96.22 - Acute and chronic respiratory failure with hypercapnia Status: Acute Assessment and Plan: Patient with acute chronic respiratory failure, was found unresponsive at her house without oxygen. Patient was intubated in the ER 05/01/2020 -tracheostomy performed 05/18/20 -patient tolerated pressure support ventilation of 15/5 overnight but appeared to tire of this morning. Placed back on ASV mode at this time -will try again later today -continue bronchodilators -plan to remove more fluid with dialysis today -pleural effusions should improve with time with regular dialysis and fluid removal (2) Encephalopathy: Code(s): G93.40 - Encephalopathy, unspecified Status: Acute Assessment and Plan: RESOLVED: Patient OFF all sedation, opens her eyes, follows simple commands in all extremities -currently on Precedex and still follows simple commands CT scan of the brain on 05/05/2020 did not show any acute intracranial process. -EEG was performed on 05/05/2020 -showed severe abnormal record consistent with organic or metabolic encephalopathy -appreciate neurology evaluation (3) End-stage renal disease (ESRD): Code(s): N18.6 - End stage renal disease Status: Acute Assessment and Plan: End-stage renal disease on dialysis,(Sunday, , Sunday) Dialysis per Nephrology. -significant amount of fluid removal done in the last 3-4 sessions, pressures have been adequate -electrolytes are within normal limits - Epogen per nephrology -lpatient getting dialyzed at this time (4) Type 1 diabetes mellitus: Qualifiers: Diabetes mellitus complication status: with circulatory complication Code(s): E10.9 - Type 1 diabetes mellitus without complications Status: Chronic Assessment and Plan: Type 1 diabetes on Lantus at home, currently hypoglycemic -hemoglobin A1c is 5.7 this admission Continue Accu-Cheks and sliding scale insulin Continue Lantus with tube feeds which are on hold at this time for effective placement (5) Person under investigation for COVID-19: Code(s): Z20.828 - Contact with and (suspected) exposure to other viral communicable diseases Status: Ruled-out Assessment and Plan: -SARS-CoV-2 PCR negative on 12/26, -repeat SARS-CoV-2 PCR negative on 05/04 Discontinue all isolation (6) Ulcer of left heel: Qualifiers: Non-pressure ulcer stage: unspecified non-pressure ulcer stage Qualified Code(s): L97.429 - Non-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 with unspecified severity Code(s): L97.429 - Non-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 with unspecified severity Status: Acute Assessment and Plan: Cracked and fissures on bilateral heels -appreciate wound care evaluation and recommendations -local care for now (7) Anemia of chronic disease: Code(s): D63.8 - Anemia in other chronic diseases classified elsewhere Status: Acute Assessment and Plan: History of chronic anemia, hemoglobin is stable -nephrology to administer Epogen (8) Chronic obstructive pulmonary disease: Qualifiers: COPD type: unspecified COPD Qualified Code(s): J44.9 - Chronic obstructive pulmonary disease, unspecified Code(s): J44.9 - Chronic obstructive pulmonary disease, unspecified Status: Acute Assessment and Plan: Continue bronchodilators, patient currently on 30% FiO2. (9) Dietary counseling and surveillance: Code(s): Z71.3 - Dietary counseling and surveillance Status: Acute Assessment and Plan: Will resume tube feeds post PEG tube placement as directed by GI Stress ulcer prophylaxis: Protonix (10) Left upper extremity swelling: Code(s): M79.89 - Othe
[2020-05-19] MEDS: EPOETIN ALFA-EPBX 10,000 UNITS/ML VIAL 10000 UNITS IV PUSH (09:22)
--- NOTE | 2020-05-19 11:01 | PCDIET ---
ICU Rounding Note: Patient currently NPO for PEG placement. Tube feedings resumed post tracheostomy yesterday without issue. Recommend resuming Nepro at goal of 45mL/hr after PEG, once acceptable per GI. Last recorded weight is 70.6kg which is stable with last review. Undergoing dialysis at time of rounds. Bowel Motility: BM x 3 today. Labs Reviewed: Hgb (9.4), Hct (31.7), Glu (227), BUN (44), Cr (4.3), Na (132), Alb (3.2) Meds Noted: Albumin, Albuterol, Epogen, Novolog, Atrovent, Lipitor, Ancef, Heparin, Lantus, Midodrine, Protonix Additional Notes: No change in skin reported. LE skin issues noted. Following daily in ICU rounds. Assessing/reassessing every Sunday/Sunday.
[2020-05-19 11:50] LABS: Glucose Point of Care 152 (65-105)
--- NOTE | 2020-05-19 11:52 | PM.PNNEP ---
Progress Note: A&P Assessment and Plan (1) End-stage renal disease (ESRD): Code(s): N18.6 - End stage renal disease Status: Chronic Assessment and Plan: HD today and continue M/W/F schedule follow electrolytes, volume status, and clearance (2) Acute on chronic respiratory failure with hypoxia and hypercapnia: Code(s): J96.21 - Acute and chronic respiratory failure with hypoxia; J96.22 - Acute and chronic respiratory failure with hypercapnia Status: Acute Assessment and Plan: continue ventilator support multiple acute and chronic issues involved trying to remove fluid as tolerated by her blood pressure noted plans for tracheostomy today (3) Chronic systolic congestive heart failure: Code(s): I50.22 - Chronic systolic (congestive) heart failure Status: Acute Assessment and Plan: volume overload persists Cardiology following given elevated troponins possible cardiac catheterization when more stable (4) Anemia of chronic disease: Code(s): D63.8 - Anemia in other chronic diseases classified elsewhere Status: Acute Assessment and Plan: due to ESRD and acute illness getting Epogen with dialysis. (5) Type 1 diabetes mellitus: Qualifiers: Diabetes mellitus complication status: with circulatory complication Code(s): E10.9 - Type 1 diabetes mellitus without complications Status: Chronic Assessment and Plan: follow accuchecks on SSI (6) Ulcer of left heel: Qualifiers: Non-pressure ulcer stage: unspecified non-pressure ulcer stage Qualified Code(s): L97.429 - Non-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 with unspecified severity Code(s): L97.429 - Non-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 with unspecified severity Status: Acute Assessment and Plan: Wound care following Will continue to follow. Subjective Date/time seen: 05/19/20 11:52 Tolerating dialysis at the time of my visit (seen on HD at 11:45AM); scheduled for PEG tube placement today; [facility] for ongoing therapy and ventilator weaning; no events overnight or earlier this AM. Exam Narrative: Exam Narrative: General: WD/WN female in NAD; trached Heart: normal S1 and S2; no rub Lungs: coarse breath sounds Abdomen: soft, nontender, nondistended, positive bowel sounds Extremities: no edema or cyanosis Skin: warm and intact Objective Data Vital Signs Vital Signs: Vital Signs Temp Pulse Resp BP Pulse Ox 05/19/20 11:30 101 H 88/54 L 05/19/20 11:15 99 102/59 L 05/19/20 11:00 96 95/50 L 05/19/20 10:45 97 95/55 L 05/19/20 10:30 101 H 102/54 L 05/19/20 10:15 91 97/50 L 05/19/20 10:00 96 18 102/54 L 98 05/19/20 09:45 99 109/56 L 05/19/20 09:30 100 107/53 L 05/19/20 09:15 96 97/52 L 05/19/20 09:10 98 13 05/19/20 09:00 98 13 112/58 L 99 05/19/20 08:55 70 113/53 L 05/19/20 08:30 37.1 C 100 19 113/53 L 98 05/19/20 08:00 32.0 C L 99 31 H 113/53 L 98 05/19/20 06:00 36.2 C L 99 28 H 112/54 L 99 05/19/20 04:00 36.6 C 98 32 H 112/48 L 98 05/19/20 02:21 103 H 100 05/19/20 02:20 100 18 05/19/20 02:00 98 30 H 105/67 97 05/19/20 00:00 99 26 H 105/52 L 99 05/18/20 23:10 99 96 05/18/20 22:00 97 28 H 101/52 L 97 05/18/20 20:15 88 12 05/18/20 20:00 36.6 C 96 30 H 104/50 L 98 05/18/20 19:55 92 97 05/18/20 19:54 91 17 05/18/20 18:00 91 12 111/57 L 100 05/18/20 17:10 91 96 05/18/20 16:00 36.8 C 92 15 119/60 99 05/18/20 14:00 86 12 122/63 100 05/18/20 13:39 88 11 L 05/18/20 13:36 89 99 05/18/20 13:32 89 13 05/18/20 12:45 92 98 05/18/20 12:00 86 12 95/41 L 100 Intake/Output Intake/Output: Intake & Output 05/16/20 05/17/20 05/18/20 05/19/20 23:59 23:59 2
[2020-05-19] MEDS: WATER, STERILE FOR INJECTION 10 ML VIAL XX (12:21)
[2020-05-19] MEDS: ceFAZolin SODIUM 1 GM VIAL IV PUSH (12:27)
[2020-05-19] MEDS: MIDAZOLAM HCL (*CRX) 2 MG/2 ML VIAL 4 MG (12:37)
[2020-05-19] MEDS: fentaNYL CITRATE INJ (*CRX) 100 MCG/2 ML VIAL (12:37)
[2020-05-19] MEDS: fentaNYL CITRATE INJ (*CRX) 100 MCG/2 ML VIAL 50 MCG IV PUSH (12:46)
[2020-05-19] MEDS: MIDAZOLAM HCL (*CRX) 2 MG/2 ML VIAL (12:46)
--- NOTE | 2020-05-19 13:41 | SUR.OPER ---
1250 NURSE ANDREA CARUSO IN ROOM GIVING SEDATION PER ORDERS, 1300 REPORTED OFF TO ANDREA HERNANDEZ,
[2020-05-19] MEDS: fentaNYL CITRATE INJ (*CRX) 100 MCG/2 ML VIAL 25 MCG IV PUSH (14:52)
--- NOTE | 2020-05-19 15:15 | PM.IMPN ---
Progress Note: A&P Assessment and Plan (1) Acute on chronic respiratory failure with hypoxia and hypercapnia: Code(s): J96.21 - Acute and chronic respiratory failure with hypoxia; J96.22 - Acute and chronic respiratory failure with hypercapnia Status: Acute Assessment and Plan: Patient with chronic respiratory failure with hypoxia on home oxygen therapy. Patient currently intubated and sedated.. Appears to be CHF related but cannot exclude infectious process. stopped cefepime and vancomycin after 7 days. cultures NG. Wean ventilator as tolerated. Tracheostomy 05/18 (2) Hypoglycemia: Code(s): E16.2 - Hypoglycemia, unspecified Status: Acute Assessment and Plan: Glucose stable, was requiring D10 to maintain normal sugar. She takes Basaglar 40 units at night as only medication listed. Blood sugar rising and Lantus restarted and increased to 42U with fbs of 227 today (3) Contusion of scalp: Code(s): S00.03XA - Contusion of scalp, initial encounter Status: Acute Assessment and Plan: Scalp contusion most likely related to a fall. CT of the brain and cervical spine showing no acute findings otherwise. Continue current care. (4) Hypothermia: Code(s): T68.XXXA - Hypothermia, initial encounter Status: Acute Assessment and Plan: Temperature here documented at 87.4?. This is improved and now normo thermic . Continue to monitor. (5) Elevated troponin: Code(s): R77.8 - Other specified abnormalities of plasma proteins Status: Acute Assessment and Plan: Troponin has climbed to 0.24. She has coronary disease with history of myocardial infarction and stents. She also has ischemic cardiomyopathy with ICD. EKG with considerable baseline artifact. CXR showing evidence of CHF. Echo EF 35% with no obvious wall motion abnormalities (6) Chronic systolic congestive heart failure: Code(s): I50.22 - Chronic systolic (congestive) heart failure Status: Acute Assessment and Plan: patient has a history of ischemic cardiomyopathy with ICD. Chest x-ray consistent with CHF. Patient with acute on chronic heart failure. EF 35% as above. hemodialysis to control fluid status. (7) Type 1 diabetes mellitus: Qualifiers: Diabetes mellitus complication status: with circulatory complication Code(s): E10.9 - Type 1 diabetes mellitus without complications Status: Chronic Assessment and Plan: A1c 5.7. Glucose reviewed on 05/19/20. Continue Accu-Cheks. Insulin was held initially due to the hypoglycemia but with increasing BS restarted lantus as above now increased to 42U HS,. fbs 227 today (8) End-stage renal disease on hemodialysis: Code(s): N18.6 - End stage renal disease; Z99.2 - Dependence on renal dialysis Status: Inactive Assessment and Plan: As above. Continue hemodialysis, . Nephrology following and scheduled today 05/19 (9) Anemia of chronic disease: Code(s): D63.8 - Anemia in other chronic diseases classified elsewhere Status: Acute Assessment and Plan: Hemoglobin 12.8 on admission. Suspect this was hemoconcentrated initially. Hemoglobin today is 9.4 which is more in line with prior values. Continue to monitor. platelet stable 133K (10) Chronic obstructive pulmonary disease: Qualifiers: COPD type: unspecified COPD Qualified Code(s): J44.9 - Chronic obstructive pulmonary disease, unspecified Code(s): J44.9 - Chronic obstructive pulmonary disease, unspecified Status: Acute Assessment and Plan: no wheezing. Continue nebulizer treatments. (11) DVT prophylaxis: Code(s): Z29.9 - Encounter for prophylactic measures, unspecified Status: Acute Assessment and Plan: Heparin Subjective Date/time seen: 05/19/20 15:15 Interval history: Date of serv
[2020-05-19] MEDS: SILVERGEL (ELTA) 45 ML 1 APPLIC TOPICAL (16:46)
--- NOTE | 2020-05-19 16:51 | PC.NURSE ---
1239- PEG TUBE PLACEMENT AT PT BEDSIDE. GI TEAM AT BEDSIDE. TIME OUT BEFORE PROCEDURE. PT GIVEN A TOTAL OF 6 MG OF VERSED AND 125 MCG OF FENTANYL FOR PROCEDURE. PT VITAL SIGNS STABLE.
[2020-05-19] MEDS: MIDODRINE HCL 10 MG TABLET PO (17:52)
[2020-05-19 17:57] LABS: Glucose Point of Care 195 (65-105)
[2020-05-19] MEDS: INSULIN GLARGINE (*BKC) 100 UNITS/ML 42 UNITS SUB-Q (20:48)
[2020-05-19] MEDS: HEPARIN SODIUM 5,000 UNITS/ML VIAL 5000 UNITS SUB-Q (20:49)
[2020-05-19 21:04] LABS: Glucose Point of Care 207 (65-105)
[2020-05-19] MEDS: INSULIN ASPART (*BKC) 100 UNITS/ML SUB-Q (23:50)
[2020-05-19] MEDS: ACETAMINOPHEN ELIXIR 325 MG/10.15 ML UDC 650 MG PO (23:52)
[2020-05-19] MEDS: ALPRAZolam (*CRX) 0.5 MG TABLET PO (23:52)
[2020-05-19 23:55] LABS: Glucose Point of Care 255 (65-105)
[2020-05-20] VITALS (20 sets, daily range): BP systolic 98–112; BP diastolic 46–57; PULSE 103–117; RESP 15–26; TEMP 37.1–37.7; O2SAT 98–100
[2020-05-20] MEDS: IPRATROPIUM BR 0.02% INH SOLN 0.5 MG/2.5 ML VIAL INHALATION ×3 (02:34→14:44)
[2020-05-20] MEDS: ALBUTEROL SULFATE NEB 2.5 MG/0.5 ML INH INHALATION ×3 (02:34→14:43)
[2020-05-20 04:44] LABS: Hematocrit 26.7 % (37.0-47.0); Mean Corpuscular Volume 103.5 fl (80-100); Mean Platelet Volume 10.9 fl (7.4-10.4); Platelet Count Result 275 k/mm3 (150-375); Red Blood Count 2.58 M/mm3 (4.2-5.4); Red Cell Distribution Width 18.2 % (11.5-14.5); White Blood Count 12.3 K/mm3 (4.5-10.0)
[2020-05-20 05:22] LABS: Alanine Aminotransferase 35 U/L (4-35); Albumin Level 3.2 g/dL (3.5-5.1); Alkaline Phosphatase 263 U/L (38-126); Anion Gap 13 mmol/L (8-16); Aspartate Amino Transferase 72 U/L (14-36); Bilirubin,Total 0.9 mg/dL (0.2-1.3); Blood Urea Nitrogen 29 mg/dL (7-17); Calcium 9.9 mg/dL (8.4-10.2); Carbon Dioxide 26 mmol/L (22-30); Chloride 97 mmol/L (98-107); Estimated CRCL calculation 16 ml/min; Estimated Glomerular Filt Rate 13; Glucose 199 mg/dL (65-105); Magnesium 2.4 mg/dL (1.6-2.3); Potassium 4.2 mmol/L (3.4-5.0); Sodium 136 mmol/L (137-145)
[2020-05-20] MEDS: CENTRAL LINE FLUSH 10 ML IV PUSH ×2 (06:25→12:24)
[2020-05-20] MEDS: MIDODRINE HCL 10 MG TABLET PO ×2 (09:02→12:24)
[2020-05-20] MEDS: ASPIRIN 81 MG CHEWABLE TABLET FEED TUBE (09:02)
[2020-05-20] MEDS: SILVERGEL (ELTA) 45 ML 1 APPLIC TOPICAL (09:03)
[2020-05-20] MEDS: PANTOPRAZOLE SODIUM IV 40 MG VIAL IV PUSH (09:03)
[2020-05-20] MEDS: ATORVASTATIN 40 MG TABLET 80 MG FEED TUBE (09:03)
[2020-05-20] MEDS: HEPARIN SODIUM 5,000 UNITS/ML VIAL 5000 UNITS SUB-Q (09:03)
--- NOTE | 2020-05-20 11:13 | PCDIET ---
ICU Rounding Note: Patient tolerating Nepro at 45mL/hr goal rate with 30mL water flush every 4 hours. Plan to transfer to LT[facility] later today. Last recorded weight is 67.8kg which is down from last review. -I/O. Bowel Motility: BM x 1 on 05/19/20. Labs Reviewed: Hgb (8.0), Hct (26.7), Glu (199), BUN (29), Cr (3.7), Na (136), Alb (3.2) Meds Noted: Albumin, Albuterol, Lipitor, Epogen, Heparin, Lantus, Atrovent, Protonix Additional Notes: Pressure ulcer to sacrum. Left heel with stasis ulcer. Following daily in ICU rounds. Assessing/reassessing every Sunday/Sunday.
--- NOTE | 2020-05-20 11:15 | WPDANESPN ---
Anes - Prog Note Post-Op Date/Time: 05/20/20 11:15 Cardiovascular status: normal Respiratory status: other (mechanical ventilation) Airway patency: baseline Mental status: other (patient no longer on sedation per RN) Post-Op hydration status: normal Vital Signs: Last Vital Signs Temp 37.4 C 05/20/20 09:00 Pulse 110 H 05/20/20 10:00 Resp 19 05/20/20 10:00 BP 111/56 L 05/20/20 10:00 Pulse Ox 100 05/20/20 10:00 Pain Score (VAS): 0/10. Patient resting in bed at time of assessment, appears comfortable. Patient on mechanical ventilation via trach. Patient has PEG tube. Pt not sedated per RN. I/O: Intake & Output 05/19/20 05/20/20 05/20/20 23:59 07:59 15:59 Intake Total 586 Balance 586 Laboratory Tests 05/20/20 04:30 05/20/20 04:30 05/19/20 05/19/20 05/19/20 11:44 17:54 20:43 WBC RBC Hgb Hct MCV MCH MCHC RDW Plt Count MPV Sodium Potassium Chloride Carbon Dioxide Anion Gap BUN Creatinine Estim Creat Clear Calc Estimated GFR Glucose POC Capillary Glucose 152 H 195 H 207 H Calcium Phosphorus Magnesium Total Bilirubin AST ALT Alkaline Phosphatase Total Protein Albumin 05/19/20 05/20/20 05/20/20 23:45 04:30 04:30 WBC 12.3 H RBC 2.58 L Hgb 8.0 L Hct 26.7 L MCV 103.5 H MCH 31.0 MCHC 30.0 L RDW 18.2 H Plt Count 275 MPV 10.9 H Sodium 136 L Potassium 4.2 Chloride 97 L Carbon Dioxide 26 Anion Gap 13 BUN 29 H D Creatinine 3.70 H Estim Creat Clear Calc 16 Estimated GFR 13 L Glucose 199 H POC Capillary Glucose 255 H Calcium 9.9 Phosphorus 4.0 Magnesium 2.4 H Total Bilirubin 0.9 AST 72 H ALT 35 Alkaline Phosphatase 263 H Total Protein 7.0 Albumin 3.2 L Post-procedural complaints: none Patient Feedback: Patient satisfied with anesthetic care.
[2020-05-20 12:22] LABS: Glucose Point of Care 377 (65-105)
[2020-05-20] MEDS: INSULIN ASPART (*BKC) 100 UNITS/ML SUB-Q (12:23)
--- NOTE | 2020-05-20 12:45 | WPDINTPN ---
Progress Note: A&P Assessment and Plan (1) Acute on chronic respiratory failure with hypoxia and hypercapnia: Code(s): J96.21 - Acute and chronic respiratory failure with hypoxia; J96.22 - Acute and chronic respiratory failure with hypercapnia Status: Acute Assessment and Plan: Patient with acute chronic respiratory failure, was found unresponsive at her house without oxygen. Patient was intubated in the ER 05/01/2020 -tracheostomy performed 05/18/20 -patient currently in ASV mode -pleural effusions should improve with time with regular dialysis and fluid removal (2) Encephalopathy: Code(s): G93.40 - Encephalopathy, unspecified Status: Acute Assessment and Plan: RESOLVED: Patient OFF all sedation, opens her eyes, follows simple commands in all extremities -currently on Precedex and still follows simple commands CT scan of the brain on 05/05/2020 did not show any acute intracranial process. -EEG was performed on 05/05/2020 -showed severe abnormal record consistent with organic or metabolic encephalopathy -appreciate neurology evaluation (3) End-stage renal disease (ESRD): Code(s): N18.6 - End stage renal disease Status: Acute Assessment and Plan: End-stage renal disease on dialysis,(Sunday, , Sunday) Dialysis per Nephrology. -significant amount of fluid removal done in the last 3-4 sessions, pressures have been adequate -electrolytes are within normal limits - Epogen per nephrology -patient was dialyzed yesterday (4) Type 1 diabetes mellitus: Qualifiers: Diabetes mellitus complication status: with circulatory complication Code(s): E10.9 - Type 1 diabetes mellitus without complications Status: Chronic Assessment and Plan: Type 1 diabetes on Lantus at home, currently hypoglycemic -hemoglobin A1c is 5.7 this admission Continue Accu-Cheks and sliding scale insulin Continue Lantus with tube feeds (5) Person under investigation for COVID-19: Code(s): Z20.828 - Contact with and (suspected) exposure to other viral communicable diseases Status: Ruled-out Assessment and Plan: -SARS-CoV-2 PCR negative on 05/01, -repeat SARS-CoV-2 PCR negative on 05/04 Discontinue all isolation (6) Ulcer of left heel: Qualifiers: Non-pressure ulcer stage: unspecified non-pressure ulcer stage Qualified Code(s): L97.429 - Non-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 with unspecified severity Code(s): L97.429 - Non-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 with unspecified severity Status: Acute Assessment and Plan: Cracked and fissures on bilateral heels -appreciate wound care evaluation and recommendations -local care for now (7) Anemia of chronic disease: Code(s): D63.8 - Anemia in other chronic diseases classified elsewhere Status: Acute Assessment and Plan: History of chronic anemia, hemoglobin is stable -nephrology to administer Epogen (8) Chronic obstructive pulmonary disease: Qualifiers: COPD type: unspecified COPD Qualified Code(s): J44.9 - Chronic obstructive pulmonary disease, unspecified Code(s): J44.9 - Chronic obstructive pulmonary disease, unspecified Status: Acute Assessment and Plan: Continue bronchodilators, patient currently on 30% FiO2. (9) Dietary counseling and surveillance: Code(s): Z71.3 - Dietary counseling and surveillance Status: Acute Assessment and Plan: Will resume tube feeds post PEG tube placement as directed by GI Stress ulcer prophylaxis: Protonix (10) Left upper extremity swelling: Code(s): M79.89 - Other specified soft tissue disorders Status: Acute Assessment and Plan: Venous Dopplers on 05/02: Patent left upper extremity veins. No evidence of deep venous thrombosis (11) DVT prophylaxis: Code(s): Z29.9 - Encounter for prophylactic measures, unsp
--- NOTE | 2020-05-20 14:11 | WPDGIPROGNO ---
Progress Note: A&P Assessment and Plan (1) Dysphagia: Code(s): R13.10 - Dysphagia, unspecified Status: Acute Assessment and Plan: she is tolerating tube feeding she will transferred [facility] (2) Chronic systolic congestive heart failure: Code(s): I50.22 - Chronic systolic (congestive) heart failure Status: Acute (3) Acute on chronic respiratory failure with hypoxia and hypercapnia: Code(s): J96.21 - Acute and chronic respiratory failure with hypoxia; J96.22 - Acute and chronic respiratory failure with hypercapnia Status: Acute Assessment and Plan: s/p trach, no new issues (4) End-stage renal disease (ESRD): Code(s): N18.6 - End stage renal disease Status: Acute Assessment and Plan: follow-up with nephrology for dialysis Subjective Date/time seen: 05/20/20 14:11 Interval history: tolerating feeding by G-tube at 45 ml/h, no new issues. Probably she is going to [facility] today Review of Systems Review of Systems: All systems reviewed & are unremarkable except as noted in HPI and below Exam Const: General: comfortable, no acute distress and ill appearing chronically HENMT: Other: ETT place Eyes: Pupils: Equal, round and reactive pupils present Neck: Neck: supple Other: trach in place Resp: Effort & Inspection: normal respiratory effort Auscultation: rales and diminished lung sounds Cardio: Rate: regular rate Rhythm: regular rhythm GI: Inspection: non-distended GI Palp: Yes Soft to palpation and No Guarding due to palpation present (GI) Auscultation: normal bowel sounds Other: g-tube is ok, no tender, no drainage : Other: Deferred Skin: General skin exam: normal color and no rashes or lesions noted Neuro: Cranial nerves: Yes Equal, round and reactive pupils present Other: Patient opens her eyes to name with tracks, follows simple commands in all extremities but slow to respond. Extrem: General: normal to inspection Other: chronic wound in left leg Psych: Other: Unable to assess this time Objective Data Vital Signs Vital Signs: Vital Signs - 24 hr 05/19/20 14:40 05/19/20 14:50 05/19/20 16:00 Temperature 99.2 F Pulse Rate 104 H 99 103 H Respiratory Rate 16 16 30 H Blood Pressure 104/51 L Pulse Oximetry 99 100 01/13/21 17:40 05/19/20 18:00 05/19/20 20:00 Temperature 99.6 F Pulse Rate 98 106 H 106 H Respiratory Rate 21 H 30 H Blood Pressure 109/50 L 109/49 L Pulse Oximetry 99 99 100 05/19/20 20:11 05/19/20 20:13 05/19/20 20:25 Temperature Pulse Rate 108 H 108 H 99 Respiratory Rate 20 24 H Blood Pressure Pulse Oximetry 99 05/19/20 22:00 05/19/20 23:10 05/20/20 00:00 Temperature 100 F H Pulse Rate 108 H 114 H 109 H Respiratory Rate 16 18 Blood Pressure 107/47 L 108/49 L Pulse Oximetry 99 100 100 05/20/20 02:00 05/20/20 02:35 05/20/20 02:39 Temperature Pulse Rate 103 H 104 H 104 H Respiratory Rate 17 24 H 20 Blood Pressure 100/49 L Pulse Oximetry 100 05/20/20 04:00 05/20/20 05:30 05/20/20 06:00 Temperature 99.8 F H Pulse Rate 113 H 117 H 116 H Respiratory Rate 16 24 H Blood Pressure 98/51 L 108/57 L Pulse Oximetry 98 100 100 05/20/20 08:00 05/20/20 08:56 05/20/20 08:57 Temperature Pulse Rate 111 H 115 H 115 H Respiratory Rate 26 H 15 Blood Pressure Pulse Oximetry 99 99 05/20/20 09:00 05/20/20 09:03 05/20/20 10:00 Temperature 99.4 F Pulse Rate 114 H 114 H 110 H Respiratory Rate 19 21 H 19 Blood Pressure 112/55 L 111/56 L Pulse Oximetry 99 100 05/20/20 11:24 05/20/20 12:00 05/20/20 12:44 Temperature 98.7 F Pulse Rate 107 H 105 H 103 H Respiratory Rate 16 19 Blood Pressure 112/54 L Pulse Oximetry 100 100 100 05/20/20 14:00 Temperature Pulse Rate 104 H Respiratory Rate 22 H Blood Pressure 106/46 L Pulse Oximetry 100 Intake/Output Intake/Output: Intake & Output 05/17/20 05/18/20
--- NOTE | 2020-05-21 08:16 | SUR.OPER ---
Moderate sedation given per ANDREA CARUSO RN PER ORDERS DR. JEAN
--- NOTE | 2020-05-23 17:13 | PM.DS ---
DS: Admitting Diagnosis Admitting Diagnosis Admitting Diagnosis: Acute on chronic systolic heart failure with hypotension and hypothermia. DS: Discharge Diagnosis Discharge Diagnosis (1) Acute on chronic respiratory failure with hypoxia and hypercapnia: Code(s): J96.21 - Acute and chronic respiratory failure with hypoxia; J96.22 - Acute and chronic respiratory failure with hypercapnia Status: Acute Assessment and Plan: Patient with chronic respiratory failure with hypoxia on home oxygen therapy. Patient was continually on mechanical ventilation and had tracheostomy 05/18. Appears to be CHF related but cannot exclude infectious process. stopped cefepime and vancomycin after 7 days. cultures NG. To long-term [facility] facility at discharge. (2) Hypoglycemia: Code(s): E16.2 - Hypoglycemia, unspecified Status: Acute Assessment and Plan: On admission was requiring D10 to maintain normal sugar. She takes Basaglar 40 units at night as only medication listed. Blood sugar rising and Lantus restarted and increased to 42U with fbs of 199 had discharge (3) Contusion of scalp: Code(s): S00.03XA - Contusion of scalp, initial encounter Status: Acute Assessment and Plan: Scalp contusion most likely related to a fall. CT of the brain and cervical spine showing no acute findings otherwise. Continue current care. (4) Hypothermia: Code(s): T68.XXXA - Hypothermia, initial encounter Status: Acute Assessment and Plan: Temperature here documented at 87.4? 1 admission.. This is improved and now normo thermic . Continue to monitor. (5) Elevated troponin: Code(s): R77.8 - Other specified abnormalities of plasma proteins Status: Acute Assessment and Plan: Troponin has climbed to 0.24. She has coronary disease with history of myocardial infarction and stents. She also has ischemic cardiomyopathy with ICD. EKG with considerable baseline artifact. CXR showing evidence of CHF. Echo EF 35% with no obvious wall motion abnormalities Seen by cardiology no further intervention to his conservative medical treatment (6) Chronic systolic congestive heart failure: Code(s): I50.22 - Chronic systolic (congestive) heart failure Status: Acute Assessment and Plan: patient has a history of ischemic cardiomyopathy with ICD. Chest x-ray consistent with CHF. Patient with acute on chronic systolic heart failure. EF 35% as above. hemodialysis to control fluid status. Blood pressure was too low to support beta-blockers or CHAO inhibitors (7) Type 1 diabetes mellitus: Qualifiers: Diabetes mellitus complication status: with circulatory complication Code(s): E10.9 - Type 1 diabetes mellitus without complications Status: Chronic Assessment and Plan: A1c 5.7. Glucose reviewed daily and on 05/20/20. Continue Accu-Cheks. Insulin was held initially due to the hypoglycemia but with increasing BS restarted lantus as above now increased to 42U HS,. fbs 199 today had discharge (8) End-stage renal disease on hemodialysis: Code(s): N18.6 - End stage renal disease; Z99.2 - Dependence on renal dialysis Status: Inactive Assessment and Plan: As above. Continue hemodialysis, . Sunday and Sunday (9) Anemia of chronic disease: Code(s): D63.8 - Anemia in other chronic diseases classified elsewhere Status: Acute Assessment and Plan: Hemoglobin 12.8 on admission. Suspect this was hemoconcentrated initially. Hemoglobin today is 8.0 which is more in line with prior values. Continue to monitor. platelet stable 133K (10) Chronic obstructive pulmonary disease: Qualifiers: COPD type: unspecified COPD Qualified Code(s): J44.9 - Chronic obstructive pulmonary disease, unspecified Code(s): J44.9 - Chronic obstructive pulmona
== END 2020-05-20 16:53 | DRG 4 ==
LOC: ANHED 12:16 → ANHICU 18:21
PROVIDERS: Family Medicine; Internal Medicine; Internal Medicine Cardiovascular Disease; Internal Medicine Gastroenterology; Internal Medicine Nephrology; Otolaryngology; Physician Assistant; Admitting Provider Internal Medicine; Emergency Provider General Practice; PCP Family Medicine; Visit Provider Internal Medicine
PROC: 0B110F4 Bypass Trachea to Cutaneous with Tracheostomy Device, Open Approach (ICD-10-PCS; principal; 2020-05-18 12:15)
PROC: 0DJ08ZZ Inspection of Upper Intestinal Tract, Via Natural or Artificial Opening Endoscopic (ICD-10-PCS; CPT 43235; principal; 2020-05-19 11:00)
PROC: 0DH63UZ Insertion of Feeding Device into Stomach, Percutaneous Approach (ICD-10-PCS; CPT 43246; 2020-05-19 11:00)
DX: J96.21 Acute and chronic respiratory failure with hypoxia (principal); N18.6 End stage renal disease; I50.23 Acute on chronic systolic (congestive) heart failure; I13.2 Hypertensive heart and chronic kidney disease with heart failure and with stage 5 chronic kidney disease, or end stage renal disease; L97.429 Non-pressure 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 with unspecified severity; G93.40 Encephalopathy, unspecified; B49 Unspecified mycosis; R13.19 Other dysphagia; E10.621 Type 1 diabetes mellitus with foot ulcer; E10.649 Type 1 diabetes mellitus with hypoglycemia without coma; J96.22 Acute and chronic respiratory failure with hypercapnia; Z20.822 Contact with and (suspected) exposure to COVID-19; D63.1 Anemia in chronic kidney disease; E10.22 Type 1 diabetes mellitus with diabetic chronic kidney disease; Z99.2 Dependence on renal dialysis; D69.6 Thrombocytopenia, unspecified; I25.10 Atherosclerotic heart disease of native coronary artery without angina pectoris; I25.5 Ischemic cardiomyopathy; Z99.81 Dependence on supplemental oxygen; J44.9 Chronic obstructive pulmonary disease, unspecified; E10.42 Type 1 diabetes mellitus with diabetic polyneuropathy; E10.319 Type 1 diabetes mellitus with unspecified diabetic retinopathy without macular edema; S00.03XA Contusion of scalp, initial encounter; W19.XXXA Unspecified fall, initial encounter; M79.89 Other specified soft tissue disorders; T68.XXXA Hypothermia, initial encounter; N25.0 Renal osteodystrophy; E78.5 Hyperlipidemia, unspecified; R79.89 Other specified abnormal findings of blood chemistry; R77.8 Other specified abnormalities of plasma proteins; E10.59 Type 1 diabetes mellitus with other circulatory complications; I25.2 Old myocardial infarction; Z79.4 Long term (current) use of insulin; Z79.82 Long term (current) use of aspirin; Z79.899 Other long term (current) drug therapy; Z87.891 Personal history of nicotine dependence; Z95.5 Presence of coronary angioplasty implant and graft; Z95.810 Presence of automatic (implantable) cardiac defibrillator
CPT/HCPCS: 31500; 36415; 36556; 36600; 43246; 70450; 71045; 72125; 74018; 76705; 80048; 80053; 80069; 80074; 80202; 80307; 81001; 82140; 82274; 82375; 82533; 82550; 82805; 83036; 83050; 83605; 83690; 83735; 83880; 84100; 84439; 84443; 84480; 84484; 85025; 85027; 85055; 85610; 85730; 86140; 87040; 87070; 87086; 87205; 87340; 87635; 93005; 93971; 94003; 94640; 95816; 96360; 96361; 99291; A9270; C1751; C8929; C9113; C9803; G0257; J0330; J0456; J0690; J0692; J0696; J1610; J1644; J1815; J2250; J2370; J2704; J2997; J3010; J3370; J7030; J7040; J7070; J7120; P9047; Q5106; Q9957; U0003